=== PATIENT | female | born 1955 | race Caucasian/White ===

== ENCOUNTER 2017-01-24 04:05 | Emergency (ER) | payer MEDICARE, OTHER ==
[2017-01-24] MEDS ORDERED: Lidocaine 2% with EPINEPHrine 1:100,000 20 ML MDV INJECT ONE (04:46)
--- NOTE | 2017-01-24 05:07 | EDM.PDOC ---
ED HPI GENERAL MEDICAL PROBLEM - General Chief Complaint: Head Injury Stated Complaint: Head injury Time Seen by Provider: 01/24/17 04:40 Source of Information: Reports: Patient, Family History Limitations: Reports: No Limitations - History of Present Illness INITIAL COMMENTS - FREE TEXT/NARRATIVE: Patient brought here by her after losing her balance and falling. She hit her head on the corner of a table and does have quite a lot of bleeding. No neurologic symptoms. No complaints of headache, did not lose consciousness. No other symptoms. They did apply pressure and ice before coming in this morning. Onset: Today, Sudden Location: Reports: Head Quality: Reports: Sharp Severity: Mild Treatments STUDENT ADMISSIONS CLERK: Reports: Cold Therapy, Other (see below) (pressure) - Related Data Allergies Allergy/AdvReac Type Severity Reaction Status Date / Time atenolol Allergy Cannot Verified 01/24/17 04:23 Remember celecoxib [From Celebrex] Allergy Cannot Verified 01/24/17 04:23 Remember cephalexin monohydrate Allergy Nausea Verified 01/24/17 04:23 [From Keflex] gentamicin [Gentamicin] Allergy Hives Verified 01/24/17 04:23 naproxen [From Naprosyn] Allergy Cannot Verified 01/24/17 04:23 Remember oxycodone [Oxycodone] Allergy Cannot Verified 01/24/17 04:23 Remember Penicillins Allergy Cannot Verified 01/24/17 04:23 Remember shellfish derived Allergy Edema Verified 01/24/17 04:23 Sulfa (Sulfonamide Allergy Cannot Verified 01/24/17 04:23 Antibiotics) Remember Tetracyclines Allergy Cannot Verified 01/24/17 04:23 Remember ataryl Allergy Cannot Uncoded 01/24/17 04:23 Remember contrast dye Allergy Cannot Uncoded 01/24/17 04:23 Remember Home Meds: Home Meds Allopurinol [Zyloprim] 100 mg PO DAILY 07/28/13 [History] Aspirin [[place] Aspirin] 2 tab PO DAILY 07/28/13 [History] Calcitriol [Rocaltrol] 0.25 mcg PO 07/28/13 [History] Cholecalciferol (Vitamin D3) [Vitamin D] 2,000 unit PO DAILY 07/28/13 [History] Clopidogrel [Plavix] 1.5 tab PO DAILY 07/28/13 [History] Cyanocobalamin (Vitamin B12) [Cyanocobalamin] 1,000 mcg PO DAILY 07/28/13 [ History] Cyclobenzaprine [Flexeril] 10 mg PO BEDTIME 07/28/13 [History] DULoxetine [Cymbalta] 60 mg PO DAILY 07/28/13 [History] Furosemide [Lasix] 10 - 20 mg PO DAILY 07/28/13 [History] Glucagon,Human Recombinant [Glucagon Emergency Kit] 1 mg SUBCUT ASDIRECTED PRN 07/28/13 [History] Hydrocodone/Acetaminophen [Lorcet 10-650 Tablet] 1 each PO DAILY PRN 07/28/13 [ History] Hydrocodone/Acetaminophen [Lorcet 10-650 Tablet] 2 tab PO ACBED PRN 07/28/13 [ History] Insulin Glarg,Human.Rec.Analog [LantUS] 45 unit SUBCUT DAILY 07/28/13 [History] Insulin Lispro [HumaLOG] 20 - 27 units SUBCUT TID 07/28/13 [History] Isosorbide Mononitrate [Isosorbide Mononitrate ER] 0.5 tab PO DAILY 07/28/13 [ History] Levothyroxine Sodium [Synthroid] 300 mcg PO DAILY 07/28/13 [History] Lisinopril [Prinivil] 0.5 tab PO DAILY 07/28/13 [History] Metoclopramide [Reglan] 5 mg PO ACBED 07/28/13 [History] Metoprolol Succinate [Toprol XL 100mg] 100 mg PO DAILY 07/28/13 [History] Nitroglycerin [Nitrostat] 0.4 mg SL PRN 07/28/13 [History] Nortriptyline HCl [Pamelor] 10 mg PO 07/28/13 [History] Ursodiol [Actigal] 300 mg PO 07/28/13 [History] Vitamin E (Dl,Tocopheryl Acet) [Vitamin E] 2 tab PO DAILY 07/28/13 [History] atorvaSTATin [Lipitor] 20 mg PO BEDTIME 07/28/13 [History] Past Medical History HEENT History: Reports: Cataract Cardiovascular History: Reports: Heart Murmur, High Cholesterol, Hypertension Gastrointestinal History: Reports: Cirrhosis, GERD Genitourinary History: Reports: Acute Renal Failure Other Genitourinary History: stage 3 Musculoskeletal History: Reports: Other (See Below) Other Musculoskeletal History: Turners syndrome Neurological History: Reports: Neuropathy, Diabetic Psychiatric History: Reports: Depression Endocrine/Metabolic History: Reports: Diabetes, Type I, Hypothyroidism - Past Surgical History HEENT Surgical History: Reports: Cataract Surgery Cardiovascular Surgical History: Reports: Coronary Artery Stent Social & Family History - Tobacco Use Smoking Status *Q: Never Smoker - Alcohol Use Days Per Week of Alcohol Use: 0 - Recreational Drug Use Recreational Drug Use: No ED ROS GENERAL - Review of Systems Review Of Systems: See Below Constitutional: Reports: No Symptoms HEENT: Reports: No Symptoms Respiratory: Reports: No Symptoms Cardiovascular: Reports: No Symptoms Endocrine: Reports: No Symptoms GI/Abdominal: Reports: No Symptoms : Reports: No Symptoms Musculoskeletal: Reports: No Symptoms Skin: Reports: Wound Neurological: Reports: No Symptoms Psychiatric: Reports: No Symptoms Hematologic/Lymphatic: Reports: No Symptoms Immunologic: Reports: No Symptoms ED EXAM, HEAD INJURY - Physical Exam Exam: See Below Exam Limited By: No Limitations General Appearance: Alert, WD/WN, No Apparent Distress Head: Scalp Lacerations (posterior occiput) Eyes: Bilateral Eye: EOMI, PERRL Ears: Normal TMs Nose: Normal Inspection Throat/Mouth: Normal Inspection, Normal Oropharynx Neck: Non-Tender, Full Range of Motion, Normal Alignment, Normal Inspection Respiratory: No Respiratory Distress, No Accessory Muscle Use Cardiovascular: Normal Peripheral Pulses, Regular Rate, Rhythm, No Edema GI/Abdominal Exam: Normal Bowel Sounds, Soft Back Exam: Normal Inspection Extremities: Normal Inspection, Normal Range of Motion, Normal Capillary Refill Neurologic: security officer II-XII nml As Tested, No Motor/Sensory Deficits, Alert, Normal Mood/Affect, Oriented x 3 - Sarah Ann Coma Score Best Eye Response (Debbi): (4) Open Spontaneously Best Verbal Response (Sarah Ann): (5) Oriented Best Motor Response (Sarah Ann): (6) Obeys Commands ED LACERATION/WOUND & TERESO PROC - Laceration/Wound Repair Middle Occipital Lac/wound length in cm: 3 Appearance: Linear Distal NVT: Neuro & Vascular Intact Anesthetic Type: Local Local Anesthesia - Lidocaine (Xylocaine): 2% with EPI Local Anesthetic Volume: 4cc Skin Prep: Chlorhexidine (Hibiciens), Saline Exploration/Debridement/Repair: Wound Explored, Explored to Base, No Foreign Material Found Closed with: Micaela # of Sutures: 5 Drain Placement: No Sterile Dressing Applied: Nurse Tetanus Status Addressed: No Complications: No Lower Occipital Lac/wound length in cm: 0.5 Appearance: Linear Distal NVT: Neuro & Vascular Intact Anesthetic Type: Local Local Anesthesia - Lidocaine (Xylocaine): 2% with EPI Local Anesthetic Volume: 3cc Skin Prep: Chlorhexidine (Hibiciens), Saline Exploration/Debridement/Repair: Wound Explored, Explored to Base, No Foreign Material Found Closed with: Micaela # of Sutures: 5 Course - Orders/Labs/Meds Meds: Medications Discontinued Medications Generic Name Dose Route Start Last Admin Trade Name Windy PRN Reason Stop Dose Admin Lidocaine/Epinephrine 20 ml 01/24/17 04:46 Xylocaine 2% With Epinephrine 1:100,000 INJECT 01/24/17 04:47 ONETIME ONE - Re-Assessments/Exams Free Text/Narrative Re-Assessment/Exam: 01/24/17 05:43 posterior occiput with 2 large hematomas and lacerations to each. Sites cleaned , inspected with micaela inserted to each. Patient did tolerate well. Pressure dressing applied. Intact neuro status. Departure - Departure Time of Disposition: 06:04 Disposition: Home, Self-Care 01 Condition: Good Clinical Impression: Laceration of head without foreign body - Discharge Information Instructions: Hematoma, [id number], Head Injury, Adult, [id number], Wound Infection, [id number] Additional Instructions: Keep your dressing applied for the next 1-2 days. Do not shower until Thursday. Go to the clinic to have your micaela removed in 7-10 days Watch for signs of infection which include temperature greater than 101.5 F, increased redness, warmth, swelling, oozing from the wound site. You may shower on Thursday. Pat dry the area, do not vigorously scrub your head in the 2 areas with lacerations as this may cause them to start oozing blood. Please call us if you have any questions or concerns. - Problem List & Annotations (1) Laceration of head without foreign body SNOMED Code(s): 910645012 Code(s): S01.91XA - LACERATION W/O FOREIGN BODY OF UNSP PART OF HEAD, INIT Status: Acute Priority: Low Qualifiers: Encounter type: initial encounter Location of open wound of head: unspecified part of head Qualified Code(s): S01.91XA - Laceration without foreign body of unspecified part of head, initial encounter - Problem List Review Problem List Initiated/Reviewed/Updated: Yes - Assessment/Plan Assessment:: posterior head laceration of occiput x 2 Plan: Keep your dressing applied for the next 1-2 days. Do not shower until Thursday. Go to the clinic to have your micaela removed in 7-10 days Watch for signs of infection which include temperature greater than 101.5 F, increased redness, warmth, swelling, oozing from the wound site. You may shower on Thursday. Pat dry the area, do not vigorously scrub your head in the 2 areas with lacerations as this may cause them to start oozing blood. Please call us if you have any questions or concerns.
[2017-01-24 07:56] VITALS: BP 112/75
== END 2017-01-24 06:06 | disposition home or self-care (01) ==
LOC: VM.ED 04:05
DX: S01.01XA Laceration without foreign body of scalp, initial encounter (principal); I10 Essential (primary) hypertension; E78.00 Pure hypercholesterolemia, unspecified; K21.9 Gastro-esophageal reflux disease without esophagitis; F32.9 Major depressive disorder, single episode, unspecified; E10.40 Type 1 diabetes mellitus with diabetic neuropathy, unspecified; E03.9 Hypothyroidism, unspecified; Z88.5 Allergy status to narcotic agent; Z88.1 Allergy status to other antibiotic agents; Z88.8 Allergy status to other drugs, medicaments and biological substances; Z88.0 Allergy status to penicillin; Z88.2 Allergy status to sulfonamides; Z91.013 Allergy to seafood; Z91.041 Radiographic dye allergy status; Z79.82 Long term (current) use of aspirin; Z79.4 Long term (current) use of insulin; Z79.899 Other long term (current) drug therapy; Z95.5 Presence of coronary angioplasty implant and graft; W07.XXXA Fall from chair, initial encounter
CPT/HCPCS: 12002; 99283; 99283-GF-25

== ENCOUNTER 2018-01-12 11:58 | Observation (INO) | payer MEDICARE, OTHER ==
[2018-01-12] MEDS ORDERED: Sodium Chloride 0.9% 1,000 ML IV ONE (12:23)
[2018-01-12] MEDS ORDERED: Sodium Chloride 0.9% 10 ML Syringe FLUSH PRN (12:23)
[2018-01-12] MEDS ORDERED: Insulin Regular, Human 10 UNIT in Dextrose 10% in Water 500 ML IV ONE ×4 (12:27→13:34)
[2018-01-12] MEDS ORDERED: Calcium Gluconate 10% 1 GM/10 ML SDV IVPUSH ONE (13:08)
[2018-01-12] MEDS ORDERED: Insulin Regular, Human 100 Units/ML 3 ML Vial IV ONE (13:39)
--- NOTE | 2018-01-12 13:58 | EDM.PDOC ---
ED HPI GENERAL MEDICAL PROBLEM - General Chief Complaint: General Stated Complaint: GENERAL ILLNESS Time Seen by Provider: 01/12/18 12:23 Source of Information: Reports: Patient, Old Records, Provider (Dr. Mireles contacted) History Limitations: Reports: No Limitations - History of Present Illness INITIAL COMMENTS - FREE TEXT/NARRATIVE: Nae was seen earlier today for some lab draws and incidentally it was found that she had a blood glucose of over 800 and a potassium of 6.6. It was requested that she come into the ER for additional testing. She was found to be completely asymptomatic. She did try to treat her hyperglycemia with 10 units of insulin. Recheck here showed her to be 722. She has no complaints. Onset: Today, Sudden Location: Reports: Generalized Severity: Mild Improves with: Reports: None Worsens with: Reports: None Associated Symptoms: Reports: No Other Symptoms - Related Data Allergies Allergy/AdvReac Type Severity Reaction Status Date / Time atenolol Allergy Cannot Verified 01/24/17 04:23 Remember celecoxib [From Celebrex] Allergy Cannot Verified 01/24/17 04:23 Remember cephalexin monohydrate Allergy Nausea Verified 01/24/17 04:23 [From Keflex] gentamicin [Gentamicin] Allergy Hives Verified 01/24/17 04:23 naproxen [From Naprosyn] Allergy Cannot Verified 01/24/17 04:23 Remember oxycodone [Oxycodone] Allergy Cannot Verified 01/24/17 04:23 Remember Penicillins Allergy Cannot Verified 01/24/17 04:23 Remember shellfish derived Allergy Edema Verified 01/24/17 04:23 Sulfa (Sulfonamide Allergy Cannot Verified 01/24/17 04:23 Antibiotics) Remember Tetracyclines Allergy Cannot Verified 01/24/17 04:23 Remember ataryl Allergy Cannot Uncoded 01/24/17 04:23 Remember contrast dye Allergy Cannot Uncoded 01/24/17 04:23 Remember Home Meds: Home Meds Allopurinol [Zyloprim] 100 mg PO DAILY 07/28/13 [History] Aspirin [[place] Aspirin] 2 tab PO DAILY 07/28/13 [History] Calcitriol [Rocaltrol] 0.25 mcg PO 07/28/13 [History] Cholecalciferol (Vitamin D3) [Vitamin D] 2,000 unit PO DAILY 07/28/13 [History] Clopidogrel [Plavix] 1.5 tab PO DAILY 07/28/13 [History] Cyanocobalamin (Vitamin B12) [Cyanocobalamin] 1,000 mcg PO DAILY 07/28/13 [ History] Cyclobenzaprine [Flexeril] 10 mg PO BEDTIME 07/28/13 [History] DULoxetine [Cymbalta] 60 mg PO DAILY 07/28/13 [History] Furosemide [Lasix] 10 - 20 mg PO DAILY 07/28/13 [History] Glucagon,Human Recombinant [Glucagon Emergency Kit] 1 mg SUBCUT ASDIRECTED PRN 07/28/13 [History] Hydrocodone/Acetaminophen [Lorcet 10-650 Tablet] 1 each PO DAILY PRN 07/28/13 [ History] Hydrocodone/Acetaminophen [Lorcet 10-650 Tablet] 2 tab PO ACBED PRN 07/28/13 [ History] Insulin Glarg,Human.Rec.Analog [LantUS] 45 unit SUBCUT DAILY 07/28/13 [History] Insulin Lispro [HumaLOG] 20 - 27 units SUBCUT TID 07/28/13 [History] Isosorbide Mononitrate [Isosorbide Mononitrate ER] 0.5 tab PO DAILY 07/28/13 [ History] Levothyroxine Sodium [Synthroid] 300 mcg PO DAILY 07/28/13 [History] Lisinopril [Prinivil] 0.5 tab PO DAILY 07/28/13 [History] Metoclopramide [Reglan] 5 mg PO ACBED 07/28/13 [History] Metoprolol Succinate [Toprol XL 100mg] 100 mg PO DAILY 07/28/13 [History] Nitroglycerin [Nitrostat] 0.4 mg SL PRN 07/28/13 [History] Nortriptyline HCl [Pamelor] 10 mg PO 07/28/13 [History] Ursodiol [Actigal] 300 mg PO 07/28/13 [History] Vitamin E (Dl,Tocopheryl Acet) [Vitamin E] 2 tab PO DAILY 07/28/13 [History] atorvaSTATin [Lipitor] 20 mg PO BEDTIME 07/28/13 [History] Past Medical History HEENT History: Reports: Cataract Cardiovascular History: Reports: Heart Murmur, High Cholesterol, Hypertension Gastrointestinal History: Reports: Cirrhosis, GERD Genitourinary History: Reports: Acute Renal Failure Other Genitourinary History: stage 3 Musculoskeletal History: Reports: Other (See Below) Other Musculoskeletal History: Turners syndrome Neurological History: Reports: Neuropathy, Diabetic Psychiatric History: Reports: Depression Endocrine/Metabolic History: Reports: Diabetes, Type I, Hypothyroidism - Past Surgical History HEENT Surgical History: Reports: Cataract Surgery Cardiovascular Surgical History: Reports: Coronary Artery Stent ED ROS GENERAL - Review of Systems Review Of Systems: See Below Constitutional: Reports: No Symptoms HEENT: Reports: No Symptoms Respiratory: Reports: No Symptoms Cardiovascular: Reports: No Symptoms Endocrine: Reports: No Symptoms GI/Abdominal: Reports: No Symptoms : Reports: No Symptoms Musculoskeletal: Reports: No Symptoms Skin: Reports: No Symptoms Neurological: Reports: No Symptoms Psychiatric: Reports: No Symptoms Hematologic/Lymphatic: Reports: No Symptoms Immunologic: Reports: No Symptoms ED EXAM, GENERAL - Physical Exam Exam: See Below Exam Limited By: No Limitations General Appearance: Alert, WD/WN, No Apparent Distress Eye Exam: Bilateral Eye: EOMI, Normal Inspection, PERRL Ears: Normal TMs Ear Exam: Bilateral Ear: Auricle Normal, Canal Normal, TM normal Throat/Mouth: Normal Inspection, Normal Lips, Normal Teeth, Normal Gums, Normal Oropharynx, Normal Voice, No Airway Compromise Head: Atraumatic, Normocephalic Neck: Normal Inspection, Supple, Non-Tender, Full Range of Motion Respiratory/Chest: No Respiratory Distress, Lungs Clear, Normal Breath Sounds, No Accessory Muscle Use, Chest Non-Tender Cardiovascular: Normal Peripheral Pulses, Regular Rate, Rhythm, No Edema, No Gallop, No JVD, No Murmur, No Rub Peripheral Pulses: 2+: Radial (L), Radial (R), Posterior Tibial (L), Posterior Tibial (R), Dorsalis Pedis (L), Dorsalis Pedis (R) GI/Abdominal: Normal Bowel Sounds, Soft, Non-Tender, No Organomegaly, No Distention, No Abnormal Bruit, No Mass Neurological: Alert, Oriented, CN II-XII Intact, Normal Cognition, Normal Gait, Normal Reflexes, No Motor/Sensory Deficits Psychiatric: Normal Affect, Normal Mood Skin Exam: Warm, Dry, Intact, Normal Color, No Rash Lymphatic: No Adenopathy Course - Orders/Labs/Meds Orders: Active Orders 24 hr Category Date Time Status EKG Documentation Completion [RC] STAT Care 01/12/18 12:23 Active URINALYSIS W/MICROSCOPIC [UA W/MICROSCOPIC] [URIN] Stat Lab 01/12/18 12:55 Ordered Sodium Chloride 0.9% [Saline Flush] Med 01/12/18 12:23 Active 10 ml FLUSH ASDIRECTED PRN Saline Lock Insert [OM.PC] Routine Oth 01/12/18 12:23 Ordered Medication Orders Sodium Chloride (Saline Flush) 10 ml FLUSH ASDIRECTED PRN PRN Reason: Keep Vein Open Labs: Laboratory Tests 01/12/18 01/12/18 01/12/18 Range/Units 12:24 12:51 12:51 Glucose 712 H* (74-106) mg/dL POC Glucose > 500 H* (74-106) mg/dL Phosphorus 4.7 (2.6-4.7) mg/dL Magnesium 1.6 L (1.8-2.4) mg/dL Urine Color (YELLOW) Urine Appearance (CLEAR) Urine pH (5.0-8.0) Ur Specific [place] Urine Protein (NEGATIVE) mg/dL Urine Glucose (UA) (NEGATIVE) mg/dL Urine Ketones (NEGATIVE) mg/dL Urine Occult Blood (NEGATIVE) Urine Nitrite (NEGATIVE) Urine Bilirubin (NEGATIVE) Urine Urobilinogen (0.2) EU/dL Ur Leukocyte Esterase (NEGATIVE) Urine RBC (NOT SEEN) /HPF Urine WBC (NOT SEEN) /HPF Ur Squamous Epith Cells (NEGATIVE) /HPF Urine Bacteria (NEGATIVE) /HPF Urine Mucus (NEGATIVE) /LPF 01/12/18 Range/Units 12:55 Glucose (74-106) mg/dL POC Glucose (74-106) mg/dL Phosphorus (2.6-4.7) mg/dL Magnesium (1.8-2.4) mg/dL Urine Color Yellow (YELLOW) Urine Appearance Slightly cloudy H (CLEAR) Urine pH 5.5 (5.0-8.0) Ur Specific [place] 1.010 Urine Protein Negative (NEGATIVE) mg/dL Urine Glucose (UA) 500 H (NEGATIVE) mg/dL Urine Ketones Negative (NEGATIVE) mg/dL Urine Occult Blood Trace-intact H (NEGATIVE) Urine Nitrite Negative (NEGATIVE) Urine Bilirubin Negative (NEGATIVE) Urine Urobilinogen 0.2 (0.2) EU/dL Ur Leukocyte Esterase Negative (NEGATIVE) Urine RBC 0-5 (NOT SEEN) /HPF Urine WBC 0-5 (NOT SEEN) /HPF Ur Squamous Epith Cells Moderate H (NEGATIVE) /HPF Urine Bacteria Moderate H (NEGATIVE) /HPF Urine Mucus Few H (NEGATIVE) /LPF Meds: Medications Generic Name Dose Route Start Last Admin Trade Name Frelevi PRN Reason Stop Dose Admin Sodium Chloride 10 ml 01/12/18 12:23 Saline Flush FLUSH ASDIRECTED PRN Keep Vein Open Discontinued Medications Generic Name Dose Route Start Last Admin Trade Name Freq PRN Reason Stop Dose Admin Calcium Gluconate 1 gm 01/12/18 13:08 01/12/18 13:24 Calcium Gluconate IVPUSH 01/12/18 13:09 1 gm ONETIME ONE Administration Sodium Chloride 1,000 mls @ 999 mls/hr 01/12/18 12:23 01/12/18 13:38 Normal Saline IV 01/12/18 13:23 999 mls/hr ONETIME ONE Administration Insulin Human Regular 10 unit/ 500.1 mls @ 500 mls/hr 01/12/18 12:27 Dextrose/Water IV 01/12/18 13:27 ONETIME ONE Insulin Human Regular 10 unit/ 500.1 mls @ 500 mls/hr 01/12/18 13:34 Dextrose/Water IV 01/12/18 14:34 ONETIME ONE Insulin Human Regular 10 unit 01/12/18 13:39 01/12/18 13:05 Humulin R IV 01/12/18 13:40 10 unit ONETIME ONE Administration - Re-Assessments/Exams Free Text/Narrative Re-Assessment/Exam: 01/12/18 13:58 Urine collected as well as magnesium, phos., EKG Departure - Departure Time of Disposition: 13:45 Disposition: Refer to Observation Clinical Impression: Hyperglycemia, Hyperkalemia - Discharge Information *PRESCRIPTION DRUG MONITORING PROGRAM REVIEWED*: Not Applicable *COPY OF PRESCRIPTION DRUG MONITORING REPORT IN PATIENT ROSS: Not Applicable - Problem List & Annotations (1) Hyperglycemia SNOMED Code(s): 12165817 Code(s): R73.9 - HYPERGLYCEMIA, UNSPECIFIED Status: Acute Current Visit: Yes (2) Hyperkalemia SNOMED Code(s): 13984927 Code(s): E87.5 - HYPERKALEMIA Status: Acute Current Visit: Yes - Problem List Review Problem List Initiated/Reviewed/Updated: Yes - My Orders Last 24 Hours: My Active Orders 01/12/18 12:23 EKG Documentation Completion [RC] STAT Sodium Chloride 0.9% [Saline Flush] 10 ml FLUSH ASDIRECTED PRN Saline Lock Insert [OM.PC] Routine 01/12/18 12:55 URINALYSIS W/MICROSCOPIC [UA W/MICROSCOPIC] [URIN] Stat - Assessment/Plan Last 24 Hours: My Active Orders 01/12/18 12:23 EKG Documentation Completion [RC] STAT Sodium Chloride 0.9% [Saline Flush] 10 ml FLUSH ASDIRECTED PRN Saline Lock Insert [OM.PC] Routine 01/12/18 12:55 URINALYSIS W/MICROSCOPIC [UA W/MICROSCOPIC] [URIN] Stat Assessment:: Hyperkalemia Hyperglycemia Plan: Plan 1. Admit to observation 2. hyperkalemia - treat with insulin and calcium gluconate 3. hyperglycemia - treat with insulin Discharge later this afternoon with potassium under 6, glucose under 500 and referral for recheck with primary provider tomorrow
[2018-01-12 17:19] VITALS: BP 127/72
--- NOTE | 2018-01-12 20:27 | PCM.DCSUM1 ---
Discharge Summary - Hospital Course Brief History: Patient admitted for brief observation for hyperkalemia and hyperglycemia incidentally found at the clinic. Asymptomatic. Diagnosis: Stroke: No - Discharge Data Discharge Date: 01/12/18 Discharge Disposition: Home, Self-Care 01 Condition: Good - Discharge Diagnosis/Problem(s) (1) Hyperglycemia SNOMED Code(s): 20280747 ICD Code: R73.9 - HYPERGLYCEMIA, UNSPECIFIED Status: Acute Priority: Medium Current Visit: Yes Problem Details: resolved (2) Hyperkalemia SNOMED Code(s): 80970595 ICD Code: E87.5 - HYPERKALEMIA Status: Acute Priority: Medium Current Visit: Yes Problem Details: resolved - Patient Instructions Diet: Usual Diet as Tolerated Activity: As Tolerated - Discharge Plan *PRESCRIPTION DRUG MONITORING PROGRAM REVIEWED*: Not Applicable *COPY OF PRESCRIPTION DRUG MONITORING REPORT IN PATIENT ROSS: Not Applicable Home Medications: Home Meds Cyanocobalamin (Vitamin B12) [Cyanocobalamin] 1,000 mcg IM Q30D 07/28/13 [ History] Cyclobenzaprine [Flexeril] 10 mg PO BEDTIME 07/28/13 [History] DULoxetine [Cymbalta] 60 mg PO BEDTIME 07/28/13 [History] Glucagon,Human Recombinant [Glucagon Emergency Kit] 1 mg SUBCUT ASDIRECTED PRN 07/28/13 [History] Insulin Lispro [HumaLOG] 0 units SUBCUT ASDIRECTED 07/28/13 [History] Isosorbide Mononitrate [Isosorbide Mononitrate ER] 30 mg PO Q48H 07/28/13 [ History] Metoclopramide [Reglan] 5 mg PO ACBED 07/28/13 [History] Nitroglycerin [Nitrostat] 0.4 mg SL ASDIRECTED PRN 07/28/13 [History] Nortriptyline HCl [Pamelor] 10 mg PO BID@0800,1300 07/28/13 [History] Ursodiol [Actigal] 600 mg PO BID@0800,1200 07/28/13 [History] Vitamin E (Dl,Tocopheryl Acet) [Vitamin E] 400 unit PO BID 07/28/13 [History] atorvaSTATin [Lipitor] 20 mg PO BEDTIME 07/28/13 [History] Aspirin [Halfprin] 162 mg PO DAILY 01/12/18 [History] Cholecalciferol (Vitamin D3) [Vitamin D3] 1,000 unit PO BID 01/12/18 [History] Cyanocobalamin (Vitamin B-12) [B-12] 1,000 mcg PO DAILY 01/12/18 [History] Ferrous Gluconate 324 mg PO Q48H 01/12/18 [History] Gabapentin [Neurontin] 300 mg PO TID 01/12/18 [History] Hydrocodone/Acetaminophen [Hydrocodon-Acetaminophn 10-325] 1 tab PO Q6H PRN [History] Insulin Degludec [Tresiba Flextouch U-100] 14 unit SQ BEDTIME 01/12/18 [History] Levothyroxine 200 mcg PO ACBREAKFAST 01/12/18 [History] Metoclopramide [Reglan] 5 mg PO TIDAC 01/12/18 [History] Metoprolol Succinate [Toprol XL 50mg] 50 mg PO DAILY 01/12/18 [History] Nortriptyline 20 mg PO BEDTIME 01/12/18 [History] Pramipexole [Mirapex] 0.5 mg PO BEDTIME 01/12/18 [History] Sennosides/Docusate Sodium [Sennosides-Docusate Sodium] 1 tab PO BID 01/12/18 [ History] Ursodiol 300 mg PO BEDTIME 01/12/18 [History] oxyCODONE HCl [Oxycodone HCl ER] 15 mg PO BID 01/12/18 [History] Patient Handouts: Hyperkalemia, Hyperglycemia, [id number] Forms: ED Department Discharge Referrals: Vernell Mireles DO [Primary Care Provider] - - Discharge Summary/Plan Comment DC Time >30 min.: No - General Info Date of Service: 01/12/18 Admission Dx/Problem (Free Text: hyperglycemia hyperkalemia - Review of Systems General: Reports: No Symptoms HEENT: Reports: No Symptoms Pulmonary: Reports: No Symptoms Cardiovascular: Reports: No Symptoms Gastrointestinal: Reports: No Symptoms Genitourinary: Reports: No Symptoms Musculoskeletal: Reports: No Symptoms Skin: Reports: No Symptoms Neurological: Reports: No Symptoms Psychiatric: Reports: No Symptoms - Patient Data Vitals - Most Recent: Last Vital Signs Temp 36.4 C 01/12/18 17:18 Pulse 68 01/12/18 17:18 Resp 16 01/12/18 17:18 BP 127/72 01/12/18 17:18 Pulse Ox 100 01/12/18 17:18 Weight - Most Recent: 68.039 kg I&O - Last 24 hours: Intake & Output 01/12/18 01/12/18 01/12/18 06:59 14:59 22:59 Intake Total 1304 Output Total 950 Balance 354 Lab Results - Last 24 hrs: Laboratory Results - last 24 hr 01/12/18 01/12/18 01/12/18 Range/Units 12:24 12:51 12:51 Potassium (3.5-5.1) mmol/L Glucose 712 H* (74-106) mg/dL POC Glucose > 500 H* (74-106) mg/dL Phosphorus 4.7 (2.6-4.7) mg/dL Magnesium 1.6 L (1.8-2.4) mg/dL Urine Color (YELLOW) Urine Appearance (CLEAR) Urine pH (5.0-8.0) Ur Specific [place] Urine Protein (NEGATIVE) mg/dL Urine Glucose (UA) (NEGATIVE) mg/dL Urine Ketones (NEGATIVE) mg/dL Urine Occult Blood (NEGATIVE) Urine Nitrite (NEGATIVE) Urine Bilirubin (NEGATIVE) Urine Urobilinogen (0.2) EU/dL Ur Leukocyte Esterase (NEGATIVE) Urine RBC (NOT SEEN) /HPF Urine WBC (NOT SEEN) /HPF Ur Squamous Epith Cells (NEGATIVE) /HPF Urine Bacteria (NEGATIVE) /HPF Urine Mucus (NEGATIVE) /LPF 01/12/18 01/12/18 01/12/18 Range/Units 12:55 15:14 16:45 Potassium (3.5-5.1) mmol/L Glucose (74-106) mg/dL POC Glucose > 500 H* > 500 H* (74-106) mg/dL Phosphorus (2.6-4.7) mg/dL Magnesium (1.8-2.4) mg/dL Urine Color Yellow (YELLOW) Urine Appearance Slightly cloudy H (CLEAR) Urine pH 5.5 (5.0-8.0) Ur Specific [place] 1.010 Urine Protein Negative (NEGATIVE) mg/dL Urine Glucose (UA) 500 H (NEGATIVE) mg/dL Urine Ketones Negative (NEGATIVE) mg/dL Urine Occult Blood Trace-intact H (NEGATIVE) Urine Nitrite Negative (NEGATIVE) Urine Bilirubin Negative (NEGATIVE) Urine Urobilinogen 0.2 (0.2) EU/dL Ur Leukocyte Esterase Negative (NEGATIVE) Urine RBC 0-5 (NOT SEEN) /HPF Urine WBC 0-5 (NOT SEEN) /HPF Ur Squamous Epith Cells Moderate H (NEGATIVE) /HPF Urine Bacteria Moderate H (NEGATIVE) /HPF Urine Mucus Few H (NEGATIVE) /[facility] 01/12/18 01/12/18 01/12/18 Range/Units 18:08 19:00 19:28 Potassium 4.8 (3.5-5.1) mmol/L Glucose (74-106) mg/dL POC Glucose 302 H 196 H (74-106) mg/dL Phosphorus (2.6-4.7) mg/dL Magnesium (1.8-2.4) mg/dL Urine Color (YELLOW) Urine Appearance (CLEAR) Urine pH (5.0-8.0) Ur Specific [place] Urine Protein (NEGATIVE) mg/dL Urine Glucose (UA) (NEGATIVE) mg/dL Urine Ketones (NEGATIVE) mg/dL Urine Occult Blood (NEGATIVE) Urine Nitrite (NEGATIVE) Urine Bilirubin (NEGATIVE) Urine Urobilinogen (0.2) EU/dL Ur Leukocyte Esterase (NEGATIVE) Urine RBC (NOT SEEN) /HPF Urine WBC (NOT SEEN) /HPF Ur Squamous Epith Cells (NEGATIVE) /HPF Urine Bacteria (NEGATIVE) /HPF Urine Mucus (NEGATIVE) /[facility] 01/12/18 Range/Units 20:07 Potassium (3.5-5.1) mmol/L Glucose (74-106) mg/dL POC Glucose 137 H (74-106) mg/dL Phosphorus (2.6-4.7) mg/dL Magnesium (1.8-2.4) mg/dL Urine Color (YELLOW) Urine Appearance (CLEAR) Urine pH (5.0-8.0) Ur Specific [place] Urine Protein (NEGATIVE) mg/dL Urine Glucose (UA) (NEGATIVE) mg/dL Urine Ketones (NEGATIVE) mg/dL Urine Occult Blood (NEGATIVE) Urine Nitrite (NEGATIVE) Urine Bilirubin (NEGATIVE) Urine Urobilinogen (0.2) EU/dL Ur Leukocyte Esterase (NEGATIVE) Urine RBC (NOT SEEN) /HPF Urine WBC (NOT SEEN) /HPF Ur Squamous Epith Cells (NEGATIVE) /HPF Urine Bacteria (NEGATIVE) /HPF Urine Mucus (NEGATIVE) /LPF Med Orders - Current: Current Medications Insulin Human Regular 100 unit (/ Sodium Chloride) 100 mls @ 6.8 mls/hr IV TITRATE AMINA; Protocol Last Titration: 01/12/18 18:09 Dose: 0.11 units/kg/hr, 7.6 mls/hr Sodium Chloride (Saline Flush) 10 ml FLUSH ASDIRECTED PRN PRN Reason: Keep Vein Open Last Admin: 01/12/18 15:42 Dose: 10 ml Discontinued Medications Calcium Gluconate (Calcium Gluconate) 1 gm IVPUSH ONETIME ONE Stop: 01/12/18 13:09 Last Admin: 01/12/18 13:24 Dose: 1 gm Sodium Chloride (Normal Saline) 1,000 mls @ 999 mls/hr IV ONETIME ONE Stop: 01/12/18 13:23 Last Admin: 01/12/18 13:38 Dose: 999 mls/hr Insulin Human Regular 10 unit/ (Dextrose/Water) 500.1 mls @ 500 mls/hr IV ONETIME ONE Stop: 01/12/18 13:27 Last Admin: 01/12/18 14:53 Dose: Not Given Insulin Human Regular 10 unit/ (Dextrose/Water) 500.1 mls @ 500 mls/hr IV ONETIME ONE Stop: 01/12/18 14:34 Last Admin: 01/12/18 14:53 Dose: Not Given Insulin Human Regular (Humulin R) 10 unit IV ONETIME ONE Stop: 01/12/18 13:40 Last Admin: 01/12/18 13:05 Dose: 10 unit - Exam General: Reports: Alert, Oriented HEENT: Reports: Pupils Equal, Pupils Reactive, EOMI, Mucous Membr. Moist/[place] Neck: Reports: Supple Lungs: Reports: Clear to Auscultation, Normal Respiratory Effort Cardiovascular: Reports: Regular Rate, Regular Rhythm GI/Abdominal Exam: Normal Bowel Sounds, Soft, Non-Tender, No Organomegaly, No Distention, No Abnormal Bruit, No Mass, Pelvis Stable Back Exam: Reports: Normal Inspection, Full Range of Motion Extremities: Normal Inspection, Normal Range of Motion, Non-Tender, No Pedal Edema, Normal Capillary Refill Skin: Reports: Warm, Dry, Intact Neurological: Reports: No New Focal Deficit Psy/Mental Status: Reports: Alert, Normal Affect, Normal Mood
== END 2018-01-12 21:40 | disposition home or self-care (01) ==
LOC: VM.ED 11:58 → VM.MS 13:45
PROVIDERS: ADMIT Nurse Practitioner Family; ATTEND Nurse Practitioner Family
DX: R73.9 Hyperglycemia, unspecified (principal); E87.5 Hyperkalemia; E78.00 Pure hypercholesterolemia, unspecified; I10 Essential (primary) hypertension; N17.9 Acute kidney failure, unspecified; K74.60 Unspecified cirrhosis of liver; K21.9 Gastro-esophageal reflux disease without esophagitis; E10.40 Type 1 diabetes mellitus with diabetic neuropathy, unspecified; E03.9 Hypothyroidism, unspecified; Q96.9 Turner's syndrome, unspecified; Z79.4 Long term (current) use of insulin; Z79.82 Long term (current) use of aspirin; Z79.899 Other long term (current) drug therapy; Z88.0 Allergy status to penicillin; Z88.1 Allergy status to other antibiotic agents; Z88.6 Allergy status to analgesic agent; Z88.8 Allergy status to other drugs, medicaments and biological substances; Z91.013 Allergy to seafood; Z91.041 Radiographic dye allergy status
CPT/HCPCS: 36415; 81001; 82947; 82962; 83735; 84100; 84132; 93005; 96374; 96375; 99284; J0610; J1815; J7030; J7050; 99236

== ENCOUNTER 2018-10-08 09:54 | Inpatient (IN) | payer MEDICARE, OTHER ==
[2018-10-08] MEDS ORDERED: HYDROmorphone 1 MG/ML Syringe IVPUSH PRN (10:14)
[2018-10-08] MEDS ORDERED: Sodium Chloride 0.9% 10 ML Syringe FLUSH PRN (10:14)
[2018-10-08] MEDS ORDERED: Ondansetron 4 MG/2 ML SDV IV PRN (10:14)
[2018-10-08] MEDS ORDERED: Acetaminophen/HYDROcodone 325-10 MG Tab PO PRN (10:20)
[2018-10-08] MEDS ORDERED: Glucagon,Human Recombinant 1 MG Vial SUBCUT PRN (10:20)
[2018-10-08] MEDS ORDERED: Nitroglycerin 0.4 MG Tab.SL SL PRN (10:20)
[2018-10-08] MEDS ORDERED: cefTRIAXone 2 GM Vial IVPUSH ONE (10:20)
[2018-10-08] MEDS ORDERED: Cyanocobalamin (Vitamin B12) 1,000 MCG/ML SDV IM SCH (10:30)
[2018-10-08] MEDS ORDERED: METOCLOPRAMIDE 5 MG PO SCH (11:00)
[2018-10-08 11:32] LABS: ANION GAP 20.8 mmol/L (10-20)
[2018-10-08] MEDS: Aspirin 81 MG Tab.EC PO SCH (11:47)
[2018-10-08] MEDS: Gabapentin 300 MG Cap PO SCH ×2 (11:47→21:07)
[2018-10-08] MEDS: Metoclopramide 5 MG Tab PO SCH ×3 (11:51→21:06)
[2018-10-08] MEDS: Nortriptyline 10 MG Cap PO SCH ×3 (11:51→21:33)
[2018-10-08] MEDS ORDERED: 50% Dextrose in Water 50 ML Syringe IV PRN (12:13)
[2018-10-08] MEDS: Insulin Lispro 100 Unit/ML 3 ML KwikPen SUBCUT PRN ×3 (12:21→21:14)
[2018-10-08] MEDS: oxyCODONE ER 10 MG TAB.ER PO SCH ×2 (12:22→21:05)
[2018-10-08] MEDS: Insulin Lispro 100 Unit/ML 3 ML KwikPen SUBCUT SCH ×2 (12:23→17:24)
[2018-10-08] MEDS: Lactated Ringers 1,000 ML IV SCH ×2 (12:25→15:35)
[2018-10-08] MEDS: Bumetanide 1 MG Tab PO SCH (12:25)
[2018-10-08] MEDS: Metoprolol Succinate 25 MG Tab.ER PO SCH (12:25)
[2018-10-08] MEDS ORDERED: Lactated Ringers 1,000 ML IV ONE (13:13)
[2018-10-08] MEDS ORDERED: Magnesium Sulfate/Water 2 GM in Premix Bag 1 BAG IV ONE (13:14)
[2018-10-08] MEDS: URSODIOL 300 MG PO SCH ×2 (13:45→21:15)
[2018-10-08 15:20] LABS: ANION GAP 15.5 mmol/L (10-20)
--- NOTE | 2018-10-08 15:29 | PCM.HP ---
H&P History of Present Illness - General Date of Service: 10/08/18 Admit Problem/Dx: Admission Diagnosis/Problem Admission Diagnosis/Problem Erysipelas - History of Present Illness Initial Comments - Free Text/Narative: Assessment / Plan Erysipelas Type 1 diabetes mellitus without complication (HCC) CKD (chronic kidney disease) stage 4, GFR 15-29 ml/min (HCC) Coronary artery disease involving saxman heart without angina pectoris, unspecified vessel or lesion type Biliary cirrhosis (HCC) Streptococcal sepsis (HCC) Plan:Nonpurulent facial cellulitis appears consistent with erysipelas. No sign of deep ororbital infection at this time. Display some sepsis by fever, tachycardia, diffuse systemic symptoms. Given her insulin-dependent diabetes, chronic kidney disease, numerous drug intolerances and above sepsis she does require admission to start with IV antibiotics. Erysipelas is almost always beta-hemolytic strep, start with empiric Rocephin. Obtain labs and blood cultures there. Monitor kidney function and sugars. If temps coming down next 48 hours can probably be switched to oral beta-lactam. Hx of biliary cirrhosis, w/o liver failure by bili, alb, INR in past. Hx of CAD, asymptomatic, monitor. Continue ASA While thromboprophylaxis has been reported to reduce the risk of in surgicalpatients, most studies and a meta-analysis have not been ableto show a consistent beneficial effect of thromboprophylaxis on mortality in hospitalized medical patients. It may reduce DVT/PE in medical patients but can lead to more bleeding and major bleeding events, thus resulting in little or no net benefit. In addition, clinicians should be aware that VTE prophylaxis does not eliminate the risk of VTE or VTE-related in hospitalized patients. Malinda Prediction Score for Risk of VTE from [employer] on 10/08/2018 RESULT SUMMARY: 2 points Pharmacologic prophylaxis is NOT indicated. Consider using mechanical prophylaxis. INPUTS: Active cancer > 0 = No Previous <abbr title='Venous thromboembolism'>VTE</abbr> > 0 = No Reduced mobility > 0 = No Already known thrombophilic condition > 0 = No Recent (?1 month trauma and/or surgery) > 0 = No Elderly age (?70 years) > 0 = No Heart and/or respiratory failure > 0 = No Acute <abbr title='Myocardial infarction'>[place]</abbr> and/or ischemic stroke > 0 = No Acute infection and/or rheumatologic disorder > 1 = Yes Obesity (<calculator id='29'>BMI</calculator> ?30) > 1 = Yes Ongoing hormonal treatment > 0 = No Follow Up: No disposition on file. HPI / History / ROS Facial Swellingredness, stings. Getting worse since yesterday. Started 36hr ago then had colonoscopy yesterday in [place] ~24h ago. Had temp then too. Headache Generalized Body Aches Fever No [place] Nonsmoker IDDM, last A1c <7 Hosp last year for severe hyperglycemia CKD4 Numerous drug allergies and intol Medications w MedicationsPriortoVisit w Outpatient Medications Prior to Visit Medication Sig Dispense Refill BD PEN NEEDLE VINCENT U/F 32G X 4 MM USE 1 PEN NEEDLE EVERY NIGHT AT BEDTIME WITH TRESIBA INSULIN PEN 100 each 0 levothyroxine 200 mcg tablet Take 1 tablet (200 mcg) by mouth 1 time per day along with a 50 mcg tablet on an empty stomach 30 min before taking any other med or food. 90 tablet 0 oxyCODONE (OXYCONTIN) 15 mg ER (12 hr) tablet TAKE 1 TABLET BY MOUTH TWICE A DAY 60 tablet 0 HYDROcodone-acetaminophen (NORCO) 10-325 mg tablet JULY FILL-TAKE 1 TABLET BY MOUTH UP TO 4 TIMES A DAY TO HELP WITH PAIN. 120 tablet 0 gabapentin (NEURONTIN) 300 mg capsule Take 1 capsule (300 mg) by mouth 3 times a day 270 capsule 4 sodium bicarbonate 650 MG tablet Take 1 tablet (650 mg) by mouth 2 times a day 180 tablet 3 DULoxetine (CYMBALTA) 60 mg capsule TAKE 1 CAPSULE DAILY 90 capsule 3 pramipexole (MIRAPEX) 0.5 mg tablet TAKE 1 TABLET 2 TO 3 HOURS BEFORE BED 90 tablet 3 atorvaSTATin (LIPITOR) 20 mg tablet TAKE 1 TABLET EVERY NIGHT AT BEDTIME 90 tablet 3 polyethylene glycol (MIRALAX) powder Take 3 teaspoonsful (17 g) by mouth 1 time per day 540 g 3 bumetanide (BUMEX) 1 mg tablet Take 2 tablets (2 mg) by mouth 1 time per day 180 tablet 4 calcitriol (ROCALTROL) 0.25 mcg capsule Take 1 capsule (0.25 mcg) by mouth 1 time per day 90 capsule 4 Continuous Blood Gluc Sensor (PagaE SENSOR SYSTEM) MISC 1 each 4 times a day 3 box 3 Continuous Blood Gluc Reel Fed Printer (FREESTYLE AIDEE READER) ISABELLE 1 each 4 times a day 1 Device 12 levothyroxine 50 mcg tablet Take 1 tablet (50 mcg) by mouth 1 time a day in the morning Along with a 200 mcg tablet 90 tablet 4 ursodiol (ACTIGALL) 300 mg capsule TAKE 2 CAPSULES IN THE MORNING, 2 CAPSULES AT LUNCH, AND 1 CAPSULE AT BEDTIME 450 capsule 3 Metoprolol Succinate 25 MG CS24 Take 25 mg by mouth 1 time per day 90 tablet 3 nortriptyline (PAMELOR) 10 mg capsule TAKE 1 CAPSULE IN THE MORNING, 1 CAPSULE IN THE AFTERNOON AND 2 CAPSULES AT BEDTIME 360 capsule 3 metoclopramide (REGLAN) 5 mg tablet TAKE 1 TABLET BEFORE EACH MEAL AND TAKE 1 TABLET AT BEDTIME TO DECREASE NAUSEA 360 tablet 3 cyclobenzaprine (FLEXERIL) 10 mg tablet TAKE 1 TABLET EVERY NIGHT AT BEDTIME 90 tablet 3 Cyanocobalamin (B-12) 1000 MCG CAPS Take 1,000 mcg by mouth 1 time per day 0 ferrous gluconate (FERGON) 324 (37.5 Fe) MG tablet Take 1 tablet (324 mg) by mouth Every other day 0 insulin degludec (TRESIBA) 100 unit/mL subcutaneous injection (pen) Inject 14 Units subcutaneously every night at bedtime 5 pen 0 insulin lispro (HUMALOG) subcutaneous injection (vial) Inject 4 units before breakfast and 5 units before lunch/supper, and 1 unit/ every 100 mg/dL above 200 mg/dL before meals. Max 30 units/day 3 vial 3 isosorbide mononitrate (IMDUR) 30 mg SR tablet (24 hr) One 30 mg tablet every other day. 45 tablet 3 aspirin 81 mg enteric coated tablet Take 162 mg by mouth 1 time per day senna-docusate sodium (SENOKOT S) 8.6-50 MG TABS Take 1 tablet by mouth 2 times a day vitamin D3, cholecalciferol, 1000 units tablet Take 1,000 Units by mouth 1 time per day vitamin E (VITAMIN E COMPLEX) 400 UNITS capsule Take 400 Units by mouth 2 times a day blood glucose test strip (FREESTYLE LITE) Use to test blood sugar up to 10 times a day d/t blood sugar fluctuations E11.9 900 each 11 INSULIN SYRINGE .5CC/28G (B-D INS SYR MICROFINE .5CC/28G) 28G X 1/2" 0.5 ML MISC Use up to five times daily as directed E11.9 300 each 11 freestyle lancets MISC Use to test blood sugar up to 10 times a day d/t blood sugars fluctuating Dx : E 10.22 300 each 11 glucagon, rDNA, (GLUCAGON EMERGENCY) 1 mg injection kit INJECT 1 MG SUBCUTANEOUSLY NEEDED FOR HYPOGLYCEMIA 3 Kit 5 NITROSTAT 0.4 MG sublingual tablet DISSOLVE 1 TABLET UNDER THE TONGUE EVERY 5 MINUTES NEEDED FOR CHEST PAIN 75 tablet 11 Facility-Administered Medications Prior to Visit Medication Dose Route Frequency Provider Last Rate Last Dose cyanocobalamin (VITAMIN B-12) injection solution 1,000 mcg 1,000 mcg Intramuscular 1 time a month Vernell Mireles DO 1,000 mcg at 12/24/17 1009 Allergies w w w w w Allergies l Allergen l Reactions w w Penicillin w Other (Specify in Comments) w w w Unsure, was young w w Gentamicin Sulfate w Hives (High) and Rash w w Shellfish Allergy w Anaphylaxis (High) w w w Throat and eyes swelled up w w Antihistamine [Altaryl] w Unknown/Not Verified w w w antihistamines w w Atenolol w Unknown/Not Verified w w Celebrex [Celecoxib] w Unknown/Not Verified w w Contrast Dye [Diagnostic X-Ray Materials] w Unknown/Not Verified w w w Patient states it hurts the kidneys w w Keflex [Cephalexin] w Nausea w w Naprosyn [Naproxen Sodium] w Other (Specify in Comments) w w w unsure w w Other: See Comments w Other (Specify in Comments) w w w Anti-Inflammatories: reaction-kidney problems w w Sulfa Drugs w Other (Specify in Comments) w w w unsure w w Tetracyclines w Other (Specify in Comments) w w w unsure Problem List w w w Patient Active Problem List l Diagnosis w w Recurrent major depressive disorder, in partial remission (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) w w Hypertension w w CAD (coronary artery disease) w w Gout w w Vitamin D deficiency w w Secondary renal hyperparathyroidism w w Biliary cirrhosis (HCC) w w Diabetes mellitus type 1 - Both w w Tear film insufficiency w w Presbyopia - Both w w Myopia - Both w w Corneal scar and opacity - Right w w Astigmatism w w Pseudophakos - Right w w Angina effort w w Pseudophakia w w Colon cancer (HCC) w w Painful diabetic neuropathy (HCC) w w Hypothyroidism w w Gastroparesis w w Back pain w w Pain medication agreement signed w w E. coli UTI w w Chronic, continuous use of opioids w w Both eyes affected by mild nonproliferative diabetic retinopathy with macular edema, associated with type 1 diabetes mellitus (HCC) w w Laceration of right ear lobe w w Obesity with body mass index of 30.0-39.9 w w Fluid overload, unspecified w w Hyperkalemia w w Constipation, unspecified w w Metabolic acidosis w w UTI (urinary tract infection) w w Renal calculi w w Anemia due to chronic kidney disease Medical/Surgical/Family/Social History w PastMedicalHistory w Past Medical History: Diagnosis Date Arthritis Cancer (HCC) colon cancer- removed cancerous polyps along with other polyps. Cataract had right eye surgery, needs left one done. 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 Mireles COLONOSCOPY 04/12/2012 COLONOSCOPY [COLONOS]; Surgeon: Toribio Kat MD COLONOSCOPY N/A 10/07/2018 Procedure: COLONOSCOPY;; Surgeon: Jaci Trujillo MD ORAL SURGERY PROCEDURE PERCUTANEOUS CORONARY INTERVENTION MAINTENANCE MECHANIC October 2008 times 3 - 2 drug eluding & 1 bare metal SIGMOIDOSCOPY FLEXIBLE 04/26/2012 SIGMOIDOSCOPY FLEXIBLE [SIGFLEX]; Surgeon: Toribio Kat MD TONSILLECTOMY UPPER ENDOSCOPY 04/12/2012 UPPER ENDOSCOPY [UPPENDO]; Surgeon: Toribio Kat MD w FamilyHistory w Family History Problem Relation Age of Onset Hypertension Mother Other Mother angioplasty &stents in kidney/kidney stones Macular Degeneration Mother Glaucoma Mother Kidney Disease Mother recently, 2012. Was on hemodialysis. Stopped HD after hip fx. Liver Cancer Father Cataracts Paternal Grandmother w SocialHistory w Social History Socioeconomic History Marital status: Spouse name: Not on file Number of children: 0 Years of education: 12 Highest education level: Not on file Occupational History Occupation: [employer] Comment: retired now Tobacco Use Smoking status: Never Smoker Smokeless tobacco: Never Used Substance and Sexual Activity Alcohol use: No Drug use: No Other Topics Concern ROS Review of Systems Constitutional: Positive forchillsand fever. Eyes: Negative forpainand visual disturbance. Respiratory: Negative forshortness of breath. Cardiovascular: Negative forchest pain. Gastrointestinal: Negative forvomiting. Genitourinary: Negative fordifficulty urinating. Musculoskeletal: Positive formyalgias. Negative forneck painand neck stiffness. Neurological: Positive forheadaches. Physical / Results BP 110/62 Pulse 104 Temp 100.7 F (38.2 C) (Tympanic) Wt 83.9 kg (185 lb) SpO2 97% BMI 41.48 kg/m2|| Physical Exam Constitutional: She appearswell-developedand well-nourished. HENT: Head: Right Ear:External earnormal. Left Ear: External earnormal. Diffuse pink erythema swelling or warmth malar area bilaterally down into chin and top of neck on the right. Extends up around orbits bilaterally. Eyes:EOMare normal. Pupils are equal, round, and reactive to light. Pain free EOM Neck:Normal range of motion. Cardiovascular:Regular rhythm. Tachy Pulmonary/Chest:Effort normaland breath sounds normal. Face/Facial Pain Score (Numeric/FACES): 9 - Related Data Allergies/Adverse Reactions: Allergies Allergy/AdvReac Type Severity Reaction Status Date / Time gentamicin [Gentamicin] Allergy Severe Hives Verified 10/08/18 12:20 shellfish derived Allergy Severe Edema Verified 10/08/18 12:20 atenolol Allergy Cannot Verified 01/12/18 14:12 Remember celecoxib [From Celebrex] Allergy Cannot Verified 01/12/18 14:12 Remember oxycodone [Oxycodone] Allergy Cannot Verified 01/12/18 14:12 Remember Penicillins Allergy Cannot Verified 01/12/18 14:12 Remember Sulfa (Sulfonamide Allergy Cannot Verified 01/12/18 14:12 Antibiotics) Remember Tetracyclines Allergy Cannot Verified 01/12/18 14:12 Remember cephalexin monohydrate AdvReac Nausea Verified 01/12/18 15:04 [From Keflex] naproxen [From Naprosyn] AdvReac Renal Verified 10/08/18 12:42 Insufficiency altaryl Allergy Cannot Uncoded 01/12/18 14:11 Remember contrast dye AdvReac Intermediate Renal Uncoded 10/08/18 12:42 Insufficiency anti-inflammatory AdvReac Renal Uncoded 10/08/18 12:42 Insufficiency Home Medications: Home Meds Cyclobenzaprine [Flexeril] 10 mg PO BEDTIME 07/28/13 [History] DULoxetine [Cymbalta] 60 mg PO BEDTIME 07/28/13 [History] Glucagon,Human Recombinant [Glucagon Emergency Kit] 1 mg SUBCUT ASDIRECTED PRN 07/28/13 [History] Insulin Lispro [HumaLOG] 0 units SUBCUT ASDIRECTED 07/28/13 [History] Isosorbide Mononitrate [Isosorbide Mononitrate ER] 30 mg PO Q2D 07/28/13 [ History] Nitroglycerin [Nitrostat] 0.4 mg SL ASDIRECTED PRN 07/28/13 [History] Nortriptyline HCl [Pamelor] 10 mg PO BID@0800,1300 07/28/13 [History] Ursodiol [Actigal] 600 mg PO BID@0800,1200 07/28/13 [History] Vitamin E (Dl,Tocopheryl Acet) [Vitamin E] 400 unit PO BID 07/28/13 [History] atorvaSTATin [Lipitor] 20 mg PO BEDTIME 07/28/13 [History] Aspirin [Halfprin] 162 mg PO DAILY 01/12/18 [History] Cholecalciferol (Vitamin D3) [Vitamin D3] 1,000 unit PO BID 01/12/18 [History] Cyanocobalamin (Vitamin B-12) [B-12] 1,000 mcg PO DAILY 01/12/18 [History] Ferrous Gluconate 324 mg PO Q2D 01/12/18 [History] Gabapentin [Neurontin] 300 mg PO TID 01/12/18 [History] Hydrocodone/Acetaminophen [Hydrocodon-Acetaminophn 10-325] 1 tab PO QID PRN [History] Insulin Degludec [Tresiba Flextouch U-100] 14 unit SQ BEDTIME 01/12/18 [History] Levothyroxine 200 mcg PO ACBREAKFAST 01/12/18 [History] Metoclopramide [Reglan] 5 mg PO QIDACANDBED 01/12/18 [History] Nortriptyline 20 mg PO BEDTIME 01/12/18 [History] Pramipexole [Mirapex] 0.5 mg PO BEDTIME 01/12/18 [History] Sennosides/Docusate Sodium [Sennosides-Docusate Sodium] 1 tab PO BID 01/12/18 [ History] Ursodiol 300 mg PO BEDTIME 01/12/18 [History] oxyCODONE HCl [Oxycodone HCl ER] 15 mg PO BID 01/12/18 [History] Metoprolol Succinate [Toprol XL] 25 mg PO DAILY 10/08/18 [History] Past Medical History HEENT History: Reports: Cataract, Hard of Hearing, Impaired Vision, Other (See Below) Cardiovascular History: Reports: Heart Murmur, High Cholesterol, Hypertension, Stents Gastrointestinal History: Reports: Cirrhosis, GERD Genitourinary History: Reports: Acute Renal Failure Other Genitourinary History: stage 3 DIE CASTER History: Reports: Musculoskeletal History: Reports: Arthritis, Back Pain, Chronic, Other (See Below) Other Musculoskeletal History: Turners syndrome Neurological History: Reports: Neuropathy, Diabetic Psychiatric History: Reports: Depression Endocrine/Metabolic History: Reports: Diabetes, Type I, Hypothyroidism Hematologic History: Reports: Anemia, B12 Deficiency, Idiopathic Thrombocytopenia Oncologic (Cancer) History: Reports: Colon - Infectious Disease History Infectious Disease History: Reports: Chicken Pox - Past Surgical History HEENT Surgical History: Reports: Cataract Surgery Cardiovascular Surgical History: Reports: Coronary Artery Stent GI Surgical History: Reports: None Musculoskeletal Surgical History: Reports: None Social & Family History - Family History Family Medical History: Noncontributory - Tobacco Use Smoking Status *Q: Never Smoker Second Hand Smoke Exposure: No - Caffeine Use Caffeine Use: Reports: Soda - Recreational Drug Use Recreational Drug Use: No H&P Review of Systems - Review of Systems: Review Of Systems: See Below Exam - Exam Exam: See Below - Vital Signs Vital Signs: Last Vital Signs Temp 38.4 C H 10/08/18 13:43 Pulse 107 H 10/08/18 13:43 Resp 20 10/08/18 13:43 BP 117/67 10/08/18 13:43 Pulse Ox 99 10/08/18 13:43 Weight: 81.42 kg - Patient Data Lab Results Last 24 hrs: Laboratory Results - last 24 hr 10/08/18 10/08/18 10/08/18 Range/Units 10:40 10:40 10:40 WBC 19.2 H (4.0-10.0) x10^3/uL RBC 3.06 L (4.00-5.50) x10^6/uL Hgb 9.5 L (12.0-16.0) g/dL Hct 29.6 L (33.0-47.0) % MCV 96.7 H (78.0-93.0) fL MCH 31.0 (26.0-32.0) pg MCHC 32.1 (32.0-36.0) g/dL RDW Coeff of [place] 13.5 (10.0-15.0) % Plt Count 72 L (130-400) x10^3/uL Add Manual Diff Yes Neutrophils % (Manual) 89 H (50-80) % Band Neutrophils % 1 (0-6) % Lymphocytes % (Manual) 3 L (25-50) % Monocytes % (Manual) 6 (2-11) % Eosinophils % (Manual) 1 (0-4) % Platelet Estimate Decreased L Sodium 135 L (136-145) mmol/L Potassium 3.8 (3.5-5.1) mmol/L Chloride 97 L (98-107) mmol/L Carbon Dioxide 21 (21-32) mmol/L Anion Gap 20.8 H (10-20) mmol/L BUN 39 H (7-18) mg/dL Creatinine 2.2 H (0.55-1.02) mg/dL Est Cr Clr Drug Dosing 19.29 mL/min Estimated GFR (MDRD) 23 Glucose 358 H (74-106) mg/dL POC Glucose (74-106) mg/dL Lactic Acid 2.6 H* (0.4-2.0) mmol/L Calcium 8.5 (8.5-10.1) mg/dL Corrected Calcium 9.70 (8.5-10.1) mg/dL Magnesium 1.3 L (1.8-2.4) mg/dL Total Bilirubin 0.9 (0.2-1.0) mg/dL AST 46 H (15-37) U/L ALT 36 (14-59) U/L Alkaline Phosphatase 418 H (46-116) U/L Creatine Kinase 739 H* (26-192) U/L C-Reactive Protein 29.2 H (<=0.9) mg/dL Total Protein 6.4 (6.4-8.2) g/dL Albumin 2.5 L (3.4-5.0) g/dL Globulin 3.9 Albumin/Globulin Ratio 0.64 10/08/18 10/08/18 10/08/18 Range/Units 11:13 14:53 14:53 WBC (4.0-10.0) x10^3/uL RBC (4.00-5.50) x10^6/uL Hgb (12.0-16.0) g/dL Hct (33.0-47.0) % MCV (78.0-93.0) fL MCH (26.0-32.0) pg MCHC (32.0-36.0) g/dL RDW Coeff of [place] (10.0-15.0) % Plt Count (130-400) x10^3/uL Add Manual Diff Neutrophils % (Manual) (50-80) % Band Neutrophils % (0-6) % Lymphocytes % (Manual) (25-50) % Monocytes % (Manual) (2-11) % Eosinophils % (Manual) (0-4) % Platelet Estimate Sodium 133 L (136-145) mmol/L Potassium 3.5 (3.5-5.1) mmol/L Chloride 98 (98-107) mmol/L Carbon Dioxide 23 (21-32) mmol/L Anion Gap 15.5 (10-20) mmol/L BUN 39 H (7-18) mg/dL Creatinine 2.2 H (0.55-1.02) mg/dL Est Cr Clr Drug Dosing 19.29 mL/min Estimated GFR (MDRD) 23 Glucose 398 H (74-106) mg/dL POC Glucose 336 H (74-106) mg/dL Lactic Acid 1.7 (0.4-2.0) mmol/L Calcium 8.0 L (8.5-10.1) mg/dL Corrected Calcium (8.5-10.1) mg/dL Magnesium (1.8-2.4) mg/dL Total Bilirubin (0.2-1.0) mg/dL AST (15-37) U/L ALT (14-59) U/L Alkaline Phosphatase (46-116) U/L Creatine Kinase 536 H* (26-192) U/L C-Reactive Protein (<=0.9) mg/dL Total Protein (6.4-8.2) g/dL Albumin (3.4-5.0) g/dL Globulin Albumin/Globulin Ratio Result Diagrams: 10/08/18 10:40 10/08/18 14:53 Problem List Initiated/Reviewed/Updated: Yes Orders Last 24hrs: Active Orders 24 hr Category Date Time Status Admission Status [Patient Status] [ADT] Routine ADT 10/08/18 10:16 Active Patient Status [ADT] Routine ADT 10/08/18 10:14 Active Ambulate [RC] .PRN Care 10/08/18 10:16 Active Blood Glucose Check, Bedside [RC] 07,11,,20 Care 10/08/18 10:14 Active Dietary Supplements [RC] 10, Care 10/08/18 10:20 Active Oxygen Therapy [RC] .PRN Care 10/08/18 10:14 Active Up ad Sheba [RC] 08, Care 10/08/18 10:14 Active Vital Signs [RC] 06,10,14,18,22,02 Care 10/08/18 10:14 Active [employer] Diet [DIET] Diet 10/08/18 Lunch Active CULTURE BLOOD [BC] Stat Lab 10/08/18 10:40 Received CULTURE BLOOD [BC] Stat Lab 10/08/18 10:40 Received Acetaminophen/HYDROcodone [Jackson 325-10 MG] Med 10/08/18 10:20 Active 1 tab PO Q6H PRN Aspirin [Halfprin] Med 10/08/18 10:30 Active 162 mg PO DAILY Bumetanide [Bumex] Med 10/08/18 12:15 Active 2 mg PO DAILY Calcitriol [Rocaltrol] Med 10/09/18 08:00 Active 0.25 mcg PO DAILY Cholecalciferol (Vitamin D3) [Vitamin D3] Med 10/08/18 20:00 Active 1,000 units PO BID Cyanocobalamin (Vitamin B12) [Vitamin B12] Med 10/09/18 08:00 Active 1,000 mcg PO DAILY Cyclobenzaprine [Flexeril] Med 10/08/18 20:00 Active 10 mg PO BEDTIME DULoxetine [Cymbalta] Med 10/08/18 20:00 Active 60 mg PO BEDTIME Dextrose 50% in Water Med 10/08/18 12:13 Active 50 ml IV ASDIRECTED PRN Docusate Sodium/Sennosides [Senna Plus] Med 10/08/18 20:00 Active 1 tab PO BID Ferrous Sulfate Med 10/09/18 08:00 Active 325 mg PO Q2D Gabapentin [Neurontin] Med 10/08/18 12:00 Active 300 mg PO TID Glucagon,Human Recombinant [GlucaGen] Med 10/08/18 10:20 Hold 1 mg SUBCUT ASDIRECTED PRN HYDROmorphone [Dilaudid] Med 10/08/18 10:14 Active 0.25 mg IVPUSH Q2H PRN Insulin Glarg,Human.Rec.Analog [LantUS Solostar] Med 10/08/18 20:00 Active 14 units SUBCUT BEDTIME Insulin Lispro [HumaLOG] Med 10/08/18 12:12 Active 0 unit SUBCUT Q2H PRN Insulin Lispro [HumaLOG] Med 10/08/18 12:15 Active 4 unit SUBCUT TIDMEALS Isosorbide Mononitrate [Imdur] Med 10/09/18 07:00 Active 30 mg PO Q2D Lactated Ringers [Ringers, Lactated] 1,000 ml Med 10/08/18 12:15 Active IV ASDIRECTED Levothyroxine [Synthroid] Med 10/09/18 07:00 Active 200 mcg PO ACBREAKFAST Levothyroxine [Synthroid] Med 10/09/18 07:00 Active 50 mcg PO DAILY@0700 Metoclopramide [Reglan] Med 10/08/18 11:00 Active 5 mg PO QIDACANDBED Metoprolol Succinate [Toprol XL] Med 10/08/18 12:15 Active 25 mg PO DAILY Nitroglycerin [Nitrostat] Med 10/08/18 10:20 Active 0.4 mg SL ASDIRECTED PRN Nortriptyline Med 10/08/18 13:00 Active 10 mg PO BID@0800,1300 Nortriptyline Med 10/08/18 20:00 Active 20 mg PO BEDTIME Ondansetron [Zofran] Med 10/08/18 10:14 Active 4 mg IV Q6H PRN Polyethylene Glycol 3350 [MiraLAX] Med 10/09/18 08:00 Active 17 gm PO DAILY Pramipexole [Mirapex] Med 10/08/18 20:00 Active 0.5 mg PO BEDTIME Sodium Bicarbonate Med 10/08/18 20:00 Active 650 mg PO BID Sodium Chloride 0.9% [Saline Flush] Med 10/08/18 10:14 Active 10 ml FLUSH ASDIRECTED PRN Ursodiol Med 10/08/18 20:00 Active 0 mg PO BEDTIME Ursodiol Med 10/08/18 12:00 Active 0 mg PO BID@0800,1200 Vitamin E (dl, acetate) [Vitamin E] Med 10/08/18 20:00 Active 400 units PO BID atorvaSTATin [Lipitor] Med 10/08/18 20:00 Active 20 mg PO BEDTIME cefTRIAXone [Rocephin] Med 10/09/18 08:00 Active 1 gm IVPUSH DAILY oxyCODONE ER [OxyCONTIN] Med 10/08/18 12:15 Active 10 mg PO TID Blood Culture x2 Reflex Set [OM.PC] Stat Oth 10/08/18 10:51 Ordered Peripheral IV Insertion Adult [OM.PC] Routine Oth 10/08/18 10:14 Ordered Resuscitation Status Routine Resus Stat 10/08/18 10:14 Ordered Medication Orders Hydrocodone Bitart/Acetaminophen (Jackson 325-10 Mg) 1 tab PO Q6H PRN PRN Reason: Pain (moderate 4-6) Aspirin (Halfprin) 162 mg PO DAILY [facility] Last Admin: 10/08/18 11:47 Dose: 162 mg Atorvastatin Calcium (Lipitor) 20 mg PO BEDTIME [facility] Bumetanide (Bumex) 2 mg PO DAILY [facility] Last Admin: 10/08/18 12:25 Dose: 2 mg Calcitriol (Rocaltrol) 0.25 mcg PO DAILY [facility] Ceftriaxone Sodium (Rocephin) 1 gm IVPUSH DAILY [facility] Cholecalciferol (Vitamin D3) 1,000 units PO BID [facility] Cyanocobalamin (Vitamin B12) 1,000 mcg PO DAILY [facility] Cyclobenzaprine HCl (Flexeril) 10 mg PO BEDTIME [facility] Dextrose/Water (Dextrose 50% In Water) 50 ml IV ASDIRECTED PRN PRN Reason: HYPOGLYCEMIA Duloxetine HCl (Cymbalta) 60 mg PO BEDTIME [facility] Ferrous Sulfate (Ferrous Sulfate) 325 mg PO Q2D [facility] Gabapentin (Neurontin) 300 mg PO TID [facility] Last Admin: 10/08/18 11:47 Dose: 300 mg Glucagon (Glucagen) 1 mg SUBCUT ASDIRECTED PRN PRN Reason: Hypoglycemia Hydromorphone HCl (Dilaudid) 0.25 mg IVPUSH Q2H PRN PRN Reason: Pain (severe 7-10) Lactated Ringer's (Ringers, Lactated) 1,000 mls @ 125 mls/hr IV ASDIRECTED [facility] Last Admin: 10/08/18 12:25 Dose: 125 mls/hr Insulin Glargine (Lantus Solostar) 14 units SUBCUT BEDTIME [facility] [facility] Insulin Human Lispro (Humalog) 4 unit SUBCUT TIDMEALS [facility] Last Admin: 10/08/18 12:23 Dose: Insulin Human Lispro (Humalog) 0 unit SUBCUT Q2H PRN; Protocol PRN Reason: HYPERGLYCEMIA Last Admin: 10/08/18 12:21 Dose: 10 units Isosorbide Mononitrate (Imdur) 30 mg PO Q2D [facility] Levothyroxine Sodium (Synthroid) 200 mcg PO ACBREAKFAST [facility] Levothyroxine Sodium (Synthroid) 50 mcg PO DAILY@0700 [facility] Metoclopramide HCl (Reglan) 5 mg PO QIDACANDBED [facility] Last Admin: 10/08/18 11:51 Dose: 5 mg Metoprolol Succinate (Toprol Xl) 25 mg PO DAILY [facility] Last Admin: 10/08/18 12:25 Dose: 25 mg Nitroglycerin (Nitrostat) 0.4 mg SL ASDIRECTED PRN PRN Reason: Chest Pain Ursodiol 300mg X 2 = (600mg (Own Supply)) 0 mg PO BID@0800,1200 [facility] Last Admin: 10/08/18 13:45 Dose: 1,200 mg Ursodiol 300mg (Own (Supply)) 0 mg PO BEDTIME [facility] Nortriptyline HCl (Nortriptyline) 20 mg PO BEDTIME [facility] Nortriptyline HCl (Nortriptyline) 10 mg PO BID@0800,1300 [facility] Last Admin: 10/08/18 13:46 Dose: 10 mg Admin: 10/08/18 11:51 Dose: 10 mg Ondansetron HCl (Zofran) 4 mg IV Q6H PRN PRN Reason: Nausea/Vomiting Oxycodone HCl (Oxycontin) 10 mg PO TID [facility] Last Admin: 10/08/18 12:22 Dose: 10 mg Polyethylene Glycol (Miralax) 17 gm PO DAILY [facility] Pramipexole Dihydrochloride (Mirapex) 0.5 mg PO BEDTIME [facility] Senna/Docusate Sodium (Senna Plus) 1 tab PO BID [facility] Sodium Bicarbonate (Sodium Bicarbonate) 650 mg PO BID [facility] Sodium Chloride (Saline Flush) 10 ml FLUSH ASDIRECTED PRN PRN Reason: Keep Vein Open Last Admin: 10/08/18 11:53 Dose: 10 ml Vitamin E (Vitamin E) 400 units PO BID [facility]
[2018-10-08] MEDS: DULoxetine 60 MG Cap PO SCH (21:33)
[2018-10-08] MEDS: Cholecalciferol (Vitamin D3) 1,000 Unit Tab PO SCH (21:33)
[2018-10-08] MEDS: Cyclobenzaprine 10 MG Tab PO SCH (21:33)
[2018-10-08] MEDS: Sodium Bicarbonate 650 MG Tab PO SCH (21:33)
[2018-10-08] MEDS: Vitamin E (dl-alpha-tocopherol acetate) 400 Unit Cap PO SCH (21:33)
[2018-10-08] MEDS: Pramipexole 0.5 MG Tab PO SCH (21:33)
[2018-10-08] MEDS: atorvaSTATin 10 MG Tab PO SCH (21:33)
[2018-10-08] MEDS: Insulin Glargine,Human Rec. Analog 100 Units/ML 3 ML Pen SUBCUT SCH (21:34)
[2018-10-09] MEDS: Lactated Ringers 1,000 ML IV SCH ×3 (00:38→16:21)
[2018-10-09] MEDS: Metoclopramide 5 MG Tab PO SCH ×4 (06:12→19:58)
[2018-10-09] MEDS: Levothyroxine 50 MCG Tab PO SCH (06:12)
[2018-10-09] MEDS: Levothyroxine 100 MCG Tab PO SCH (06:12)
[2018-10-09] MEDS: Isosorbide Mononitrate 30 MG Tab.ER PO SCH (06:25)
[2018-10-09] MEDS: cefTRIAXone 1 GM Vial IVPUSH SCH (07:30)
[2018-10-09] MEDS: Insulin Lispro 100 Unit/ML 3 ML KwikPen SUBCUT PRN ×5 (07:34→21:54)
[2018-10-09] MEDS: URSODIOL 300 MG PO SCH ×3 (07:35→19:47)
[2018-10-09] MEDS: Sodium Bicarbonate 650 MG Tab PO SCH ×2 (07:36→19:58)
[2018-10-09] MEDS: Cholecalciferol (Vitamin D3) 1,000 Unit Tab PO SCH ×2 (07:36→19:57)
[2018-10-09] MEDS: Aspirin 81 MG Tab.EC PO SCH (07:36)
[2018-10-09] MEDS: Gabapentin 300 MG Cap PO SCH ×3 (07:36→19:57)
[2018-10-09] MEDS: Cyanocobalamin (Vitamin B12) 1,000 MCG Tab PO SCH (07:36)
[2018-10-09] MEDS: Vitamin E (dl-alpha-tocopherol acetate) 400 Unit Cap PO SCH ×2 (07:36→19:57)
[2018-10-09] MEDS: oxyCODONE ER 10 MG TAB.ER PO SCH ×3 (07:36→19:58)
[2018-10-09] MEDS: Calcitriol 0.25 MCG Cap PO SCH (07:36)
[2018-10-09] MEDS: Bumetanide 1 MG Tab PO SCH (07:36)
[2018-10-09] MEDS: Nortriptyline 10 MG Cap PO SCH ×3 (07:37→19:56)
[2018-10-09] MEDS: Metoprolol Succinate 25 MG Tab.ER PO SCH (07:37)
[2018-10-09] MEDS: Polyethylene Glycol 3350 Powder 17 GM Packet PO SCH (07:37)
[2018-10-09] MEDS: Insulin Lispro 100 Unit/ML 3 ML KwikPen SUBCUT SCH ×3 (07:39→17:29)
[2018-10-09] MEDS ORDERED: Metoprolol Succinate 50 MG Tab.ER PO SCH (08:00)
[2018-10-09] MEDS: Ferrous Sulfate 325 MG Tab PO SCH (08:04)
[2018-10-09 08:24] LABS: ANION GAP 15.4 mmol/L (10-20)
--- NOTE | 2018-10-09 09:16 | PCM.PN ---
- General Info Date of Service: 10/09/18 Admission Dx/Problem (Free Text): Admission Diagnosis/Problem Admission Diagnosis/Problem Erysipelas Subjective Update: Day 1. Patient was admitted yesterday for facial swelling that started approximately 36 hours before presenting to the clinic. Pt also underwent a colonoscopy the day before presenting to the clinic. In the clinic the patient complained of redness, stinging sensation, swollen right side of face, fever, body aches, and headache. Labs were completed, pt was given Rocephin and was admitted for further monitoring and management. Day 2. Pt had an uneventful night. She has no complaints and feels her face is much better but is still swollen. Her blood sugars were extremely elevated when she was admitted with them spiking into the 400s. Today they are in the 200s and continue to trend back to the patients normal. She is tolerating oral fluids and eating without difficulty. No fevers or VS changes noted over night. Labs completed this am and Rocephin IV will be administrated. Pt does not feel ready to go home and still has facial swelling noted. Functional Status: Reports: Pain Controlled, Tolerating Diet - Review of Systems General: Reports: Fatigue, Malaise HEENT: Reports: No Symptoms Pulmonary: Reports: No Symptoms Cardiovascular: Reports: No Symptoms Gastrointestinal: Reports: No Symptoms Genitourinary: Reports: No Symptoms Musculoskeletal: Reports: No Symptoms Skin: Reports: Other (facial redness and swelling right side ) Neurological: Reports: No Symptoms Psychiatric: Reports: No Symptoms - Patient Data Vitals - Most Recent: Last Vital Signs Temp 37.5 C 10/09/18 06:00 Pulse 98 10/09/18 07:37 Resp 18 10/09/18 06:00 BP 105/58 L 10/09/18 07:37 Pulse Ox 94 L 10/09/18 06:00 Weight - Most Recent: 81.42 kg I&O - Last 24 Hours: Intake & Output 10/08/18 10/09/18 10/09/18 22:59 06:59 14:59 Intake Total 1585 1670 Output Total 400 300 Balance 1185 1370 Lab Results Last 24 Hours: Laboratory Results - last 24 hr 10/08/18 10/08/18 10/08/18 Range/Units 10:40 10:40 10:40 WBC 19.2 H (4.0-10.0) x10^3/uL RBC 3.06 L (4.00-5.50) x10^6/uL Hgb 9.5 L (12.0-16.0) g/dL Hct 29.6 L (33.0-47.0) % MCV 96.7 H (78.0-93.0) fL MCH 31.0 (26.0-32.0) pg MCHC 32.1 (32.0-36.0) g/dL RDW Coeff of [place] 13.5 (10.0-15.0) % Plt Count 72 L (130-400) x10^3/uL Neut % (Auto) (50.0-80.0) % Lymph % (Auto) (25.0-50.0) % [place] % (Auto) (2.0-11.0) % Eos % (Auto) (0.0-4.0) % Baso % (Auto) (0.2-1.2) % Add Manual Diff Yes Neutrophils % (Manual) 89 H (50-80) % Band Neutrophils % 1 (0-6) % Lymphocytes % (Manual) 3 L (25-50) % Monocytes % (Manual) 6 (2-11) % Eosinophils % (Manual) 1 (0-4) % Platelet Estimate Decreased L Sodium 135 L (136-145) mmol/L Potassium 3.8 (3.5-5.1) mmol/L Chloride 97 L (98-107) mmol/L Carbon Dioxide 21 (21-32) mmol/L Anion Gap 20.8 H (10-20) mmol/L BUN 39 H (7-18) mg/dL Creatinine 2.2 H (0.55-1.02) mg/dL Est Cr Clr Drug Dosing 19.29 mL/min Estimated GFR (MDRD) 23 Glucose 358 H (74-106) mg/dL POC Glucose (74-106) mg/dL Lactic Acid 2.6 H* (0.4-2.0) mmol/L Calcium 8.5 (8.5-10.1) mg/dL Corrected Calcium 9.70 (8.5-10.1) mg/dL Magnesium 1.3 L (1.8-2.4) mg/dL Total Bilirubin 0.9 (0.2-1.0) mg/dL AST 46 H (15-37) U/L ALT 36 (14-59) U/L Alkaline Phosphatase 418 H (46-116) U/L Creatine Kinase 739 H* (26-192) U/L C-Reactive Protein 29.2 H (<=0.9) mg/dL Total Protein 6.4 (6.4-8.2) g/dL Albumin 2.5 L (3.4-5.0) g/dL Globulin 3.9 Albumin/Globulin Ratio 0.64 10/08/18 10/08/18 10/08/18 Range/Units 11:13 14:53 14:53 WBC (4.0-10.0) x10^3/uL RBC (4.00-5.50) x10^6/uL Hgb (12.0-16.0) g/dL Hct (33.0-47.0) % MCV (78.0-93.0) fL MCH (26.0-32.0) pg MCHC (32.0-36.0) g/dL RDW Coeff of [place] (10.0-15.0) % Plt Count (130-400) x10^3/uL Neut % (Auto) (50.0-80.0) % Lymph % (Auto) (25.0-50.0) % [place] % (Auto) (2.0-11.0) % Eos % (Auto) (0.0-4.0) % Baso % (Auto) (0.2-1.2) % Add Manual Diff Neutrophils % (Manual) (50-80) % Band Neutrophils % (0-6) % Lymphocytes % (Manual) (25-50) % Monocytes % (Manual) (2-11) % Eosinophils % (Manual) (0-4) % Platelet Estimate Sodium 133 L (136-145) mmol/L Potassium 3.5 (3.5-5.1) mmol/L Chloride 98 (98-107) mmol/L Carbon Dioxide 23 (21-32) mmol/L Anion Gap 15.5 (10-20) mmol/L BUN 39 H (7-18) mg/dL Creatinine 2.2 H (0.55-1.02) mg/dL Est Cr Clr Drug Dosing 19.29 mL/min Estimated GFR (MDRD) 23 Glucose 398 H (74-106) mg/dL POC Glucose 336 H (74-106) mg/dL Lactic Acid 1.7 (0.4-2.0) mmol/L Calcium 8.0 L (8.5-10.1) mg/dL Corrected Calcium (8.5-10.1) mg/dL Magnesium (1.8-2.4) mg/dL Total Bilirubin (0.2-1.0) mg/dL AST (15-37) U/L ALT (14-59) U/L Alkaline Phosphatase (46-116) U/L Creatine Kinase 536 H* (26-192) U/L C-Reactive Protein (<=0.9) mg/dL Total Protein (6.4-8.2) g/dL Albumin (3.4-5.0) g/dL Globulin Albumin/Globulin Ratio 10/08/18 10/09/18 10/09/18 Range/Units 16:43 07:16 07:16 WBC 16.1 H (4.0-10.0) x10^3/uL RBC 2.78 L (4.00-5.50) x10^6/uL Hgb 8.4 L (12.0-16.0) g/dL Hct 26.3 L (33.0-47.0) % MCV 94.6 H (78.0-93.0) fL MCH 30.2 (26.0-32.0) pg MCHC 31.9 L (32.0-36.0) g/dL RDW Coeff of [place] 13.2 (10.0-15.0) % Plt Count 87 L (130-400) x10^3/uL Neut % (Auto) 79.8 (50.0-80.0) % Lymph % (Auto) 10.2 L (25.0-50.0) % [place] % (Auto) 9.3 (2.0-11.0) % Eos % (Auto) 0.6 (0.0-4.0) % Baso % (Auto) 0.1 L (0.2-1.2) % Add Manual Diff Neutrophils % (Manual) (50-80) % Band Neutrophils % (0-6) % Lymphocytes % (Manual) (25-50) % Monocytes % (Manual) (2-11) % Eosinophils % (Manual) (0-4) % Platelet Estimate Sodium 136 (136-145) mmol/L Potassium 3.4 L (3.5-5.1) mmol/L Chloride 101 (98-107) mmol/L Carbon Dioxide 23 (21-32) mmol/L Anion Gap 15.4 (10-20) mmol/L BUN 42 H (7-18) mg/dL Creatinine 2.2 H (0.55-1.02) mg/dL Est Cr Clr Drug Dosing 19.29 mL/min Estimated GFR (MDRD) 23 Glucose 245 H (74-106) mg/dL POC Glucose 408 H* (74-106) mg/dL Lactic Acid (0.4-2.0) mmol/L Calcium 8.0 L (8.5-10.1) mg/dL Corrected Calcium 9.68 (8.5-10.1) mg/dL Magnesium (1.8-2.4) mg/dL Total Bilirubin 0.5 (0.2-1.0) mg/dL AST 31 (15-37) U/L ALT 31 (14-59) U/L Alkaline Phosphatase 334 H (46-116) U/L Creatine Kinase 224 H* (26-192) U/L C-Reactive Protein (<=0.9) mg/dL Total Protein 5.4 L (6.4-8.2) g/dL Albumin 1.9 L (3.4-5.0) g/dL Globulin 3.5 Albumin/Globulin Ratio 0.54 /18/19 Range/Units 07:16 WBC (4.0-10.0) x10^3/uL RBC (4.00-5.50) x10^6/uL Hgb (12.0-16.0) g/dL Hct (33.0-47.0) % MCV (78.0-93.0) fL MCH (26.0-32.0) pg MCHC (32.0-36.0) g/dL RDW Coeff of [place] (10.0-15.0) % Plt Count (130-400) x10^3/uL Neut % (Auto) (50.0-80.0) % Lymph % (Auto) (25.0-50.0) % [place] % (Auto) (2.0-11.0) % Eos % (Auto) (0.0-4.0) % Baso % (Auto) (0.2-1.2) % Add Manual Diff Neutrophils % (Manual) (50-80) % Band Neutrophils % (0-6) % Lymphocytes % (Manual) (25-50) % Monocytes % (Manual) (2-11) % Eosinophils % (Manual) (0-4) % Platelet Estimate Sodium (136-145) mmol/L Potassium (3.5-5.1) mmol/L Chloride (98-107) mmol/L Carbon Dioxide (21-32) mmol/L Anion Gap (10-20) mmol/L BUN (7-18) mg/dL Creatinine (0.55-1.02) mg/dL Est Cr Clr Drug Dosing mL/min Estimated GFR (MDRD) Glucose (74-106) mg/dL POC Glucose (74-106) mg/dL Lactic Acid 1.1 (0.4-2.0) mmol/L Calcium (8.5-10.1) mg/dL Corrected Calcium (8.5-10.1) mg/dL Magnesium (1.8-2.4) mg/dL Total Bilirubin (0.2-1.0) mg/dL AST (15-37) U/L ALT (14-59) U/L Alkaline Phosphatase (46-116) U/L Creatine Kinase (26-192) U/L C-Reactive Protein (<=0.9) mg/dL Total Protein (6.4-8.2) g/dL Albumin (3.4-5.0) g/dL Globulin Albumin/Globulin Ratio Med Orders - Current: Current Medications Hydrocodone Bitart/Acetaminophen ([place] 325-10 Mg) 1 tab PO Q6H PRN PRN Reason: Pain (moderate 4-6) Aspirin (Halfprin) 162 mg PO DAILY [facility] Last Admin: 10/09/18 07:36 Dose: 162 mg Atorvastatin Calcium (Lipitor) 20 mg PO BEDTIME [facility] Last Admin: 10/08/18 21:33 Dose: 20 mg Bumetanide (Bumex) 2 mg PO DAILY [facility] Last Admin: 10/09/18 07:36 Dose: 2 mg Calcitriol (Rocaltrol) 0.25 mcg PO DAILY [facility] Last Admin: 10/09/18 07:36 Dose: 0.25 mcg Ceftriaxone Sodium (Rocephin) 1 gm IVPUSH DAILY [facility] Last Admin: 10/09/18 07:30 Dose: 1 gm Cholecalciferol (Vitamin D3) 1,000 units PO BID [facility] Last Admin: 10/09/18 07:36 Dose: 1,000 units Cyanocobalamin (Vitamin B12) 1,000 mcg PO DAILY [facility] Last Admin: 10/09/18 07:36 Dose: 1,000 mcg Cyclobenzaprine HCl (Flexeril) 10 mg PO BEDTIME [facility] Last Admin: 10/08/18 21:33 Dose: 10 mg Dextrose/Water (Dextrose 50% In Water) 50 ml IV ASDIRECTED PRN PRN Reason: HYPOGLYCEMIA Duloxetine HCl (Cymbalta) 60 mg PO BEDTIME [facility] Last Admin: 10/08/18 21:33 Dose: 60 mg Ferrous Sulfate (Ferrous Sulfate) 325 mg PO Q2D [facility] Last Admin: 10/09/18 08:04 Dose: 325 mg Gabapentin (Neurontin) 300 mg PO TID [facility] Last Admin: 10/09/18 07:36 Dose: 300 mg Glucagon (Glucagen) 1 mg SUBCUT ASDIRECTED PRN PRN Reason: Hypoglycemia Hydromorphone HCl (Dilaudid) 0.25 mg IVPUSH Q2H PRN PRN Reason: Pain (severe 7-10) Lactated Ringer's (Ringers, Lactated) 1,000 mls @ 125 mls/hr IV ASDIRECTED [facility] Last Admin: 10/09/18 08:31 Dose: 125 mls/hr Insulin Glargine (Lantus Solostar) 14 units SUBCUT BEDTIME [facility] Last Admin: 10/08/18 21:34 Dose: 14 units Insulin Human Lispro (Humalog) 4 unit SUBCUT TIDMEALS [facility] Last Admin: 10/09/18 07:39 Dose: Not Given Insulin Human Lispro (Humalog) 0 unit SUBCUT Q2H PRN; Protocol PRN Reason: HYPERGLYCEMIA Last Admin: 10/09/18 07:34 Dose: 6 units Isosorbide Mononitrate (Imdur) 30 mg PO Q2D [facility] Last Admin: 10/09/18 06:25 Dose: 30 mg Levothyroxine Sodium (Synthroid) 200 mcg PO ACBREAKFAST [facility] Last Admin: 10/09/18 06:12 Dose: 200 mcg Levothyroxine Sodium (Synthroid) 50 mcg PO DAILY@0700 [facility] Last Admin: 10/09/18 06:12 Dose: 50 mcg Metoclopramide HCl (Reglan) 5 mg PO QIDACANDBED [facility] Last Admin: 10/09/18 06:12 Dose: 5 mg Metoprolol Succinate (Toprol Xl) 25 mg PO DAILY [facility] Last Admin: 10/09/18 07:37 Dose: 25 mg Nitroglycerin (Nitrostat) 0.4 mg SL ASDIRECTED PRN PRN Reason: Chest Pain Ursodiol 300mg X 2 = (600mg (Own Supply)) 0 mg PO BID@0800,1200 [facility] Last Admin: 10/09/18 07:35 Dose: 600 mg Ursodiol 300mg (Own (Supply)) 0 mg PO BEDTIME [facility] Last Admin: 10/08/18 21:15 Dose: 300 mg Nortriptyline HCl (Nortriptyline) 20 mg PO BEDTIME [facility] Last Admin: 10/08/18 21:33 Dose: 20 mg Nortriptyline HCl (Nortriptyline) 10 mg PO BID@0800,1300 [facility] Last Admin: 10/09/18 07:37 Dose: 10 mg Ondansetron HCl (Zofran) 4 mg IV Q6H PRN PRN Reason: Nausea/Vomiting Oxycodone HCl (Oxycontin) 10 mg PO TID [facility] Last Admin: 10/09/18 07:36 Dose: 10 mg Polyethylene Glycol (Miralax) 17 gm PO DAILY [facility] Last Admin: 10/09/18 07:37 Dose: 17 gm Pramipexole Dihydrochloride (Mirapex) 0.5 mg PO BEDTIME [facility] Last Admin: 10/08/18 21:33 Dose: 0.5 mg Senna/Docusate Sodium (Senna Plus) 1 tab PO BID [facility] Last Admin: 10/09/18 07:36 Dose: 1 tab Sodium Bicarbonate (Sodium Bicarbonate) 650 mg PO BID [facility] Last Admin: 10/09/18 07:36 Dose: 650 mg Sodium Chloride (Saline Flush) 10 ml FLUSH ASDIRECTED PRN PRN Reason: Keep Vein Open Last Admin: 10/08/18 11:53 Dose: 10 ml Vitamin E (Vitamin E) 400 units PO BID [facility] Last Admin: 10/09/18 07:36 Dose: 400 units Discontinued Medications Ceftriaxone Sodium (Rocephin) 2 gm IVPUSH STAT ONE Stop: 10/08/18 10:21 Last Admin: 10/08/18 11:47 Dose: 2 gm Lactated Ringer's (Ringers, Lactated) 1,000 mls @ 999 mls/hr IV ONETIME ONE Stop: 10/08/18 14:13 Last Admin: 10/08/18 13:49 Dose: 999 mls/hr Magnesium Sulfate 2 gm/ Premix 50 mls @ 25 mls/hr IV ONETIME ONE Stop: 10/08/18 15:13 Last Admin: 10/08/18 13:55 Dose: 25 mls/hr - Exam General: Alert, Oriented HEENT: Pupils Equal, Pupils Reactive, EOMI, Mucous Membr. Moist/[place] Neck: Supple Lungs: Clear to Auscultation, Normal Respiratory Effort Cardiovascular: Regular Rate, Regular Rhythm GI/Abdominal Exam: Normal Bowel Sounds, Soft, Non-Tender, No Distention, No Abnormal Bruit Back Exam: Normal Inspection, Full Range of Motion Skin: Warm, Dry, Other (redness, swelling and warmth noted right side of face. No longer noted into the neck region. Pt able to open eye without difficulty ) Psy/Mental Status: Alert, Normal Affect, Normal Mood - Problem List Review Problem List Initiated/Reviewed/Updated: Yes - Assessment Assessment:: 1. Erysipelas - Plan Plan:: # Erysipelas - nursing monitoring progression of redness - labs completed and continue to show improvement. Will order labs for the am. - Continue with Rocephin IV today and again tomorrow # Type 1 diabetes Mellitus without complication - Continue sliding scale insulin - Blood sugars continue to trend back to the patients normal. Will continue to monitor and offer added medication as needed if sugars spike again - IV fluids are being provided - Diabetic diet is ordered Patient will remain in acute care. She is continuing to improve from yesterday but still have some facial swelling, redness, and discomfort. Labs and antibiotics will be ordered. Results reviewed with the patient. DVT prophylaxis measures are taken, Patient remains a code 1, ambulating as much as possible, continue with diabetic diet. All questions and concerns were addressed prior to leaving the room.
[2018-10-09] MEDS: Lactobacillus Rhamnosus GG (Probiotic) Cap PO SCH (19:56)
[2018-10-09] MEDS: Pramipexole 0.5 MG Tab PO SCH (19:57)
[2018-10-09] MEDS: DULoxetine 60 MG Cap PO SCH (19:57)
[2018-10-09] MEDS: atorvaSTATin 10 MG Tab PO SCH (19:57)
[2018-10-09] MEDS: Cyclobenzaprine 10 MG Tab PO SCH (19:57)
[2018-10-09] MEDS: Insulin Glargine,Human Rec. Analog 100 Units/ML 3 ML Pen SUBCUT SCH (19:59)
[2018-10-10] MEDS: Lactated Ringers 1,000 ML IV SCH ×3 (00:22→15:45)
[2018-10-10] MEDS: Insulin Lispro 100 Unit/ML 3 ML KwikPen SUBCUT PRN ×4 (06:42→19:40)
[2018-10-10] MEDS: Levothyroxine 100 MCG Tab PO SCH (06:44)
[2018-10-10] MEDS: Metoclopramide 5 MG Tab PO SCH ×4 (06:44→19:42)
[2018-10-10] MEDS: Levothyroxine 50 MCG Tab PO SCH (06:44)
[2018-10-10] MEDS: oxyCODONE ER 10 MG TAB.ER PO SCH ×3 (07:34→19:46)
[2018-10-10] MEDS: Cyanocobalamin (Vitamin B12) 1,000 MCG Tab PO SCH (07:34)
[2018-10-10] MEDS: Aspirin 81 MG Tab.EC PO SCH (07:34)
[2018-10-10] MEDS: URSODIOL 300 MG PO SCH ×3 (07:34→19:41)
[2018-10-10] MEDS: Bumetanide 1 MG Tab PO SCH (07:34)
[2018-10-10] MEDS: Calcitriol 0.25 MCG Cap PO SCH (07:35)
[2018-10-10] MEDS: cefTRIAXone 1 GM Vial IVPUSH SCH (07:35)
[2018-10-10] MEDS: Nortriptyline 10 MG Cap PO SCH ×3 (07:35→19:45)
[2018-10-10] MEDS: Metoprolol Succinate 25 MG Tab.ER PO SCH (07:35)
[2018-10-10] MEDS: Gabapentin 300 MG Cap PO SCH ×3 (07:35→19:44)
[2018-10-10] MEDS: Polyethylene Glycol 3350 Powder 17 GM Packet PO SCH (07:35)
[2018-10-10] MEDS: Vitamin E (dl-alpha-tocopherol acetate) 400 Unit Cap PO SCH ×2 (07:35→19:43)
[2018-10-10] MEDS: Cholecalciferol (Vitamin D3) 1,000 Unit Tab PO SCH ×2 (07:35→19:43)
[2018-10-10] MEDS: Sodium Bicarbonate 650 MG Tab PO SCH ×2 (07:35→19:45)
[2018-10-10] MEDS: Insulin Lispro 100 Unit/ML 3 ML KwikPen SUBCUT SCH ×3 (07:41→17:18)
--- NOTE | 2018-10-10 10:00 | PCM.PN ---
- General Info Date of Service: 10/10/18 Admission Dx/Problem (Free Text): Admission Diagnosis/Problem Admission Diagnosis/Problem Erysipelas Subjective Update: Day 1. Patient was admitted yesterday for facial swelling that started approximately 36 hours before presenting to the clinic. Pt also underwent a colonoscopy the day before presenting to the clinic. In the clinic the patient complained of redness, stinging sensation, swollen right side of face, fever, body aches, and headache. Labs were completed, pt was given Rocephin and was admitted for further monitoring and management. Day 2. Pt had an uneventful night. She has no complaints and feels her face is much better but is still swollen. Her blood sugars were extremely elevated when she was admitted with them spiking into the 400s. Today they are in the 200s and continue to trend back to the patients normal. She is tolerating oral fluids and eating without difficulty. No fevers or VS changes noted over night. Labs completed this am and Rocephin IV will be administrated. Pt does not feel ready to go home and still has facial swelling noted. Day 3 Pt again had an uneventful night. She has no complaints and feels her face is much better but is still slightly swollen in her "cheek". Her blood sugars were extremely elevated when she was admitted with them spiking into the 400s. Today they are in the 200s and continue to trend back to the patients normal. She is tolerating oral fluids and eating without difficulty. No fevers or VS changes noted over night. Labs completed this am and Rocephin IV will be administrated. Pt does not feel ready to go home and still has facial swelling noted. She also developed dry skin over the face yesterday and was itchying/ scratching causing some acute abrasion areas over the nose. Functional Status: Reports: Pain Controlled, Tolerating Diet, Ambulating, Urinating - Review of Systems General: Reports: No Symptoms HEENT: Reports: No Symptoms Pulmonary: Reports: No Symptoms Cardiovascular: Reports: No Symptoms Gastrointestinal: Reports: No Symptoms Genitourinary: Reports: No Symptoms Musculoskeletal: Reports: No Symptoms Neurological: Reports: No Symptoms Psychiatric: Reports: No Symptoms - Patient Data Vitals - Most Recent: Last Vital Signs Temp 36.7 C 10/10/18 05:49 Pulse 91 10/10/18 07:35 Resp 16 10/09/18 16:21 BP 100/65 10/10/18 07:35 Pulse Ox 93 L 10/10/18 05:49 Weight - Most Recent: 81.42 kg I&O - Last 24 Hours: Intake & Output 10/09/18 10/10/18 10/10/18 22:59 06:59 14:59 Intake Total 1250 1634 360 Output Total 800 600 300 Balance 450 1034 60 Lab Results Last 24 Hours: Laboratory Results - last 24 hr 10/08/18 10/09/18 10/09/18 Range/Units 21:03 00:19 06:11 POC Glucose 355 H 224 H 244 H (74-106) mg/dL 10/09/18 10/09/18 10/09/18 Range/Units 10:37 16:13 19:52 POC Glucose 352 H 353 H 369 H (74-106) mg/dL 10/09/18 10/10/18 10/10/18 Range/Units 21:50 00:27 06:40 POC Glucose 259 H 185 H 265 H (74-106) mg/dL [place] Results Last 24 Hours: Microbiology 10/08/18 10:40 Aerobic Blood Culture - Preliminary Blood - Venous - Lab Draw NO GROWTH AFTER 1 DAY Anaerobic Blood Culture - Preliminary NO GROWTH AFTER 1 DAY 10/08/18 10:40 Aerobic Blood Culture - Preliminary Blood - Venous NO GROWTH AFTER 1 DAY Anaerobic Blood Culture - Preliminary NO GROWTH AFTER 1 DAY Med Orders - Current: Current Medications Hydrocodone Bitart/Acetaminophen ([place] 325-10 Mg) 1 tab PO Q6H PRN PRN Reason: Pain (moderate 4-6) Aspirin (Halfprin) 162 mg PO DAILY [facility] Last Admin: 10/10/18 07:34 Dose: 162 mg Atorvastatin Calcium (Lipitor) 20 mg PO BEDTIME [facility] Last Admin: 10/09/18 19:57 Dose: 20 mg Bumetanide (Bumex) 2 mg PO DAILY [facility] Last Admin: 10/10/18 07:34 Dose: 2 mg Calcitriol (Rocaltrol) 0.25 mcg PO DAILY [facility] Last Admin: 10/10/18 07:35 Dose: 0.25 mcg Ceftriaxone Sodium (Rocephin) 1 gm IVPUSH DAILY [facility] Last Admin: 10/10/18 07:35 Dose: 1 gm Cholecalciferol (Vitamin D3) 1,000 units PO BID [facility] Last Admin: 10/10/18 07:35 Dose: 1,000 units Cyanocobalamin (Vitamin B12) 1,000 mcg PO DAILY [facility] Last Admin: 10/10/18 07:34 Dose: 1,000 mcg Cyclobenzaprine HCl (Flexeril) 10 mg PO BEDTIME [facility] Last Admin: 10/09/18 19:57 Dose: 10 mg Dextrose/Water (Dextrose 50% In Water) 50 ml IV ASDIRECTED PRN PRN Reason: HYPOGLYCEMIA Duloxetine HCl (Cymbalta) 60 mg PO BEDTIME [facility] Last Admin: 10/09/18 19:57 Dose: 60 mg Ferrous Sulfate (Ferrous Sulfate) 325 mg PO Q2D [facility] Last Admin: 10/09/18 08:04 Dose: 325 mg Gabapentin (Neurontin) 300 mg PO TID [facility] Last Admin: 10/10/18 07:35 Dose: 300 mg Glucagon (Glucagen) 1 mg SUBCUT ASDIRECTED PRN PRN Reason: Hypoglycemia Hydromorphone HCl (Dilaudid) 0.25 mg IVPUSH Q2H PRN PRN Reason: Pain (severe 7-10) Lactated Ringer's (Ringers, Lactated) 1,000 mls @ 125 mls/hr IV ASDIRECTED [facility] Last Admin: 10/10/18 08:29 Dose: 125 mls/hr Insulin Glargine (Lantus Solostar) 14 units SUBCUT BEDTIME [facility] Last Admin: 10/09/18 19:59 Dose: 14 units Insulin Human Lispro (Humalog) 4 unit SUBCUT TIDMEALS [facility] Last Admin: 10/10/18 07:41 Dose: 4 units Insulin Human Lispro (Humalog) 0 unit SUBCUT Q2H PRN; Protocol PRN Reason: HYPERGLYCEMIA Last Admin: 10/10/18 06:42 Dose: 6 units Isosorbide Mononitrate (Imdur) 30 mg PO Q2D [facility] Last Admin: 10/09/18 06:25 Dose: 30 mg Lactobacillus Rhamnosus (Culturelle) 1 cap PO BEDTIME [facility] Last Admin: 10/09/18 19:56 Dose: 1 cap Levothyroxine Sodium (Synthroid) 200 mcg PO ACBREAKFAST [facility] Last Admin: 10/10/18 06:44 Dose: 200 mcg Levothyroxine Sodium (Synthroid) 50 mcg PO DAILY@0700 [facility] Last Admin: 10/10/18 06:44 Dose: 50 mcg Metoclopramide HCl (Reglan) 5 mg PO QIDACANDBED [facility] Last Admin: 10/10/18 06:44 Dose: 5 mg Metoprolol Succinate (Toprol Xl) 25 mg PO DAILY [facility] Last Admin: 10/10/18 07:35 Dose: 25 mg Nitroglycerin (Nitrostat) 0.4 mg SL ASDIRECTED PRN PRN Reason: Chest Pain Ursodiol 300mg X 2 = (600mg (Own Supply)) 0 mg PO BID@0800,1200 [facility] Last Admin: 10/10/18 07:34 Dose: 1,200 mg Ursodiol 300mg (Own (Supply)) 0 mg PO BEDTIME [facility] Last Admin: 10/09/18 19:47 Dose: 300 mg Nortriptyline HCl (Nortriptyline) 20 mg PO BEDTIME [facility] Last Admin: 10/09/18 19:56 Dose: 20 mg Nortriptyline HCl (Nortriptyline) 10 mg PO BID@0800,1300 [facility] Last Admin: 10/10/18 07:35 Dose: 10 mg Ondansetron HCl (Zofran) 4 mg IV Q6H PRN PRN Reason: Nausea/Vomiting Oxycodone HCl (Oxycontin) 10 mg PO TID [facility] Last Admin: 10/10/18 07:34 Dose: 10 mg Polyethylene Glycol (Miralax) 17 gm PO DAILY [facility] Last Admin: 10/10/18 07:35 Dose: 17 gm Pramipexole Dihydrochloride (Mirapex) 0.5 mg PO BEDTIME [facility] Last Admin: 10/09/18 19:57 Dose: 0.5 mg Senna/Docusate Sodium (Senna Plus) 1 tab PO BID [facility] Last Admin: 10/10/18 07:35 Dose: 1 tab Sodium Bicarbonate (Sodium Bicarbonate) 650 mg PO BID [facility] Last Admin: 10/10/18 07:35 Dose: 650 mg Sodium Chloride (Saline Flush) 10 ml FLUSH ASDIRECTED PRN PRN Reason: Keep Vein Open Last Admin: 10/08/18 11:53 Dose: 10 ml Vitamin E (Vitamin E) 400 units PO BID [facility] Last Admin: 10/10/18 07:35 Dose: 400 units Discontinued Medications Ceftriaxone Sodium (Rocephin) 2 gm IVPUSH STAT ONE Stop: 10/08/18 10:21 Last Admin: 10/08/18 11:47 Dose: 2 gm Lactated Ringer's (Ringers, Lactated) 1,000 mls @ 999 mls/hr IV ONETIME ONE Stop: 10/08/18 14:13 Last Admin: 10/08/18 13:49 Dose: 999 mls/hr Magnesium Sulfate 2 gm/ Premix 50 mls @ 25 mls/hr IV ONETIME ONE Stop: 10/08/18 15:13 Last Admin: 10/08/18 13:55 Dose: 25 mls/hr - Exam General: Alert, Oriented HEENT: Pupils Equal, Pupils Reactive, EOMI, Mucous Membr. Moist/[place] Neck: Supple Lungs: Clear to Auscultation, Normal Respiratory Effort Cardiovascular: Regular Rate, Regular Rhythm GI/Abdominal Exam: Normal Bowel Sounds, Soft, Non-Tender, No Distention Extremities: Normal Inspection, Normal Range of Motion, Non-Tender, Normal Capillary Refill Skin: Other (mild erythema noted right side face-mandible eye lid only. scabs/ scratches noted to nose caused by patient) Neurological: No New Focal Deficit Psy/Mental Status: Alert, Normal Affect, Normal Mood - Problem List & Annotations (1) Erysipelas SNOMED Code(s): 70649234 Code(s): A46 - ERYSIPELAS Status: Acute Current Visit: Yes (2) Diabetes mellitus SNOMED Code(s): 67535523 Code(s): E11.9 - TYPE 2 DIABETES MELLITUS WITHOUT COMPLICATIONS Status: Chronic Current Visit: Yes - Problem List Review Problem List Initiated/Reviewed/Updated: Yes - My Orders Last 24 Hours: My Active Orders 10/11/18 05:11 CBC WITH AUTO DIFF [HEME] AM COMPREHENSIVE METABOLIC PN,CMP [CHEM] AM - Assessment Assessment:: 1. Erysipelas - Plan Plan:: # Erysipelas - nursing monitoring progression of redness - labs completed and continue to show improvement. Will order labs for the am. - Continue with Rocephin IV today reassess in the am. May be able to switch over to oral medications tomorrow - Lotion and triple antibiotic cream given to the pt for the dry skin and scabs related to itching dry skin # Type 1 diabetes Mellitus without complication - Continue sliding scale insulin - Blood sugars continue to trend back to the patients normal. Will continue to monitor and offer added medication as needed if sugars spike again - IV fluids are being provided - Diabetic diet is ordered Patient will remain in acute care. She is continuing to improve from yesterday but still have some facial swelling, redness, and discomfort. Labs and antibiotics will be ordered. Results reviewed with the patient. DVT prophylaxis measures are taken, Patient remains a code 1, ambulating as much as possible, continue with diabetic diet. All questions and concerns were addressed prior to leaving the room.
[2018-10-10] MEDS: Bacitracin/Polymyxin B Oint 0.9 GM U/D Pkt TOP PRN ×2 (11:12→19:51)
[2018-10-10] MEDS: DULoxetine 60 MG Cap PO SCH (19:42)
[2018-10-10] MEDS: Lactobacillus Rhamnosus GG (Probiotic) Cap PO SCH (19:43)
[2018-10-10] MEDS: atorvaSTATin 10 MG Tab PO SCH (19:44)
[2018-10-10] MEDS: Pramipexole 0.5 MG Tab PO SCH (19:45)
[2018-10-10] MEDS: Cyclobenzaprine 10 MG Tab PO SCH (19:46)
[2018-10-10] MEDS: Insulin Glargine,Human Rec. Analog 100 Units/ML 3 ML Pen SUBCUT SCH (19:47)
[2018-10-11] MEDS: Metoclopramide 5 MG Tab PO SCH ×2 (06:07→11:26)
[2018-10-11] MEDS: Levothyroxine 50 MCG Tab PO SCH (06:07)
[2018-10-11] MEDS: Levothyroxine 100 MCG Tab PO SCH (06:08)
[2018-10-11 07:16] LABS: ANION GAP 12.4 mmol/L (10-20)
[2018-10-11] MEDS: Gabapentin 300 MG Cap PO SCH ×2 (07:37→11:26)
[2018-10-11] MEDS: Cholecalciferol (Vitamin D3) 1,000 Unit Tab PO SCH (07:37)
[2018-10-11] MEDS: oxyCODONE ER 10 MG TAB.ER PO SCH ×2 (07:37→11:27)
[2018-10-11] MEDS: Vitamin E (dl-alpha-tocopherol acetate) 400 Unit Cap PO SCH (07:37)
[2018-10-11] MEDS: Sodium Bicarbonate 650 MG Tab PO SCH (07:37)
[2018-10-11] MEDS: Aspirin 81 MG Tab.EC PO SCH (07:37)
[2018-10-11] MEDS: Cyanocobalamin (Vitamin B12) 1,000 MCG Tab PO SCH (07:38)
[2018-10-11] MEDS: Nortriptyline 10 MG Cap PO SCH ×3 (07:38→12:10)
[2018-10-11] MEDS: Calcitriol 0.25 MCG Cap PO SCH (07:38)
[2018-10-11] MEDS: Bumetanide 1 MG Tab PO SCH (07:38)
[2018-10-11] MEDS: Isosorbide Mononitrate 30 MG Tab.ER PO SCH (07:38)
[2018-10-11] MEDS: Metoprolol Succinate 25 MG Tab.ER PO SCH (07:38)
[2018-10-11] MEDS: Polyethylene Glycol 3350 Powder 17 GM Packet PO SCH (07:39)
[2018-10-11] MEDS: Insulin Lispro 100 Unit/ML 3 ML KwikPen SUBCUT SCH ×2 (07:39→11:25)
[2018-10-11] MEDS: URSODIOL 300 MG PO SCH ×2 (07:40→11:26)
[2018-10-11] MEDS: cefTRIAXone 1 GM Vial IVPUSH SCH (07:40)
[2018-10-11] MEDS: Ferrous Sulfate 325 MG Tab PO SCH (07:42)
[2018-10-11] MEDS ORDERED: Magnesium Oxide 400 MG Tab PO SCH (08:15)
[2018-10-11 10:39] VITALS: BP 108/70
[2018-10-11] MEDS ORDERED: Cephalexin 500 MG Cap PO SCH (18:00)
[2018-10-11] MEDS ORDERED: Amoxicillin 875 MG Tab PO SCH (20:00)
--- NOTE | 2018-10-12 04:05 | DISCH ---
PRIMARY DISCHARGE DIAGNOSES: 1. Sepsis due to facial cellulitis, erysipelas. 2. Type 1 diabetes with hyperglycemia on long-term insulin due to infection. 3. Chronic kidney disease, stage 4. Creatinine actually improved on baseline down to 1.7, which is better than her baseline. 4. Coronary artery disease, chronic, stable without any chest pain or angina. 5. Chronic biliary cirrhosis. 6. Obesity. 7. Chronic edema. 8. Chronic thrombocytopenia. 9. Hypomagnesemia and hyponatremia. 10.Chronic anemia. 11.Moderate malnutrition. Albumin 1.8. REASON FOR ADMISSION: On the date of admission, this 63-year-old female came into the clinic with increased facial pain, redness, and swelling. She was found to have a white count of 19,000, temperature went up to 101, heart rate was 107. She was placed on IV Rocephin and her condition did gradually improve. Initially, she had no sores on her face, but then did get some scabs. Bacitracin cream was applied. She reports significant improving in the swelling. She also had elevated blood sugars in the 400. She had a sliding scale insulin added to her regular regimen, and blood sugars were down into the mid 200s on discharge. She had recently had some improvement in her diabetes with a new Romario monitor back into the controlled range. DISCHARGE PLANS/INSTRUCTIONS: She is going home on Keflex for 5 more days due to her allergy to penicillin as a child. She also has slight increases to her home long-acting insulin Tresiba by 2 units and to her meal insulin with sliding scale addition of 2 units if blood sugar over 200, and 4 units if over 300. She has an echo scheduled for the clinic today. She will get that recheck with me on 10/26 at 9:50 in the morning. She will continue her probiotic and eat yogurt well on the antibiotic. PHYSICAL EXAMINATION: Vital Signs: Discharge vitals include a temperature of 98.4, pulse 78, blood pressure 108/70, respiratory rate 18, and O2 of 96% on room air. General: She is in no acute distress. Heart: Regular rate and rhythm. S1, S2 without murmur. Lungs: Lung sounds are clear to auscultation bilaterally without crackles or wheezes. Abdomen: Has positive bowel sounds. It is soft, nontender. Extremities: Warm and dry. Trace edema. Face did have some slight pink discoloration to the cheeks and nose area with some scabs over the nose, but no drainage, no warmth. Does not appear to be any swelling. Eye movement is normal without pain. Neck: Supple without lymphadenopathy. Mental Status: She is alert and orientated x3. She will follow up in the clinic with a BMP, CBC, and magnesium at her followup visit. She will also be home on magnesium oxide 400 mg daily. MKA: 10/11/2018 22:53:52 MODL: 10/12/2018 03:52:28 /[id number]
== END 2018-10-11 12:15 | disposition home or self-care (01) | DRG 872 ==
LOC: VM.MS 10:07
PROVIDERS: ADMIT Family Medicine; ATTEND Family Medicine
DX: A40.9 Streptococcal sepsis, unspecified (principal); N18.4 Chronic kidney disease, stage 4 (severe); E87.1 Hypo-osmolality and hyponatremia; E44.0 Moderate protein-calorie malnutrition; L03.211 Cellulitis of face; Z68.41 Body mass index [BMI] 40.0-44.9, adult; I12.9 Hypertensive chronic kidney disease with stage 1 through stage 4 chronic kidney disease, or unspecified chronic kidney disease; A46 Erysipelas; E10.65 Type 1 diabetes mellitus with hyperglycemia; I25.10 Atherosclerotic heart disease of native coronary artery without angina pectoris; K74.5 Biliary cirrhosis, unspecified; D64.9 Anemia, unspecified; E66.9 Obesity, unspecified; D69.6 Thrombocytopenia, unspecified; E83.42 Hypomagnesemia; K21.9 Gastro-esophageal reflux disease without esophagitis; F33.41 Major depressive disorder, recurrent, in partial remission; Z96.1 Presence of intraocular lens; E78.5 Hyperlipidemia, unspecified; M19.91 Primary osteoarthritis, unspecified site; E03.9 Hypothyroidism, unspecified; D63.1 Anemia in chronic kidney disease; Z85.038 Personal history of other malignant neoplasm of large intestine; Z86.010 Personal history of colon polyps; Z98.42 Cataract extraction status, left eye; Z79.4 Long term (current) use of insulin; Z88.2 Allergy status to sulfonamides; Z88.1 Allergy status to other antibiotic agents; Z98.41 Cataract extraction status, right eye
CPT/HCPCS: 36415; 80048; 80053; 82550; 82962; 83605; 83735; 85025; 86140; 87040; A4217; A9270-GY; J0696; J1815-GY; J3475; J7120

== ENCOUNTER 2019-07-07 17:29 | Inpatient (IN) | payer MEDICARE, OTHER ==
[2019-07-07] MEDS ORDERED: Sodium Chloride 0.9% 10 ML Syringe FLUSH PRN (17:37)
--- NOTE | 2019-07-07 18:10 | EDM.PDOC ---
ED HPI GENERAL MEDICAL PROBLEM - General Stated Complaint: ER Time Seen by Provider: 07/07/19 17:35 Source of Information: Reports: Patient, Family History Limitations: Reports: No Limitations - History of Present Illness INITIAL COMMENTS - FREE TEXT/NARRATIVE: Pt. presents to ER with complaints of weakness, chills, some confusion, urinary frequency, incontinence, cough and chest congestion. Pt. began getting sick with the cough and chest congestion 4 days ago. She has also had a headache for 2 days, urinary frequency for 3. Pt. has been quite weak and states that she was unable to make it to the bathroom and was subsequently incontinent of urine prior to arrival at ER. Pt. 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 She also has a history of chronic pain and is on oxycontin and norco for this. She also has a history of chronic peripheral edema. Pt. was hospitalized in September of 2018 with sepsis secondary to facial cellulitis. The infection was treated with Rocephin. She states that she has a lot of problems with allergies, but was able to tolerate the rocephin. Pt. has a history of thrombocytopenia, and frequently has platelet counts in the 70s. Onset: Today Onset Date: 07/07/19 Location: Reports: Chest, Generalized Associated Symptoms: Reports: Cough, Fever/Chills, Malaise, Weakness Headache Pain Score (Numeric/FACES): 5 - Related Data Allergies Allergy/AdvReac Type Severity Reaction Status Date / Time gentamicin [Gentamicin] Allergy Severe Hives Verified 07/07/19 17:56 shellfish derived Allergy Severe Edema Verified 07/07/19 17:56 atenolol Allergy Cannot Verified 07/07/19 17:56 Remember celecoxib [From Celebrex] Allergy Cannot Verified 07/07/19 17:56 Remember oxycodone [Oxycodone] Allergy Cannot Verified 07/07/19 17:56 Remember Penicillins Allergy Cannot Verified 07/07/19 17:56 Remember Sulfa (Sulfonamide Allergy Cannot Verified 07/07/19 17:56 Antibiotics) Remember Tetracyclines Allergy Cannot Verified 07/07/19 17:56 Remember cephalexin monohydrate AdvReac Nausea Verified 07/07/19 17:56 [From Keflex] naproxen [From Naprosyn] AdvReac Renal Verified 07/07/19 17:56 Insufficiency altaryl Allergy Cannot Uncoded 01/12/18 14:11 Remember contrast dye AdvReac Intermediate Renal Uncoded 10/08/18 12:42 Insufficiency anti-inflammatory AdvReac Renal Uncoded 10/08/18 12:42 Insufficiency Home Meds: Home Meds Cyclobenzaprine [Flexeril] 10 mg PO BEDTIME 07/28/13 [History] DULoxetine [Cymbalta] 60 mg PO BEDTIME 07/28/13 [History] Glucagon,Human Recombinant [Glucagon Emergency Kit] 1 mg SUBCUT ASDIRECTED PRN 07/28/13 [History] Isosorbide Mononitrate [Isosorbide Mononitrate ER] 30 mg PO Q2D 07/28/13 [ History] Nitroglycerin [Nitrostat] 0.4 mg SL ASDIRECTED PRN 07/28/13 [History] Nortriptyline HCl [Pamelor] 10 mg PO BID@0800,1300 07/28/13 [History] Vitamin E (Dl,Tocopheryl Acet) [Vitamin E] 400 unit PO BID 07/28/13 [History] atorvaSTATin [Lipitor] 20 mg PO BEDTIME 07/28/13 [History] ursodioL [Actigal] 600 mg PO BID@0800,1200 07/28/13 [History] Aspirin [Halfprin] 162 mg PO DAILY 01/12/18 [History] Cholecalciferol (Vitamin D3) [Vitamin D3] 1,000 unit PO DAILY 01/12/18 [History] Cyanocobalamin (Vitamin B-12) [B-12] 1,000 mcg PO DAILY 01/12/18 [History] Ferrous Gluconate 324 mg PO Q2D 01/12/18 [History] Gabapentin [Neurontin] 300 mg PO TID 01/12/18 [History] Hydrocodone/Acetaminophen [Hydrocodon-Acetaminophn 10-325] 1 tab PO QID PRN [History] Levothyroxine 200 mcg PO ACBREAKFAST 01/12/18 [History] Metoclopramide [Reglan] 5 mg PO QIDACANDBED 01/12/18 [History] Nortriptyline 20 mg PO BEDTIME 01/12/18 [History] Pramipexole [Mirapex] 0.5 mg PO BEDTIME 01/12/18 [History] Sennosides/Docusate Sodium [Sennosides-Docusate Sodium] 1 tab PO BID 01/12/18 [ History] oxyCODONE HCl [Oxycodone HCl ER] 15 mg PO BID 01/12/18 [History] ursodioL [Ursodiol] 300 mg PO BEDTIME 01/12/18 [History] Metoprolol Succinate [Toprol XL] 25 mg PO DAILY 10/08/18 [History] Bumetanide [Bumex] 2 mg PO DAILY #30 tablet 10/11/18 [Rx] Insulin Glarg,Human.Rec.Analog [Lantus Solostar] 16 units SUBCUT BEDTIME #1 pen 10/11/18 [Rx] Insulin Lispro [HumaLOG] 5 units SUBCUT TID #0 10/11/18 [Rx] Lactobacillus Rhamnosus GG [Culturelle] 1 cap PO BEDTIME #60 cap 10/11/18 [Rx] Levothyroxine [Synthroid] 50 mcg PO DAILY@0700 #30 tablet 10/11/18 [Rx] Magnesium Oxide 400 mg PO BID #60 tablet 10/11/18 [Rx] Sodium Bicarbonate 650 mg PO BID #120 tablet 10/11/18 [Rx] calcitrioL [Rocaltrol] 0.25 mcg PO DAILY #30 cap 10/11/18 [Rx] Patiromer Calcium Sorbitex [Veltassa] 8.4 gm PO DAILY 07/07/19 [History] Past Medical History HEENT History: Reports: Cataract, Hard of Hearing, Impaired Vision, Other (See Below) Cardiovascular History: Reports: Heart Murmur, High Cholesterol, Hypertension, Stents Gastrointestinal History: Reports: Cirrhosis, GERD Genitourinary History: Reports: Acute Renal Failure Other Genitourinary History: stage 3 [facility] [employer] PRIMARY CARE History: Reports: Musculoskeletal History: Reports: Arthritis, Back Pain, Chronic, Other (See Below) Other Musculoskeletal History: Turners syndrome Neurological History: Reports: Neuropathy, Diabetic Psychiatric History: Reports: Depression Endocrine/Metabolic History: Reports: Diabetes, Type I, Hypothyroidism Hematologic History: Reports: Anemia, B12 Deficiency, Idiopathic Thrombocytopenia Oncologic (Cancer) History: Reports: Colon - Infectious Disease History Infectious Disease History: Reports: Chicken Pox - Past Surgical History HEENT Surgical History: Reports: Cataract Surgery Cardiovascular Surgical History: Reports: Coronary Artery Stent GI Surgical History: Reports: None Musculoskeletal Surgical History: Reports: None Social & Family History - Family History Family Medical History: Noncontributory - Tobacco Use Smoking Status *Q: Never Smoker - Caffeine Use Caffeine Use: Reports: Soda ED ROS GENERAL - Review of Systems Review Of Systems: See Below Constitutional: Reports: No Symptoms HEENT: Reports: No Symptoms Respiratory: Reports: No Symptoms Cardiovascular: Reports: No Symptoms Endocrine: Reports: No Symptoms GI/Abdominal: Reports: No Symptoms. Denies: Black Stool, Bloody Stool, Diarrhea , Hematochezia, Melena, Nausea, Vomiting : Reports: Frequency, Incontinence, Urgency. Denies: Dysuria Musculoskeletal: Reports: No Symptoms Skin: Reports: No Symptoms Neurological: Reports: Confusion Psychiatric: Reports: No Symptoms Hematologic/Lymphatic: Reports: No Symptoms Immunologic: Reports: No Symptoms ED EXAM, GENERAL - Physical Exam Exam: See Below Exam Limited By: No Limitations General Appearance: Alert, WD/WN, No Apparent Distress, Lethargic Eye Exam: Bilateral Eye: EOMI, PERRL Ears: Normal External Exam, Normal Canal, Hearing Grossly Normal, Other (R TM obstructed with cerumen. ) Nose: Normal Inspection, Normal Mucosa, No Blood Throat/Mouth: Normal Inspection, Normal Lips, Normal Teeth, Normal Gums, Normal Oropharynx, Normal Voice, No Airway Compromise Head: Atraumatic, Normocephalic Neck: Normal Inspection, Supple, Non-Tender, Full Range of Motion Respiratory/Chest: No Respiratory Distress, No Accessory Muscle Use, Chest Non- Tender, Rhonchi Cardiovascular: Normal Peripheral Pulses, Regular Rate, Rhythm, No JVD, No Rub Peripheral Pulses: 4+: Radial (L) GI/Abdominal: Normal Bowel Sounds, Soft, Non-Tender, No Organomegaly, No Distention, No Abnormal Bruit, No Mass, Pelvis Stable (Female) Exam: Deferred Rectal (Female) Exam: Deferred Back Exam: Normal Inspection, Full Range of Motion Extremities: Pedal Edema, Other (leg braces in place, there is some increased edema in area of tibia) Neurological: Alert, Oriented, CN II-XII Intact, Normal Cognition, Normal Gait, Normal Reflexes, No Motor/Sensory Deficits Psychiatric: Normal Affect, Normal Mood Skin Exam: Warm, Dry, Intact, No Rash, Pallor Lymphatic: No Adenopathy EKG INTERPRETATION Rhythm: NSR QRS: RBBB Course - Vital Signs Last Recorded V/S: Last Vital Signs Temp 37.8 C 07/07/19 18:49 Pulse 100 07/07/19 18:49 Resp 18 07/07/19 18:49 BP 107/67 07/07/19 18:49 Pulse Ox 95 07/07/19 18:49 - Orders/Labs/Meds Orders: Active Orders 24 hr Category Date Time Status EKG Documentation Completion [RC] STAT Care 07/07/19 17:38 Active CULTURE BLOOD [BC] Stat Lab 07/07/19 18:00 Received CULTURE BLOOD [BC] Stat Lab 07/07/19 18:05 Received Sodium Chloride 0.9% [Normal Saline] 1,000 ml Med 07/07/19 18:11 Active IV .BOLUS Sodium Chloride 0.9% [Saline Flush] Med 07/07/19 17:37 Active 10 ml FLUSH ASDIRECTED PRN Blood Culture x2 Reflex Set [OM.PC] Stat Oth 07/07/19 17:39 Ordered Peripheral IV Insertion Adult [OM.PC] Routine Oth 07/07/19 17:39 Ordered Medication Orders Aspirin (Halfprin) 162 mg PO DAILY [facility] Bumetanide (Bumex) 2 mg PO DAILY [facility] Calcitriol (Rocaltrol) 0.25 mcg PO DAILY [facility] Ceftriaxone Sodium (Rocephin) 1 gm IVPUSH Q24H [facility] Cyanocobalamin (Vitamin B12) 1,000 mcg PO DAILY [facility] Cyclobenzaprine HCl (Flexeril) 5 mg PO BEDTIME [facility] Duloxetine HCl (Cymbalta) 60 mg PO BEDTIME [facility] Gabapentin (Neurontin) 300 mg PO TID [facility] Sodium Chloride (Normal Saline) 1,000 mls @ 250 mls/hr IV .BOLUS ONE Stop: 07/07/19 22:10 Last Admin: 07/07/19 18:16 Dose: 250 mls/hr Isosorbide Mononitrate (Imdur) 30 mg PO Q2D [facility] Lactobacillus Rhamnosus (Culturelle) 1 cap PO BEDTIME [facility] Levothyroxine Sodium (Synthroid) 50 mcg PO DAILY@0700 [facility] Magnesium Oxide (Magnesium Oxide) 400 mg PO BID [facility] Metoprolol Succinate (Toprol Xl) 25 mg PO DAILY [facility] Nitroglycerin (Nitrostat) 0.4 mg SL ASDIRECTED PRN PRN Reason: Chest Pain Non-Formulary Medication (Atorvastatin [Lipitor]) 20 mg PO BEDTIME [facility] Non-Formulary Medication (Ferrous Gluconate [Ferrous Gluconate]) 324 mg PO Q2D [facility] Non-Formulary Medication (Insulin Glarg,Human.Rec.Analog [Lantus Solostar]) 16 units SUBCUT BEDTIME [facility] Non-Formulary Medication (Levothyroxine) 200 mcg PO ACBREAKFAST [facility] Non-Formulary Medication (Metoclopramide) 5 mg PO QIDACANDBED [facility] Non-Formulary Medication (Oxycodone Hcl [Oxycodone Hcl Er]) 15 mg PO BID [facility] Non-Formulary Medication (Patiromer Calcium Sorbitex [Veltassa]) 8.4 gm PO DAILY [facility] Non-Formulary Medication (Ursodiol) 600 mg PO BID@0800,1200 [facility] Non-Formulary Medication (Ursodiol) 300 mg PO BEDTIME [facility] Nortriptyline HCl (Nortriptyline) 10 mg PO BID@0800,1300 [facility] Nortriptyline HCl (Nortriptyline) 20 mg PO BEDTIME [facility] Pramipexole Dihydrochloride (Mirapex) 0.5 mg PO BEDTIME [facility] Senna/Docusate Sodium (Senna Plus) 1 tab PO BID [facility] Sodium Bicarbonate (Sodium Bicarbonate) 650 mg PO BID [facility] Sodium Chloride (Saline Flush) 10 ml FLUSH ASDIRECTED PRN PRN Reason: Keep Vein Open Labs: Laboratory Tests 07/07/19 07/07/19 07/07/19 Range/Units 17:57 18:00 18:00 WBC 8.3 (4.0-10.0) x10^3/uL RBC 3.04 L (4.00-5.50) x10^6/uL Hgb 10.5 L D (12.0-16.0) g/dL Hct 32.5 L (33.0-47.0) % MCV 106.9 H D (78.0-93.0) fL MCH 34.5 H (26.0-32.0) pg MCHC 32.3 (32.0-36.0) g/dL RDW Coeff of [place] 13.8 (10.0-15.0) % Plt Count 46 L* (130-400) x10^3/uL Neut % (Auto) 81.7 H (50.0-80.0) % Lymph % (Auto) 9.2 L (25.0-50.0) % [place] % (Auto) 8.5 (2.0-11.0) % Eos % (Auto) 0.5 (0.0-4.0) % Baso % (Auto) 0.1 L (0.2-1.2) % PT 10.7 (10.0-12.8) SEC INR 0.9 L (2.0-3.5) Sodium (136-145) mmol/L Potassium (3.5-5.1) mmol/L Chloride (98-107) mmol/L Carbon Dioxide (21-32) mmol/L Anion Gap (10-20) mmol/L BUN (7-18) mg/dL Creatinine (0.55-1.02) mg/dL Est Cr Clr Drug Dosing Estimated GFR (MDRD) Glucose (74-106) mg/dL Lactic Acid (0.4-2.0) mmol/L Calcium (8.5-10.1) mg/dL Corrected Calcium (8.5-10.1) mg/dL Phosphorus (2.6-4.7) mg/dL Magnesium (1.8-2.4) mg/dL Total Bilirubin (0.2-1.0) mg/dL AST (15-37) U/L ALT (14-59) U/L Alkaline Phosphatase (46-116) U/L Troponin I (<=0.056) ng/mL C-Reactive Protein (<=0.9) mg/dL Total Protein (6.4-8.2) g/dL Albumin (3.4-5.0) g/dL Globulin Albumin/Globulin Ratio TSH, Ultra Sensitive (0.358-3.74) uIU/mL Urine Color Yellow (YELLOW) Urine Appearance Slightly cloudy H (CLEAR) Urine pH 5.5 (5.0-8.0) Ur Specific [place] 1.020 Urine Protein 30 H (NEGATIVE) mg/dL Urine Glucose (UA) Negative (NEGATIVE) mg/dL Urine Ketones Negative (NEGATIVE) mg/dL Urine Occult Blood Moderate H (NEGATIVE) Urine Nitrite Negative (NEGATIVE) Urine Bilirubin Negative (NEGATIVE) Urine Urobilinogen 0.2 (0.2) EU/dL Ur Leukocyte Esterase Large H (NEGATIVE) U Hyaline Cast (Auto) Rare Urine RBC 5-10 H (NOT SEEN) /HPF Urine WBC 40-50 H (NOT SEEN) /HPF Ur Squamous Epith Cells Few H (NEGATIVE) /HPF Urine Bacteria Few H (NEGATIVE) /HPF Urine Mucus Rare H (NEGATIVE) /LPF 07/07/19 07/07/19 Range/Units 18:00 18:00 WBC (4.0-10.0) x10^3/uL RBC (4.00-5.50) x10^6/uL Hgb (12.0-16.0) g/dL Hct (33.0-47.0) % MCV (78.0-93.0) fL MCH (26.0-32.0) pg MCHC (32.0-36.0) g/dL RDW Coeff of [place] (10.0-15.0) % Plt Count (130-400) x10^3/uL Neut % (Auto) (50.0-80.0) % Lymph % (Auto) (25.0-50.0) % [place] % (Auto) (2.0-11.0) % Eos % (Auto) (0.0-4.0) % Baso % (Auto) (0.2-1.2) % PT (10.0-12.8) SEC INR (2.0-3.5) Sodium 132 L (136-145) mmol/L Potassium 3.8 (3.5-5.1) mmol/L Chloride 100 (98-107) mmol/L Carbon Dioxide 14 L D (21-32) mmol/L Anion Gap 21.8 H (10-20) mmol/L BUN 58 H D (7-18) mg/dL Creatinine 3.0 H D (0.55-1.02) mg/dL Est Cr Clr Drug Dosing TNP Estimated GFR (MDRD) 16 Glucose 390 H (74-106) mg/dL Lactic Acid 1.4 (0.4-2.0) mmol/L Calcium 8.4 L (8.5-10.1) mg/dL Corrected Calcium 9.36 (8.5-10.1) mg/dL Phosphorus 4.9 H (2.6-4.7) mg/dL Magnesium 1.5 L (1.8-2.4) mg/dL Total Bilirubin 0.6 (0.2-1.0) mg/dL AST 39 H (15-37) U/L ALT 71 H (14-59) U/L Alkaline Phosphatase 585 H (46-116) U/L Troponin I < 0.017 (<=0.056) ng/mL C-Reactive Protein 5.5 H (<=0.9) mg/dL Total Protein 6.3 L (6.4-8.2) g/dL Albumin 2.8 L (3.4-5.0) g/dL Globulin 3.5 Albumin/Globulin Ratio 0.80 TSH, Ultra Sensitive 1.291 (0.358-3.74) uIU/mL Urine Color (YELLOW) Urine Appearance (CLEAR) Urine pH (5.0-8.0) Ur Specific [place] Urine Protein (NEGATIVE) mg/dL Urine Glucose (UA) (NEGATIVE) mg/dL Urine Ketones (NEGATIVE) mg/dL Urine Occult Blood (NEGATIVE) Urine Nitrite (NEGATIVE) Urine Bilirubin (NEGATIVE) Urine Urobilinogen (0.2) EU/dL Ur Leukocyte Esterase (NEGATIVE) U Hyaline Cast (Auto) Urine RBC (NOT SEEN) /HPF Urine WBC (NOT SEEN) /HPF Ur Squamous Epith Cells (NEGATIVE) /HPF Urine Bacteria (NEGATIVE) /HPF Urine Mucus (NEGATIVE) /LPF Meds: Medications Generic Name Dose Route Start Last Admin Trade Name Freq PRN Reason Stop Dose Admin Aspirin 162 mg 07/08/19 08:00 Halfprin PO DAILY [facility] Bumetanide 2 mg 07/08/19 08:00 Bumex PO DAILY [facility] Calcitriol 0.25 mcg 07/08/19 08:00 Rocaltrol PO DAILY [facility] Ceftriaxone Sodium 1 gm 07/08/19 19:00 Rocephin IVPUSH Q24H [facility] Cyanocobalamin 1,000 mcg 07/08/19 08:00 Vitamin B12 PO DAILY [facility] Cyclobenzaprine HCl 5 mg 07/07/19 20:00 Flexeril PO BEDTIME [facility] Duloxetine HCl 60 mg 07/07/19 20:00 Cymbalta PO BEDTIME [facility] Gabapentin 300 mg 07/07/19 20:00 Neurontin PO TID [facility] Sodium Chloride 1,000 mls @ 250 mls/hr 07/07/19 18:11 07/07/19 18:16 Normal Saline IV 07/07/19 22:10 250 mls/hr .BOLUS ONE Administration Isosorbide Mononitrate 30 mg 07/08/19 08:00 Imdur PO Q2D [facility] Lactobacillus Rhamnosus 1 cap 07/07/19 20:00 Culturelle PO BEDTIME [facility] Levothyroxine Sodium 50 mcg 07/08/19 07:00 Synthroid PO DAILY@0700 [facility] Magnesium Oxide 400 mg 07/07/19 20:00 Magnesium Oxide PO BID [facility] Metoprolol Succinate 25 mg 07/08/19 08:00 Toprol Xl PO DAILY [facility] Nitroglycerin 0.4 mg 07/07/19 19:24 Nitrostat SL ASDIRECTED PRN Chest Pain Non-Formulary Medication 20 mg 07/07/19 20:00 Atorvastatin [Lipitor] PO BEDTIME [facility] Non-Formulary Medication 324 mg 07/08/19 08:00 Ferrous Gluconate [Ferrous Gluconate] PO Q2D [facility] Non-Formulary Medication 16 units 07/07/19 20:00 Insulin Glarg,Human.Rec.Analog [Lantus Solostar] SUBCUT BEDTIME [facility] Non-Formulary Medication 200 mcg 07/08/19 07:00 Levothyroxine PO ACBREAKFAST [facility] Non-Formulary Medication 5 mg 07/07/19 20:00 Metoclopramide PO QIDACANDBED [facility] Non-Formulary Medication 15 mg 07/07/19 20:00 Oxycodone Hcl [Oxycodone Hcl Er] PO BID [facility] Non-Formulary Medication 8.4 gm 07/08/19 08:00 Patiromer Calcium Sorbitex [Veltassa] PO DAILY [facility] Non-Formulary Medication 600 mg 07/08/19 08:00 Ursodiol PO BID@0800,1200 [facility] Non-Formulary Medication 300 mg 07/07/19 20:00 Ursodiol PO BEDTIME [facility] Nortriptyline HCl 10 mg 07/08/19 08:00 Nortriptyline PO BID@0800,1300 [facility] Nortriptyline HCl 20 mg 07/07/19 20:00 Nortriptyline PO BEDTIME [facility] Pramipexole Dihydrochloride 0.5 mg 07/07/19 20:00 Mirapex PO BEDTIME [facility] Senna/Docusate Sodium 1 tab 07/07/19 20:00 Senna Plus PO BID [facility] Sodium Bicarbonate 650 mg 07/07/19 20:00 Sodium Bicarbonate PO BID [facility] Sodium Chloride 10 ml 07/07/19 17:37 Saline Flush FLUSH ASDIRECTED PRN Keep Vein Open Discontinued Medications Generic Name Dose Route Start Last Admin Trade Name Freq PRN Reason Stop Dose Admin Ceftriaxone Sodium 2 gm 07/07/19 18:26 07/07/19 18:36 Rocephin IVPUSH 07/07/19 18:27 2 gm STAT ONE Administration - Radiology Interpretation Free Text/Narrative:: Chest x-ray negative for acute pathology. Departure - Departure Time of Disposition: 19:35 Disposition: DC/Tfer to Acute Hospital 02 Condition: Good Clinical Impression: UTI (urinary tract infection), DON (acute kidney injury), CKD (chronic kidney disease) stage 4, GFR 15-29 ml/min - Discharge Information Sepsis Event Note - Evaluation Sepsis Screening Result: No Definite Risk - Focused Exam Vital Signs: Vital Signs Temp Pulse Resp BP Pulse Ox 07/07/19 17:29 38.2 C H 119 H 20 119/61 98 Date Exam was Performed: 07/07/19 Time Exam was Performed: 19:38 - Problem List Review Problem List Initiated/Reviewed/Updated: Yes - My Orders Last 24 Hours: My Active Orders 07/07/19 17:37 Sodium Chloride 0.9% [Saline Flush] 10 ml FLUSH ASDIRECTED PRN 07/07/19 17:38 EKG Documentation Completion [RC] STAT 07/07/19 17:39 Blood Culture x2 Reflex Set [OM.PC] Stat Peripheral IV Insertion Adult [OM.PC] Routine 07/07/19 18:00 CULTURE BLOOD [BC] Stat 07/07/19 18:05 CULTURE BLOOD [BC] Stat 07/07/19 18:11 Sodium Chloride 0.9% [Normal Saline] 1,000 ml IV .BOLUS - Assessment/Plan Last 24 Hours: My Active Orders 07/07/19 17:37 Sodium Chloride 0.9% [Saline Flush] 10 ml FLUSH ASDIRECTED PRN 07/07/19 17:38 EKG Documentation Completion [RC] STAT 07/07/19 17:39 Blood Culture x2 Reflex Set [OM.PC] Stat Peripheral IV Insertion Adult [OM.PC] Routine 07/07/19 18:00 CULTURE BLOOD [BC] Stat 07/07/19 18:05 CULTURE BLOOD [BC] Stat 07/07/19 18:11 Sodium Chloride 0.9% [Normal Saline] 1,000 ml IV .BOLUS Plan: Pt. will be admitted acutely. Dr. Evans is admitting for Dr. Mireles. Pt. is a code 1.
--- NOTE | 2019-07-07 18:10 | CR ---
[id number] RAD/RAD Chest PA or AP 1V EXAM: RAD Chest PA or AP 1V INDICATION: COUGH, CONFUSION. COMPARISON: None. DISCUSSION: Cardiomediastinal silhouette is normal in size and contour. No infiltrate, effusion, pneumothorax, or edema. IMPRESSION: Negative examination of the chest. Alexy Medina MD 07/07/19 1783 Thank you for allowing us to participate in the care of your patient.
[2019-07-07] MEDS ORDERED: Sodium Chloride 0.9% 1,000 ML IV ONE (18:11)
[2019-07-07] MEDS ORDERED: cefTRIAXone 2 GM Vial IVPUSH ONE (18:26)
[2019-07-07 18:40] LABS: ANION GAP 21.8 mmol/L (10-20); CHLORIDE,CL 100 mmol/L (98-107); SODIUM,NA 132 mmol/L (136-145)
[2019-07-07] MEDS ORDERED: Nitroglycerin 0.4 MG Tab.SL SL PRN (19:24)
--- NOTE | 2019-07-07 19:44 | PCM.HP.2 ---
H&P History of Present Illness - General Date of Service: 07/07/19 Admit Problem/Dx: Admission Diagnosis/Problem Admission Diagnosis/Problem Sepsis Source of Information: Patient History Limitations: Reports: No Limitations - History of Present Illness Initial Comments - Free Text/Narative: Mrs. Vela is a 63 yo female with PMH of type 1 DM, CKD, hubbard syndrome, HTN, CAD, hyperlipidemia, colon cancer, gout, vitamin D deficiency, secondary renal hyperparathyroidism, painful diabetic neuropathy, hypothyroidism, obesity, depression, GERD, biliary cirrhosis, gastroparesis, constipation, and OA who presented to the ER today for evaluation of urinary frequency x 4 days. She has not had any dysuria, abdominal pain, flank pain, nausea, vomiting, or fever. She has had a cough for 4 days as well as some rhinorrhea. No shortness of breath or chest pain. She has become increasingly weak at home and presented to the ER for evaluation today. She has been eating and drinking ok and has not had any vomiting or diarrhea. No specific home cares done. She has not had a history of frequent UTI's. She states her glucoses have been "high and low" but she cannot recall any specific numbers. Headache Pain Score (Numeric/FACES): 5 - Related Data Allergies/Adverse Reactions: Allergies Allergy/AdvReac Type Severity Reaction Status Date / Time gentamicin [Gentamicin] Allergy Severe Hives Verified 07/07/19 17:56 shellfish derived Allergy Severe Edema Verified 07/07/19 17:56 atenolol Allergy Cannot Verified 07/07/19 17:56 Remember celecoxib [From Celebrex] Allergy Cannot Verified 07/07/19 17:56 Remember oxycodone [Oxycodone] Allergy Cannot Verified 07/07/19 17:56 Remember Penicillins Allergy Cannot Verified 07/07/19 17:56 Remember Sulfa (Sulfonamide Allergy Cannot Verified 07/07/19 17:56 Antibiotics) Remember Tetracyclines Allergy Cannot Verified 07/07/19 17:56 Remember cephalexin monohydrate AdvReac Nausea Verified 07/07/19 17:56 [From Keflex] naproxen [From Naprosyn] AdvReac Renal Verified 07/07/19 17:56 Insufficiency altaryl Allergy Cannot Uncoded 01/12/18 14:11 Remember contrast dye AdvReac Intermediate Renal Uncoded 10/08/18 12:42 Insufficiency anti-inflammatory AdvReac Renal Uncoded 10/08/18 12:42 Insufficiency Home Medications: Home Meds Cyclobenzaprine [Flexeril] 10 mg PO BEDTIME 07/28/13 [History] DULoxetine [Cymbalta] 60 mg PO BEDTIME 07/28/13 [History] Glucagon,Human Recombinant [Glucagon Emergency Kit] 1 mg SUBCUT ASDIRECTED PRN 07/28/13 [History] Isosorbide Mononitrate [Isosorbide Mononitrate ER] 30 mg PO Q2D 07/28/13 [ History] Nitroglycerin [Nitrostat] 0.4 mg SL ASDIRECTED PRN 07/28/13 [History] Nortriptyline HCl [Pamelor] 10 mg PO BID@0800,1300 07/28/13 [History] Vitamin E (Dl,Tocopheryl Acet) [Vitamin E] 400 unit PO BID 07/28/13 [History] atorvaSTATin [Lipitor] 20 mg PO BEDTIME 07/28/13 [History] ursodioL [Actigal] 600 mg PO BID@0800,1200 07/28/13 [History] Aspirin [Halfprin] 162 mg PO DAILY 01/12/18 [History] Cholecalciferol (Vitamin D3) [Vitamin D3] 1,000 unit PO DAILY 01/12/18 [History] Cyanocobalamin (Vitamin B-12) [B-12] 1,000 mcg PO DAILY 01/12/18 [History] Ferrous Gluconate 324 mg PO Q2D 01/12/18 [History] Gabapentin [Neurontin] 300 mg PO TID 01/12/18 [History] Hydrocodone/Acetaminophen [Hydrocodon-Acetaminophn 10-325] 1 tab PO QID PRN [History] Levothyroxine 200 mcg PO ACBREAKFAST 01/12/18 [History] Metoclopramide [Reglan] 5 mg PO QIDACANDBED 01/12/18 [History] Nortriptyline 20 mg PO BEDTIME 01/12/18 [History] Pramipexole [Mirapex] 0.5 mg PO BEDTIME 01/12/18 [History] Sennosides/Docusate Sodium [Sennosides-Docusate Sodium] 1 tab PO BID 01/12/18 [ History] oxyCODONE HCl [Oxycodone HCl ER] 15 mg PO BID 01/12/18 [History] ursodioL [Ursodiol] 300 mg PO BEDTIME 01/12/18 [History] Metoprolol Succinate [Toprol XL] 25 mg PO DAILY 10/08/18 [History] Bumetanide [Bumex] 2 mg PO DAILY #30 tablet 10/11/18 [Rx] Insulin Glarg,Human.Rec.Analog [Lantus Solostar] 16 units SUBCUT BEDTIME #1 pen 10/11/18 [Rx] Insulin Lispro [HumaLOG] 5 units SUBCUT TID #0 10/11/18 [Rx] Lactobacillus Rhamnosus GG [Culturelle] 1 cap PO BEDTIME #60 cap 10/11/18 [Rx] Levothyroxine [Synthroid] 50 mcg PO DAILY@0700 #30 tablet 10/11/18 [Rx] Magnesium Oxide 400 mg PO BID #60 tablet 10/11/18 [Rx] Sodium Bicarbonate 650 mg PO BID #120 tablet 10/11/18 [Rx] calcitrioL [Rocaltrol] 0.25 mcg PO DAILY #30 cap 10/11/18 [Rx] Patiromer Calcium Sorbitex [Veltassa] 8.4 gm PO DAILY 07/07/19 [History] Past Medical History HEENT History: Reports: Cataract, Hard of Hearing, Impaired Vision, Other (See Below) Cardiovascular History: Reports: CAD, Heart Murmur, High Cholesterol, Hypertension, Stents Respiratory History: Reports: None Gastrointestinal History: Reports: Cirrhosis, GERD, Other (See Below) ( gastroparesis) Genitourinary History: Reports: Acute Renal Failure, Chronic Renal Insuffiency Other Genitourinary History: stage 3 ACCESS SERVICES ASSISTANT History: Reports: Musculoskeletal History: Reports: Arthritis, Back Pain, Chronic, Other (See Below) Other Musculoskeletal History: Turners syndrome Neurological History: Reports: Neuropathy, Diabetic Psychiatric History: Reports: Depression Endocrine/Metabolic History: Reports: Diabetes, Type I, Hypothyroidism Hematologic History: Reports: Anemia, B12 Deficiency, Idiopathic Thrombocytopenia Immunologic History: Reports: None Oncologic (Cancer) History: Reports: Colon Dermatologic History: Reports: None - Infectious Disease History Infectious Disease History: Reports: Chicken Pox - Past Surgical History HEENT Surgical History: Reports: Cataract Surgery, Oral Surgery, Tonsillectomy Cardiovascular Surgical History: Reports: Coronary Artery Stent GI Surgical History: Reports: Colonoscopy, EGD Musculoskeletal Surgical History: Reports: None Social & Family History - Family History : Reports: Cystic Kidney Disease Oncologic: Reports: Liver - Tobacco Use Smoking Status *Q: Never Smoker - Caffeine Use Caffeine Use: Reports: Soda - Alcohol Use Alcohol Use History: No Alcohol Use in Last Twelve Months: No - Recreational Drug Use Recreational Drug Use: No - Living Situation & Occupation Living situation: Reports: , with Significant Other Occupation: Retired (worked at [employer]) H&P Review of Systems - Review of Systems: Review Of Systems: See Below General: Reports: Fever, Chills, Malaise, Weakness HEENT: Reports: No Symptoms Pulmonary: Reports: Cough. Denies: Shortness of Breath Cardiovascular: Reports: No Symptoms Gastrointestinal: Reports: No Symptoms Genitourinary: Reports: Frequency Musculoskeletal: Reports: No Symptoms Skin: Reports: No Symptoms Psychiatric: Reports: No Symptoms Neurological: Reports: No Symptoms Exam - Exam Exam: See Below - Vital Signs Vital Signs: Last Vital Signs Temp 37.8 C 07/07/19 18:49 Pulse 100 07/07/19 18:49 Resp 18 07/07/19 18:49 BP 107/67 07/07/19 18:49 Pulse Ox 95 07/07/19 18:49 - Exam General: Alert, Oriented, Cooperative HEENT: Conjunctiva Clear, Mucosa Moist & [place], Pupils Equal, Pupils Reactive Neck: Supple, Trachea Midline. No: Lymphadenopathy, Thyromegaly Lungs: Normal Respiratory Effort, Rhonchi Cardiovascular: Regular Rate, Regular Rhythm, Normal S1, Normal S2 GI/Abdominal Exam: Normal Bowel Sounds, Soft, Non-Tender, No Organomegaly, No Distention, No Mass Extremities: Non-Tender, No Pedal Edema, Normal Capillary Refill Peripheral Pulses: 2+: Radial (L), Radial (R) Skin: Warm, Dry, Intact - Patient Data Lab Results Last 24 hrs: Laboratory Results - last 24 hr 07/07/19 07/07/19 07/07/19 Range/Units 17:57 18:00 18:00 WBC 8.3 (4.0-10.0) x10^3/uL RBC 3.04 L (4.00-5.50) x10^6/uL Hgb 10.5 L D (12.0-16.0) g/dL Hct 32.5 L (33.0-47.0) % MCV 106.9 H D (78.0-93.0) fL MCH 34.5 H (26.0-32.0) pg MCHC 32.3 (32.0-36.0) g/dL RDW Coeff of [place] 13.8 (10.0-15.0) % Plt Count 46 L* (130-400) x10^3/uL Neut % (Auto) 81.7 H (50.0-80.0) % Lymph % (Auto) 9.2 L (25.0-50.0) % [place] % (Auto) 8.5 (2.0-11.0) % Eos % (Auto) 0.5 (0.0-4.0) % Baso % (Auto) 0.1 L (0.2-1.2) % PT 10.7 (10.0-12.8) SEC INR 0.9 L (2.0-3.5) POC VBG pH (7.31-7.41) POC VBG pCO2 (41-51) POC VBG pO2 POC VBG HCO3 (23-28) POC VBG Total CO2 (24-29) POC VBG Base Excess ((-2) - 3) POC FiO2 Sodium (136-145) mmol/L Potassium (3.5-5.1) mmol/L Chloride (98-107) mmol/L Carbon Dioxide (21-32) mmol/L Anion Gap (10-20) mmol/L BUN (7-18) mg/dL Creatinine (0.55-1.02) mg/dL Est Cr Clr Drug Dosing Estimated GFR (MDRD) Glucose (74-106) mg/dL Lactic Acid (0.4-2.0) mmol/L Calcium (8.5-10.1) mg/dL Corrected Calcium (8.5-10.1) mg/dL Phosphorus (2.6-4.7) mg/dL Magnesium (1.8-2.4) mg/dL Total Bilirubin (0.2-1.0) mg/dL AST (15-37) U/L ALT (14-59) U/L Alkaline Phosphatase (46-116) U/L Troponin I (<=0.056) ng/mL C-Reactive Protein (<=0.9) mg/dL Total Protein (6.4-8.2) g/dL Albumin (3.4-5.0) g/dL Globulin Albumin/Globulin Ratio TSH, Ultra Sensitive (0.358-3.74) uIU/mL Urine Color Yellow (YELLOW) Urine Appearance Slightly cloudy H (CLEAR) Urine pH 5.5 (5.0-8.0) Ur Specific [place] 1.020 Urine Protein 30 H (NEGATIVE) mg/dL Urine Glucose (UA) Negative (NEGATIVE) mg/dL Urine Ketones Negative (NEGATIVE) mg/dL Urine Occult Blood Moderate H (NEGATIVE) Urine Nitrite Negative (NEGATIVE) Urine Bilirubin Negative (NEGATIVE) Urine Urobilinogen 0.2 (0.2) EU/dL Ur Leukocyte Esterase Large H (NEGATIVE) U Hyaline Cast (Auto) Rare Urine RBC 5-10 H (NOT SEEN) /HPF Urine WBC 40-50 H (NOT SEEN) /HPF Ur Squamous Epith Cells Few H (NEGATIVE) /HPF Urine Bacteria Few H (NEGATIVE) /HPF Urine Mucus Rare H (NEGATIVE) /LPF 07/07/19 07/07/19 07/07/19 Range/Units 18:00 18:00 19:09 WBC (4.0-10.0) x10^3/uL RBC (4.00-5.50) x10^6/uL Hgb (12.0-16.0) g/dL Hct (33.0-47.0) % MCV (78.0-93.0) fL MCH (26.0-32.0) pg MCHC (32.0-36.0) g/dL RDW Coeff of [place] (10.0-15.0) % Plt Count (130-400) x10^3/uL Neut % (Auto) (50.0-80.0) % Lymph % (Auto) (25.0-50.0) % [place] % (Auto) (2.0-11.0) % Eos % (Auto) (0.0-4.0) % Baso % (Auto) (0.2-1.2) % PT (10.0-12.8) SEC INR (2.0-3.5) POC VBG pH 7.29 L (7.31-7.41) POC VBG pCO2 25 L (41-51) POC VBG pO2 90 POC VBG HCO3 12 L (23-28) POC VBG Total CO2 13 L (24-29) POC VBG Base Excess -15 L ((-2) - 3) POC FiO2 0.21 Sodium 132 L (136-145) mmol/L Potassium 3.8 (3.5-5.1) mmol/L Chloride 100 (98-107) mmol/L Carbon Dioxide 14 L D (21-32) mmol/L Anion Gap 21.8 H (10-20) mmol/L BUN 58 H D (7-18) mg/dL Creatinine 3.0 H D (0.55-1.02) mg/dL Est Cr Clr Drug Dosing TNP Estimated GFR (MDRD) 16 Glucose 390 H (74-106) mg/dL Lactic Acid 1.4 (0.4-2.0) mmol/L Calcium 8.4 L (8.5-10.1) mg/dL Corrected Calcium 9.36 (8.5-10.1) mg/dL Phosphorus 4.9 H (2.6-4.7) mg/dL Magnesium 1.5 L (1.8-2.4) mg/dL Total Bilirubin 0.6 (0.2-1.0) mg/dL AST 39 H (15-37) U/L ALT 71 H (14-59) U/L Alkaline Phosphatase 585 H (46-116) U/L Troponin I < 0.017 (<=0.056) ng/mL C-Reactive Protein 5.5 H (<=0.9) mg/dL Total Protein 6.3 L (6.4-8.2) g/dL Albumin 2.8 L (3.4-5.0) g/dL Globulin 3.5 Albumin/Globulin Ratio 0.80 TSH, Ultra Sensitive 1.291 (0.358-3.74) uIU/mL Urine Color (YELLOW) Urine Appearance (CLEAR) Urine pH (5.0-8.0) Ur Specific [place] Urine Protein (NEGATIVE) mg/dL Urine Glucose (UA) (NEGATIVE) mg/dL Urine Ketones (NEGATIVE) mg/dL Urine Occult Blood (NEGATIVE) Urine Nitrite (NEGATIVE) Urine Bilirubin (NEGATIVE) Urine Urobilinogen (0.2) EU/dL Ur Leukocyte Esterase (NEGATIVE) U Hyaline Cast (Auto) Urine RBC (NOT SEEN) /HPF Urine WBC (NOT SEEN) /HPF Ur Squamous Epith Cells (NEGATIVE) /HPF Urine Bacteria (NEGATIVE) /HPF Urine Mucus (NEGATIVE) /LPF Result Diagrams: 07/07/19 18:00 07/07/19 18:00 Sepsis Event Note - Evaluation Sepsis Screening Result: No Definite Risk - Focused Exam Vital Signs: Vital Signs Temp Pulse Resp BP Pulse Ox 07/07/19 18:49 37.8 C 100 18 107/67 95 07/07/19 17:29 38.2 C H 119 H 20 119/61 98 Date Exam was Performed: 07/07/19 Time Exam was Performed: 21:16 *Q Meaningful Use (ADM) - VTE *Q VTE Anticoagulation Contraindications: Medical/Procedure Contrai - Problem List (1) Sepsis SNOMED Code(s): 05737861 ICD Code: A41.9 - SEPSIS, UNSPECIFIED ORGANISM Status: Acute Current Visit: Yes Qualifiers: Sepsis type: sepsis due to unspecified organism Sepsis acute organ dysfunction status: without acute organ dysfunction Qualified Code(s): A41.9 - Sepsis, unspecified organism (2) Complicated UTI (urinary tract infection) SNOMED Code(s): 94076171 ICD Code: N39.0 - URINARY TRACT INFECTION, SITE NOT SPECIFIED Status: Acute Current Visit: Yes (3) Acute on chronic renal failure SNOMED Code(s): 913395677 ICD Code: N17.9 - ACUTE KIDNEY FAILURE, UNSPECIFIED; N18.9 - CHRONIC KIDNEY DISEASE, UNSPECIFIED Status: Acute Current Visit: Yes Qualifiers: Acute renal failure type: unspecified Chronic kidney disease stage: stage 3 (moderate) Qualified Code(s): N17.9 - Acute kidney failure, unspecified; N18.3 - Chronic kidney disease, stage 3 (moderate) (4) Bronchitis SNOMED Code(s): 66506442 ICD Code: J40 - BRONCHITIS, NOT SPECIFIED ACUTE OR CHRONIC Status: Acute Current Visit: Yes (5) Thrombocytopenia SNOMED Code(s): 978034611 ICD Code: D69.6 - THROMBOCYTOPENIA, UNSPECIFIED Status: Chronic Current Visit: Yes (6) Diabetes mellitus SNOMED Code(s): 97307514 ICD Code: E11.9 - TYPE 2 DIABETES MELLITUS WITHOUT COMPLICATIONS Status: Chronic Current Visit: No Qualifiers: Diabetes mellitus type: type 1 Diabetes mellitus complication status: with other specified complication Qualified Code(s): E10.69 - Type 1 diabetes mellitus with other specified complication (7) Hyperlipidemia SNOMED Code(s): 28407777 ICD Code: E78.5 - HYPERLIPIDEMIA, UNSPECIFIED Status: Chronic Current Visit: Yes Qualifiers: Hyperlipidemia type: unspecified Qualified Code(s): E78.5 - Hyperlipidemia , unspecified (8) Hypothyroid SNOMED Code(s): 68177737 ICD Code: E03.9 - HYPOTHYROIDISM, UNSPECIFIED Status: Chronic Current Visit: Yes Qualifiers: Hypothyroidism type: acquired Qualified Code(s): E03.9 - Hypothyroidism, unspecified (9) Obesity SNOMED Code(s): 867630257, 552289051 ICD Code: E66.9 - OBESITY, UNSPECIFIED Status: Chronic Current Visit: Yes Qualifiers: Obesity type: due to excess calories Obesity classification: unspecified obesity classification Serious obesity comorbidity presence: with serious comorbidity Qualified Code(s): E66.09 - Other obesity due to excess calories (10) Gastroparesis SNOMED Code(s): 145493972 ICD Code: K31.84 - GASTROPARESIS Status: Chronic Current Visit: Yes (11) Constipation SNOMED Code(s): 32434336 ICD Code: K59.00 - CONSTIPATION, UNSPECIFIED Status: Chronic Current Visit: Yes Qualifiers: Constipation type: unspecified constipation type Qualified Code(s): K59.00 - Constipation, unspecified (12) Biliary cirrhosis SNOMED Code(s): 6161586 ICD Code: K74.5 - BILIARY CIRRHOSIS, UNSPECIFIED Status: Chronic Current Visit: No (13) CAD (coronary artery disease) SNOMED Code(s): 57631382 ICD Code: I25.10 - ATHSCL HEART DISEASE OF [place] CORONARY ARTERY W/O ANG PCTRS Status: Chronic Current Visit: No Qualifiers: Coronary Disease-Associated Artery/Lesion type: [place] artery [place] vs. transplanted heart: [place] heart Associated angina: without angina Qualified Code(s): I25.10 - Atherosclerotic heart disease of [place] coronary artery without angina pectoris (14) Diabetic neuropathy SNOMED Code(s): 205063596, 434876961 ICD Code: E11.40 - TYPE 2 DIABETES MELLITUS WITH DIABETIC NEUROPATHY, UNSP Status: Chronic Current Visit: No (15) GERD (gastroesophageal reflux disease) SNOMED Code(s): 895498076 ICD Code: K21.9 - GASTRO-ESOPHAGEAL REFLUX DISEASE WITHOUT ESOPHAGITIS Status: Chronic Current Visit: No (16) Gout SNOMED Code(s): 98016689 ICD Code: M10.9 - GOUT, UNSPECIFIED Status: Chronic Current Visit: No (17) Hypertension SNOMED Code(s): 98140417 ICD Code: I10 - ESSENTIAL (PRIMARY) HYPERTENSION Status: Chronic Current Visit: No (18) MDD (major depressive disorder), recurrent, in partial remission SNOMED Code(s): 07753775 ICD Code: F33.41 - MAJOR DEPRESSIVE DISORDER, RECURRENT, IN PARTIAL REMISSION Status: Chronic Current Visit: No (19) Osteoarthritis SNOMED Code(s): 790783966 ICD Code: M19.90 - UNSPECIFIED OSTEOARTHRITIS, UNSPECIFIED SITE Status: Chronic Current Visit: No (20) Hubbard syndrome Status: Chronic Current Visit: No Problem List Initiated/Reviewed/Updated: Yes Orders Last 24hrs: Active Orders 24 hr Category Date Time Status Patient Status [ADT] Routine ADT 07/07/19 18:49 Active Blood Glucose Check, Bedside [RC] QIDACANDBED Care 07/07/19 19:24 Ordered Dietary Supplements [RC] BIDMEALS Care 07/07/19 19:23 Ordered EKG Documentation Completion [RC] STAT Care 07/07/19 17:38 Active Notify Provider Vital Signs [RC] ASDIRECTED Care 07/07/19 19:21 Ordered Oxygen Therapy [RC] PRN Care 07/07/19 19:21 Ordered Up With Assistance [RC] ASDIRECTED Care 07/07/19 19:21 Ordered VTE/DVT Education [RC] PER UNIT ROUTINE Care 07/07/19 19:21 Ordered Vital Signs [RC] Q4H Care 07/07/19 19:21 Ordered Regular Diet [DIET] Diet 07/07/19 Breakfast Ordered BASIC METABOLIC PANEL,BMP [CHEM] Routine Lab 07/08/19 05:11 Ordered CBC WITH AUTO DIFF [HEME] Routine Lab 07/08/19 05:11 Ordered CULTURE BLOOD [BC] Stat Lab 07/07/19 18:00 Received CULTURE BLOOD [BC] Stat Lab 07/07/19 18:05 Received CULTURE URINE [RM] Routine Lab 07/07/19 19:24 Ordered Aspirin [Halfprin] Med 07/08/19 08:00 Ordered 162 mg PO DAILY Bumetanide [Bumex] Med 07/08/19 08:00 Ordered 2 mg PO DAILY Cyanocobalamin (Vitamin B12) [Vitamin B12] Med 07/08/19 08:00 Ordered 1,000 mcg PO DAILY Cyclobenzaprine [Flexeril] Med 07/07/19 20:00 Ordered 5 mg PO BEDTIME DULoxetine [Cymbalta] Med 07/07/19 20:00 Ordered 60 mg PO BEDTIME Docusate Sodium/Sennosides [Senna Plus] Med 07/07/19 20:00 Ordered 1 tab PO BID Ferrous Gluconate [Ferrous Gluconate] Med 07/08/19 08:00 Ordered 324 mg PO Q2D Gabapentin [Neurontin] Med 07/07/19 20:00 Ordered 300 mg PO TID Insulin Glarg,Human.Rec.Analog [Lantus Solostar] Med 07/07/19 20:00 Ordered 16 units SUBCUT BEDTIME Isosorbide Mononitrate [Imdur] Med 07/08/19 08:00 Ordered 30 mg PO Q2D Lactobacillus Rhamnosus GG [Culturelle] Med 07/07/19 20:00 Ordered 1 cap PO BEDTIME Levothyroxine Med 07/08/19 07:00 Ordered 200 mcg PO ACBREAKFAST Levothyroxine [Synthroid] Med 07/08/19 07:00 Ordered 50 mcg PO DAILY@0700 Magnesium Oxide Med 07/07/19 20:00 Ordered 400 mg PO BID Metoclopramide Med 07/07/19 20:00 Ordered 5 mg PO QIDACANDBED Metoprolol Succinate [Toprol XL] Med 07/08/19 08:00 Ordered 25 mg PO DAILY Nitroglycerin [Nitrostat] Med 07/07/19 19:24 Ordered 0.4 mg SL ASDIRECTED PRN Nortriptyline Med 07/08/19 08:00 Ordered 10 mg PO BID@0800,1300 Nortriptyline Med 07/07/19 20:00 Ordered 20 mg PO BEDTIME Patiromer Calcium Sorbitex [Veltassa] Med 07/08/19 08:00 Ordered 8.4 gm PO DAILY Pramipexole [Mirapex] Med 07/07/19 20:00 Ordered 0.5 mg PO BEDTIME Sodium Bicarbonate Med 07/07/19 20:00 Ordered 650 mg PO BID Sodium Chloride 0.9% [Normal Saline] 1,000 ml Med 07/07/19 18:11 Active IV .BOLUS Sodium Chloride 0.9% [Saline Flush] Med 07/07/19 17:37 Active 10 ml FLUSH ASDIRECTED PRN Ursodiol Med 07/07/19 20:00 Ordered 300 mg PO BEDTIME atorvaSTATin [Lipitor] Med 07/07/19 20:00 Ordered 20 mg PO BEDTIME calcitrioL [Rocaltrol] Med 07/08/19 08:00 Ordered 0.25 mcg PO DAILY cefTRIAXone [Rocephin] Med 07/08/19 19:00 Ordered 1 gm IVPUSH Q24H oxyCODONE HCl [Oxycodone HCl ER] Med 07/07/19 20:00 Ordered 15 mg PO BID ursodioL Med 07/08/19 08:00 Ordered 600 mg PO BID@0800,1200 Anticoagulation Contraindications VTE [AST] Per Unit Ot 07/07/19 19:21 Ordered Routine Blood Culture x2 Reflex Set [OM.PC] Stat Ot 07/07/19 17:39 Ordered Peripheral IV Insertion Adult [OM.PC] Routine Oth 07/07/19 17:39 Ordered Resuscitation Status Routine Resus Stat 07/07/19 19:21 Ordered Medication Orders Ceftriaxone Sodium (Rocephin) 1 gm IVPUSH Q24H AMINA Sodium Chloride (Normal Saline) 1,000 mls @ 250 mls/hr IV .BOLUS ONE Stop: 07/07/19 22:10 Last Admin: 07/07/19 18:16 Dose: 250 mls/hr Sodium Chloride (Saline Flush) 10 ml FLUSH ASDIRECTED PRN PRN Reason: Keep Vein Open Assessment/Plan Comment:: 63 yo female admitted with sepsis secondary to UTI after presenting to the ER for evaluation of urinary frequency and generalized weakness. #1 Sepsis - Meets criteria with fever and tachycardia on presentation. WBC and RR normal. - Lactic acid normal. - Blood cultures pending. - Likely secondary to UTI given absence of other s/s of infection besides her cough and there is no evidence of pneumonia by lung exam or CXR. See specific treatment as below. - Vital signs improved significantly with initial IV fluid bolus. Will infuse slow IV fluids overnight given h/o fluid overload and severity of DON. #2 Complicated UTI - U/A is positive, which is consistent with UTI in the setting of her symptoms. - Will continue treatment with ceftriaxone. - Urine cultures pending. - Will plan transition to oral antibiotics once urine culture and susceptibilities are available. #3 Acute on chronic renal failure - Chief Development Officer up to 3.0 from her baseline of ~2.0. - Likely prerenal from dehydration more than any end organ dysfunction from sepsis. - Patient got an IV bolus in the ER. Given her history of fluid overload, will continue fluids at a slow rate of 75 cc/hr. - Hold bumex. - Continue other home medications. - Recheck labs in the am. #4 Bronchitis - Respiratory symptoms are likely viral bronchitis based on exam and CXR. - Pneumonia unlikely in the absence of focal lung findings but is possible this is obscured in the setting of dehydration. Therefore, will consider CXR if she is not improving. #5 Thrombocytopenia - Platelets lower than prior but she does have a history of thrombocytopenia. - Recheck in am. #6 Type 1 DM - Glucose elevated on presentation but patient does not have DKA according to other labs. - Therefore, will continue home dose of long acting (therapeutic sub of lantus for tresiba). - She did not get her usual suppertime insulin so will give her 5 units of humalog now. - Will recheck glucose again at midnight. Nursing to call if still >300. #7 Hyperlipidemia #8 Hypothyroidism #9 Obesity #10 Gastroparesis #11 Constipation #12 Biliary Cirrhosis #13 CAD #14 Diabetic peripheral neuropathy #15 GERD #16 Gout #17 Hypertension #18 Depression #19 OA #20 Hubbard Syndrome - Hold vitamins (except B12), hydrocodone, and bumex (as above). - Continue all other home medications. Some doses will be held tonight as they are not on formulary and patient's is not able to bring them in. The patient's does her med set up and is not sure if she took her imdur today or not; will give a dose every other day starting tomorrow given risk of exacerbating chest pain if a dose is missed and the fact that this is not renally excreted. [facility] - expect she will be admitted for >2 midnights as she will need IV antibiotics until culture and susceptibility results are available. IV fluids overnight as well. Repeat labs in the morning. Patient is full code - discussed on admission. Holding off on pharmacologic VTE prophylaxis until follow-up platelets available and/or renal function improves.
[2019-07-07] MEDS ORDERED: Insulin Glarg,Human.Rec.Analog 100 Unit/ML SUBCUT SCH (20:00)
[2019-07-07] MEDS: Lactobacillus Rhamnosus GG (Probiotic) Cap PO SCH (20:43)
[2019-07-07] MEDS: Pramipexole 0.5 MG Tab PO SCH (20:44)
[2019-07-07] MEDS: Sodium Bicarbonate 650 MG Tab PO SCH (20:44)
[2019-07-07] MEDS: atorvaSTATin 10 MG Tab PO SCH (20:44)
[2019-07-07] MEDS: Magnesium Oxide 400 MG Tab PO SCH (20:44)
[2019-07-07] MEDS: Cyclobenzaprine 10 MG Tab PO SCH (20:44)
[2019-07-07] MEDS: Metoclopramide 5 MG Tab PO SCH (20:45)
[2019-07-07] MEDS: DULoxetine 60 MG Cap PO SCH (20:45)
[2019-07-07] MEDS: Gabapentin 300 MG Cap PO SCH (20:45)
[2019-07-07] MEDS: Nortriptyline 10 MG Cap PO SCH (20:46)
[2019-07-07] MEDS ORDERED: Insulin Lispro 100 Unit/ML 3 ML KwikPen SUBCUT ONE ×2 (21:14→23:30)
[2019-07-07] MEDS: Sodium Chloride 0.9% 1,000 ML IV SCH (22:36)
[2019-07-08 07:06] LABS: ANION GAP 17.6 mmol/L (10-20)
[2019-07-08] MEDS: Metoclopramide 5 MG Tab PO SCH ×4 (07:08→19:25)
[2019-07-08] MEDS: Levothyroxine 100 MCG Tab PO SCH (07:08)
[2019-07-08] MEDS: Levothyroxine 50 MCG Tab PO SCH (07:08)
[2019-07-08] MEDS: Magnesium Oxide 400 MG Tab PO SCH ×2 (07:10→19:24)
[2019-07-08] MEDS: Sodium Bicarbonate 650 MG Tab PO SCH ×2 (07:10→19:25)
[2019-07-08] MEDS: Aspirin 81 MG Tab.EC PO SCH (07:10)
[2019-07-08] MEDS: Metoprolol Succinate 25 MG Tab.ER PO SCH (07:10)
[2019-07-08] MEDS: Cyanocobalamin (Vitamin B12) 1,000 MCG Tab PO SCH (07:10)
[2019-07-08] MEDS: Nortriptyline 10 MG Cap PO SCH ×3 (07:11→19:25)
[2019-07-08] MEDS: Gabapentin 300 MG Cap PO SCH ×3 (07:11→19:25)
[2019-07-08] MEDS: Insulin Lispro 100 Unit/ML 3 ML KwikPen SUBCUT SCH ×3 (07:12→19:27)
[2019-07-08] MEDS: Calcitriol 0.25 MCG Cap PO SCH (07:15)
[2019-07-08] MEDS: Isosorbide Mononitrate 30 MG Tab.ER PO SCH (07:19)
[2019-07-08] MEDS: Ferrous Sulfate 325 MG Tab PO SCH (07:19)
[2019-07-08] MEDS ORDERED: Bumetanide 1 MG Tab PO SCH (08:00)
[2019-07-08] MEDS: Sodium Chloride 0.9% 1,000 ML IV SCH (10:01)
[2019-07-08] MEDS: URSODIOL 300 MG PO SCH ×3 (11:15→19:28)
[2019-07-08] MEDS: OXYCODONE 15 MG PO SCH ×2 (11:17→19:29)
[2019-07-08] MEDS: PATIROMER CALCIUM SORBITEX 8.4 GM PO SCH (11:19)
--- NOTE | 2019-07-08 11:56 | PN ---
Progress Note for RASHMI ZULETA Date: 07/08/2019 Room #: VM.204 SUBJECTIVE: This is hospital day #2 on a 63-year-old admitted with several days of urinary frequency and incontinence last night. She was getting weaker. Her had been at the dentist. When he got home, she needed to come into the emergency room. She was diagnosed with UTI and started on IV Rocephin. She states that she has no burning now, but she has frequency just to go every few minutes. She feels like she is emptying okay, but she does have a known history of diabetes. She is not currently in any pain. She has not had any trouble with fever now since admission, but had 100.8 temperature at around 5:30 when she arrived. She is coughing. She has been coughing for several days. She is feeling short of breath due to the cough. Her also has a cold. She was started on IV Rocephin. She was given IV fluids. She does have a known history of chronic kidney disease with her baseline creatinine at 2.0 recently, it was 3.0 when she was admitted. She has not felt like eating or drinking much. OBJECTIVE: Vital Signs: Her temperature 98.8, pulse 89, blood pressure 143/86, respiratory rate 20 and O2 of 98% on 2 L. General: She is in no acute distress. Heart: Regular rate and rhythm. Respiratory: Her lung sounds are clear to auscultation bilaterally without crackles or wheezes. Abdomen: Nondistended and nontender. Extremities: Warm and dry, just trace edema. Mental Status: Alert and orientated x3. LABORATORY DATA: Her lab work today is showing her to have a white count normal at 7.1, hemoglobin 10.7, platelets 46. This is stable from yesterday. Sodium 136, potassium 3.6, chloride 105, bicarb 17, BUN 53, creatinine 2.6, glucose 347. Lactic was normal on admission. ALT and AST were mildly elevated, but have now normalized. Alkaline phosphatase 508, but that is chronically elevated. Albumin 2.5. Urine culture is pending now, but does show preliminary of gram-negative rods. ASSESSMENT: 1. Sepsis with tachycardia and fever secondary to a urinary tract infection. She is improving on IV Rocephin. 2. Gram-negative urinary tract infection. She is on IV Rocephin day #2. 3. Type 1 diabetes. She now has her Romario device here. We will do more frequent monitoring, but will at least do q.i.d. Accu-Cheks through nursing. We will adjust insulin as needed. She is currently on her home dosing 5 units t.i.d., but she does adjust based on blood sugar. She is at 16 units at bedtime. 4. Painful diabetic neuropathy. She is on her home medications. 5. Chronic kidney disease 3 with chronic hyperkalemia on Valtessa now with acute renal failure due to sepsis and her infection. She has gotten IV fluids now. She is almost ready to switch the bag. We will go ahead and stop that and see how she does off fluids. Repeat renal function tomorrow. 6. Restless legs syndrome, on home medications. 7. History of coronary artery disease, stable without chest pain. 8. Hypothyroidism treated. 9. Obesity. 10.Biliary cirrhosis, on home medications. 11.Mild malnutrition. 12.Depression and painful osteoarthritis. 13.Essential hypertension. Her blood pressures are slightly above goal. We will hold further fluids. She is on her home medications with the Imdur. We will restart her diuretic if needed. 14. Thrombocytopenia chronic without bleeding PLAN: At this point, the patient will continue on acute cares for IV antibiotics. We will do a bladder scan today and straight cath if over 400 mL. We will keep her on the Rocephin and await the urine culture, anticipate that she may be stable for discharge in the next 1 to 2 days. She will also restart Bumex 2 mg daily, possibly tomorrow if needed for blood pressure. Otherwise, she is being seen by Physical Therapy, and we will have her assessed if she is safe for discharge home with her in the next few days. For DVT prophylaxis she will be on SCDs. MKA: 07/08/2019 10:52:45 MODL: 07/08/2019 11:49:01 /[id number] KARTIK
[2019-07-08] MEDS ORDERED: Insulin Lispro 100 Unit/ML 3 ML KwikPen SUBCUT ONE (14:22)
[2019-07-08] MEDS: cefTRIAXone 1 GM Vial IVPUSH SCH (18:54)
[2019-07-08] MEDS: DULoxetine 60 MG Cap PO SCH (19:24)
[2019-07-08] MEDS: Lactobacillus Rhamnosus GG (Probiotic) Cap PO SCH (19:24)
[2019-07-08] MEDS: Cyclobenzaprine 10 MG Tab PO SCH (19:25)
[2019-07-08] MEDS: Insulin Glarg,Human.Rec.Analog 100 Unit/ML SUBCUT SCH (19:25)
[2019-07-08] MEDS: Pramipexole 0.5 MG Tab PO SCH (19:25)
[2019-07-08] MEDS: atorvaSTATin 10 MG Tab PO SCH (19:25)
[2019-07-09] MEDS: Levothyroxine 50 MCG Tab PO SCH (06:36)
[2019-07-09] MEDS: Levothyroxine 100 MCG Tab PO SCH (06:36)
[2019-07-09] MEDS: Metoclopramide 5 MG Tab PO SCH ×4 (06:37→19:57)
[2019-07-09] MEDS: Magnesium Oxide 400 MG Tab PO SCH ×2 (07:45→19:57)
[2019-07-09] MEDS: Cyanocobalamin (Vitamin B12) 1,000 MCG Tab PO SCH (07:45)
[2019-07-09] MEDS: Aspirin 81 MG Tab.EC PO SCH (07:45)
[2019-07-09] MEDS: Gabapentin 300 MG Cap PO SCH ×3 (07:45→19:58)
[2019-07-09] MEDS: Calcitriol 0.25 MCG Cap PO SCH (07:46)
[2019-07-09] MEDS: Metoprolol Succinate 25 MG Tab.ER PO SCH (07:46)
[2019-07-09] MEDS: Sodium Bicarbonate 650 MG Tab PO SCH ×2 (07:46→19:58)
[2019-07-09] MEDS: Nortriptyline 10 MG Cap PO SCH ×4 (07:46→19:57)
[2019-07-09] MEDS: OXYCODONE 15 MG PO SCH ×2 (07:47→19:59)
[2019-07-09] MEDS: Insulin Lispro 100 Unit/ML 3 ML KwikPen SUBCUT SCH ×3 (07:47→20:02)
[2019-07-09] MEDS: URSODIOL 300 MG PO SCH ×3 (07:48→20:01)
[2019-07-09] MEDS: PATIROMER CALCIUM SORBITEX 8.4 GM PO SCH ×2 (07:49→10:16)
[2019-07-09 08:13] LABS: ANION GAP 15.4 mmol/L (10-20)
[2019-07-09] MEDS: cefTRIAXone 1 GM Vial IVPUSH SCH (18:15)
[2019-07-09] MEDS: DULoxetine 60 MG Cap PO SCH (19:57)
[2019-07-09] MEDS: Pramipexole 0.5 MG Tab PO SCH (19:57)
[2019-07-09] MEDS: Lactobacillus Rhamnosus GG (Probiotic) Cap PO SCH (19:57)
[2019-07-09] MEDS: atorvaSTATin 10 MG Tab PO SCH (19:57)
[2019-07-09] MEDS: Cyclobenzaprine 10 MG Tab PO SCH (19:58)
[2019-07-09] MEDS: Insulin Glarg,Human.Rec.Analog 100 Unit/ML SUBCUT SCH (20:01)
[2019-07-10] MEDS: Levothyroxine 100 MCG Tab PO SCH (06:09)
[2019-07-10] MEDS: Metoclopramide 5 MG Tab PO SCH ×2 (06:09→12:15)
[2019-07-10] MEDS: Levothyroxine 50 MCG Tab PO SCH (06:10)
[2019-07-10] MEDS: Aspirin 81 MG Tab.EC PO SCH (07:58)
[2019-07-10] MEDS: Nortriptyline 10 MG Cap PO SCH ×2 (07:59→12:15)
[2019-07-10] MEDS: Metoprolol Succinate 25 MG Tab.ER PO SCH (07:59)
[2019-07-10] MEDS: Magnesium Oxide 400 MG Tab PO SCH (07:59)
[2019-07-10] MEDS: Gabapentin 300 MG Cap PO SCH ×2 (08:00→12:15)
[2019-07-10] MEDS: Cyanocobalamin (Vitamin B12) 1,000 MCG Tab PO SCH (08:00)
[2019-07-10] MEDS: Sodium Bicarbonate 650 MG Tab PO SCH (08:00)
[2019-07-10] MEDS: URSODIOL 300 MG PO SCH ×2 (08:01→14:15)
[2019-07-10] MEDS: Calcitriol 0.25 MCG Cap PO SCH (08:02)
[2019-07-10] MEDS: Insulin Lispro 100 Unit/ML 3 ML KwikPen SUBCUT SCH ×2 (08:03→12:14)
[2019-07-10] MEDS: OXYCODONE 15 MG PO SCH (08:04)
[2019-07-10] MEDS: PATIROMER CALCIUM SORBITEX 8.4 GM PO SCH (08:06)
[2019-07-10 08:19] LABS: ANION GAP 15.5 mmol/L (10-20)
[2019-07-10] MEDS: Isosorbide Mononitrate 30 MG Tab.ER PO SCH (08:20)
[2019-07-10] MEDS: Ferrous Sulfate 325 MG Tab PO SCH (08:20)
[2019-07-10] MEDS ORDERED: Take Home: Nitrofurantoin Monohydrate/Macrocrystalline 100 MG, 2 Cap Pack PO ONE (10:52)
--- NOTE | 2019-07-10 12:04 | DISCH ---
PRIMARY CARE PHYSICIAN: Vernell Mireles DO. CONSULTS: Physical Therapy. ADMITTING DIAGNOSES: 1. Sepsis. 2. Complicated urinary tract infection. 3. Acute on chronic renal failure. 4. Bronchitis. 5. Thrombocytopenia. 6. Diabetes mellitus. 7. Hyperlipidemia. 8. Hypothyroid. 9. Obesity. 10.Gastroparesis. 11.Constipation. 12.Biliary cirrhosis. 13.Coronary artery disease. 14.Diabetic neuropathy. 15.Gastroesophageal reflux disease. 16.Gout. 17.Hypertension. 18.Major depressive disorder. 19.Osteoarthritis. 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 DISCHARGE DIAGNOSES: 1. Sepsis secondary to urinary tract infection. 2. Gram-negative urinary tract infection. 3. Type 1 diabetes. 4. Painful diabetic neuropathy. 5. Acute on chronic kidney disease. 6. Restless legs syndrome. 7. History of coronary artery disease. 8. Hypothyroidism. 9. Essential hypertension. 10.Thrombocytopenia. BRIEF HISTORY: Hospital day #4 for a 63-year-old female patient who had a history of several days with urinary frequency and incontinence. The patient was also getting weaker. She was brought to the emergency room at [facility] for further evaluation. The patient was found to be septic secondary from the UTI and also weak. The patient was admitted for IV antibiotics, physical therapy, and hydration. The patient was also found to have acute on chronic renal failure with a baseline creatinine of 2. Her admitting creatinine was 3.0. Today her creatinine is back to baseline at 1.9. HISTORY OF PRESENT ILLNESS: See admission H and P. HOSPITAL COURSE: The patient remained hemodynamically stable and afebrile. The patient tolerated antibiotics without any problems. The patient states that she no longer has any dysuria or frequency. The patient did have one fall last evening when she was attempting to go to the bathroom and she could not see the door handle and fell. The patient did not have any residual problems. The patient tolerated her diet okay. The patient has been remaining well hydrated. The patient states that her weakness has essentially resolved. DISCHARGE LABORATORY WORK: CBC, white blood cell count 5.3, hemoglobin 8.9, hematocrit 27.7, platelets are 59,000. CMP, sodium is 136, potassium 3.5, chloride is 105, CO2 is 19, anion gap is 15.5, BUN 30, creatinine 1.9, GFR is 27, glucose 249, calcium 8.0, alkaline phosphatase 42, protein 5.2. IMAGING STUDIES: Chest x-ray on admission on 07/07/2019 revealed negative examination of the chest. DISCHARGE PHYSICAL EXAMINATION: Vital Signs: Blood pressure 152/81, pulse is 90, respiratory rate 17, oxygen 98% on room air. Discharge weight 185 pounds. Temperature is 97.8. General: The patient is alert. The patient does not appear to be in any acute distress. The patient is cooperative. Respiratory: Lungs are clear to auscultation. Cardiovascular: Regular rate and rhythm. No murmur. Abdomen: Soft. Bowel sounds are hypoactive x4. Nontender. Skin: Warm, dry, and intact. Neurological: The patient is alert. No focal neurological deficit. Sensation is intact. DISCHARGE MEDICATIONS: 1. Aspirin 162 mg 1 tablet p.o. daily. 2. Atorvastatin 20 mg 1 tablet p.o. daily at bedtime. 3. Calcitriol 0.25 mcg 1 tablet p.o. daily. 4. Cyanocobalamin 1000 mcg p.o. daily. 5. Cyclobenzaprine 5 mg 1 tablet p.o. daily at bedtime. 6. Docusate sodium 1 tablet p.o. twice daily. 7. Cymbalta 60 mg 1 tablet p.o. daily at bedtime. 8. Ferrous sulfate 325 mg 1 tablet p.o. every other day. 9. Gabapentin 300 mg 1 tablet p.o. 3 times daily. 10.Insulin glargine 20 units subcu at bedtime daily. 11.Insulin lispro 5 units subcu t.i.d. 12.Imdur 30 mg 1 tablet p.o. every 2 days. 13.Lactobacillus 1 capsule p.o. at bedtime. 14.Levothyroxine 200 mcg 1 tablet p.o. daily. 15.Levothyroxine 50 mcg 1 tablet p.o. daily. 16.Magnesium oxide 400 mg 1 tablet p.o. twice daily. 17.Reglan 5 mg 1 tablet p.o. 4 times daily. 18.Metoprolol succinate 25 mg 1 tablet p.o. daily. 19.Nitroglycerin 0.4 mg sublingual as directed. 20.Nortriptyline 10 mg 1 tablet p.o. twice daily. 21.Nortriptyline 20 mg 1 tablet p.o. at bedtime. 22.Mirapex 0.5 mg 1 tablet p.o. at bedtime. PLAN: The patient will be discharged home today. The patient will be started on Macrobid 100 mg twice daily for the next 7 days for her UTI. We will continue all other home medications the same. I discussed the patient today that she needs to schedule a followup appointment in the next couple of days with her PCP. We discussed staying well hydrated. I would like the patient to rest and relax today, but she does need to get some form of exercise daily. The patient was discharged in stable condition. The patient states that she has good support at home with her who is able to help her. Total discharge time greater than 30 minutes. TB: 07/10/2019 10:31:46 MODL: 07/10/2019 11:58:31 /[id number]
[2019-07-10] MEDS ORDERED: Take Home: Nitrofurantoin Monohydrate/Macrocrystalline 100 MG, 2 Cap Pack ONE (13:16)
[2019-07-10 14:39] VITALS: BP 136/82; PULSE 96
--- NOTE | 2019-07-11 10:38 | PN ---
Progress Note for RASHMI ZULETA Date: 07/09/2019 Room #: VM.204 CHIEF COMPLAINT: 1. Urinary incontinence. 2. Weakness. SUBJECTIVE: Hospital day #3 for a 63-year-old female patient who was admitted for a several-day history of urinary frequency and incontinence. The patient was also having weakness. The patient was seen in the emergency room at [facility] and diagnosed with UTI and started on IV Rocephin. The patient currently denies any dysuria, frequency, or urgency. The patient has not had any vaginal discharge or odor. The patient states that she is able to empty her bladder. She does have known diabetes. The patient had a low-grade fever upon admission to the emergency room, however, she has been afebrile since. She does have a dry, nonproductive cough. She has been exposed to others with similar symptoms. The patient has been continuing on IV fluids. The patient's initial creatinine was 3.0 with a baseline of 2.0. The patient has known chronic kidney disease. The patient states that she has been eating and drinking normally. The patient has not had any nausea, vomiting, or diarrhea. Patient has not had any headaches, dizziness, or lightheadedness. OBJECTIVE: Vital Signs: Temperature is 97.4, pulse is 74, blood pressure is 105/66, respirations are 14, and oxygen saturation 99% on room air. General: Patient is in no acute distress. Patient is cooperative. The patient is alert. Respiratory: Lungs are clear throughout. Cardiac: Regular rate and rhythm, no murmurs. Abdomen: Nondistended. Bowel sounds are hypoactive x4. Neurological: Patient is alert and oriented x3. LABORATORY WORK: 1. CBC, white blood cell count 5.6, hemoglobin 8.7, hematocrit is 27.1, platelets are 53,000. 2. CMP: Sodium is 139, potassium is 3.4, chloride is 109, CO2 is 18, anion gap is 15.4, BUN is 39, creatinine is 2.2, GFR is 23, glucose is 244, calcium 7.9, AST is 33, ALT 41, alkaline phosphatase 477, protein 5.3. ASSESSMENT: 1. Sepsis with tachycardia and fever secondary to urinary tract infection. The patient appears to be improving on Rocephin. 2. Gram-negative urinary tract infection. The patient is on Rocephin. 3. Diabetes type 1. This has been stable on her current regimen. 4. Painful diabetic neuropathy. She is on home medications. 5. Chronic kidney disease, stage 3, with chronic hyperkalemia - stable. 6. Restless legs syndrome, on home medications. 7. History of coronary artery disease, stable without chest pain. 8. Hypothyroidism, stable and treated. 9. Obesity. 10.Biliary cirrhosis, on home medications. 11.Mild malnutrition. 12.Depression and painful osteoarthritis. 13.Essential hypertension, stable. 14.Thrombocytopenia, no bleeding. 15.Platelets have increased to 53,000. PLAN: At this point, the patient will continue on acute cares for IV antibiotics for at least another 24 hours. The patient overall has been improving. The patient will continue with DVT prophylaxis on SCDs. The patient's blood pressure has improved since restarting the Bumex yesterday. Anticipate discharge home tomorrow as long as the patient remain stable. TB: 07/09/2019 14:33:46 MODL: 07/09/2019 16:55:29 /[id number]
== END 2019-07-10 13:30 | disposition home or self-care (01) | DRG 872 ==
LOC: VM.ED 17:29 → VM.MS 18:49
PROVIDERS: ADMIT Family Medicine; ATTEND Internal Medicine
DX: A41.50 Gram-negative sepsis, unspecified (principal); N39.0 Urinary tract infection, site not specified; N17.9 Acute kidney failure, unspecified; E44.1 Mild protein-calorie malnutrition; E78.00 Pure hypercholesterolemia, unspecified; Z68.41 Body mass index [BMI] 40.0-44.9, adult; I12.9 Hypertensive chronic kidney disease with stage 1 through stage 4 chronic kidney disease, or unspecified chronic kidney disease; N18.4 Chronic kidney disease, stage 4 (severe); Z95.5 Presence of coronary angioplasty implant and graft; E10.22 Type 1 diabetes mellitus with diabetic chronic kidney disease; I25.10 Atherosclerotic heart disease of native coronary artery without angina pectoris; E78.5 Hyperlipidemia, unspecified; M10.9 Gout, unspecified; E55.9 Vitamin D deficiency, unspecified; E10.40 Type 1 diabetes mellitus with diabetic neuropathy, unspecified; F32.9 Major depressive disorder, single episode, unspecified; E11.40 Type 2 diabetes mellitus with diabetic neuropathy, unspecified; E53.8 Deficiency of other specified B group vitamins; D69.3 Immune thrombocytopenic purpura; E03.9 Hypothyroidism, unspecified; K21.9 Gastro-esophageal reflux disease without esophagitis; M19.90 Unspecified osteoarthritis, unspecified site; H91.90 Unspecified hearing loss, unspecified ear; H54.7 Unspecified visual loss; N18.3 Chronic kidney disease, stage 3 (moderate); M54.9 Dorsalgia, unspecified; G89.29 Other chronic pain; Z79.890 Hormone replacement therapy; J40 Bronchitis, not specified as acute or chronic; Q96.9 Turner's syndrome, unspecified; D69.6 Thrombocytopenia, unspecified; E66.09 Other obesity due to excess calories; F33.41 Major depressive disorder, recurrent, in partial remission; Z85.038 Personal history of other malignant neoplasm of large intestine; Z88.1 Allergy status to other antibiotic agents; Z91.013 Allergy to seafood; Z88.2 Allergy status to sulfonamides; Z88.8 Allergy status to other drugs, medicaments and biological substances; Z91.041 Radiographic dye allergy status; Z79.82 Long term (current) use of aspirin; Z98.49 Cataract extraction status, unspecified eye; Z90.89 Acquired absence of other organs; Z95.818 Presence of other cardiac implants and grafts; Z79.899 Other long term (current) drug therapy; Z79.4 Long term (current) use of insulin; G25.81 Restless legs syndrome
CPT/HCPCS: 36415; 51798; 71045; 80053; 81001; 82803; 82962; 83605; 83735; 84100; 84443; 84484; 85025; 85610; 86140; 87040; 87086; 87088; 87186; 93005; 93010; 96361; 96374; 97161-GP; 99284-GF; 99285-25; A9270-GY; J0696; J1815-GY; J7030

== ENCOUNTER 2019-08-04 11:38 | Observation (INO) | payer MEDICARE, OTHER ==
[2019-08-04] MEDS ORDERED: Sodium Chloride 0.9% 10 ML Syringe FLUSH PRN (11:50)
--- NOTE | 2019-08-04 12:14 | CR ---
[id number] RAD/RAD Chest PA or AP 1V EXAM: SINGLE VIEW CHEST. INDICATION: CHEST PAIN COMPARISON: CORRELATION IS MADE WITH THE EXAM OF JULY 07, 2019 FINDINGS: There is an incomplete inspiratory effort The lungs are clear The cardiomediastinal contour is stable IMPRESSION: NO PNEUMONIA OR EDEMA Rene Oliveros MD 08/04/19 1214 Thank you for allowing us to participate in the care of your patient.
--- NOTE | 2019-08-04 12:16 | EDM.PDOC ---
ED HPI GENERAL MEDICAL PROBLEM - General Chief Complaint: Chest Pain Stated Complaint: TIGHTNESS IN CHEST Time Seen by Provider: 08/04/19 11:38 Source of Information: Reports: Patient History Limitations: Reports: No Limitations - History of Present Illness INITIAL COMMENTS - FREE TEXT/NARRATIVE: Pt. presents to ER with complaints of chest tightness/pressure that started yesterday. 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 Pt. states that she is still experiencing the pressure but it is better that it was yesterday. Denies any diaphoresis. She states that she is chronically short of breath. Denies any nausea or vomiting. She states that the heaviness is worse with activity. She denies any jaw, arm, neck or back pain. Pt. has a history of CAD. Pt. had a normal nuclear stress test with no evidence of ischemia on 08/09. She did have mildly diminished coronary flow reserve. She does have a history of general debility and exercise intolerance, and her imdur was recently decreased to 30mg every other day. Onset: Today Onset Date: 08/04/19 Location: Reports: Chest Quality: Reports: Pressure Severity: Moderate Context: Reports: Exercise Middle Chest Pain Score (Numeric/FACES): 5 - Related Data Allergies Allergy/AdvReac Type Severity Reaction Status Date / Time gentamicin [Gentamicin] Allergy Severe Hives Verified 08/04/19 12:04 shellfish derived Allergy Severe Edema Verified 08/04/19 12:04 atenolol Allergy Cannot Verified 08/04/19 12:04 Remember celecoxib [From Celebrex] Allergy Cannot Verified 08/04/19 12:04 Remember oxycodone [Oxycodone] Allergy Cannot Verified 08/04/19 12:04 Remember Penicillins Allergy Cannot Verified 08/04/19 12:04 Remember Sulfa (Sulfonamide Allergy Cannot Verified 08/04/19 12:04 Antibiotics) Remember Tetracyclines Allergy Cannot Verified 08/04/19 12:04 Remember cephalexin monohydrate AdvReac Nausea Verified 08/04/19 12:04 [From Keflex] naproxen [From Naprosyn] AdvReac Renal Verified 08/04/19 12:04 Insufficiency altaryl Allergy Cannot Uncoded 08/04/19 12:04 Remember contrast dye AdvReac Intermediate Renal Uncoded 08/04/19 12:04 Insufficiency anti-inflammatory AdvReac Renal Uncoded 08/04/19 12:04 Insufficiency Home Meds: Home Meds Cyclobenzaprine [Flexeril] 10 mg PO BEDTIME 07/28/13 [History] DULoxetine [Cymbalta] 60 mg PO BEDTIME 07/28/13 [History] Glucagon,Human Recombinant [Glucagon Emergency Kit] 1 mg SUBCUT ASDIRECTED PRN 07/28/13 [History] Isosorbide Mononitrate [Isosorbide Mononitrate ER] 30 mg PO Q2D 07/28/13 [ History] Nitroglycerin [Nitrostat] 0.4 mg SL ASDIRECTED PRN 07/28/13 [History] Nortriptyline HCl [Pamelor] 10 mg PO BID@0800,1300 07/28/13 [History] Vitamin E (Dl,Tocopheryl Acet) [Vitamin E] 400 unit PO BID 07/28/13 [History] atorvaSTATin [Lipitor] 20 mg PO BEDTIME 07/28/13 [History] ursodioL [Actigal] 600 mg PO BID@0800,1200 07/28/13 [History] Aspirin [Halfprin] 162 mg PO DAILY 01/12/18 [History] Cholecalciferol (Vitamin D3) [Vitamin D3] 1,000 unit PO DAILY 01/12/18 [History] Cyanocobalamin (Vitamin B-12) [B-12] 1,000 mcg PO DAILY 01/12/18 [History] Ferrous Gluconate 324 mg PO Q48H 01/12/18 [History] Gabapentin [Neurontin] 300 mg PO TID 01/12/18 [History] Levothyroxine 200 mcg PO ACBREAKFAST 01/12/18 [History] Metoclopramide [Reglan] 5 mg PO QIDACANDBED 01/12/18 [History] Nortriptyline 20 mg PO BEDTIME 01/12/18 [History] Pramipexole [Mirapex] 0.5 mg PO BEDTIME 01/12/18 [History] Sennosides/Docusate Sodium [Sennosides-Docusate Sodium] 1 tab PO BID 01/12/18 [ History] oxyCODONE HCl [Oxycodone HCl ER] 15 mg PO BID 01/12/18 [History] ursodioL [Ursodiol] 300 mg PO BEDTIME 01/12/18 [History] Metoprolol Succinate [Toprol XL] 25 mg PO DAILY 10/08/18 [History] Bumetanide [Bumex] 2 mg PO DAILY #30 tablet 10/11/18 [Rx] Insulin Lispro [HumaLOG] 5 units SUBCUT TID #0 10/11/18 [Rx] Lactobacillus Rhamnosus GG [Culturelle] 1 cap PO BEDTIME #60 cap 10/11/18 [Rx] Levothyroxine [Synthroid] 50 mcg PO DAILY@0700 #30 tablet 10/11/18 [Rx] Magnesium Oxide 400 mg PO BID #60 tablet 10/11/18 [Rx] Sodium Bicarbonate 650 mg PO BID #120 tablet 10/11/18 [Rx] calcitrioL [Rocaltrol] 0.25 mcg PO DAILY #30 cap 10/11/18 [Rx] Patiromer Calcium Sorbitex [Veltassa] 8.4 gm PO DAILY 07/07/19 [History] Insulin Degludec [Tresiba] 16 unit SQ BEDTIME 07/08/19 [History] Past Medical History HEENT History: Reports: Cataract, Hard of Hearing, Impaired Vision, Other (See Below) Cardiovascular History: Reports: CAD, Heart Murmur, High Cholesterol, Hypertension, Stents Respiratory History: Reports: None Gastrointestinal History: Reports: Cirrhosis, GERD, Other (See Below) ( gastroparesis) Genitourinary History: Reports: Acute Renal Failure, Chronic Renal Insuffiency Other Genitourinary History: stage 3 DESK MANAGER History: Reports: Musculoskeletal History: Reports: Arthritis, Back Pain, Chronic, Other (See Below) Other Musculoskeletal History: Turners syndrome Neurological History: Reports: Neuropathy, Diabetic Psychiatric History: Reports: Depression Endocrine/Metabolic History: Reports: Diabetes, Type I, Hypothyroidism Hematologic History: Reports: Anemia, B12 Deficiency, Idiopathic Thrombocytopenia Immunologic History: Reports: None Oncologic (Cancer) History: Reports: Colon Dermatologic History: Reports: None - Infectious Disease History Infectious Disease History: Reports: Chicken Pox - Past Surgical History HEENT Surgical History: Reports: Cataract Surgery, Oral Surgery, Tonsillectomy Cardiovascular Surgical History: Reports: Coronary Artery Stent GI Surgical History: Reports: Colonoscopy, EGD Musculoskeletal Surgical History: Reports: None Social & Family History - Family History Family Medical History: Noncontributory Cardiac: Reports: CAD : Reports: Cystic Kidney Disease Oncologic: Reports: Liver - Caffeine Use Caffeine Use: Reports: Soda Other Caffeine Use: Drinks diet coke daily - Living Situation & Occupation Living situation: Reports: , with Significant Other Occupation: Retired (worked at [employer]) ED ROS GENERAL - Review of Systems Review Of Systems: See Below Constitutional: Reports: No Symptoms HEENT: Reports: No Symptoms Respiratory: Reports: No Symptoms Cardiovascular: Reports: Other (chest pressure) Endocrine: Reports: No Symptoms GI/Abdominal: Reports: No Symptoms : Reports: No Symptoms Musculoskeletal: Reports: No Symptoms Skin: Reports: No Symptoms Neurological: Reports: No Symptoms Psychiatric: Reports: No Symptoms Hematologic/Lymphatic: Reports: No Symptoms Immunologic: Reports: No Symptoms ED EXAM, GENERAL - Physical Exam Exam: See Below Exam Limited By: No Limitations General Appearance: Alert, WD/WN, No Apparent Distress Eye Exam: Bilateral Eye: EOMI, PERRL EKG INTERPRETATION Rhythm: NSR [place]: Normal P-Wave: Present QRS: Normal ST-T: Normal QT: Normal Course - Vital Signs Last Recorded V/S: Last Vital Signs Temp 37.2 C 08/04/19 13:35 Pulse 92 08/04/19 13:35 Resp 14 08/04/19 13:35 BP 116/68 08/04/19 13:35 Pulse Ox 99 08/04/19 13:35 - Orders/Labs/Meds Orders: Active Orders 24 hr Category Date Time Status EKG Documentation Completion [RC] STAT Care 08/04/19 11:51 Active COMPREHENSIVE METABOLIC PN,CMP [CHEM] Stat Lab 08/04/19 12:02 Received CRP [C-REACTIVE PROTEIN] [CHEM] Stat Lab 08/04/19 12:02 Received MAGNESIUM [CHEM] Stat Lab 08/04/19 12:02 Received PHOSPHORUS [CHEM] Stat Lab 08/04/19 12:02 Received PRO B-TYPE NATRIUR PEPT,BNPPRO [CHEM] Stat Lab 08/04/19 12:02 Received TROPONIN I [CHEM] Routine Lab 08/04/19 15:30 Ordered Sodium Chloride 0.9% [Saline Flush] Med 08/04/19 11:50 Active 10 ml FLUSH ASDIRECTED PRN Peripheral IV Insertion Adult [OM.PC] Routine Oth 08/04/19 11:51 Ordered Medication Orders Sodium Chloride (Saline Flush) 10 ml FLUSH ASDIRECTED PRN PRN Reason: Keep Vein Open Labs: Laboratory Tests 08/04/19 08/04/19 08/04/19 Range/Units 12:02 12:02 12:28 WBC 3.9 L (4.0-10.0) x10^3/uL RBC 2.93 L (4.00-5.50) x10^6/uL Hgb 10.4 L D (12.0-16.0) g/dL Hct 32.1 L (33.0-47.0) % MCV 109.6 H D (78.0-93.0) fL MCH 35.5 H (26.0-32.0) pg MCHC 32.4 (32.0-36.0) g/dL RDW Coeff of [place] 13.7 (10.0-15.0) % Plt Count 56 L (130-400) x10^3/uL Neut % (Auto) 63.7 (50.0-80.0) % Lymph % (Auto) 22.1 L (25.0-50.0) % [place] % (Auto) 8.0 (2.0-11.0) % Eos % (Auto) 5.7 H (0.0-4.0) % Baso % (Auto) 0.5 (0.2-1.2) % PT 9.9 L (10.0-12.8) SEC INR 0.9 L (2.0-3.5) POC Troponin I 0.00 (0.00-0.08) ng/mL Meds: Medications Generic Name Dose Route Start Last Admin Trade Name Freq PRN Reason Stop Dose Admin Sodium Chloride 10 ml 08/04/19 11:50 Saline Flush FLUSH ASDIRECTED PRN Keep Vein Open Discontinued Medications Generic Name Dose Route Start Last Admin Trade Name Freq PRN Reason Stop Dose Admin Isosorbide Mononitrate 30 mg 08/04/19 13:24 08/04/19 13:34 Imdur PO 08/04/19 13:25 30 mg ONETIME ONE Administration Departure - Departure Time of Disposition: 13:41 Disposition: DC/Tfer to Acute Hospital 02 Clinical Impression: Chest pressure - Discharge Information Sepsis Event Note - Evaluation Sepsis Screening Result: No Definite Risk - Focused Exam Vital Signs: Vital Signs Temp Pulse Resp BP Pulse Ox 08/04/19 12:45 96 17 119/70 100 08/04/19 11:38 36.9 C 96 16 121/65 97 Date Exam was Performed: 08/04/19 Time Exam was Performed: 13:40 - Problem List Review Problem List Initiated/Reviewed/Updated: Yes - My Orders Last 24 Hours: My Active Orders 08/04/19 11:50 Sodium Chloride 0.9% [Saline Flush] 10 ml FLUSH ASDIRECTED PRN 08/04/19 11:51 EKG Documentation Completion [RC] STAT Peripheral IV Insertion Adult [OM.PC] Routine 08/04/19 12:02 COMPREHENSIVE METABOLIC PN,CMP [CHEM] Stat CRP [C-REACTIVE PROTEIN] [CHEM] Stat MAGNESIUM [CHEM] Stat PHOSPHORUS [CHEM] Stat PRO B-TYPE NATRIUR PEPT,BNPPRO [CHEM] Stat 08/04/19 15:30 TROPONIN I [CHEM] Routine - Assessment/Plan Last 24 Hours: My Active Orders 08/04/19 11:50 Sodium Chloride 0.9% [Saline Flush] 10 ml FLUSH ASDIRECTED PRN 08/04/19 11:51 EKG Documentation Completion [RC] STAT Peripheral IV Insertion Adult [OM.PC] Routine 08/04/19 12:02 COMPREHENSIVE METABOLIC PN,CMP [CHEM] Stat CRP [C-REACTIVE PROTEIN] [CHEM] Stat MAGNESIUM [CHEM] Stat PHOSPHORUS [CHEM] Stat PRO B-TYPE NATRIUR PEPT,BNPPRO [CHEM] Stat 08/04/19 15:30 TROPONIN I [CHEM] Routine Plan: Pt. will be admitted observation with serial troponin. Initial troponin is negative. Restart imdur daily. Was given a dose in ER. Discussed findings with Dr. Mireles. She will need a cardiolyte, lexiscan or stress echo sometime in the near future. All questions were answered.
[2019-08-04] MEDS ORDERED: Isosorbide Mononitrate 30 MG Tab.ER PO ONE (13:24)
[2019-08-04 13:39] LABS: CHLORIDE,CL 106 mmol/L (98-107); SODIUM,NA 140 mmol/L (136-145)
[2019-08-04 13:42] LABS: ANION GAP 17.9 mmol/L (10-20)
[2019-08-04] MEDS ORDERED: HYDROCODONE PO PRN (14:23)
[2019-08-04] MEDS ORDERED: Glucagon,Human Recombinant 1 MG Vial SUBCUT PRN (14:23)
[2019-08-04] MEDS ORDERED: ACETAMINOPHEN PO PRN (14:23)
[2019-08-04] MEDS: METOCLOPRAMIDE 5 MG PO SCH ×2 (18:30→19:58)
[2019-08-04] MEDS ORDERED: DULoxetine 60 MG Cap (OWN SUPPLY) PO SCH (20:00)
[2019-08-04] MEDS ORDERED: INSULIN DEGLUDEC SQ SCH (20:00)
[2019-08-04] MEDS ORDERED: NORTRIPTYLINE 10 MG PO SCH (20:00)
[2019-08-04] MEDS ORDERED: CYCLOBENZAPRINE 5 MG PO SCH (20:00)
[2019-08-04] MEDS ORDERED: Cyclobenzaprine 10 MG Tab PO SCH (20:00)
[2019-08-04] MEDS ORDERED: URSODIOL 300 MG PO SCH (20:00)
[2019-08-04] MEDS ORDERED: ATORVASTATIN 20 MG PO SCH (20:00)
[2019-08-04] MEDS ORDERED: PRAMIPEXOLE 0.5 MG PO SCH (20:00)
[2019-08-04] MEDS: Gabapentin 300 MG Cap (OWN SUPPLY) PO SCH (20:05)
[2019-08-04] MEDS: Sodium Bicarbonate 650 MG Tab PO SCH (20:05)
[2019-08-04] MEDS: Magnesium Oxide 400 MG Tab PO SCH (20:05)
[2019-08-04] MEDS: OXYCODONE 15 MG PO SCH (20:06)
[2019-08-04] MEDS: INSULIN LISPRO 100 UNIT/ML SUBCUT SCH (21:09)
[2019-08-05] MEDS: METOCLOPRAMIDE 5 MG PO SCH (06:16)
[2019-08-05] MEDS ORDERED: LEVOTHYROXINE 200 MCG PO SCH (07:00)
[2019-08-05] MEDS ORDERED: Levothyroxine 50 MCG Tab (OWN SUPPLY) PO SCH (07:00)
[2019-08-05] MEDS: OXYCODONE 15 MG PO SCH (07:53)
[2019-08-05] MEDS: Gabapentin 300 MG Cap (OWN SUPPLY) PO SCH (07:54)
[2019-08-05] MEDS ORDERED: Aspirin 81 MG Tab.EC PO SCH (08:00)
[2019-08-05] MEDS ORDERED: Ferrous Sulfate 325 MG Tab PO SCH (08:00)
[2019-08-05] MEDS ORDERED: PATIROMER CALCIUM SORBITEX 8.4 GM PO SCH (08:00)
[2019-08-05] MEDS ORDERED: BUMETANIDE 1 MG PO SCH (08:00)
[2019-08-05] MEDS ORDERED: URSODIOL 600 MG PO SCH (08:00)
[2019-08-05] MEDS ORDERED: Metoprolol Succinate 25 MG Tab.ER (OWN SUPPLY) PO SCH (08:00)
[2019-08-05] MEDS ORDERED: ISOSORBIDE MONONITRATE 30 MG PO SCH (08:00)
[2019-08-05] MEDS ORDERED: NORTRIPTYLINE 10 MG PO SCH (08:00)
[2019-08-05] MEDS: INSULIN LISPRO 100 UNIT/ML SUBCUT SCH (08:00)
[2019-08-05] MEDS: Sodium Bicarbonate 650 MG Tab PO SCH (08:08)
[2019-08-05] MEDS: Magnesium Oxide 400 MG Tab PO SCH (08:08)
[2019-08-05 10:56] VITALS: BP 106/59; PULSE 76
--- NOTE | 2019-08-05 14:36 | PCM.DCSUM1 ---
Discharge Summary - Hospital Course Free Text/Narrative:: Pt. states that she is feeling much better today. She states that she is not experiencing any chest discomfort or pressure. No shortness of breath or lightheadedness. Pt. was started on Imdur 30mg once daily (previously had been on 30mg every other day). Serial troponins have been negative. Telemetry has not revealed any ST or T changes. Pt. is requesting discharge. She has follow-up scheduled for next Thursday. She states that she will return to ER if she has worsening discomfort, lightheadedness, weakness, chest pain or pressure. Nursing has noted several times that the patient may have some cellulitis to her L lower extremity. Patient and family seem to think that this is no worse than normal and state that the patient has chronic edema to her legs. Diagnosis: Stroke: No Modified Mario Scale: No Symptoms at All Modified Haines Scale Score: 0 - Discharge Data Discharge Date: 08/05/19 Discharge Disposition: Home, Self-Care 01 Condition: Good - Referral to Home Health Primary Care Physician: Vernell Mireles, DO - Discharge Diagnosis/Problem(s) (1) Chest pressure SNOMED Code(s): 750044185 ICD Code: R07.89 - OTHER CHEST PAIN Status: Acute (2) Cellulitis SNOMED Code(s): 523686817 ICD Code: L03.90 - CELLULITIS, UNSPECIFIED Status: Acute Qualifiers: Laterality: left - Patient Instructions Diet: Heart Healthy Diet - Discharge Plan Home Medications: Home Meds Cyclobenzaprine [Flexeril] 5 mg PO BEDTIME 07/28/13 [History] DULoxetine [Cymbalta] 60 mg PO BEDTIME 07/28/13 [History] Glucagon,Human Recombinant [Glucagon Emergency Kit] 1 mg SUBCUT ASDIRECTED PRN 07/28/13 [History] Isosorbide Mononitrate [Isosorbide Mononitrate ER] 30 mg PO Q2D 07/28/13 [ History] Nitroglycerin [Nitrostat] 0.4 mg SL ASDIRECTED PRN 07/28/13 [History] Nortriptyline HCl [Pamelor] 10 mg PO BID@0800,1300 07/28/13 [History] Vitamin E (Dl,Tocopheryl Acet) [Vitamin E] 400 unit PO BID 07/28/13 [History] atorvaSTATin [Lipitor] 20 mg PO BEDTIME 07/28/13 [History] ursodioL [Actigal] 600 mg PO BID@0800,1200 07/28/13 [History] Aspirin [Halfprin] 162 mg PO DAILY 01/12/18 [History] Cholecalciferol (Vitamin D3) [Vitamin D3] 1,000 unit PO DAILY 01/12/18 [History] Cyanocobalamin (Vitamin B-12) [B-12] 1,000 mcg PO DAILY 01/12/18 [History] Ferrous Gluconate 324 mg PO Q48H 01/12/18 [History] Gabapentin [Neurontin] 300 mg PO TID 01/12/18 [History] Levothyroxine 200 mcg PO ACBREAKFAST 01/12/18 [History] Metoclopramide [Reglan] 5 mg PO QIDACANDBED 01/12/18 [History] Nortriptyline 20 mg PO BEDTIME 01/12/18 [History] Pramipexole [Mirapex] 0.5 mg PO BEDTIME 01/12/18 [History] Sennosides/Docusate Sodium [Sennosides-Docusate Sodium] 1 tab PO BID 01/12/18 [ History] oxyCODONE HCl [Oxycodone HCl ER] 15 mg PO BID 01/12/18 [History] ursodioL [Ursodiol] 300 mg PO BEDTIME 01/12/18 [History] Metoprolol Succinate [Toprol XL] 25 mg PO DAILY 10/08/18 [History] Bumetanide [Bumex] 2 mg PO DAILY #30 tablet 10/11/18 [Rx] Insulin Lispro [HumaLOG] 5 units SUBCUT TID #0 10/11/18 [Rx] Levothyroxine [Synthroid] 50 mcg PO DAILY@0700 #30 tablet 10/11/18 [Rx] Magnesium Oxide 400 mg PO BID #60 tablet 10/11/18 [Rx] Sodium Bicarbonate 650 mg PO BID #120 tablet 10/11/18 [Rx] calcitrioL [Rocaltrol] 0.25 mcg PO DAILY #30 cap 10/11/18 [Rx] Patiromer Calcium Sorbitex [Veltassa] 8.4 gm PO DAILY 07/07/19 [History] Insulin Degludec [Tresiba] 20 unit SQ BEDTIME 07/08/19 [History] Hydrocodone/Acetaminophen [Hydrocodon-Acetaminophn 10-325] 1 tab PO Q6H PRN 05/13 [History] Forms: ED Department Discharge Referrals: Vernell Mireles DO [Primary Care Provider] - 08/26/19 11:00 am (You have a follow up appt. with Dr. Jory Mireles on August 26, 2019 at 11AM--[facility]) - Discharge Summary/Plan Comment DC Time >30 min.: Yes Discharge Summary/Plan Comment: Pt. has follow-up scheduled with Dr. Mireles. Continue taking the imdur 30mg once daily Keflex 500mg QID for cellulitis. It appears to be early in the course of the illness, but given the patient's past medical history, we will treat the infection. Return to ER if chest pain, pressure, shortness of breath, lightheadedness, weakness or other worrisome signs or symptoms. Advised to keep appointment with cardiology next week. All questions were answered. Call or return to ER as needed. - General Info Date of Service: 08/05/19 Functional Status: Reports: Pain Controlled - Review of Systems General: Reports: No Symptoms HEENT: Reports: No Symptoms Pulmonary: Reports: No Symptoms Cardiovascular: Reports: No Symptoms Gastrointestinal: Reports: No Symptoms Genitourinary: Reports: No Symptoms Musculoskeletal: Reports: No Symptoms Skin: Reports: No Symptoms Neurological: Reports: No Symptoms Psychiatric: Reports: No Symptoms - Patient Data Vitals - Most Recent: Last Vital Signs Temp 37.1 C 08/05/19 10:00 Pulse 76 08/05/19 10:00 Resp 18 08/05/19 10:00 BP 106/59 L 08/05/19 10:00 Pulse Ox 97 08/05/19 10:00 Weight - Most Recent: 86.863 kg I&O - Last 24 hours: Intake & Output 08/04/19 08/05/19 08/05/19 22:59 06:59 14:59 Intake Total 200 120 Output Total 400 Balance -200 120 Lab Results - Last 24 hrs: Laboratory Results - last 24 hr 08/04/19 Range/Units 16:11 POC Troponin I 0.00 (0.00-0.08) ng/mL Med Orders - Current: Current Medications Discontinued Medications Hydrocodone Bitart/Acetaminophen ([place] 325-10 Mg) 1 tab PO Q6H PRN PRN Reason: Pain Last Admin: 08/05/19 07:52 Dose: 1 tab Aspirin (Halfprin) 162 mg PO DAILY [facility] Last Admin: 08/05/19 08:08 Dose: 162 mg Bumetanide (Bumex) 2 mg PO DAILY [facility] Last Admin: 08/05/19 08:02 Dose: 2 mg Duloxetine HCl (Cymbalta) 60 mg PO BEDTIME [facility] Last Admin: 08/04/19 19:55 Dose: 60 mg Ferrous Sulfate (Ferrous Sulfate) 325 mg PO Q48H [facility] Last Admin: 08/05/19 10:15 Dose: Not Given Gabapentin (Neurontin) 300 mg PO TID [facility] Last Admin: 08/05/19 07:54 Dose: 300 mg Glucagon (Glucagen) 1 mg SUBCUT ASDIRECTED PRN PRN Reason: Hypoglycemia Insulin Human Lispro (Humalog) 5 unit SUBCUT TID [facility] Last Admin: 08/05/19 08:00 Dose: 5 units Isosorbide Mononitrate (Imdur) 30 mg PO ONETIME ONE Stop: 08/04/19 13:25 Last Admin: 08/04/19 13:34 Dose: 30 mg Isosorbide Mononitrate (Imdur) 30 mg PO DAILY [facility] Last Admin: 08/05/19 08:00 Dose: 30 mg Levothyroxine Sodium (Synthroid) 50 mcg PO DAILY@0700 [facility] Last Admin: 08/05/19 06:16 Dose: 50 mcg Magnesium Oxide (Magnesium Oxide) 400 mg PO BID [facility] Last Admin: 08/05/19 08:08 Dose: 400 mg Metoclopramide HCl (Reglan) 5 mg PO QIDACANDBED [facility] Last Admin: 08/05/19 06:16 Dose: 5 mg Metoprolol Succinate (Toprol Xl) 25 mg PO DAILY [facility] Last Admin: 08/05/19 07:56 Dose: 25 mg Atorvastatin [ Lipitor] 20 Mg (Own Supply) 20 mg PO BEDTIME [facility] Last Admin: 08/04/19 19:57 Dose: 20 mg Insulin Degludec [ Tresiba] (Own Supply ) 0 unit SQ BEDTIME [facility] Last Admin: 08/04/19 21:08 Dose: 20 unit Levothyroxine 200 (Mcg (Own Supply)) 0 mcg PO ACBREAKFAST [facility] Last Admin: 08/05/19 06:16 Dose: 200 mcg Oxycodone Er 15 Mg ( (Own Supply)) 0 mg PO BID [facility] Last Admin: 08/05/19 07:53 Dose: 15 mg Patiromer Calcium Sorbitex [Veltassa] 8.4 Gm (Own Supply) 0 gm PO DAILY [facility] Last Admin: 08/05/19 08:13 Dose: Not Given Ursodiol 600 Mg (Own (Supply)) 0 mg PO BID@0800,1200 [facility] Last Admin: 08/05/19 08:13 Dose: 600 mg Ursodiol 300 Mg (Own (Supply)) 0 mg PO BEDTIME [facility] Last Admin: 08/04/19 19:56 Dose: 300 mg Cyclobenzaprine 5mg ((Own Supply)) 1 each PO BEDTIME [facility] Last Admin: 08/04/19 19:56 Dose: 1 each Nortriptyline HCl (Nortriptyline) 20 mg PO BEDTIME [facility] Last Admin: 08/04/19 19:55 Dose: 20 mg Nortriptyline HCl (Nortriptyline) 10 mg PO BID@0800,1300 [facility] Last Admin: 08/05/19 08:02 Dose: 10 mg Pramipexole Dihydrochloride (Mirapex) 0.5 mg PO BEDTIME [facility] Last Admin: 08/04/19 19:57 Dose: 0.5 mg Senna/Docusate Sodium (Senna Plus) 1 tab PO BID [facility] Last Admin: 08/05/19 08:08 Dose: 1 tab Sodium Bicarbonate (Sodium Bicarbonate) 650 mg PO BID [facility] Last Admin: 08/05/19 08:08 Dose: 650 mg Sodium Chloride (Saline Flush) 10 ml FLUSH ASDIRECTED PRN PRN Reason: Keep Vein Open Last Admin: 08/04/19 19:54 Dose: 10 ml - Exam General: Reports: Alert, Oriented HEENT: Reports: Pupils Equal, Pupils Reactive, EOMI, Mucous Membr. Moist/[place] Neck: Reports: Supple Lungs: Reports: Clear to Auscultation, Normal Respiratory Effort Cardiovascular: Reports: Regular Rate, Regular Rhythm GI/Abdominal Exam: Normal Bowel Sounds, Soft, Non-Tender, No Organomegaly, No Distention, No Abnormal Bruit, No Mass, Pelvis Stable (Female) Exam: Deferred Rectal (Female) Exam: Deferred Back Exam: Reports: Normal Inspection, Full Range of Motion Extremities: Normal Inspection, Normal Range of Motion, Non-Tender, No Pedal Edema, Normal Capillary Refill Skin: Reports: Warm, Dry, Intact, Other (Small abrasion/superficial laceration to L lower leg with surrounding erythema, consistent with mild cellulitis.) Wound/Incisions: Reports: Other (see above) Neurological: Reports: No New Focal Deficit Psy/Mental Status: Reports: Alert, Normal Affect, Normal Mood EKG INTERPRETATION Rhythm: NSR [place]: Normal P-Wave: Present QRS: Normal ST-T: Normal QT: Normal
== END 2019-08-05 10:35 | disposition home or self-care (01) ==
LOC: VM.ED 11:38 → VM.MS 13:28
PROVIDERS: ADMIT Physician Assistant; ATTEND Physician Assistant
DX: R07.89 Other chest pain (principal); L03.116 Cellulitis of left lower limb; E78.00 Pure hypercholesterolemia, unspecified; I25.10 Atherosclerotic heart disease of native coronary artery without angina pectoris; E10.40 Type 1 diabetes mellitus with diabetic neuropathy, unspecified; I12.9 Hypertensive chronic kidney disease with stage 1 through stage 4 chronic kidney disease, or unspecified chronic kidney disease; N18.9 Chronic kidney disease, unspecified; E10.22 Type 1 diabetes mellitus with diabetic chronic kidney disease; Z79.899 Other long term (current) drug therapy; Z79.4 Long term (current) use of insulin; Z79.890 Hormone replacement therapy; R06.02 Shortness of breath
CPT/HCPCS: 36415; 71045; 80053; 83735; 83880; 84100; 84484; 85025; 85610; 86140; 93005; 99285; A9270; G0378; J1815

== ENCOUNTER 2019-11-24 03:20 | Emergency (ER) | payer MEDICARE, OTHER ==
[2019-11-24] MEDS ORDERED: Lactated Ringers 1,000 ML IV ONE ×3 (04:19→08:58)
[2019-11-24] MEDS ORDERED: Acetaminophen 500 MG Tab PO ONE (04:19)
[2019-11-24] MEDS ORDERED: cefTRIAXone 2 GM Vial IVPUSH ONE (04:32)
[2019-11-24 04:53] LABS: ANION GAP 16.8 mmol/L (10-20)
--- NOTE | 2019-11-24 05:09 | EDM.PDOC ---
ED HPI GENERAL MEDICAL PROBLEM - General Chief Complaint: Fever Stated Complaint: Weakness, fever Time Seen by Provider: 11/24/19 04:15 Source of Information: Reports: Patient, Family History Limitations: Reports: No Limitations (Patient is somewhat slow to answer questions but she answers appropriately. This is new according to her .) - History of Present Illness INITIAL COMMENTS - FREE TEXT/NARRATIVE: Patient comes emergency department today from home with complaints of fever and generalized weakness. This patient last evening suddenly developed a fever at home and she was so weak she was unable to get up out of the chair. She had a similar episode of this about a week or so ago when she was in [place] and they had concerns for a stroke. She was hospitalized at that time and they did not find any evidence of a stroke and her weakness resolved after some IV fluid hydration and they blamed it on her chronic renal failure. Last evening she suddenly developed a fever at home and she was so weak that she was unable to get up out of the chair. She does complain of increased urinary frequency and dysuria. No headache no visual disturbances. No chest pain no shortness of breath or difficulty breathing. No cough or congestion. No nausea no vomiting. No abdominal pain. No black or tarry stools. She has not take anything for fever prior to arrival. She has not been exposed to anyone with COVID. She has not traveled out of the area. She has no loss of taste or smell. Spinal pain, Pain Score (Numeric/FACES): 5 - Related Data Allergies Allergy/AdvReac Type Severity Reaction Status Date / Time gentamicin [Gentamicin] Allergy Severe Hives Verified 11/24/19 03:51 shellfish derived Allergy Severe Edema Verified 11/24/19 03:51 atenolol Allergy Cannot Verified 11/24/19 03:51 Remember celecoxib [From Celebrex] Allergy Cannot Verified 11/24/19 03:51 Remember oxycodone [Oxycodone] Allergy Cannot Verified 11/24/19 03:51 Remember Penicillins Allergy Cannot Verified 11/24/19 03:51 Remember Sulfa (Sulfonamide Allergy Cannot Verified 11/24/19 03:51 Antibiotics) Remember Tetracyclines Allergy Cannot Verified 11/24/19 03:51 Remember cephalexin monohydrate AdvReac Nausea Verified 11/24/19 03:51 [From Keflex] naproxen [From Naprosyn] AdvReac Renal Verified 11/24/19 03:51 Insufficiency altaryl Allergy Cannot Uncoded 11/24/19 03:51 Remember contrast dye AdvReac Intermediate Renal Uncoded 11/24/19 03:51 Insufficiency anti-inflammatory AdvReac Renal Uncoded 11/24/19 03:51 Insufficiency Home Meds: Home Meds Cyclobenzaprine [Flexeril] 5 mg PO BEDTIME 07/28/13 [History] DULoxetine [Cymbalta] 60 mg PO BEDTIME 07/28/13 [History] Glucagon,Human Recombinant [Glucagon Emergency Kit] 1 mg SUBCUT ASDIRECTED PRN 07/28/13 [History] Isosorbide Mononitrate [Isosorbide Mononitrate ER] 30 mg PO Q2D 07/28/13 [History] Nitroglycerin [Nitrostat] 0.4 mg SL ASDIRECTED PRN 07/28/13 [History] Nortriptyline HCl [Pamelor] 10 mg PO BID@0800,1300 07/28/13 [History] Vitamin E (Dl,Tocopheryl Acet) [Vitamin E] 400 unit PO BID 07/28/13 [History] atorvaSTATin [Lipitor] 20 mg PO BEDTIME 07/28/13 [History] ursodioL [Actigal] 600 mg PO BID@0800,1200 07/28/13 [History] Aspirin [Halfprin] 162 mg PO DAILY 01/12/18 [History] Cholecalciferol (Vitamin D3) [Vitamin D3] 1,000 unit PO DAILY 01/12/18 [History] Cyanocobalamin (Vitamin B-12) [B-12] 1,000 mcg PO DAILY 01/12/18 [History] Ferrous Gluconate 324 mg PO Q48H 01/12/18 [History] Gabapentin [Neurontin] 300 mg PO TID 01/12/18 [History] Levothyroxine 200 mcg PO ACBREAKFAST 01/12/18 [History] Metoclopramide [Reglan] 5 mg PO QIDACANDBED 01/12/18 [History] Nortriptyline 20 mg PO BEDTIME 01/12/18 [History] Pramipexole [Mirapex] 0.5 mg PO BEDTIME 01/12/18 [History] Sennosides/Docusate Sodium [Sennosides-Docusate Sodium] 1 tab PO BID 01/12/18 [History] oxyCODONE HCl [Oxycodone HCl ER] 15 mg PO BID 01/12/18 [History] ursodioL [Ursodiol] 300 mg PO BEDTIME 01/12/18 [History] Metoprolol Succinate [Toprol XL] 25 mg PO DAILY 10/08/18 [History] Bumetanide [Bumex] 2 mg PO DAILY #30 tablet 10/11/18 [Rx] Insulin Lispro [HumaLOG] 5 units SUBCUT TID #0 10/11/18 [Rx] Levothyroxine [Synthroid] 50 mcg PO DAILY@0700 #30 tablet 10/11/18 [Rx] Magnesium Oxide 400 mg PO BID #60 tablet 10/11/18 [Rx] Sodium Bicarbonate 650 mg PO BID #120 tablet 10/11/18 [Rx] calcitrioL [Rocaltrol] 0.25 mcg PO DAILY #30 cap 10/11/18 [Rx] Patiromer Calcium Sorbitex [Veltassa] 8.4 gm PO DAILY 07/07/19 [History] Insulin Degludec [Tresiba] 20 unit SQ BEDTIME 07/08/19 [History] Hydrocodone/Acetaminophen [Hydrocodone-Acetamin 10-325 mg] 1 tab PO Q6H PRN 08/04/19 [History] Past Medical History HEENT History: Reports: Cataract, Hard of Hearing, Impaired Vision, Other (See Below) Cardiovascular History: Reports: CAD, Heart Murmur, High Cholesterol, Hypertension, Stents Respiratory History: Reports: None Gastrointestinal History: Reports: Cirrhosis, GERD, Other (See Below) Genitourinary History: Reports: Acute Renal Failure, Chronic Renal Insuffiency Other Genitourinary History: stage 3 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: Musculoskeletal History: Reports: Arthritis, Back Pain, Chronic, Other (See Below) Other Musculoskeletal History: Turners syndrome Neurological History: Reports: Neuropathy, Diabetic Psychiatric History: Reports: Depression Endocrine/Metabolic History: Reports: Diabetes, Type I, Hypothyroidism Hematologic History: Reports: Anemia, B12 Deficiency, Idiopathic Thrombocyt openia Immunologic History: Reports: None Oncologic (Cancer) History: Reports: Colon Dermatologic History: Reports: None - Infectious Disease History Infectious Disease History: Reports: Chicken Pox - Past Surgical History HEENT Surgical History: Reports: Cataract Surgery, Oral Surgery, Tonsillectomy Cardiovascular Surgical History: Reports: Coronary Artery Stent GI Surgical History: Reports: Colonoscopy, EGD Musculoskeletal Surgical History: Reports: None Social & Family History - Family History Family Medical History: Noncontributory Cardiac: Reports: CAD : Reports: Cystic Kidney Disease Oncologic: Reports: Liver - Tobacco Use Smoking Status *Q: Unknown Ever Smoked - Caffeine Use Caffeine Use: Reports: Coffee, Soda Other Caffeine Use: Drinks diet coke daily - Living Situation & Occupation Living situation: Reports: , with Significant Other Occupation: Retired (worked at [employer]) ED ROS GENERAL - Review of Systems Review Of Systems: Comprehensive ROS is negative, except as noted in HPI. ED EXAM, SEPSIS - Physical Exam Exam: See Below Exam Limited By: No Limitations General Appearance: Alert, WD/WN, Anxious, Moderate Distress Eye Exam: Bilateral Eye: EOMI, PERRL Ears: Normal External Exam Nose: Normal Inspection Throat/Mouth: No: Normal Inspection (very dry oral mucosa otherwise normal ) Head: Atraumatic Neck: Normal Inspection, Supple Respiratory/Chest: No Respiratory Distress, Lungs Clear, Normal Breath Sounds, No Accessory Muscle Use Cardiovascular: Normal Peripheral Pulses, Regular Rate, Rhythm Peripheral Pulses: 2+: Radial (L), Radial (R), Posterior Tibial (L), Posterior Tibial (R), Dorsalis Pedis (L), Dorsalis Pedis (R) GI/Abdominal Exam: Normal Bowel Sounds, Soft, Non-Tender (Female) Exam: Deferred Rectal (Female) Exam: Deferred Back: Normal Inspection Extremities: Normal Inspection, Normal Range of Motion, No Pedal Edema Neurological: Alert, Oriented, Normal Cognition, No Motor/Sensory Deficits, Slow to Respond (Per her she is a little slower to answer questions than normal. ) Psychiatric: Normal Affect Skin: Dry, Intact, Increased Warmth, Pallor Course - Vital Signs Last Recorded V/S: Last Vital Signs Temp 102.5 F H 11/24/19 07:53 Pulse 97 11/24/19 08:05 Resp 18 11/24/19 08:05 BP 93/40 L 11/24/19 08:05 Pulse Ox 93 L 11/24/19 08:05 - Orders/Labs/Meds Orders: Active Orders 24 hr Category Date Time Status AMMONIA [REF] Stat Lab 11/24/19 04:15 Received CULTURE BLOOD [BC] Stat Lab 11/24/19 04:15 Results CULTURE BLOOD [BC] Stat Lab 11/24/19 04:23 Results CULTURE URINE [RM] Stat Lab 11/24/19 04:15 Received Lactated Ringers [Ringers, Lactated] 1,000 ml Med 11/24/19 08:03 Ordered IV ONETIME Blood Culture x2 Reflex Set [OM.PC] Stat Oth 11/24/19 04:08 Ordered Medication Orders Lactated Ringer's (Ringers, Lactated) 1,000 mls @ 999 mls/hr IV ONETIME ONE Stop: 11/24/19 09:03 Labs: Laboratory Tests 11/24/19 11/24/19 11/24/19 Range/Units 04:15 04:15 04:15 WBC 9.4 (4.0-10.0) x10^3/uL RBC 3.09 L (4.00-5.50) x10^6/uL Hgb 10.6 L (12.0-16.0) g/dL Hct 32.3 L (33.0-47.0) % MCV 104.5 H D (78.0-93.0) fL MCH 34.3 H (26.0-32.0) pg MCHC 32.8 (32.0-36.0) g/dL RDW Coeff of [place] 13.2 (10.0-15.0) % Plt Count 41 L* (130-400) x10^3/uL Neut % (Auto) 95.0 H (50.0-80.0) % Lymph % (Auto) 3.8 L (25.0-50.0) % [place] % (Auto) 0.4 L (2.0-11.0) % Eos % (Auto) 0.6 (0.0-4.0) % Baso % (Auto) 0.2 (0.2-1.2) % Sodium 138 (136-145) mmol/L Potassium 3.8 (3.5-5.1) mmol/L Chloride 101 (98-107) mmol/L Carbon Dioxide 24 (21-32) mmol/L Anion Gap 16.8 (10-20) mmol/L BUN 61 H (7-18) mg/dL Creatinine 3.0 H (0.55-1.02) mg/dL Est Cr Clr Drug Dosing 0.63 mL/min Estimated GFR (MDRD) 16 Glucose 94 (74-106) mg/dL Lactic Acid (0.4-2.0) mmol/L Calcium 8.9 (8.5-10.1) mg/dL Corrected Calcium 9.62 (8.5-10.1) mg/dL Magnesium (1.8-2.4) mg/dL Total Bilirubin 1.8 H (0.2-1.0) mg/dL AST 45 H (15-37) U/L ALT 46 (14-59) U/L Alkaline Phosphatase 810 H (46-116) U/L C-Reactive Protein 3.6 H (<=0.9) mg/dL Total Protein 6.5 (6.4-8.2) g/dL Albumin 3.1 L (3.4-5.0) g/dL Globulin 3.4 Albumin/Globulin Ratio 0.91 Lipase (73-393) U/L Urine Color Yellow (YELLOW) Urine Appearance Turbid H (CLEAR) Urine pH 5.5 (5.0-8.0) Ur Specific Premium 1.015 Urine Protein Negative (NEGATIVE) mg/dL Urine Glucose (UA) Negative (NEGATIVE) mg/dL Urine Ketones Negative (NEGATIVE) mg/dL Urine Occult Blood Moderate H (NEGATIVE) Urine Nitrite Positive H (NEGATIVE) Urine Bilirubin Negative (NEGATIVE) Urine Urobilinogen 0.2 (0.2) EU/dL Ur Leukocyte Esterase Moderate H (NEGATIVE) Urine RBC 0-5 (NOT SEEN) /HPF Urine WBC 50-75 H (NOT SEEN) /HPF Ur Squamous Epith Cells Many H (NEGATIVE) /HPF Amorphous Sediment Few Urine Bacteria Many H (NEGATIVE) /HPF Urine Mucus Moderate H (NEGATIVE) /LPF SARS-CoV-2 RNA (RT-PCR) (NEGATIVE) 11/24/19 11/24/19 11/24/19 Range/Units 04:15 04:15 04:15 WBC (4.0-10.0) x10^3/uL RBC (4.00-5.50) x10^6/uL Hgb (12.0-16.0) g/dL Hct (33.0-47.0) % MCV (78.0-93.0) fL MCH (26.0-32.0) pg MCHC (32.0-36.0) g/dL RDW Coeff of [place] (10.0-15.0) % Plt Count (130-400) x10^3/uL Neut % (Auto) (50.0-80.0) % Lymph % (Auto) (25.0-50.0) % [place] % (Auto) (2.0-11.0) % Eos % (Auto) (0.0-4.0) % Baso % (Auto) (0.2-1.2) % Sodium (136-145) mmol/L Potassium (3.5-5.1) mmol/L Chloride (98-107) mmol/L Carbon Dioxide (21-32) mmol/L Anion Gap (10-20) mmol/L BUN (7-18) mg/dL Creatinine (0.55-1.02) mg/dL Est Cr Clr Drug Dosing mL/min Estimated GFR (MDRD) Glucose (74-106) mg/dL Lactic Acid 2.6 H* (0.4-2.0) mmol/L Calcium (8.5-10.1) mg/dL Corrected Calcium (8.5-10.1) mg/dL Magnesium 1.6 L (1.8-2.4) mg/dL Total Bilirubin (0.2-1.0) mg/dL AST (15-37) U/L ALT (14-59) U/L Alkaline Phosphatase (46-116) U/L C-Reactive Protein (<=0.9) mg/dL Total Protein (6.4-8.2) g/dL Albumin (3.4-5.0) g/dL Globulin Albumin/Globulin Ratio Lipase 44 L (73-393) U/L Urine Color (YELLOW) Urine Appearance (CLEAR) Urine pH (5.0-8.0) Ur Specific Premium Urine Protein (NEGATIVE) mg/dL Urine Glucose (UA) (NEGATIVE) mg/dL Urine Ketones (NEGATIVE) mg/dL Urine Occult Blood (NEGATIVE) Urine Nitrite (NEGATIVE) Urine Bilirubin (NEGATIVE) Urine Urobilinogen (0.2) EU/dL Ur Leukocyte Esterase (NEGATIVE) Urine RBC (NOT SEEN) /HPF Urine WBC (NOT SEEN) /HPF Ur Squamous Epith Cells (NEGATIVE) /HPF Amorphous Sediment Urine Bacteria (NEGATIVE) /HPF Urine Mucus (NEGATIVE) /LPF SARS-CoV-2 RNA (RT-PCR) (NEGATIVE) 11/24/19 Range/Units 05:10 WBC (4.0-10.0) x10^3/uL RBC (4.00-5.50) x10^6/uL Hgb (12.0-16.0) g/dL Hct (33.0-47.0) % MCV (78.0-93.0) fL MCH (26.0-32.0) pg MCHC (32.0-36.0) g/dL RDW Coeff of [place] (10.0-15.0) % Plt Count (130-400) x10^3/uL Neut % (Auto) (50.0-80.0) % Lymph % (Auto) (25.0-50.0) % [place] % (Auto) (2.0-11.0) % Eos % (Auto) (0.0-4.0) % Baso % (Auto) (0.2-1.2) % Sodium (136-145) mmol/L Potassium (3.5-5.1) mmol/L Chloride (98-107) mmol/L Carbon Dioxide (21-32) mmol/L Anion Gap (10-20) mmol/L BUN (7-18) mg/dL Creatinine (0.55-1.02) mg/dL Est Cr Clr Drug Dosing mL/min Estimated GFR (MDRD) Glucose (74-106) mg/dL Lactic Acid (0.4-2.0) mmol/L Calcium (8.5-10.1) mg/dL Corrected Calcium (8.5-10.1) mg/dL Magnesium (1.8-2.4) mg/dL Total Bilirubin (0.2-1.0) mg/dL AST (15-37) U/L ALT (14-59) U/L Alkaline Phosphatase (46-116) U/L C-Reactive Protein (<=0.9) mg/dL Total Protein (6.4-8.2) g/dL Albumin (3.4-5.0) g/dL Globulin Albumin/Globulin Ratio Lipase (73-393) U/L Urine Color (YELLOW) Urine Appearance (CLEAR) Urine pH (5.0-8.0) Ur Specific Premium Urine Protein (NEGATIVE) mg/dL Urine Glucose (UA) (NEGATIVE) mg/dL Urine Ketones (NEGATIVE) mg/dL Urine Occult Blood (NEGATIVE) Urine Nitrite (NEGATIVE) Urine Bilirubin (NEGATIVE) Urine Urobilinogen (0.2) EU/dL Ur Leukocyte Esterase (NEGATIVE) Urine RBC (NOT SEEN) /HPF Urine WBC (NOT SEEN) /HPF Ur Squamous Epith Cells (NEGATIVE) /HPF Amorphous Sediment Urine Bacteria (NEGATIVE) /HPF Urine Mucus (NEGATIVE) /LPF SARS-CoV-2 RNA (RT-PCR) Negative (NEGATIVE) Meds: Medications Generic Name Dose Route Start Last Admin Trade Name Freq PRN Reason Stop Dose Admin Lactated Ringer's 1,000 mls @ 999 mls/hr 11/24/19 08:03 Ringers, Lactated IV 11/24/19 09:03 ONETIME ONE Discontinued Medications Generic Name Dose Route Start Last Admin Trade Name Freq PRN Reason Stop Dose Admin Acetaminophen 1,000 mg 11/24/19 04:19 11/24/19 04:41 Tylenol Extra Strength PO 11/24/19 04:20 1,000 mg ONETIME ONE Administration Ceftriaxone Sodium 2 gm 11/24/19 04:32 11/24/19 04:48 Rocephin IVPUSH 11/24/19 04:33 2 gm STAT ONE Administration Lactated Ringer's 1,000 mls @ 999 mls/hr 11/24/19 04:19 11/24/19 04:40 Ringers, Lactated IV 11/24/19 05:19 999 mls/hr ONETIME ONE Administration - Radiology Interpretation Free Text/Narrative:: CXR per radiology no active cardiopulmonary disease demonstrated. - Re-Assessments/Exams Free Text/Narrative Re-Assessment/Exam: 11/24/19 Tylenol 1000 gram PO Blood cultures x 2 LR 500ml bolus. Ceftriaxone 2 grams IVP CXR negative. Covid Negative. Lactic 2.6. Plt 41 has a history of thrombocytopenia although this is the lowest recorded on her record. Creat 3.0 BUN 60 which is quite elevated from baseline. 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 The patient clearly has sepsis from a UTI at this time. ALthough she has multiple other co-morbid factors that show worsening as well. She did start to drop her BP while in the ED to 87/50 systolically and started a 1.5 liter bolus for which she responded to nicely. I called and spoke with Dr. Mccauley the hospitalist hospital admissions officer at [facility] ER COURSE findings and concerns were relayed to him verbally over the phone. His questions were answered and he accepted the patient in transfer at this time with no new orders. I discussed the plan of care and concerns of the UTI with septic shock responsive to IV fluids. They are understanding of this and their questions answered. Departure - Departure Time of Disposition: 08:15 Disposition: DC/Tfer to [facility] 02 Clinical Impression: Complicated UTI (urinary tract infection), Thrombocytopenia, CKD (chronic kidney disease) stage 4, GFR 15-29 ml/min, Serum total bilirubin elevated, Hy pomagnesemia Anemia Qualifiers: Anemia type: unspecified type Qualified Code(s): D64.9 - Anemia, unspecified Sepsis Qualifiers: Sepsis type: sepsis due to unspecified organism Sepsis acute organ dysfunction status: with acute organ dysfunction Severe sepsis acute organ dysfunction type: unspecified Severe sepsis shock status: with septic shock Qualified Code(s): A41.9 - Sepsis, unspecified organism; R65.21 - Severe sepsis with septic shock - Discharge Information Referrals: PCP,Unobtain [Primary Care Provider] - Forms: ED Department Discharge, Interfacility Transfer [facility] Sepsis Event Note (ED) - Evaluation Sepsis Screening Result: No Definite Risk - Focused Exam Vital Signs: Vital Signs Temp Temp Temp Pulse Resp BP Pulse Ox 11/24/19 08:05 97 18 93/40 L 93 L 11/24/19 07:53 102.5 F H 93 12 87/41 L 93 L 11/24/19 07:25 101.7 F H 96 12 89/43 L 93 L 11/24/19 06:30 102.6 F H 99 18 101/53 L 94 L 11/24/19 05:24 103.7 F H 103.7 F H 103 H 20 115/56 L 94 L 11/24/19 04:41 102.6 F H 11/24/19 03:20 102.6 F H 98 20 112/56 L 95 - My Orders Last 24 Hours: My Active Orders 11/24/19 04:08 Blood Culture x2 Reflex Set [OM.PC] Stat 11/24/19 04:15 AMMONIA [REF] Stat CULTURE BLOOD [BC] Stat CULTURE URINE [RM] Stat 11/24/19 04:23 CULTURE BLOOD [BC] Stat 11/24/19 08:03 Lactated Ringers [Ringers, Lactated] 1,000 ml IV ONETIME - Assessment/Plan Last 24 Hours: My Active Orders 11/24/19 04:08 Blood Culture x2 Reflex Set [OM.PC] Stat 11/24/19 04:15 AMMONIA [REF] Stat CULTURE BLOOD [BC] Stat CULTURE URINE [RM] Stat 11/24/19 04:23 CULTURE BLOOD [BC] Stat 11/24/19 08:03 Lactated Ringers [Ringers, Lactated] 1,000 ml IV ONETIME Assessment:: Complicated UTI Sepsis with septic shock responsive to fluids Anemia ? if from CKD CKD 4 Thrombocytopenia Hypomagnesemia Elevated T Preston with history of Biliary Cirrhosis. Plan: Transfer by ambulance to [facility].
--- NOTE | 2019-11-24 08:03 | CR ---
[id number] RAD/RAD Chest PA or AP 1V EXAM: SINGLE VIEW CHEST. INDICATION: FEVER COUGH COMPARISON: CORRELATION IS MADE WITH AUGUST 04, 2019 FINDINGS: The lungs are clear The cardiomediastinal contour is stable IMPRESSION: NO PNEUMONIA Rene Oliveros MD 11/24/19 0801 Thank you for allowing us to participate in the care of your patient.
[2019-11-24 08:49] VITALS: BP 89/45; PULSE 99
== END 2019-11-24 09:04 | disposition short-term general hospital (02) ==
LOC: VM.ED 03:20
DX: A41.9 Sepsis, unspecified organism (principal); R65.20 Severe sepsis without septic shock; I12.9 Hypertensive chronic kidney disease with stage 1 through stage 4 chronic kidney disease, or unspecified chronic kidney disease; E10.22 Type 1 diabetes mellitus with diabetic chronic kidney disease; N18.4 Chronic kidney disease, stage 4 (severe); D63.1 Anemia in chronic kidney disease; N39.0 Urinary tract infection, site not specified; M19.90 Unspecified osteoarthritis, unspecified site; E83.42 Hypomagnesemia; E10.40 Type 1 diabetes mellitus with diabetic neuropathy, unspecified; F32.9 Major depressive disorder, single episode, unspecified; D69.6 Thrombocytopenia, unspecified; E80.6 Other disorders of bilirubin metabolism; I25.10 Atherosclerotic heart disease of native coronary artery without angina pectoris; E78.00 Pure hypercholesterolemia, unspecified; Z95.5 Presence of coronary angioplasty implant and graft; Z79.82 Long term (current) use of aspirin; K21.9 Gastro-esophageal reflux disease without esophagitis; Z88.8 Allergy status to other drugs, medicaments and biological substances; Z88.5 Allergy status to narcotic agent; Z88.0 Allergy status to penicillin; Z88.2 Allergy status to sulfonamides; Z91.041 Radiographic dye allergy status; Z88.1 Allergy status to other antibiotic agents; Z91.013 Allergy to seafood; Z79.899 Other long term (current) drug therapy; Z20.828 Contact with and (suspected) exposure to other viral communicable diseases
CPT/HCPCS: 36415; 71045; 80053; 81001; 82140; 83605; 83690; 83735; 85025; 86140; 87040; 87077; 87086; 87088; 87186; 96374; 99285-25; A9270-GY; J0696; J7120; U0002

== ENCOUNTER 2020-01-08 17:42 | Emergency (ER) | payer MEDICARE, OTHER ==
[2020-01-08] MEDS ORDERED: Sodium Chloride 0.9% 10 ML Syringe FLUSH PRN (18:03)
[2020-01-08] MEDS ORDERED: Naloxone 0.4 MG/ML SDV IVPUSH ONE ×2 (18:04)
--- NOTE | 2020-01-08 18:29 | CT ---
[id number] CT/CT Head WO IV Exam: CT Head WO IV Indication:ALTERED LOC STROKE CODE Comparison: 2008. Discussion: Findings are within limitation of image degradation secondary to patient motion artifact. Within this limitation, there is no evidence of acute intracranial hemorrhage or extra-axial fluid collection. No hydrocephalus. No CT evidence of acute ischemia. Impression: No acute findings, described above. Alexy Medina MD 01/08/20 [id number] Thank you for allowing us to participate in the care of your patient.
[2020-01-08] MEDS ORDERED: 50% Dextrose in Water 50 ML Syringe IV STA (18:33)
[2020-01-08] MEDS ORDERED: cefTRIAXone 2 GM Vial IVPUSH ONE (18:40)
[2020-01-08 18:44] LABS: CHLORIDE,CL 101 mmol/L (98-107); SODIUM,NA 134 mmol/L (136-145)
[2020-01-08] MEDS: 50% Dextrose in Water 50 ML Syringe IV PRN ×3 (18:45→18:52)
[2020-01-08 18:46] LABS: ANION GAP 16.8 mmol/L (10-20)
[2020-01-08] MEDS ORDERED: Lactated Ringers 1,000 ML IV ONE (18:47)
[2020-01-08] MEDS ORDERED: 50% Dextrose in Water 50 ML Syringe IV PRN ×2 (19:18→20:10)
--- NOTE | 2020-01-08 19:24 | CR ---
[id number] RAD/RAD Chest PA or AP 1V EXAM: RAD Chest PA or AP 1V INDICATION: ASPIRATION COMPARISON: None. DISCUSSION: Cardiomediastinal silhouette is normal in size and contour. No infiltrate, effusion, pneumothorax, or edema. IMPRESSION: Negative examination of the chest. Alexy Medina MD 01/08/20 1923 Thank you for allowing us to participate in the care of your patient.
--- NOTE | 2020-01-08 19:25 | EDM.PDOC ---
ED HPI GENERAL MEDICAL PROBLEM - General Chief Complaint: Neuro Symptoms/Deficits Stated Complaint: STROKE CODE Time Seen by Provider: 01/08/20 17:42 Source of Information: Reports: EMS, Family History Limitations: Reports: No Limitations, Altered Mental Status - History of Present Illness INITIAL COMMENTS - FREE TEXT/NARRATIVE: Patient is coming to the emergency department today by ambulance from home with concerns of altered mental status. The stroke code due to the unresponsiveness of the patient at home. According to the this patient was without any complaints yesterday or the day before. Today she has been struggling with quite high blood sugars. At 1330 hrs. she went to take a nap which she could typically does at that time. Usually takes a nap for about 3 hours. During her nap her continuous glucose monitor identified her blood sugar being as "low". This is below 40. She was given 2 doses of glucagon and her continuous blood glucose monitor continued to read low. At that time he had some in the ambulance due to the low blood sugar and the continued unresponsiveness. Upon EMS arrival the patient was unresponsive and had little to no spontaneous movement. They question some eye deviation to one side so they activated a stroke code. Her blood sugar was in the 90s by EMS upon their arrival. I have given them instruction to given half an amp of D50 in route to the hospital. She started to move and be somewhat more spontaneous. Upon arrival the patient minimally responsive to painful stimulation. She is quite pale. The rest of t he HPI is unobtainable as the patient is unresponsive and most of the information is obtained from the as well as the ambulance. - Related Data Allergies Allergy/AdvReac Type Severity Reaction Status Date / Time gentamicin [Gentamicin] Allergy Severe Hives Verified 12/13/19 14:13 shellfish derived Allergy Severe Edema Verified 12/13/19 14:13 atenolol Allergy Cannot Verified 12/13/19 14:13 Remember celecoxib [From Celebrex] Allergy Cannot Verified 12/13/19 14:13 Remember oxycodone [Oxycodone] Allergy Cannot Verified 12/13/19 14:13 Remember Penicillins Allergy Cannot Verified 12/13/19 14:13 Remember Sulfa (Sulfonamide Allergy Cannot Verified 12/13/19 14:13 Antibiotics) Remember Tetracyclines Allergy Cannot Verified 12/13/19 14:13 Remember cephalexin monohydrate AdvReac Nausea Verified 12/13/19 14:13 [From Keflex] naproxen [From Naprosyn] AdvReac Renal Verified 12/13/19 14:13 Insufficiency altaryl Allergy Cannot Uncoded 12/13/19 14:13 Remember contrast dye AdvReac Intermediate Renal Uncoded 12/13/19 14:13 Insufficiency anti-inflammatory AdvReac Renal Uncoded 12/13/19 14:13 Insufficiency Home Meds: Home Meds Cyclobenzaprine [Flexeril] 5 mg PO BEDTIME 07/28/13 [History] DULoxetine [Cymbalta] 60 mg PO BEDTIME 07/28/13 [History] Glucagon,Human Recombinant [Glucagon Emergency Kit] 1 mg SUBCUT ASDIRECTED PRN 07/28/13 [History] Isosorbide Mononitrate [Isosorbide Mononitrate ER] 30 mg PO Q2D 07/28/13 [His tory] Nitroglycerin [Nitrostat] 0.4 mg SL ASDIRECTED PRN 07/28/13 [History] Nortriptyline HCl [Pamelor] 10 mg PO BID@0800,1300 07/28/13 [History] Vitamin E (Dl,Tocopheryl Acet) [Vitamin E] 400 unit PO BID 07/28/13 [History] ursodioL [Actigal] 600 mg PO BID@0800,1200 07/28/13 [History] Aspirin [Halfprin] 162 mg PO DAILY 01/12/18 [History] Cholecalciferol (Vitamin D3) [Vitamin D3] 1,000 unit PO DAILY 01/12/18 [History] Cyanocobalamin (Vitamin B-12) [B-12] 1,000 mcg PO DAILY 01/12/18 [History] Ferrous Gluconate 324 mg PO DAILY 01/12/18 [History] Gabapentin [Neurontin] 300 mg PO TID 01/12/18 [History] Levothyroxine 200 mcg PO ACBREAKFAST 01/12/18 [History] Metoclopramide [Reglan] 5 mg PO QIDACANDBED 01/12/18 [History] Nortriptyline 20 mg PO BEDTIME 01/12/18 [History] Pramipexole [Mirapex] 0.5 mg PO BEDTIME 01/12/18 [History] Sennosides/Docusate Sodium [Sennosides-Docusate Sodium] 1 tab PO BID 01/12/18 [History] oxyCODONE HCl [Oxycodone HCl ER] 15 mg PO BID 01/12/18 [History] ursodioL [Ursodiol] 300 mg PO BEDTIME 01/12/18 [History] Metoprolol Succinate [Toprol XL] 25 mg PO DAILY 10/08/18 [History] Bumetanide [Bumex] 2 mg PO DAILY #30 tablet 10/11/18 [Rx] Insulin Lispro [HumaLOG] 5 units SUBCUT TID #0 10/11/18 [Rx] Levothyroxine [Synthroid] 50 mcg PO DAILY@0700 #30 tablet 10/11/18 [Rx] Magnesium Oxide 400 mg PO BID #60 tablet 10/11/18 [Rx] Sodium Bicarbonate 650 mg PO BID #120 tablet 10/11/18 [Rx] calcitrioL [Rocaltrol] 0.25 mcg PO DAILY #30 cap 10/11/18 [Rx] Insulin Degludec [Tresiba] 20 unit SQ BEDTIME 07/08/19 [History] Hydrocodone/Acetaminophen [Hydrocodone-Acetamin 10-325 mg] 1 tab PO Q6H PRN 08/04/19 [History] Levothyroxine [Synthroid] 50 mcg PO WEEKLY 12/13/19 [History] Past Medical History HEENT History: Reports: Cataract, Hard of Hearing, Impaired Vision, Other (See Below) Cardiovascular History: Reports: CAD, Heart Murmur, High Cholesterol, Hypertension, Stents Respiratory History: Reports: None Gastrointestinal History: Reports: Cirrhosis, GERD, Other (See Below) Genitourinary History: Reports: Acute Renal Failure, Chronic Renal Insuffiency Other Genitourinary History: stage IV [employer] History: Reports: Musculoskeletal History: Reports: Arthritis, Back Pain, Chronic, Other (See Below) Other Musculoskeletal History: Turners syndrome Neurological History: Reports: Neuropathy, Diabetic Psychiatric History: Reports: Depression Endocrine/Metabolic History: Reports: Diabetes, Type I, Hypothyroidism Hematologic History: Reports: Anemia, B12 Deficiency, Idiopathic Thrombocytopenia, Iron Deficiency Immunologic History: Reports: None Oncologic (Cancer) History: Reports: Colon Dermatologic History: Reports: None - Infectious Disease History Infectious Disease History: Reports: Chicken Pox - Past Surgical History HEENT Surgical History: Reports: Cataract Surgery, Oral Surgery, Tonsillectomy Cardiovascular Surgical History: Reports: Coronary Artery Stent Respiratory Surgical History: Reports: None GI Surgical History: Reports: Colonoscopy, EGD Musculoskeletal Surgical History: Reports: None Social & Family History - Family History Family Medical History: Noncontributory Cardiac: Reports: CAD : Reports: Cystic Kidney Disease Oncologic: Reports: Liver - Caffeine Use Caffeine Use: Reports: Coffee, Soda Other Caffeine Use: Drinks diet coke daily - Living Situation & Occupation Living situation: Reports: , with Significant Other Occupation: Retired (worked at [employer]) ED ROS GENERAL - Review of Systems Review Of Systems: Comprehensive ROS is negative, except as noted in HPI. ED EXAM, NEURO - Physical Exam Exam: See Below Text/Narrative:: Patient is quite pale and unresponsive on arrival. No respiratory distress. She is controlling her airway and oral secretions at this time. She does have some minimal spontaneous movement of bilateral extremities and lower extremities. Exam Limited By: Altered Mental Status General Appearance: Obtunded Eye Exam: Bilateral Eye: PERRL (2mm sluggish) Ears: Normal External Exam Nose: Normal Inspection Throat/Mouth: Normal Inspection Head Exam: Atraumatic, Normocephalic Neck: Normal Inspection Respiratory/Chest: No Respiratory Distress, Lungs Clear, Decreased Breath Sounds (minnimal respiratory effort. ) Cardiovascular: Normal Peripheral Pulses, Regular Rate, Rhythm GI/Abdominal: Normal Bowel Sounds, Soft, Other (Quite a few areas of bruising over the abd most likely from insulin injections. ) (Female) Exam: Deferred Rectal (Female) Exam: Deferred Neurological: Other (Unresponsive. ) Back Exam: Normal Inspection (After the patient did start waking up when she was here she did move all of her extremities strong equal spontaneously nothing to command.) Extremities: Normal Inspection (no spontaneous movement. ) Skin Exam: Cool, Diaphoretic, Pallor EKG INTERPRETATION EKG Date: 01/08/20 Time: 18:00 Rhythm: NSR [place]: Normal (95) P-Wave: Present QRS: Wide (chronic) ST-T: Normal QT: Normal Course - Orders/Labs/Meds Orders: Active Orders 24 hr Category Date Time Status Accu Check [Blood Glucose Check, Bedside] [RC] Q1HR Care 01/08/20 18:05 Active EKG Documentation Completion [RC] STAT Care 01/08/20 18:02 Active CULTURE BLOOD [BC] Stat Lab 01/08/20 18:08 Received CULTURE BLOOD [BC] Stat Lab 01/08/20 18:16 Received CULTURE URINE [RM] Stat Lab 01/08/20 18:24 Received Dextrose 10% in Water 1,000 ml Med 01/08/20 20:30 Active IV ASDIRECTED Dextrose 5%-0.9% NaCl [Dextrose 5%-Normal Saline] 1,000 Med 01/08/20 19:30 Active ml IV ASDIRECTED Dextrose 50% in Water Med 01/08/20 18:46 Active 25 ml IV ASDIRECTED PRN Dextrose 50% in Water Med 01/08/20 19:18 Active 25 ml IV ASDIRECTED PRN Dextrose 50% in Water Med 01/08/20 20:10 Active 50 ml IV ASDIRECTED PRN Sodium Chloride 0.9% [Saline Flush] Med 01/08/20 18:03 Active 10 ml FLUSH ASDIRECTED PRN Blood Culture x2 Reflex Set [OM.PC] Stat Oth 01/08/20 18:03 Ordered Peripheral IV Insertion Adult [OM.PC] Stat Oth 01/08/20 18:02 Ordered Medication Orders Dextrose/Water (Dextrose 50% In Water) 25 ml IV ASDIRECTED PRN PRN Reason: Hypoglycemia Last Admin: 01/08/20 18:52 Dose: 25 ml Documented by: Admin: 01/08/20 18:47 Dose: 25 ml Documented by: Admin: 01/08/20 18:45 Dose: 25 ml Documented by: STORMY Dextrose/Water (Dextrose 50% In Water) 25 ml IV ASDIRECTED PRN PRN Reason: Hypoglycemia Dextrose/Water (Dextrose 50% In Water) 50 ml IV ASDIRECTED PRN PRN Reason: Hypoglycemia Last Admin: 01/08/20 20:14 Dose: 50 ml Documented by: VELASQUEZ Dextrose/Sodium Chloride (Dextrose 5%-Normal Saline) 1,000 mls @ 200 mls/hr IV ASDIRECTED AMINA Last Admin: 01/08/20 18:36 Dose: 200 mls/hr Documented by: STORMY Dextrose/Water (Dextrose 10% In Water) 1,000 mls @ 150 mls/hr IV ASDIRECTED AMINA Sodium Chloride (Saline Flush) 10 ml FLUSH ASDIRECTED PRN PRN Reason: Keep Vein Open Labs: Laboratory Tests 01/08/20 01/08/20 01/08/20 Range/Units 17:58 18:08 18:08 WBC 14.2 H (4.0-10.0) x10^3/uL RBC 3.62 L (4.00-5.50) x10^6/uL Hgb 13.0 D (12.0-16.0) g/dL Hct 39.5 (33.0-47.0) % MCV 109.1 H D (78.0-93.0) fL MCH 35.9 H (26.0-32.0) pg MCHC 32.9 (32.0-36.0) g/dL RDW Coeff of [place] 11.7 (10.0-15.0) % Plt Count 48 L* (130-400) x10^3/uL Neut % (Auto) 83.6 H (50.0-80.0) % Lymph % (Auto) 9.3 L (25.0-50.0) % [place] % (Auto) 6.1 (2.0-11.0) % Eos % (Auto) 0.6 (0.0-4.0) % Baso % (Auto) 0.4 (0.2-1.2) % POC VBG pH (7.31-7.41) POC VBG pCO2 (41-51) POC VBG pO2 POC VBG HCO3 (23-28) POC VBG Total CO2 (24-29) POC VBG Base Excess ((-2) - 3) POC FiO2 Sodium 134 L (136-145) mmol/L Potassium 4.8 (3.5-5.1) mmol/L Chloride 101 (98-107) mmol/L Carbon Dioxide 21 (21-32) mmol/L Anion Gap 16.8 (10-20) mmol/L BUN 48 H (7-18) mg/dL Creatinine 2.2 H (0.55-1.02) mg/dL Est Cr Clr Drug Dosing TNP Estimated GFR (MDRD) 23 Glucose 131 H (74-106) mg/dL POC Glucose 117 H (74-106) mg/dL Lactic Acid (0.4-2.0) mmol/L Calcium 8.7 (8.5-10.1) mg/dL Corrected Calcium 9.26 (8.5-10.1) mg/dL Magnesium 1.9 (1.8-2.4) mg/dL Total Bilirubin 0.8 (0.2-1.0) mg/dL AST 62 H (15-37) U/L ALT 61 H (14-59) U/L Alkaline Phosphatase 810 H (46-116) U/L C-Reactive Protein 0.5 (<=0.9) mg/dL Total Protein 7.2 (6.4-8.2) g/dL Albumin 3.3 L (3.4-5.0) g/dL Globulin 3.9 Albumin/Globulin Ratio 0.85 Urine Color (YELLOW) Urine Appearance (CLEAR) Urine pH (5.0-8.0) Ur Specific [place] Urine Protein (NEGATIVE) mg/dL Urine Glucose (UA) (NEGATIVE) mg/dL Urine Ketones (NEGATIVE) mg/dL Urine Occult Blood (NEGATIVE) Urine Nitrite (NEGATIVE) Urine Bilirubin (NEGATIVE) Urine Urobilinogen (0.2) EU/dL Ur Leukocyte Esterase (NEGATIVE) Urine RBC (NOT SEEN) /HPF Urine WBC (NOT SEEN) /HPF Ur Squamous Epith Cells (NEGATIVE) /HPF Urine Bacteria (NEGATIVE) /HPF Urine Mucus (NEGATIVE) /LPF 01/08/20 01/08/20 01/08/20 Range/Units 18:08 18:21 18:24 WBC (4.0-10.0) x10^3/uL RBC (4.00-5.50) x10^6/uL Hgb (12.0-16.0) g/dL Hct (33.0-47.0) % MCV (78.0-93.0) fL MCH (26.0-32.0) pg MCHC (32.0-36.0) g/dL RDW Coeff of [place] (10.0-15.0) % Plt Count (130-400) x10^3/uL Neut % (Auto) (50.0-80.0) % Lymph % (Auto) (25.0-50.0) % [place] % (Auto) (2.0-11.0) % Eos % (Auto) (0.0-4.0) % Baso % (Auto) (0.2-1.2) % POC VBG pH 7.28 L (7.31-7.41) POC VBG pCO2 34 L (41-51) POC VBG pO2 40 POC VBG HCO3 16 L (23-28) POC VBG Total CO2 17 L (24-29) POC VBG Base Excess -11 L ((-2) - 3) POC FiO2 0.21 Sodium (136-145) mmol/L Potassium (3.5-5.1) mmol/L Chloride (98-107) mmol/L Carbon Dioxide (21-32) mmol/L Anion Gap (10-20) mmol/L BUN (7-18) mg/dL Creatinine (0.55-1.02) mg/dL Est Cr Clr Drug Dosing Estimated GFR (MDRD) Glucose (74-106) mg/dL POC Glucose (74-106) mg/dL Lactic Acid 2.8 H* (0.4-2.0) mmol/L Calcium (8.5-10.1) mg/dL Corrected Calcium (8.5-10.1) mg/dL Magnesium (1.8-2.4) mg/dL Total Bilirubin (0.2-1.0) mg/dL AST (15-37) U/L ALT (14-59) U/L Alkaline Phosphatase (46-116) U/L C-Reactive Protein (<=0.9) mg/dL Total Protein (6.4-8.2) g/dL Albumin (3.4-5.0) g/dL Globulin Albumin/Globulin Ratio Urine Color Yellow (YELLOW) Urine Appearance Slightly cloudy H (CLEAR) Urine pH 5.0 (5.0-8.0) Ur Specific [place] 1.015 Urine Protein Negative (NEGATIVE) mg/dL Urine Glucose (UA) 100 H (NEGATIVE) mg/dL Urine Ketones Negative (NEGATIVE) mg/dL Urine Occult Blood Small H (NEGATIVE) Urine Nitrite Positive H (NEGATIVE) Urine Bilirubin Negative (NEGATIVE) Urine Urobilinogen 0.2 (0.2) EU/dL Ur Leukocyte Esterase Negative (NEGATIVE) Urine RBC 5-10 H (NOT SEEN) /HPF Urine WBC 0-5 (NOT SEEN) /HPF Ur Squamous Epith Cells Rare (NEGATIVE) /HPF Urine Bacteria Moderate H (NEGATIVE) /HPF Urine Mucus Rare H (NEGATIVE) /LPF 01/08/20 01/08/20 01/08/20 Range/Units 18:29 18:58 19:15 WBC (4.0-10.0) x10^3/uL RBC (4.00-5.50) x10^6/uL Hgb (12.0-16.0) g/dL Hct (33.0-47.0) % MCV (78.0-93.0) fL MCH (26.0-32.0) pg MCHC (32.0-36.0) g/dL RDW Coeff of [place] (10.0-15.0) % Plt Count (130-400) x10^3/uL Neut % (Auto) (50.0-80.0) % Lymph % (Auto) (25.0-50.0) % [place] % (Auto) (2.0-11.0) % Eos % (Auto) (0.0-4.0) % Baso % (Auto) (0.2-1.2) % POC VBG pH (7.31-7.41) POC VBG pCO2 (41-51) POC VBG pO2 POC VBG HCO3 (23-28) POC VBG Total CO2 (24-29) POC VBG Base Excess ((-2) - 3) POC FiO2 Sodium (136-145) mmol/L Potassium (3.5-5.1) mmol/L Chloride (98-107) mmol/L Carbon Dioxide (21-32) mmol/L Anion Gap (10-20) mmol/L BUN (7-18) mg/dL Creatinine (0.55-1.02) mg/dL Est Cr Clr Drug Dosing Estimated GFR (MDRD) Glucose (74-106) mg/dL POC Glucose 126 H 187 H 190 H (74-106) mg/dL Lactic Acid (0.4-2.0) mmol/L Calcium (8.5-10.1) mg/dL Corrected Calcium (8.5-10.1) mg/dL Magnesium (1.8-2.4) mg/dL Total Bilirubin (0.2-1.0) mg/dL AST (15-37) U/L ALT (14-59) U/L Alkaline Phosphatase (46-116) U/L C-Reactive Protein (<=0.9) mg/dL Total Protein (6.4-8.2) g/dL Albumin (3.4-5.0) g/dL Globulin Albumin/Globulin Ratio Urine Color (YELLOW) Urine Appearance (CLEAR) Urine pH (5.0-8.0) Ur Specific [place] Urine Protein (NEGATIVE) mg/dL Urine Glucose (UA) (NEGATIVE) mg/dL Urine Ketones (NEGATIVE) mg/dL Urine Occult Blood (NEGATIVE) Urine Nitrite (NEGATIVE) Urine Bilirubin (NEGATIVE) Urine Urobilinogen (0.2) EU/dL Ur Leukocyte Esterase (NEGATIVE) Urine RBC (NOT SEEN) /HPF Urine WBC (NOT SEEN) /HPF Ur Squamous Epith Cells (NEGATIVE) /HPF Urine Bacteria (NEGATIVE) /HPF Urine Mucus (NEGATIVE) /LPF 01/08/20 01/08/20 01/08/20 Range/Units 19:35 20:09 20:51 WBC (4.0-10.0) x10^3/uL RBC (4.00-5.50) x10^6/uL Hgb (12.0-16.0) g/dL Hct (33.0-47.0) % MCV (78.0-93.0) fL MCH (26.0-32.0) pg MCHC (32.0-36.0) g/dL RDW Coeff of [place] (10.0-15.0) % Plt Count (130-400) x10^3/uL Neut % (Auto) (50.0-80.0) % Lymph % (Auto) (25.0-50.0) % [place] % (Auto) (2.0-11.0) % Eos % (Auto) (0.0-4.0) % Baso % (Auto) (0.2-1.2) % POC VBG pH (7.31-7.41) POC VBG pCO2 (41-51) POC VBG pO2 POC VBG HCO3 (23-28) POC VBG Total CO2 (24-29) POC VBG Base Excess ((-2) - 3) POC FiO2 Sodium (136-145) mmol/L Potassium (3.5-5.1) mmol/L Chloride (98-107) mmol/L Carbon Dioxide (21-32) mmol/L Anion Gap (10-20) mmol/L BUN (7-18) mg/dL Creatinine (0.55-1.02) mg/dL Est Cr Clr Drug Dosing Estimated GFR (MDRD) Glucose (74-106) mg/dL POC Glucose 235 H 153 H 251 H (74-106) mg/dL Lactic Acid (0.4-2.0) mmol/L Calcium (8.5-10.1) mg/dL Corrected Calcium (8.5-10.1) mg/dL Magnesium (1.8-2.4) mg/dL Total Bilirubin (0.2-1.0) mg/dL AST (15-37) U/L ALT (14-59) U/L Alkaline Phosphatase (46-116) U/L C-Reactive Protein (<=0.9) mg/dL Total Protein (6.4-8.2) g/dL Albumin (3.4-5.0) g/dL Globulin Albumin/Globulin Ratio Urine Color (YELLOW) Urine Appearance (CLEAR) Urine pH (5.0-8.0) Ur Specific [place] Urine Protein (NEGATIVE) mg/dL Urine Glucose (UA) (NEGATIVE) mg/dL Urine Ketones (NEGATIVE) mg/dL Urine Occult Blood (NEGATIVE) Urine Nitrite (NEGATIVE) Urine Bilirubin (NEGATIVE) Urine Urobilinogen (0.2) EU/dL Ur Leukocyte Esterase (NEGATIVE) Urine RBC (NOT SEEN) /HPF Urine WBC (NOT SEEN) /HPF Ur Squamous Epith Cells (NEGATIVE) /HPF Urine Bacteria (NEGATIVE) /HPF Urine Mucus (NEGATIVE) /LPF 01/08/20 Range/Units 21:53 WBC (4.0-10.0) x10^3/uL RBC (4.00-5.50) x10^6/uL Hgb (12.0-16.0) g/dL Hct (33.0-47.0) % MCV (78.0-93.0) fL MCH (26.0-32.0) pg MCHC (32.0-36.0) g/dL RDW Coeff of [place] (10.0-15.0) % Plt Count (130-400) x10^3/uL Neut % (Auto) (50.0-80.0) % Lymph % (Auto) (25.0-50.0) % [place] % (Auto) (2.0-11.0) % Eos % (Auto) (0.0-4.0) % Baso % (Auto) (0.2-1.2) % POC VBG pH (7.31-7.41) POC VBG pCO2 (41-51) POC VBG pO2 POC VBG HCO3 (23-28) POC VBG Total CO2 (24-29) POC VBG Base Excess ((-2) - 3) POC FiO2 Sodium (136-145) mmol/L Potassium (3.5-5.1) mmol/L Chloride (98-107) mmol/L Carbon Dioxide (21-32) mmol/L Anion Gap (10-20) mmol/L BUN (7-18) mg/dL Creatinine (0.55-1.02) mg/dL Est Cr Clr Drug Dosing Estimated GFR (MDRD) Glucose (74-106) mg/dL POC Glucose 192 H (74-106) mg/dL Lactic Acid (0.4-2.0) mmol/L Calcium (8.5-10.1) mg/dL Corrected Calcium (8.5-10.1) mg/dL Magnesium (1.8-2.4) mg/dL Total Bilirubin (0.2-1.0) mg/dL AST (15-37) U/L ALT (14-59) U/L Alkaline Phosphatase (46-116) U/L C-Reactive Protein (<=0.9) mg/dL Total Protein (6.4-8.2) g/dL Albumin (3.4-5.0) g/dL Globulin Albumin/Globulin Ratio Urine Color (YELLOW) Urine Appearance (CLEAR) Urine pH (5.0-8.0) Ur Specific [place] Urine Protein (NEGATIVE) mg/dL Urine Glucose (UA) (NEGATIVE) mg/dL Urine Ketones (NEGATIVE) mg/dL Urine Occult Blood (NEGATIVE) Urine Nitrite (NEGATIVE) Urine Bilirubin (NEGATIVE) Urine Urobilinogen (0.2) EU/dL Ur Leukocyte Esterase (NEGATIVE) Urine RBC (NOT SEEN) /HPF Urine WBC (NOT SEEN) /HPF Ur Squamous Epith Cells (NEGATIVE) /HPF Urine Bacteria (NEGATIVE) /HPF Urine Mucus (NEGATIVE) /LPF Meds: Medications Generic Name Dose Route Start Last Admin Trade Name Freq PRN Reason Stop Dose Admin Dextrose/Water 25 ml 01/08/20 18:46 01/08/20 18:52 Dextrose 50% In Water IV 25 ml ASDIRECTED PRN Administration Hypoglycemia Dextrose/Water 25 ml 01/08/20 19:18 Dextrose 50% In Water IV ASDIRECTED PRN Hypoglycemia Dextrose/Water 50 ml 01/08/20 20:10 01/08/20 20:14 Dextrose 50% In Water IV 50 ml ASDIRECTED PRN Administration Hypoglycemia Dextrose/Sodium Chloride 1,000 mls @ 200 mls/hr 01/08/20 19:30 01/08/20 18:36 Dextrose 5%-Normal Saline IV 200 mls/hr ASDIRECTED AMINA Administration Dextrose/Water 1,000 mls @ 150 mls/hr 01/08/20 20:30 Dextrose 10% In Water IV ASDIRECTED AMINA Sodium Chloride 10 ml 01/08/20 18:03 Saline Flush FLUSH ASDIRECTED PRN Keep Vein Open Discontinued Medications Generic Name Dose Route Start Last Admin Trade Name Freq PRN Reason Stop Dose Admin Ceftriaxone Sodium 2 gm 01/08/20 18:40 01/08/20 18:49 Rocephin IVPUSH 01/08/20 18:41 2 gm STAT ONE Administration Dextrose/Water 25 ml 01/08/20 18:33 01/08/20 18:41 Dextrose 50% In Water IV 01/08/20 18:34 25 ml NOW STA Administration Lactated Ringer's 1,000 mls @ 999 mls/hr 01/08/20 18:47 01/08/20 18:51 Ringers, Lactated IV 01/08/20 19:47 999 mls/hr ONETIME ONE Administration Naloxone HCl 0.4 mg 01/08/20 18:04 01/08/20 17:44 Narcan IVPUSH 01/08/20 18:05 0.4 mg ONETIME ONE Administration Naloxone HCl 0.4 mg 01/08/20 18:04 01/08/20 17:46 Narcan IVPUSH 01/08/20 18:05 0.4 mg ONETIME ONE Administration - Re-Assessments/Exams Free Text/Narrative Re-Assessment/Exam: 01/08/20 19:25 Stroke Code was activated prior to the patient's arrival and the stroke team was present upon the patient's arrival. Patient was given 2 doses of Narcan 0.4 mg and she did start to move all of her remedies spontaneously and strong. She is still confused and no verbal communication. But she is much more active at this time and I see no focal neurological deficits. Half an amp of D50 and started on D5 normal saline at 200 mils an hour. T scan of the head was difficult to obtain because she was more agitated once we got to the CT scanner and was not able to hold still. Report per radiology is no hemorrhage or large vessel occlusion concerns. Blood cultures x2 were drawn. She continued to have minimal response with her blood sugar even after multiple amps of D50. She was still confused pale cool diaphoretic. And she is quite cold. I wonder how long her blood sugar was severely low and it might take some time for this to equilibrate within the body. I had seen her about 1 month ago and transferred her due to sepsis due to UTI. Her urine does have positive nitrates but she is negative for WBCs. Blood cultures are pending. I did give her 2 g of Rocephin. Urine Culture pending. Lactic acid is minimally elevated this could be due to just the poor perfusion of the hypoglycemic severe state for an extended period of time. She continued to have vacillating blood sugars while she was here requiring multiple boluses of dextrose as well as the infusion. She did start moving all of her extremities shortly after arrival strong equal spontaneously but nothing to command. She continues to be obtunded but controlling her airway and her oral secretions. She does respond to loud verbal upon discharge she opens her eyes looks about but does not attempt to speak. I called and spoke with Dr. Blackwood at [facility] in [place]. HPI ER Course findings and concerns were relayed to him as well as my concerns of her lack of responsiveness although controlling her airway appropriately. No new orders at this time and he accepted the patient in transfer at this time. Departure - Departure Time of Disposition: 20:21 Disposition: DC/Tfer to [facility] 02 Clinical Impression: Unresponsive, Hypoglycemic coma - Discharge Information Referrals: Vernell Mireles DO [Primary Care Provider] - Forms: ED Department Discharge, Interfacility Transfer [facility] - My Orders Last 24 Hours: My Active Orders 01/08/20 18:02 EKG Documentation Completion [RC] STAT Peripheral IV Insertion Adult [OM.PC] Stat 01/08/20 18:03 Sodium Chloride 0.9% [Saline Flush] 10 ml FLUSH ASDIRECTED PRN Blood Culture x2 Reflex Set [OM.PC] Stat 01/08/20 18:05 Accu Check [Blood Glucose Check, Bedside] [RC] Q1HR 01/08/20 18:08 CULTURE BLOOD [BC] Stat 01/08/20 18:16 CULTURE BLOOD [BC] Stat 01/08/20 18:24 CULTURE URINE [RM] Stat 01/08/20 18:46 Dextrose 50% in Water 25 ml IV ASDIRECTED PRN 01/08/20 19:18 Dextrose 50% in Water 25 ml IV ASDIRECTED PRN 01/08/20 19:30 Dextrose 5%-0.9% NaCl [Dextrose 5%-Normal Saline] 1,000 ml IV ASDIRECTED 01/08/20 20:10 Dextrose 50% in Water 50 ml IV ASDIRECTED PRN 01/08/20 20:30 Dextrose 10% in Water 1,000 ml IV ASDIRECTED - Assessment/Plan Last 24 Hours: My Active Orders 01/08/20 18:02 EKG Documentation Completion [RC] STAT Peripheral IV Insertion Adult [OM.PC] Stat 01/08/20 18:03 Sodium Chloride 0.9% [Saline Flush] 10 ml FLUSH ASDIRECTED PRN Blood Culture x2 Reflex Set [OM.PC] Stat 01/08/20 18:05 Accu Check [Blood Glucose Check, Bedside] [RC] Q1HR 01/08/20 18:08 CULTURE BLOOD [BC] Stat 01/08/20 18:16 CULTURE BLOOD [BC] Stat 01/08/20 18:24 CULTURE URINE [RM] Stat 01/08/20 18:46 Dextrose 50% in Water 25 ml IV ASDIRECTED PRN 01/08/20 19:18 Dextrose 50% in Water 25 ml IV ASDIRECTED PRN 01/08/20 19:30 Dextrose 5%-0.9% NaCl [Dextrose 5%-Normal Saline] 1,000 ml IV ASDIRECTED 01/08/20 20:10 Dextrose 50% in Water 50 ml IV ASDIRECTED PRN 01/08/20 20:30 Dextrose 10% in Water 1,000 ml IV ASDIRECTED
[2020-01-08] MEDS ORDERED: Dextrose 5%-0.9% NaCl 1,000 ML IV SCH (19:30)
[2020-01-08] MEDS ORDERED: Dextrose 10% in Water 1,000 ML IV SCH (20:30)
== END 2020-01-08 22:25 | disposition short-term general hospital (02) ==
LOC: VM.ED 17:42
DX: E10.641 Type 1 diabetes mellitus with hypoglycemia with coma (principal); E10.22 Type 1 diabetes mellitus with diabetic chronic kidney disease; N18.9 Chronic kidney disease, unspecified; E10.40 Type 1 diabetes mellitus with diabetic neuropathy, unspecified; E03.9 Hypothyroidism, unspecified; F32.9 Major depressive disorder, single episode, unspecified; I25.10 Atherosclerotic heart disease of native coronary artery without angina pectoris; Z91.013 Allergy to seafood; Z88.1 Allergy status to other antibiotic agents; Z88.0 Allergy status to penicillin; Z91.041 Radiographic dye allergy status; Z88.8 Allergy status to other drugs, medicaments and biological substances; Z88.5 Allergy status to narcotic agent; Z79.82 Long term (current) use of aspirin; Z79.899 Other long term (current) drug therapy
CPT/HCPCS: 36415; 70450; 71045; 80053; 81001; 82803; 82962; 83605; 83735; 85025; 86140; 87040; 87086; 87088; 87186; 93005; 93010; 96361; 96374; 96375; 96376; 99285; 99285-25; J0696; J2310; J7042; J7120

== ENCOUNTER 2020-01-26 06:13 | Day surgery (SDC) | payer MEDICARE, OTHER ==
[~2020-01-26 06:13] MED LIST: Lactated Ringers 1,000 ML IV SCH; Sodium Chloride 0.9% 10 ML Syringe FLUSH PRN
[2020-01-26] MEDS ORDERED: Citric Acid/Sodium Citrate Solution 30 ML Cup PO ONE (07:48)
[2020-01-26] MEDS ORDERED: Citric Acid/Sodium Citrate Solution 30 ML Cup ONE (07:53)
[2020-01-26] MEDS ORDERED: fentaNYL 100 MCG/2 ML SDV ONE (08:03)
[2020-01-26] MEDS ORDERED: Propofol 200 MG/20 ML SDV ONE (08:03)
[2020-01-26 09:00] VITALS: PULSE 75
[2020-01-26 09:24] VITALS: BP 134/76
--- NOTE | 2020-01-26 12:20 | OR ---
PRE-OPERATIVE DIAGNOSES: 1. History of colon cancer with previously tattooed areas. The patient did not require any resection and cancerous areas were able to be removed through the scope. The patient thinks that this was about 10 years ago. 2. The patient states she had some inflammation noted on recent abdominal imaging, which I suspect was CT scan. The patient did throw up some of the colon prep and was unsure about quality of the prep. POST-OPERATIVE DIAGNOSES: 1. Incomplete colonoscopy secondary to tortuous colon and poor prep. I was able to advance to the transverse colon, but not any further. 2. Mild colitis to the transverse colon. Cold biopsies taken. 3. Moderate proctitis. Cold biopsies taken. 4. 2 mm polyp at 45 cm removed with cold forceps. 5. Previously tattooed areas in the left colon are normal in appearance. PROCEDURE: Colonoscopy with polypectomy x1 and cold biopsy x3 sites. SURGEON: Raymond Emmanuel M.D. ANESTHESIA: Monitored anesthesia care. BOWEL PREP: Poor. DESCRIPTION OF PROCEDURE: Nae is a 64-year-old female who was brought to the endoscopy suite after discussing risks and benefits of the procedure. Informed consent was obtained for conscious sedation and colonoscopy with or without biopsy and/or polypectomy. We also discussed possibility of missed lesions. Pre-procedure exam was unremarkable. IV, oxygen, and monitors were placed. The patient was placed in the left lateral decubitus position. Sedation was administered and a digital rectal exam performed and unremarkable. Colonoscope was passed into the rectum and slowly advanced to the transverse colon. The colonoscope was slowly withdrawn and the mucosa was closed observed in a direct circumferential manner. Note, I was unable to advance the colon any further due to some redundant tortuous colon despite using some scope stiffening and abdominal pressure. The patient's comorbidities precluded moving her onto her stomach and/or right side. The transverse colon did appear to have some mild inflammation with slightly friable mucosa. Cold biopsy x2 bites taken. The descending colon was remarkable for 2 mm polyp at 45 cm removed with cold forceps. Random biopsies of the left colon were also taken. This did not appear to be overly inflamed. The left colon also revealed a couple tattooed areas that were normal in appearance. Rectal mucosa did reveal moderate proctitis. Cold biopsy x2 bites taken. Retroflexion was performed. Rectal mucosa was otherwise unremarkable. Scope was removed. The patient tolerated the procedure well. The patient was monitored until that baseline status. Discharge instructions were reviewed and the patient was discharged in good condition. COMPLICATIONS: None. TOTAL TIME: 30 minutes. ESTIMATED BLOOD LOSS: 1 to 2 mL. RECOMMENDATIONS/FOLLOW-UP: We will await results of path report and send letter with results. The patient can consider possible repeat scope in the near future, but would need a better prep and would probably have Gastroenterology do it in [place]. I would like to kindly thank Dr. Vernell Mireles for this referral. DMB: 01/26/2020 09:13:15 MODL: 01/26/2020 12:01:12 /[id number]
== END 2020-01-26 10:25 | disposition home or self-care (01) ==
LOC: VM.SDS 06:13
PROVIDERS: ATTEND Family Medicine
DX: K52.9 Noninfective gastroenteritis and colitis, unspecified (principal); K63.89 Other specified diseases of intestine; Q43.8 Other specified congenital malformations of intestine; K62.89 Other specified diseases of anus and rectum; E66.9 Obesity, unspecified; N18.4 Chronic kidney disease, stage 4 (severe); K21.9 Gastro-esophageal reflux disease without esophagitis; I25.10 Atherosclerotic heart disease of native coronary artery without angina pectoris; M10.9 Gout, unspecified; E03.9 Hypothyroidism, unspecified; D63.1 Anemia in chronic kidney disease; E10.22 Type 1 diabetes mellitus with diabetic chronic kidney disease; I50.30 Unspecified diastolic (congestive) heart failure; I13.0 Hypertensive heart and chronic kidney disease with heart failure and stage 1 through stage 4 chronic kidney disease, or unspecified chronic kidney disease; E78.5 Hyperlipidemia, unspecified; E78.00 Pure hypercholesterolemia, unspecified; E87.5 Hyperkalemia; D69.6 Thrombocytopenia, unspecified; E03.4 Atrophy of thyroid (acquired); R94.31 Abnormal electrocardiogram [ECG] [EKG]; M62.82 Rhabdomyolysis; K31.84 Gastroparesis; E10.43 Type 1 diabetes mellitus with diabetic autonomic (poly)neuropathy; Z20.828 Contact with and (suspected) exposure to other viral communicable diseases; Z88.0 Allergy status to penicillin; Z88.1 Allergy status to other antibiotic agents; Z88.2 Allergy status to sulfonamides; Z91.041 Radiographic dye allergy status; Z88.8 Allergy status to other drugs, medicaments and biological substances; Z01.812 Encounter for preprocedural laboratory examination; Z79.899 Other long term (current) drug therapy
CPT/HCPCS: 00811; 45380; 45381; 82962; 88305; A9270; J2704; J3010; J7120; U0002

== ENCOUNTER 2020-12-19 03:19 | Inpatient (IN) | payer MEDICARE, OTHER ==
--- NOTE | 2020-12-19 05:31 | EDM.PDOC ---
ED HPI GENERAL MEDICAL PROBLEM - General Chief Complaint: General Time Seen by Provider: 12/19/20 03:30 Source of Information: Reports: Patient History Limitations: Reports: No Limitations - History of Present Illness INITIAL COMMENTS - FREE TEXT/NARRATIVE: Pt. presents to ER via EMS. states that the patient has been experiencing increasing weakness and more frequent falls. He states that he is having to help the patient with all of her ADLs and states that he is having trouble caring for her at home. He states that she falls almost every day. He is having to call 911 for lift assists. Pt. fell tonight and EMS was summoned due to frequency of falls. Pt. states that she did not strike her head and denies any neck pain. She denies any injury post fall. Pt. has been experiencing vaginal bleeding for the past 2 days. She was seen in the clinic yesterday for this and vaginal bleeding was noted during speculum examination. There was no clots. She was set up for a pelvic US as well as a OB /VIRTUAL ASSISTANT appointment. Pt. indicates that the bleeding has stopped. Nursing reports only a scant amount of blood on a pad on exam. Hemoglobin yesterday was 8.1, down from 8.4 a week ago. Pt. has been chronically anemic for some time, and has been in the 8-9 range for months. She has been getting Aranasp recently. She also has a dip UA yesterday which revealed small amount of leukocyte esterase. Pt. denies any chest pain, shortness of breath, rhinorrhea, fever, chills, or cough. She states that she does feel somewhat lightheaded when she stands. states that he is attempting to get the patient placed in assisted living locally, as he is having troubles caring for her at home. He states that he is attempting to get her into [facility], but they are unable to evaluate and potentially place her until next week. Onset Date: 12/19/20 Location: Reports: Generalized Associated Symptoms: Denies: Confusion, Chest Pain, Cough, Diaphoresis, Fever/Chills, Nausea/Vomiting, Shortness of Breath - Related Data Allergies Allergy/AdvReac Type Severity Reaction Status Date / Time gentamicin [Gentamicin] Allergy Severe Hives Verified 12/19/20 04:56 shellfish derived Allergy Severe Anaphylactic Verified 12/19/20 04:56 Shock atenolol Allergy Cannot Verified 12/19/20 04:56 Remember celecoxib [From Celebrex] Allergy Cannot Verified 12/19/20 04:56 Remember Penicillins Allergy Cannot Verified 12/19/20 04:56 Remember [id number]-[id number] Reductase Allergy Other Verified 12/19/20 04:56 Inhibitor Sulfa (Sulfonamide Allergy Cannot Verified 12/19/20 04:56 Antibiotics) Remember Tetracyclines Allergy Cannot Verified 12/19/20 04:56 Remember cephalexin monohydrate AdvReac Nausea Verified 12/19/20 04:56 [From Keflex] naproxen [From Naprosyn] AdvReac Renal Verified 12/19/20 04:56 Insufficiency altaryl Allergy Cannot Uncoded 06/05/20 09:04 Remember contrast dye AdvReac Intermediate Renal Uncoded 06/05/20 09:04 Insufficiency anti-inflammatory AdvReac Renal Uncoded 06/05/20 09:04 Insufficiency Home Meds: Home Meds Cyclobenzaprine [Flexeril] 5 mg PO BEDTIME 07/28/13 [History] DULoxetine [Cymbalta] 60 mg PO DAILY 07/28/13 [History] Glucagon,Human Recombinant [Glucagon Emergency Kit] 1 mg SUBCUT ASDIRECTED PRN 07/28/13 [History] Isosorbide Mononitrate [Isosorbide Mononitrate ER] 30 mg PO DAILY 07/28/13 [History] Nitroglycerin [Nitrostat] 0.4 mg SL ASDIRECTED PRN 07/28/13 [History] Nortriptyline HCl [Pamelor] 10 mg PO TID 07/28/13 [History] Vitamin E (Dl,Tocopheryl Acet) [Vitamin E] 400 unit PO BID 07/28/13 [History] ursodioL [Actigal] 300 mg PO ASDIRECTED 07/28/13 [History] Aspirin [Halfprin] 81 mg PO DAILY 01/12/18 [History] Cholecalciferol (Vitamin D3) [Vitamin D3] 1,000 unit PO DAILY 01/12/18 [History] Cyanocobalamin (Vitamin B-12) [B-12] 1,000 mcg PO DAILY 01/12/18 [History] Ferrous Gluconate 324 mg PO DAILY 01/12/18 [History] Gabapentin [Neurontin] 300 mg PO TID 08/21/18 [History] Metoclopramide [Reglan] 5 mg PO QIDACANDBED 01/12/18 [History] Pramipexole [Mirapex] 0.5 mg PO BEDTIME 01/12/18 [History] Metoprolol Succinate [Toprol XL] 25 mg PO DAILY 10/08/18 [History] Levothyroxine [Synthroid] 50 mcg PO DAILY@0700 #30 tablet 10/11/18 [Rx] Insulin Degludec [Tresiba] 18 unit SQ BEDTIME 07/08/19 [History] Bumetanide [Bumex] 2 mg PO DAILY 01/09/20 [History] Levothyroxine [Synthroid] 50 mcg PO ASDIRECTED 01/09/20 [History] Magnesium Oxide 400 mg PO BID 01/09/20 [History] polyethylene glycoL 3350 [MiraLAX] 17 gm PO DAILY PRN 01/09/20 [History] Docusate Sodium/Sennosides [Senokot-S] 1 each PO BID PRN 01/18/20 [History] calcitrioL [Rocaltrol] 0.25 mcg PO DAILY 01/18/20 [History] Acetaminophen [Tylenol Extra Strength] 500 mg PO Q6H PRN 12/19/20 [History] Bumetanide [Bumex] 1 mg PO BEDTIME 12/19/20 [History] Darbepoetin Robert [Aranesp] 25 mcg IJ ASDIRECTED 12/19/20 [History] Ergocalciferol (Vitamin D2) [Vitamin D2] 50,000 unit PO Q7D 12/19/20 [History] Insulin Lispro [HumaLOG] 4 units SUBCUT TID 12/19/20 [History] Lactulose 10 gm PO DAILY 12/19/20 [History] Levothyroxine 200 mcg PO ACBREAKFAST 12/19/20 [History] Obeticholic Acid [Ocaliva] 5 mg PO DAILY 12/19/20 [History] Patiromer Calcium Sorbitex [Veltassa] 8.4 gm PO DAILY 12/19/20 [History] Sodium Bicarbonate 650 mg PO TID 12/19/20 [History] Past Medical History HEENT History: Other HEENT History: mild nonproliferative diabetic retinopathy with macular edema. tear film insufficiency. corneal scar and opacity. pseudophakos. pseudophakia Cardiovascular History: Reports: CAD, Heart Failure, High Cholesterol, Hypertension Other Cardiovascular History: angina. bicuspid aortic valve. fluid overload Respiratory History: Reports: None Gastrointestinal History: Reports: Chronic Constipation, GERD Other Gastrointestinal History: biliary cirrhosis. gastroparesis. abdominal pain. chronic nausea. liver failure. gastroparesis Genitourinary History: Reports: Renal Calculus, Renal Disease Other Genitourinary History: e coli UTI CANCELLATION CLERK History: Reports: Other CANCELLATION CLERK History: hubbard syndrome Musculoskeletal History: Reports: Arthritis, Back Pain, Chronic, Gout, Osteoarthritis Other Musculoskeletal History: Turners syndrome Neurological History: Reports: Neuropathy, Diabetic Other Neuro History: acute encephalopathy Psychiatric History: Reports: Depression Other Psychiatric History: chronic use of opioids Endocrine/Metabolic History: Reports: Diabetes, Type I, Hyperparathyroidism, Hyperthyroidism, Obesity/BMI 30+, Vitamin D Deficiency Other Endocrine/Metabolic History: metabolic acidosis Hematologic History: Reports: Anemia, Autoimmune Thrombocytopenic Purpura Immunologic History: Reports: None Oncologic (Cancer) History: Reports: Colon Dermatologic History: Reports: None - Infectious Disease History Infectious Disease History: Reports: Chicken Pox - Past Surgical History HEENT Surgical History: Reports: Cataract Surgery, Eye Surgery, Oral Surgery, Tonsillectomy Cardiovascular Surgical History: Reports: Carotid Stents Other Cardiovascular Surgeries/Procedures: percutaneous coronary intervention Respiratory Surgical History: Reports: None GI Surgical History: Reports: Colonoscopy, EGD Other GI Surgeries/Procedures: sigmoidoscopy Musculoskeletal Surgical History: Reports: None Social & Family History - Family History Family Medical History: No Pertinent Family History Cardiac: Reports: CAD : Reports: Cystic Kidney Disease Oncologic: Reports: Liver - Caffeine Use Caffeine Use: Reports: Coffee, Soda Other Caffeine Use: Drinks diet coke daily - Living Situation & Occupation Living situation: Reports: , with Significant Other Occupation: Retired (worked at [employer]) ED [facility] - Review of Systems Review Of Systems: See Below Constitutional: Reports: Weakness, Fatigue HEENT: Reports: No Symptoms Respiratory: Reports: No Symptoms Cardiovascular: Reports: No Symptoms Endocrine: Reports: No Symptoms GI/Abdominal: Reports: No Symptoms : Reports: Other (vaginal bleeding) Musculoskeletal: Reports: Other (chronic extremity discomfort due to neuropathy) Skin: Reports: No Symptoms Neurological: Reports: Difficulty Walking, Weakness, Other (slow to respond, appears to be at about baseline.) Psychiatric: Reports: No Symptoms Hematologic/Lymphatic: Reports: Anemia Immunologic: Reports: No Symptoms ED EXAM, GENERAL - Physical Exam Exam: See Below Exam Limited By: No Limitations General Appearance: Alert, No Apparent Distress Eye Exam: Bilateral Eye: EOMI, PERRL Throat/Mouth: Normal Lips, Normal Teeth, Normal Oropharynx, Normal Voice, No Airway Compromise Head: Atraumatic, Normocephalic Neck: Normal Inspection, Non-Tender Respiratory/Chest: Decreased Breath Sounds, Crackles Cardiovascular: Normal Peripheral Pulses, Regular Rate, Rhythm, No JVD, No Murmur, Other (1+ edema) Peripheral Pulses: 3+: Radial (L) GI/Abdominal: Soft, Non-Tender, No Distention, No Mass (Female) Exam: Deferred Rectal (Female) Exam: Deferred Back Exam: Normal Inspection. No: CVA Tenderness (L), CVA Tenderness (R) Extremities: Other (Stasis pigmentation, trace peripheral edema) Neurological: Alert, Oriented, CN II-XII Intact, Inattentive, Slow to Respond, Other (Mental status appears to be at about baseline) Psychiatric: Normal Mood, Flat Affect Skin Exam: Warm, Dry #1 Interpretation Rhythm: NSR QRS: RBBB Course - Vital Signs Last Recorded V/S: Last Vital Signs Temp 36.6 C 12/19/20 03:20 Pulse 75 12/19/20 06:20 Resp 18 12/19/20 05:30 BP 110/52 L 12/19/20 06:20 Pulse Ox 99 12/19/20 05:30 - Orders/Labs/Meds Orders: Active Orders 24 hr Category Date Time Status Patient Status [ADT] Routine ADT 12/19/20 06:36 Ordered EKG Documentation Completion [RC] STAT Care 12/19/20 04:25 Active Verify Patient Consent Obtain [RC] ASDIRECTED Care 12/19/20 06:39 Ordered Chest 1V Frontal [CR] Stat Exams 12/19/20 04:26 Ordered CULTURE BLOOD [BC] Stat Lab 12/19/20 05:13 Received CULTURE BLOOD [BC] Stat Lab 12/19/20 05:26 Received CULTURE URINE [RM] Stat Lab 12/19/20 04:25 Received RED BLOOD CELLS LP [BBK] Stat Lab 12/19/20 06:38 Ordered REFLEX LACTIC ACID YES OR NO [CHEM] Routine Lab 12/19/20 05:56 Received TYPE AND SCREEN [BBK] Stat Lab 12/19/20 06:38 Ordered Blood Culture x2 Reflex Set [OM.PC] Stat Oth 12/19/20 05:06 Ordered Blood Transfusion Reflex Orders [OM.PC] Routine Oth 12/19/20 06:38 Ordered Transfuse Red Blood Cells [COMM] Stat Oth 12/19/20 06:38 Ordered Labs: Laboratory Tests 12/19/20 12/19/20 12/19/20 Range/Units 04:25 04:40 05:13 WBC 10.9 H (4.0-10.0) x10^3/uL RBC 2.26 L (4.00-5.50) x10^6/uL Hgb 7.4 L D (12.0-16.0) g/dL Hct 23.8 L (33.0-47.0) % MCV 105.3 H D (78.0-93.0) fL MCH 32.7 H (26.0-32.0) pg MCHC 31.1 L (32.0-36.0) g/dL RDW Coeff of [place] 16.4 H (10.0-15.0) % Plt Count 50 L (130-400) x10^3/uL Neut % (Auto) 88.6 H (50.0-80.0) % Lymph % (Auto) 5.7 L (25.0-50.0) % [place] % (Auto) 4.7 (2.0-11.0) % Eos % (Auto) 0.9 (0.0-4.0) % Baso % (Auto) 0.1 L (0.2-1.2) % PT (9.9-12.5) SEC INR (2.0-3.5) APTT (25.6-32.8) SEC Sodium (136-145) mmol/L Potassium (3.5-5.1) mmol/L Chloride (98-107) mmol/L Carbon Dioxide (21-32) mmol/L Anion Gap (5-15) mmol/L BUN (7-18) mg/dL Creatinine (0.55-1.02) mg/dL Est Cr Clr Drug Dosing mL/min Estimated GFR (MDRD) Glucose (70-99) mg/dL Lactic Acid (0.4-2.0) mmol/L Calcium (8.5-10.1) mg/dL Corrected Calcium (8.5-10.1) mg/dL Phosphorus (2.6-4.7) mg/dL Magnesium (1.8-2.4) mg/dL Total Bilirubin (0.2-1.0) mg/dL AST (15-37) U/L ALT (14-59) U/L Alkaline Phosphatase (46-116) U/L Troponin I High Sens (<=51) ng/L C-Reactive Protein (<=0.9) mg/dL Total Protein (6.4-8.2) g/dL Albumin (3.4-5.0) g/dL Globulin Albumin/Globulin Ratio TSH, Ultra Sensitive (0.358-3.74) uIU/mL Urine Color Dark yellow H (YELLOW) Urine Appearance Cloudy H (CLEAR) Urine pH 6.5 (5.0-8.0) Ur Specific [place] 1.020 Urine Protein 30 H (NEGATIVE) mg/dL Urine Glucose (UA) Negative (NEGATIVE) mg/dL Urine Ketones Negative (NEGATIVE) mg/dL Urine Occult Blood Large H (NEGATIVE) Urine Nitrite Negative (NEGATIVE) Urine Bilirubin Negative (NEGATIVE) Urine Urobilinogen 0.2 (0.2) EU/dL Ur Leukocyte Esterase Small H (NEGATIVE) Urine RBC 50-75 H (NOT SEEN) /HPF Urine WBC 10-20 H (NOT SEEN) /HPF Ur Squamous Epith Cells Moderate H (NOT SEEN) /HPF Urine Bacteria Many H (NOT SEEN) /HPF Urine Mucus Not seen (NOT SEEN) /LPF SARS CoV-2 RNA Rapid TIM Negative (NEGATIVE) 12/19/20 12/19/20 12/19/20 Range/Units 05:13 05:13 05:13 WBC (4.0-10.0) x10^3/uL RBC (4.00-5.50) x10^6/uL Hgb (12.0-16.0) g/dL Hct (33.0-47.0) % MCV (78.0-93.0) fL MCH (26.0-32.0) pg MCHC (32.0-36.0) g/dL RDW Coeff of [place] (10.0-15.0) % Plt Count (130-400) x10^3/uL Neut % (Auto) (50.0-80.0) % Lymph % (Auto) (25.0-50.0) % [place] % (Auto) (2.0-11.0) % Eos % (Auto) (0.0-4.0) % Baso % (Auto) (0.2-1.2) % PT 10.4 (9.9-12.5) SEC INR 0.9 L (2.0-3.5) APTT 26.5 (25.6-32.8) SEC Sodium 135 L (136-145) mmol/L Potassium 5.0 (3.5-5.1) mmol/L Chloride 102 (98-107) mmol/L Carbon Dioxide 25 (21-32) mmol/L Anion Gap 13.0 (5-15) mmol/L BUN 74 H* D (7-18) mg/dL Creatinine 5.1 H* D (0.55-1.02) mg/dL Est Cr Clr Drug Dosing 8.11 mL/min Estimated GFR (MDRD) 9 Glucose 137 H (70-99) mg/dL Lactic Acid (0.4-2.0) mmol/L Calcium 7.9 L (8.5-10.1) mg/dL Corrected Calcium 9.0 (8.5-10.1) mg/dL Phosphorus 6.1 H (2.6-4.7) mg/dL Magnesium 2.1 (1.8-2.4) mg/dL Total Bilirubin 1.4 H (0.2-1.0) mg/dL AST 45 H (15-37) U/L ALT 49 (14-59) U/L Alkaline Phosphatase 521 H (46-116) U/L Troponin I High Sens 8 (<=51) ng/L C-Reactive Protein 1.1 H (<=0.9) mg/dL Total Protein 6.0 L (6.4-8.2) g/dL Albumin 2.6 L (3.4-5.0) g/dL Globulin 3.4 Albumin/Globulin Ratio 0.76 TSH, Ultra Sensitive 24.647 H (0.358-3.74) uIU/mL Urine Color (YELLOW) Urine Appearance (CLEAR) Urine pH (5.0-8.0) Ur Specific [place] Urine Protein (NEGATIVE) mg/dL Urine Glucose (UA) (NEGATIVE) mg/dL Urine Ketones (NEGATIVE) mg/dL Urine Occult Blood (NEGATIVE) Urine Nitrite (NEGATIVE) Urine Bilirubin (NEGATIVE) Urine Urobilinogen (0.2) EU/dL Ur Leukocyte Esterase (NEGATIVE) Urine RBC (NOT SEEN) /HPF Urine WBC (NOT SEEN) /HPF Ur Squamous Epith Cells (NOT SEEN) /HPF Urine Bacteria (NOT SEEN) /HPF Urine Mucus (NOT SEEN) /LPF SARS CoV-2 RNA Rapid TIM (NEGATIVE) 12/19/20 Range/Units 05:13 WBC (4.0-10.0) x10^3/uL RBC (4.00-5.50) x10^6/uL Hgb (12.0-16.0) g/dL Hct (33.0-47.0) % MCV (78.0-93.0) fL MCH (26.0-32.0) pg MCHC (32.0-36.0) g/dL RDW Coeff of [place] (10.0-15.0) % Plt Count (130-400) x10^3/uL Neut % (Auto) (50.0-80.0) % Lymph % (Auto) (25.0-50.0) % [place] % (Auto) (2.0-11.0) % Eos % (Auto) (0.0-4.0) % Baso % (Auto) (0.2-1.2) % PT (9.9-12.5) SEC INR (2.0-3.5) APTT (25.6-32.8) SEC Sodium (136-145) mmol/L Potassium (3.5-5.1) mmol/L Chloride (98-107) mmol/L Carbon Dioxide (21-32) mmol/L Anion Gap (5-15) mmol/L BUN (7-18) mg/dL Creatinine (0.55-1.02) mg/dL Est Cr Clr Drug Dosing mL/min Estimated GFR (MDRD) Glucose (70-99) mg/dL Lactic Acid 2.1 H* (0.4-2.0) mmol/L Calcium (8.5-10.1) mg/dL Corrected Calcium (8.5-10.1) mg/dL Phosphorus (2.6-4.7) mg/dL Magnesium (1.8-2.4) mg/dL Total Bilirubin (0.2-1.0) mg/dL AST (15-37) U/L ALT (14-59) U/L Alkaline Phosphatase (46-116) U/L Troponin I High Sens (<=51) ng/L C-Reactive Protein (<=0.9) mg/dL Total Protein (6.4-8.2) g/dL Albumin (3.4-5.0) g/dL Globulin Albumin/Globulin Ratio TSH, Ultra Sensitive (0.358-3.74) uIU/mL Urine Color (YELLOW) Urine Appearance (CLEAR) Urine pH (5.0-8.0) Ur Specific [place] Urine Protein (NEGATIVE) mg/dL Urine Glucose (UA) (NEGATIVE) mg/dL Urine Ketones (NEGATIVE) mg/dL Urine Occult Blood (NEGATIVE) Urine Nitrite (NEGATIVE) Urine Bilirubin (NEGATIVE) Urine Urobilinogen (0.2) EU/dL Ur Leukocyte Esterase (NEGATIVE) Urine RBC (NOT SEEN) /HPF Urine WBC (NOT SEEN) /HPF Ur Squamous Epith Cells (NOT SEEN) /HPF Urine Bacteria (NOT SEEN) /HPF Urine Mucus (NOT SEEN) /LPF SARS CoV-2 RNA Rapid TIM (NEGATIVE) Meds: Medications Discontinued Medications Generic Name Dose Route Start Last Admin Trade Name Freq PRN Reason Stop Dose Admin Ceftriaxone Sodium 1 gm 12/19/20 05:37 12/19/20 05:47 Ceftriaxone 1 Gm Vial IVPUSH 12/19/20 05:38 1 gm STAT ONE Administration Doxycycline Hyclate 100 mg 12/19/20 06:42 Doxycycline 100 Mg Cap PO 12/19/20 06:43 ONETIME ONE - Radiology Interpretation Free Text/Narrative:: Chest x-ray obtained. Low grade interstitial edema vs. atypical pneumonia Departure - Departure Time of Disposition: 06:49 Disposition: Admitted As Inpatient 68 Clinical Impression: Vaginal bleeding, Atypical pneumonia, Lactic acidosis, Stage 5 chronic kidney disease Anemia Qualifiers: Anemia type: unspecified type Qualified Code(s): D64.9 - Anemia, unspecified - Discharge Information Referrals: PCP,None [Ordering Only Provider] - Forms: ED Department Discharge Sepsis Event Note (ED) - Focused Exam Vital Signs: Vital Signs Temp Pulse Resp BP Pulse Ox 12/19/20 06:20 75 110/52 L 12/19/20 05:30 80 18 113/55 L 99 12/19/20 04:34 90 16 103/49 L 98 12/19/20 03:20 36.6 C 105 H 16 136/63 98 - Problem List Review Problem List Initiated/Reviewed/Updated: Yes - My Orders Last 24 Hours: My Active Orders 12/19/20 04:25 EKG Documentation Completion [RC] STAT CULTURE URINE [RM] Stat 12/19/20 04:26 Chest 1V Frontal [CR] Stat 12/19/20 05:06 Blood Culture x2 Reflex Set [OM.PC] Stat 12/19/20 05:13 CULTURE BLOOD [BC] Stat 12/19/20 05:26 CULTURE BLOOD [BC] Stat 12/19/20 05:56 REFLEX LACTIC ACID YES OR NO [CHEM] Routine 12/19/20 06:36 Patient Status [ADT] Routine 12/19/20 06:38 RED BLOOD CELLS LP [BBK] Stat TYPE AND SCREEN [BBK] Stat Blood Transfusion Reflex Orders [OM.PC] Routine Transfuse Red Blood Cells [COMM] Stat 12/19/20 06:39 Verify Patient Consent Obtain [RC] ASDIRECTED - Assessment/Plan Last 24 Hours: My Active Orders 12/19/20 04:25 EKG Documentation Completion [RC] STAT CULTURE URINE [RM] Stat 12/19/20 04:26 Chest 1V Frontal [CR] Stat 12/19/20 05:06 Blood Culture x2 Reflex Set [OM.PC] Stat 12/19/20 05:13 CULTURE BLOOD [BC] Stat 12/19/20 05:26 CULTURE BLOOD [BC] Stat 12/19/20 05:56 REFLEX LACTIC ACID YES OR NO [CHEM] Routine 12/19/20 06:36 Patient Status [ADT] Routine 12/19/20 06:38 RED BLOOD CELLS LP [BBK] Stat TYPE AND SCREEN [BBK] Stat Blood Transfusion Reflex Orders [OM.PC] Routine Transfuse Red Blood Cells [COMM] Stat 12/19/20 06:39 Verify Patient Consent Obtain [RC] ASDIRECTED Plan: Discussed case with Dr. Dai as well as Dr. Koenig at [facility]. Currently, [facility] is full with no beds available. Pt. will be admitted here and transfused since her vaginal bleeding has stopped, or at least slowed significantly. The bleeding may be related to her increased uremia. Pt. will be transfused 1 unit packed RBCs today. Pt. was started on IV rocephin and oral azithromycin for possible CAP. Pt. lactic acid is elevated. This could be caused by infectious process or her decreased renal function. Renal function is not far off from baseline (creat 5.1 and BUN 74; was 4.2 and 67 of 11/30/2020). She has seen nephrology and is under the impression that she will need to start dialysis soon. Will recheck renal function post transfusion. Pt. will be admitted by Dr. Dai. Dr. Mireles is the patient's PCP.
[2020-12-19] MEDS ORDERED: cefTRIAXone 1 GM Vial IVPUSH ONE (05:37)
[2020-12-19] MEDS ORDERED: Doxycycline 100 MG Cap PO ONE (06:42)
[2020-12-19] MEDS ORDERED: Azithromycin 250 MG Tab PO ONE (06:48)
--- NOTE | 2020-12-19 08:10 | CR ---
[id number] RAD/RAD Chest Portable EXAM: RAD Chest Portable INDICATION: WEAKNESS, FATIGUE COMPARISON: None. DISCUSSION/IMPRESSION: Cardiomediastinal silhouette is normal in size and contour. Bilateral and fairly symmetric interstitial thickening. Findings are nonspecific and possibly early changes of fluid retention in the chest versus interstitial pneumonitis. No effusion. No pneumothorax or dense parenchymal consolidation. Alexy Medina MD 12/19/20 0808 Thank you for allowing us to participate in the care of your patient.
[2020-12-19] MEDS ORDERED: Acetaminophen 500 MG Tab PO PRN (13:28)
[2020-12-19] MEDS ORDERED: Polyethylene Glycol 3350 Powder 17 GM Packet PO PRN (13:28)
[2020-12-19] MEDS ORDERED: 50% Dextrose in Water 50 ML Syringe IVPUSH PRN (13:28)
[2020-12-19] MEDS ORDERED: Cyclobenzaprine 10 MG Tab PO PRN (13:28)
[2020-12-19] MEDS ORDERED: Glucagon,Human Recombinant 1 MG Vial IM PRN (13:28)
[2020-12-19] MEDS ORDERED: Nitroglycerin 0.4 MG Tab.SL SL PRN (13:28)
[2020-12-19] MEDS ORDERED: Glucagon,Human Recombinant 1 MG Vial SUBCUT PRN (13:28)
[2020-12-19] MEDS ORDERED: URSODIOL 300 MG PO SCH (13:30)
[2020-12-19] MEDS ORDERED: Levothyroxine 50 MCG Tab PO SCH (13:30)
[2020-12-19] MEDS: Nortriptyline 10 MG Cap PO SCH ×2 (14:48→19:42)
[2020-12-19] MEDS: Metoclopramide 5 MG Tab PO SCH ×2 (17:16→19:43)
[2020-12-19] MEDS: cefTRIAXone 1 GM Vial IVPUSH SCH (17:22)
[2020-12-19] MEDS: Insulin Lispro 100 Units/ML 3 ML Vial SUBCUT SCH (17:27)
[2020-12-19] MEDS: Pramipexole 0.5 MG Tab PO SCH (19:39)
[2020-12-19] MEDS: Sodium Bicarbonate 650 MG Tab PO SCH (19:42)
[2020-12-19] MEDS: Vitamin E (dl-alpha-tocopherol acetate) 400 Unit Cap PO SCH (19:43)
[2020-12-19] MEDS: Gabapentin 300 MG Cap PO SCH (19:43)
[2020-12-19] MEDS: Magnesium Oxide 400 MG Tab PO SCH (19:43)
[2020-12-19] MEDS: Insulin Glarg,Human.Rec.Analog 100 Unit/ML SUBCUT SCH (19:43)
[2020-12-19] MEDS ORDERED: Gabapentin 300 MG Cap PO SCH (20:00)
--- NOTE | 2020-12-19 20:32 | HP ---
CHIEF COMPLAINT: Weakness and falls at home. HISTORY OF PRESENT ILLNESS: This is a 65-year-old female with many complex medical problems including end-stage renal disease, nearing the need for dialysis, who had been in the clinic yesterday with vaginal bleeding. She had an exam. It was not significant amounts of bleeding, more like a spotting, and the patient herself had actually thought it improved. Her hemoglobin yesterday was 8, but when checked today, it was down to 7.4. She is having a lot of pain in her legs and she does have diabetic neuropathy and is on narcotics. She also had lab work a couple weeks ago showing her creatinine to be at 4.2, but now it is 5.1. She has not had any other bleeding issues, but she is very pale. She was very slow to respond and confused this morning, but I had him repeat her blood sugar and it was only 60, but her and her report that she has not been having more low blood sugars at home that were causing her falls. She has also severe spinal stenosis, but is not a candidate for surgery given her chronic medical conditions. She did have a small amount of leukocyte esterase on her UA yesterday. She has had trouble with recurrent UTIs. She has not noted a fever, but she had recently had some coughing. ALLERGIES: The patient's allergies include penicillin when she was younger; gentamicin rash; shellfish allergy; antihistamines; atenolol; Celebrex; contrast dye hurts her kidneys; Keflex, nausea, she tolerated Rocephin from the ER; naproxen, unsure; anti-inflammatories cause kidney problems; statins; sulfa, unsure; tetracyclines, unsure, but tolerated doxycycline in the ER. MEDICATIONS: Her medication list is quite extensive and reviewed. She is on hydrocodone 10 mg 4 times a day as needed for severe pain and OxyContin 15 mg twice daily, but for some reason it had fallen off her [place] list, so has not been ordered yet here. She is on Pamelor 10 in the morning, 10 in the afternoon, and 20 at bedtime. She is on Veltassa due to high potassium. She is on Toprol 12.5 mg daily. She is on Bumex 2 mg in the morning and 1 mg in the afternoon. She is on vitamin D once weekly. She is on bicarb, sodium bicarb 650 t.i.d. She is on Flexeril every night at bedtime, Neurontin 300 3 times a day. She is on Aranesp protocols for anemia. She is on Ursodil 300 2 capsules in the morning, 2 at lunch, and 1 at bedtime. She is on aspirin 81 mg daily. She is on Ocaliva 5 mg daily. She is on Humalog 4 units 3 times a day, Tarceva 18 units daily, Imdur 30 mg daily, lactulose daily. She is on vitamin B, I believe it is methylcobalamin chews. She is on MiraLAX as needed. Tylenol 1000 mg every 6 hours as needed for pain. Mirapex 0.5 2-3 at bedtime, Cymbalta 60 mg daily, calcitriol 0.25 daily, nitroglycerin as needed for chest pain, glucagon as needed for low blood sugars, levothyroxine 250 mcg 6 days a week and 300 mcg 1 day a week, Reglan 5 mg q.i.d., magnesium 400 2 times a day, B12 1000 mcg daily, iron 324 every other day, Senokot 1 tablet twice daily as needed for constipation, also listed vitamin D once daily but with the 50,000 units that is likely unnecessary, and then her vitamin E is 400 units twice daily. PAST MEDICAL HISTORY: Includes chronic back pain with severe spinal stenosis, but not a candidate for surgery. This is affecting her gait and mobility. Biliary cirrhosis, followed by GI. Bicuspid aortic valve but EF 70% and no aortic stenosis 1 year ago. Chronic kidney disease, presumably due to diabetes with worsening over the last several years, now GFR under 10, recommending dialysis. The patient was not sure she wanted to do that. It was down to 1.6 back in 2018. Coronary artery disease with previous stenting to the LAD back in 2008. 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 PAST SURGICAL HISTORY: She has had eye surgery, oral surgery, tonsillectomy, endoscopies, cataracts. FAMILY HISTORY: Both parents are . Her mom had hypertension and kidney problems. Dad had liver cancer. REVIEW OF SYSTEMS: General: The patient has just generally felt weak. She is really not aware of weight changes, but per the clinic chart, she lost about 13 pounds in just 2 weeks, but had gained significant amounts of weight from August to September. She has not had any fever or chills. HEENT: No sore throat. No trouble swallowing. Cardiac: No chest pain. No palpitations. Respiratory: She has had some cough. She has not noticed any increase in shortness of breath. Abdomen: She has not had any nausea, vomiting, or diarrhea. Musculoskeletal: She has had chronic back pain. Her legs hurt. Skin: She does have a little bit of redness to both shins, but more of a venous stasis. Mental Status: She admits she has been more tired but not overly confused but requiring more assistance from her . PHYSICAL EXAMINATION: General: This morning when I had seen her on hospital admission, she had 99 temp. Weight 90.7 kg, she is up 14 pounds since yesterday, but it is very similar to her 12/07/2020 weight, so we will definitely watch that. Pulse 99, blood pressure 108/50, respiratory rate 16, O2 of 99% on 2 L. General: She is in no acute distress. Heart: Regular rate and rhythm without murmur. Lungs: Her lung sounds are decreased bilaterally but without any obvious crackles or wheezes. She had poor respiratory effort. She was quite tired and sleeping. She had been up most of the night. Abdomen: Positive bowel sounds. Soft, nondistended, nontender. Extremities: Warm and dry. She had 1+ edema at the ankles. She had some redness to both shins that was tender. Her feet were examined. There are no open sores or ulcers. Mental Status: She is alert. She is orientated x3. She thanked me, Vernell, for coming to see her. She was just a little bit slow to respond and then her blood sugar was checked and was 60. LABORATORY DATA: Her lab work today shows her to have a white count on admission 10.9, hemoglobin 7.4, platelets 50. Her last clinic platelets were yesterday in fact, and it was down to 53. Otherwise, she has been getting a lot hemoglobins, but not CBCs done. I got to go back to June and then it was 49, so really not a change. Her INR is 0.9. She is not on anticoagulation other than a baby aspirin. PTT 26.5. Sodium 135, potassium 5, chloride 102, bicarb 25, BUN 74, creatinine 5.1, glucose 60 at the time I saw her. Lactic acid was 2.1 and it came up to 2.4 in the morning, but she had not yet received her blood. Calcium 7.9, phosphorus 6.1, magnesium 2.1, bilirubin 1.4, AST 45, ALT 49, alkaline phosphatase 521. Troponin 8. CRP 1.1, albumin 2.6. TSH 24.6, procalcitonin 0.65 elevated. UA; large blood, 10-20 wbc's, small leukocyte esterase. COVID negative. Chest x-ray was showing the patient to have no effusion or pneumothorax or pulmonary consolidation, but some bilateral symmetrical interstitial thickening, possibly fluid retention or interstitial pneumonitis. ASSESSMENT AND PLAN: 1. Acute on chronic anemia, probably due to worsening renal failure, also with some postmenopausal vaginal bleeding. 2. Postmenopausal vaginal bleeding, mild, but consider DDAVP if bleeding gets worse or hormone therapy, but at this point, plan is to get a pelvic ultrasound. 3. Thrombocytopenia. This is a chronic problem. 4. Infection, probably the pneumonia. We will repeat lactic acid this afternoon after she has had some blood. We will continue with IV Rocephin and Zithromax. 5. Type 1 diabetes. We gave her something to eat. I cut back on her long- acting insulin to 10 units, but we will continue to 4 units t.i.d. with meals unless her blood sugar is low. 6. End-stage renal disease. She does not have any urgent indications for dialysis. We will repeat her lab work tomorrow. Perhaps a blood transfusion will improve this. We will hold off on her Bumex and any fluids. We will use Bumex if needed for edema. 7. Biliary cirrhosis. We will continue her home medications. This might be contributing somewhat to her platelet problems. Her bilirubin is not significantly elevated. 8. Obesity. 9. Chronic pain due to diabetic neuropathy. For some reason, pain pills were left off her list. I did hold off on the OxyContin and just ordered p.r.n. hydrocodone. When I came back to check on her, she was not even complaining of pain but did complain of leg pain this morning. I also decreased the Neurontin to just bedtime due to the recent worsening of her kidney function. We will continue Cymbalta and nortriptyline. 10.Coronary artery disease. The patient is not having any chest pain. She does not even have a history of heart failure. Bumex is probably more for blood pressure and edema. We will continue to monitor closely. 11.Essential hypertension. Blood pressures are actually lower. We will monitor this closely with holding parameters for any blood pressure pills. 12.Hypothyroidism. I will increase the dose to 275 mcg daily. 13.Depression. Continue her Cymbalta. 14.Vitamin D deficiency and secondary hyperparathyroidism. We will continue her medications for that from Nephrology. 15. Spinal stenosis PLAN: The patient will continue on acute cares. We will give her blood. We will give her antibiotics. We will monitor her lab work. Discussed in depth with her and her code status and decision was made that she would be a code level 2. She was not even sure she would want dialysis, but we will continue to monitor the need for that on a daily basis. However, [facility] had no openings. I will send off an ammonia level. We will get her up and working with therapy when she has more medically stabilized. We will check her blood sugar 4 times a day and use her Romairo. It is very likely she is going to need at least a skilled stay due to the fact that she was falling and doing poorly at home and falling. She will have some medications for pain ordered but again all p.r.n., not scheduled for the Flexeril and hydrocodone. For DVT prophylaxis, it is contraindicated due to her low platelets. In fact, I am also even holding her aspirin. We will see how her legs are doing and looking tomorrow and consider SCDs at that time. We will try to get her vaginal ultrasound also in the hospital. TAMARAA: 12/19/2020 17:41:12 MODL: 12/19/2020 20:22:53 /[id number] KARTIK
[2020-12-20] MEDS: Levothyroxine 75 MCG Tab PO SCH (06:19)
[2020-12-20] MEDS: Levothyroxine 100 MCG Tab PO SCH (06:19)
[2020-12-20] MEDS: Metoclopramide 5 MG Tab PO SCH ×4 (06:19→20:20)
[2020-12-20] MEDS ORDERED: Levothyroxine 50 MCG Tab PO SCH (07:00)
[2020-12-20 07:22] LABS: ANION GAP 11.3 mmol/L (5-15)
[2020-12-20] MEDS ORDERED: Aspirin 81 MG Tab.EC PO SCH (08:00)
[2020-12-20] MEDS ORDERED: OBETICHOLIC ACID 5 MG PO SCH (08:00)
[2020-12-20] MEDS ORDERED: PATIROMER CALCIUM SORBITEX PO SCH (08:00)
[2020-12-20] MEDS ORDERED: Metoprolol Succinate 25 MG Tab.ER PO SCH (08:00)
[2020-12-20] MEDS: cefTRIAXone 1 GM Vial IVPUSH SCH (09:14)
[2020-12-20] MEDS: Azithromycin 250 MG Tab PO SCH (09:27)
[2020-12-20] MEDS: Calcitriol 0.25 MCG Cap PO SCH (09:27)
[2020-12-20] MEDS: Vitamin E (dl-alpha-tocopherol acetate) 400 Unit Cap PO SCH ×2 (09:27→20:21)
[2020-12-20] MEDS: Magnesium Oxide 400 MG Tab PO SCH ×2 (09:27→20:21)
[2020-12-20] MEDS: Cyanocobalamin (Vitamin B12) 1,000 MCG Tab PO SCH (09:28)
[2020-12-20] MEDS: DULoxetine 60 MG Cap PO SCH (09:28)
[2020-12-20] MEDS: Cholecalciferol (Vitamin D3) 25 MCG Tab PO SCH (09:28)
[2020-12-20] MEDS: Sodium Bicarbonate 650 MG Tab PO SCH ×3 (09:28→20:20)
[2020-12-20] MEDS: Isosorbide Mononitrate 30 MG Tab.ER PO SCH (09:28)
[2020-12-20] MEDS: Nortriptyline 10 MG Cap PO SCH ×3 (09:28→20:19)
[2020-12-20] MEDS: Insulin Lispro 100 Units/ML 3 ML Vial SUBCUT SCH ×3 (09:30→18:46)
[2020-12-20] MEDS: Lactulose Soln 10 GM/15 ML 15 ML UD Cup PO SCH (09:33)
[2020-12-20] MEDS: Acetaminophen/HYDROcodone 325-10 MG Tab PO PRN ×2 (09:39→12:07)
[2020-12-20] MEDS ORDERED: Desmopressin 4 MCG/1 ML Amp SUBCUT ONE (12:00)
[2020-12-20] MEDS: URSODIOL 300 MG PO SCH ×2 (16:16→20:23)
[2020-12-20] MEDS: OCALIVA PO SCH (16:16)
[2020-12-20] MEDS: Acetaminophen/HYDROcodone 325-10 MG Tab PO SCH ×2 (16:31→20:20)
--- NOTE | 2020-12-20 17:53 | PN ---
Progress Note for RASHMI ZULETA Date: 12/20/2020 Room #: VM.217 SUBJECTIVE: Hospital day #2 on a 65-year-old admitted with recurrent falls at home, acute on chronic anemia, end-stage renal disease with worsening creatinine, and vaginal bleeding. Yesterday, she was just having spotting, so we did not give her any DDAVP, but today she passed some clots overnight. She did receive 1 unit of packed red blood cells and her hemoglobin has actually went up. She says she is feeling a little better today. She is not having any shortness of breath. She has not been getting her regular scheduled narcotics, and she is not complaining of any pain other than in the right hip. She is not sure if she hurt it when she fell, but she says she is walking on it to the bathroom. She has assist of 1. She is only consuming about 50% to 75% of her meals. She has not had any low blood sugars since yesterday morning, it was 60. She does have a history of low platelets, even back in June it was under 50. OBJECTIVE: Vital Signs: Her weight was charted at 90 kg, but yesterday only 81, and then it was back to 81 kg today, so I suspect 81 is the accurate. Temp 96.7, pulse 75, blood pressure 121/63, respiratory rate 16, and O2 of 99% on 2 L. General: She is in no acute distress. Heart: Regular rate and rhythm. S1, S2 without murmur. Lungs: Sounds are clear to auscultation bilaterally without crackles or wheezes in the upper lungs, lower lung arias decreased, but no crackles appreciated. Abdomen: Nondistended, nontender. Positive bowel sounds. Extremities: Warm and dry. She has some redness to the anterior shins, venous stasis changes, but no edema. No wounds. No drainage. Mental Status: She is alert. She is orientated x3. Right hip is examined. She states the pain is deeper like in the groin. There is no trochanteric tenderness. LABORATORY DATA: Today does show her to have a white count normal 5.3, hemoglobin up to 9, platelets 42. Sodium 138, potassium 4.3, chloride 105, bicarb 26, BUN 72, creatinine 5, GFR 8, glucose 89, calcium 8.3, bilirubin down to 0.7. AST 48, about the same as yesterday; ALT 46; alkaline phosphatase down to 479; albumin 2.4. Procalcitonin up to 1.14. ASSESSMENT AND PLAN: 1. Community-acquired pneumonia day #2. IV Rocephin and oral Zithromax. We will continue with the same. We will be getting a CT of the abdomen. We will see if we can see any changes on the lung bases. 2. Vaginal bleeding. 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 She has only had periods brief time in her life. We cannot get a vaginal ultrasound today; therefore, her gynecology appointment will be postponed, but we will get the CT abdomen just to ensure there are no other abnormalities. Did discuss with the patient doing a catheter if there was any bladder distention or hydronephrosis. She would rather avoid that. She has had urology workup in the past for hematuria. Did have some blood in her UA. 3. Acute on chronic renal failure. We are holding her diuretic. We will repeat lab work tomorrow. Would restart only if needed for blood pressure. She does not have a congestive heart failure history. 4. Coronary artery disease, stable without chest pain. 5. Acute on chronic anemia. We will repeat a hemoglobin tomorrow. 6. Thrombocytopenia, chronic, possibly due to some liver disease. Due to her renal failure, I am going to give her some DDAVP today. 7. Biliary cirrhosis. We will continue her home medications. 8. Restless legs syndrome. We will continue home medications. 9. Diabetic neuropathy. She is on reduced doses of gabapentin. The nurse explained this to her that is due to her renal function. We will schedule her hydrocodone, but she has not received her OxyContin here. Her pain seems to be under better control, but she is mostly in bed. She is also on Cymbalta. 10.Type 1 diabetes. She is on her insulin. Blood sugars have been acceptable. 11.Hypothyroidism, under treated. I have increased the dose. PLAN: The patient will continue acute cares and I will continue IV Rocephin. We will give her DDAVP today. We will get that CT scan to see if we get any further information about her uterus and abdomen. We will monitor blood work again tomorrow. We will get her up and working with therapies. We will get a right hip x-ray. For DVT prophylaxis, pharmacologic is contraindicated due to her bleeding. She also has spinal stenosis, depression, and vitamin D deficiency, and she will continue her home medications for that. MKA: 12/20/2020 17:04:14 MODL: 12/20/2020 17:45:33 /[id number]
[2020-12-20] MEDS: Pramipexole 0.5 MG Tab PO SCH (20:21)
[2020-12-20] MEDS: Gabapentin 300 MG Cap PO SCH (20:21)
[2020-12-20] MEDS: Insulin Glarg,Human.Rec.Analog 100 Unit/ML SUBCUT SCH (20:22)
[2020-12-20] MEDS: VELTASSA 8.4 GM PO SCH (20:24)
[2020-12-21] MEDS: Metoclopramide 5 MG Tab PO SCH ×4 (06:30→20:02)
[2020-12-21] MEDS: Levothyroxine 75 MCG Tab PO SCH (06:30)
[2020-12-21] MEDS: Levothyroxine 100 MCG Tab PO SCH (06:30)
[2020-12-21 07:14] LABS: ANION GAP 8.7 mmol/L (5-15)
[2020-12-21] MEDS: Lactulose Soln 10 GM/15 ML 15 ML UD Cup PO SCH (08:15)
[2020-12-21] MEDS: cefTRIAXone 1 GM Vial IVPUSH SCH (08:15)
[2020-12-21] MEDS: Vitamin E (dl-alpha-tocopherol acetate) 400 Unit Cap PO SCH ×2 (08:15→20:00)
[2020-12-21] MEDS: Acetaminophen/HYDROcodone 325-10 MG Tab PO SCH ×4 (08:16→20:00)
[2020-12-21] MEDS: Sodium Bicarbonate 650 MG Tab PO SCH ×3 (08:16→20:00)
[2020-12-21] MEDS: DULoxetine 60 MG Cap PO SCH (08:16)
[2020-12-21] MEDS: Cyanocobalamin (Vitamin B12) 1,000 MCG Tab PO SCH (08:17)
[2020-12-21] MEDS: Metoprolol Succinate 25 MG Tab.ER PO SCH (08:17)
[2020-12-21] MEDS: Azithromycin 250 MG Tab PO SCH (08:17)
[2020-12-21] MEDS: Calcitriol 0.25 MCG Cap PO SCH (08:17)
[2020-12-21] MEDS: Nortriptyline 10 MG Cap PO SCH ×3 (08:17→20:02)
[2020-12-21] MEDS: Magnesium Oxide 400 MG Tab PO SCH ×2 (08:17→20:00)
[2020-12-21] MEDS: Cholecalciferol (Vitamin D3) 25 MCG Tab PO SCH (08:17)
[2020-12-21] MEDS: Isosorbide Mononitrate 30 MG Tab.ER PO SCH (08:22)
[2020-12-21] MEDS: URSODIOL 300 MG PO SCH ×3 (08:24→20:03)
[2020-12-21] MEDS: OCALIVA PO SCH (08:24)
[2020-12-21] MEDS: Insulin Lispro 100 Units/ML 3 ML Vial SUBCUT SCH ×3 (08:33→17:47)
[2020-12-21] MEDS ORDERED: 50% Dextrose in Water 50 ML Syringe IVPUSH PRN (09:00)
[2020-12-21] MEDS ORDERED: Glucagon,Human Recombinant 1 MG Vial IM PRN (09:00)
[2020-12-21] MEDS: Insulin Glarg,Human.Rec.Analog 100 Unit/ML SUBCUT SCH ×2 (10:58→19:59)
--- NOTE | 2020-12-21 14:01 | CR ---
[id number] RAD/RAD Hips Bilateral 1-2V EXAM: 4 VIEWS BILATERAL HIPS. INDICATION: HIP PAIN COMPARISON: None. DISCUSSION: No fracture, dislocation or other acute osseous abnormality. Moderate degenerative changes of the femoral acetabular joints bilaterally. IMPRESSION: 1. Moderate degenerative changes of the femoral acetabular joints bilaterally. Fermin Hewitt DO 12/21/20 1331 Thank you for allowing us to participate in the care of your patient.
--- NOTE | 2020-12-21 14:02 | CT ---
[id number] CT/CT Abdomen Pelvis WO IV EXAM: CT Abdomen Pelvis WO IV CLINICAL DATA: VAGINAL BLEEDING COMPARISON STUDY: None. FINDINGS: Limited evaluation of the solid organs without the use of IV or oral contrast Airspace consolidation dependent portion of the lungs bilaterally. Trace bilateral pleural effusions. Coronary artery disease. The spleen is borderline enlarged. The gallbladder is mildly distended with a few layering stones. No bowel obstruction or inflammation. The appendix is visualized and appears normal. Colonic diverticulosis without evidence of acute diverticulitis. No lymphadenopathy, free fluid, or pneumoperitoneum. Mild mesenteric edema. Small fat-containing ventral hernia. When allowing for limitations of noncontrast exam, the uterus is unremarkable. Scattered changes of spondylosis the spine. No fracture or osseous lesion. IMPRESSION: 1. Airspace consolidation dependent portion lungs bilaterally. Findings are likely infectious/inflammatory in nature. This could be seen with aspiration. 2. Small fat-containing ventral hernia. 3. The gallbladder is mildly distended and contains a a few small layering stones. No CT evidence of acute cholecystitis. Fermin Hewitt DO 12/21/20 [id number] Thank you for allowing us to participate in the care of your patient.
[2020-12-21] MEDS: Desmopressin 4 MCG/1 ML Amp SUBCUT SCH ×2 (14:15→20:03)
--- NOTE | 2020-12-21 17:05 | PN ---
Progress Note for RASHMI ZULETA Date: 12/21/2020 Room #: VM.217 SUBJECTIVE: This is hospital day #3 on a 65-year-old admitted with recurrent falls at home and acute on chronic anemia with vaginal bleeding. The patient had more bleeding and clots overnight. She had just changed her pad this morning. There was still some fresh red spotting in there. She states it was not overly painful, but she still is having pain in her right hip. Her x-rays did show moderate hip arthritis. She is getting her hydrocodone now scheduled 4 times a day, but actually not her OxyContin, which she is already on 15 mg twice daily for painful diabetic neuropathy. She also had some blood in her urine and in fact has seen Urology for that in the past, but has not had a PIPE COVERER workup and has been unable to get the ultrasound, but her CT did not show any uterine concerns, however, did confirm some pneumonia in the bases. The patient says her breathing and cough are better. She has been afebrile. The patient also has the chronic back arthritis, so is not having any new pains there. She had no free fluid in the pelvis. No lymphadenopathy. Small fat-containing ventral hernia. The gallbladder was distended with few stones, but no evidence of cholecystitis. She is not having right upper quadrant pain. She is having elevated alkaline phosphatase, but that is a chronic problem for her with her biliary cirrhosis. She did have a normal cystoscopy done by Urology in July after she was having some uterine bleeding. She did have worsening kidney function, but that has improved slightly with her GFR now at 9, creatinine down to 4.8. Platelets have continued to be low at 44, but they were also in the 40s back in June and her hemoglobin dropped to 8.4. White count still normal. OBJECTIVE: Vital Signs: Her temperature is 96.9, weight 81.7 kg, pulse 68, blood pressure 111/58, respiratory rate 18, O2 of 99% on room air. General: She is in no acute distress. Heart: Regular rate and rhythm. S1, S2 without murmur. Lungs: Sounds are clear to auscultation bilaterally without crackles or wheezes. Abdomen: Has positive bowel sounds, soft, nondistended, nontender. Extremities: Warm and dry. She still has 1+ edema at her ankles. She has some redness to the anterior shins, more like venous stasis changes, but no open sores. Mental Status: She is alert and orientated x3. Skin: Her skin is a little bit pale, but she is polite. Psychologic: She is cooperative and appreciative. LABORATORY DATA: Lab work again mentioned up in HPI for blood counts. Hemoglobin 8.4. Sodium is 136, potassium 4.7, chloride 104, bicarb 28, BUN 73, creatinine 4.8, glucose 208, alkaline phosphatase 452, albumin 2.5. Procalcitonin down to 0.57. ASSESSMENT AND PLAN: 1. Acute on chronic anemia due to vaginal bleeding. We will work on getting her pelvic ultrasound and outpatient PIPE COVERER followup. She got DDAVP 1 dose yesterday. We will schedule subcu twice today. Repeat lab work tomorrow. 2. Community-acquired pneumonia. Day #3 IV Rocephin and oral Zithromax. We will switch her over to the oral Ceftin today and complete a 5-day course of antibiotics. We will repeat lab work tomorrow. 3. Acute on chronic renal failure. The patient is at end-stage renal disease, but there are no indications for dialysis. Therefore, we will continue to monitor. She is already having some outpatient followup for dialysis access. 4. Coronary artery disease, stable without chest pain. 5. Thrombocytopenia, chronic. 6. Biliary cirrhosis, on her home medications. 7. Restless legs syndrome, painful diabetic neuropathy. Continue her home medications, but reduce doses to just once daily of gabapentin. She is also on Pamelor and Cymbalta. We will hold the OxyContin, but continue 10 mg 4 times a day of hydrocodone for now. 8. Type 1 diabetes, on insulin. I will increase her back up to 18 total units of long-acting insulin a day. We will keep her meal insulin the same. She does have her Romario. We can make dose adjustments as needed. 9. Hypothyroidism, under treated. I have already increased the dose. PLAN: The patient will continue acute cares. We will switch her IV antibiotics to oral. We will continue DDAVP, but schedule it twice daily. We will continue her up and working with therapies. We will have outpatient followup for the devops developer bleeding. For DVT prophylaxis, it is pharmacologically contraindicated due to her bleeding and thrombocytopenia. MKA: 12/21/2020 16:22:15 MODL: 12/21/2020 17:00:27 /[id number]
[2020-12-21] MEDS: Gabapentin 300 MG Cap PO SCH (20:00)
[2020-12-21] MEDS: Pramipexole 0.5 MG Tab PO SCH (20:00)
[2020-12-21] MEDS: VELTASSA 8.4 GM PO SCH (20:04)
[2020-12-21] MEDS: Cefuroxime 250 MG Tab PO SCH (22:55)
[2020-12-22] MEDS: Levothyroxine 100 MCG Tab PO SCH (06:28)
[2020-12-22] MEDS: Levothyroxine 75 MCG Tab PO SCH (06:28)
[2020-12-22] MEDS: Metoclopramide 5 MG Tab PO SCH ×4 (06:29→20:16)
[2020-12-22] MEDS: Lactulose Soln 10 GM/15 ML 15 ML UD Cup PO SCH (07:41)
[2020-12-22] MEDS: Sodium Bicarbonate 650 MG Tab PO SCH ×3 (07:42→20:16)
[2020-12-22] MEDS: Azithromycin 250 MG Tab PO SCH (07:42)
[2020-12-22] MEDS: Vitamin E (dl-alpha-tocopherol acetate) 400 Unit Cap PO SCH ×2 (07:42→20:15)
[2020-12-22] MEDS: Nortriptyline 10 MG Cap PO SCH ×3 (07:42→20:16)
[2020-12-22] MEDS: DULoxetine 60 MG Cap PO SCH (07:43)
[2020-12-22] MEDS: Magnesium Oxide 400 MG Tab PO SCH ×2 (07:43→20:16)
[2020-12-22] MEDS: Metoprolol Succinate 25 MG Tab.ER PO SCH (07:44)
[2020-12-22] MEDS: Isosorbide Mononitrate 30 MG Tab.ER PO SCH (07:44)
[2020-12-22] MEDS: Cyanocobalamin (Vitamin B12) 1,000 MCG Tab PO SCH (07:44)
[2020-12-22] MEDS: Calcitriol 0.25 MCG Cap PO SCH (07:44)
[2020-12-22] MEDS: Acetaminophen/HYDROcodone 325-10 MG Tab PO SCH ×4 (07:44→20:15)
[2020-12-22] MEDS: Cholecalciferol (Vitamin D3) 25 MCG Tab PO SCH (07:44)
[2020-12-22] MEDS: Desmopressin 4 MCG/1 ML Amp SUBCUT SCH ×2 (07:46→20:14)
[2020-12-22] MEDS: Insulin Glarg,Human.Rec.Analog 100 Unit/ML SUBCUT SCH ×2 (07:49→20:20)
[2020-12-22] MEDS: Insulin Lispro 100 Units/ML 3 ML Vial SUBCUT SCH ×3 (07:50→17:38)
[2020-12-22] MEDS: OCALIVA PO SCH (07:52)
[2020-12-22] MEDS: URSODIOL 300 MG PO SCH ×3 (07:53→20:17)
[2020-12-22 08:22] LABS: ANION GAP 12.9 mmol/L (5-15)
[2020-12-22] MEDS ORDERED: Fluconazole 100 MG Tab PO ONE (09:51)
--- NOTE | 2020-12-22 10:17 | PN ---
Progress Note for RASHMI ZULETA Date: 12/22/2020 Room #: VM.217 SUBJECTIVE: This is hospital day #4 on a 65-year-old, admitted with falls at home with acute on chronic anemia due to vaginal bleeding. The patient has been on DDAVP increased to twice daily yesterday and she does feel like the bleeding has slowed down some. She actually thinks it is from the bladder and she has not been passing as much urine. She has noted some clots. Did discuss with her placing a Hewitt catheter or a straight cath today and she is agreeable to that just to ensure she is not retaining. Her renal function has improved. She states she has not been eating as much. Her appetite has not been as good, but she did take in 100% of her meals yesterday, but she has been extremely hesitant to take insulin when her blood sugar has been like below 150s, so she has refused some doses and then she has high blood sugars. The patient's cough and breathing are better. Her only pain that bothers her continues to be in that right hip, not when she is lying there still, not when she is up and walking, it is just with the other moving around. X-rays did confirm some arthritis. She is on the hydrocodone 10/325 4 times a day, but p.r.n. Tylenol dose is limited due to her biliary cirrhosis and liver function and due to her kidneys, she cannot take nonsteroidal anti-inflammatory drugs. She also has medications for painful diabetic neuropathy. She has not even used her p.r.n. Flexeril though at bedtime. She is having bowel movements. She denies any diarrhea. OBJECTIVE: Vital Signs: Today, her weight is 81.7 kg, temperature 97.4, pulse 76, blood pressure 112/49, respiratory rate 16, and O2 of 96% on room air. General: She is in no acute distress. Heart: Regular rate and rhythm. S1, S2 without murmur. Lungs: Sounds are clear to auscultation bilaterally without crackles or wheezes. Abdomen: Has positive bowel sounds. Soft, nondistended, nontender. Extremities: Warm and dry. No edema. Just some redness in the anterior shins. Mental Status: She is alert. She is orientated x3. She is answering questions appropriately. Her is at the bedside. LABORATORY DATA: Her lab work today did show her white count 5.2, hemoglobin 8.5, platelets 40, which is in her range. Her retic count was normal, but immature fraction was up to 27.4. She did receive 1 unit of packed red blood cells on admission. Sodium 134; potassium 4.9; chloride 101; bicarb 25; BUN 65; creatinine 4.3, improved; glucose 179; calcium 8.6. ASSESSMENT: 1. Acute on chronic anemia due to vaginal bleeding. 2. Frequent falls due to anemia and probably spinal stenosis. She is working with therapies. 3. Acute on chronic renal failure. Her creatinine is back down into her baseline. 4. Community-acquired pneumonia. She is on oral Ceftin and Zithromax. She will complete antibiotics tomorrow. 5. Coronary artery disease, stable without chest pain. 6. Thrombocytopenia, chronic. Peripheral smear pending. 7. Biliary cirrhosis, on home medications. Liver function has been good based on lab work. She will get a renal panel tomorrow. She had an INR on admit that was 0.9. 8. Right hip pain, probably due to some osteoarthritis. We will continue pain medications the same. The patient was instructed by PT that after hopefully a week with up and moving more, it should get better. 9. Restless legs syndrome and painful diabetic neuropathy. She will continue her home medications. 10.Type 1 diabetes, on insulin. We will continue with the Lantus total 18 units daily, 3 units t.i.d. with meals, but change it to 4 blood sugars over 150. 11.Hypothyroidism. She is on increased doses. PLAN: The patient will continue acute cares. She will finish out oral antibiotics tomorrow due to uremic bleeding. She is getting subcu DDAVP. She will get a catheter placed to check for urinary output. If it is over 400 residual, we will keep the catheter in place. For deep vein thrombosis prophylaxis, she will start on sequential compression devices. Should get lab work repeated tomorrow. We will discontinue daily weights. Her oxygen status is excellent and she is currently not receiving her Bumex. We will restart it if she has more issues with swelling or perhaps she needs it to increase her urine output as well. In fact, if we straight cath and she has almost no urine with improving renal function, I would highly suspect that she is in need of her Bumex again. Addendum: Hewitt placed for 425 of residual we will watch the strict I and O for 24 hours. MKA: 12/22/2020 09:51:14 MODL: 12/22/2020 10:09:27 /[id number]
[2020-12-22] MEDS: Nystatin Crm 30 GM Tube TOP SCH ×2 (11:34→20:17)
[2020-12-22] MEDS: Pramipexole 0.5 MG Tab PO SCH (20:15)
[2020-12-22] MEDS: Gabapentin 300 MG Cap PO SCH (20:16)
[2020-12-22] MEDS: VELTASSA 8.4 GM PO SCH (20:17)
[2020-12-23] MEDS: Levothyroxine 100 MCG Tab PO SCH (06:19)
[2020-12-23] MEDS: Metoclopramide 5 MG Tab PO SCH ×4 (06:20→20:00)
[2020-12-23] MEDS: Levothyroxine 75 MCG Tab PO SCH (06:20)
[2020-12-23] MEDS: Desmopressin 4 MCG/1 ML Amp SUBCUT SCH ×2 (09:06→20:08)
[2020-12-23] MEDS: Lactulose Soln 10 GM/15 ML 15 ML UD Cup PO SCH (09:07)
[2020-12-23] MEDS: Acetaminophen/HYDROcodone 325-10 MG Tab PO SCH ×4 (09:08→19:59)
[2020-12-23] MEDS: Cyanocobalamin (Vitamin B12) 1,000 MCG Tab PO SCH (09:08)
[2020-12-23] MEDS: Isosorbide Mononitrate 30 MG Tab.ER PO SCH (09:08)
[2020-12-23] MEDS: Calcitriol 0.25 MCG Cap PO SCH (09:08)
[2020-12-23] MEDS: Vitamin E (dl-alpha-tocopherol acetate) 400 Unit Cap PO SCH ×2 (09:08→20:00)
[2020-12-23] MEDS: Azithromycin 250 MG Tab PO SCH (09:09)
[2020-12-23] MEDS: Sodium Bicarbonate 650 MG Tab PO SCH ×3 (09:09→19:59)
[2020-12-23] MEDS: Nortriptyline 10 MG Cap PO SCH ×3 (09:09→19:58)
[2020-12-23] MEDS: Metoprolol Succinate 25 MG Tab.ER PO SCH (09:09)
[2020-12-23] MEDS: DULoxetine 60 MG Cap PO SCH (09:09)
[2020-12-23] MEDS: Magnesium Oxide 400 MG Tab PO SCH ×2 (09:10→20:00)
[2020-12-23] MEDS: Insulin Lispro 100 Units/ML 3 ML Vial SUBCUT SCH ×3 (09:11→17:45)
[2020-12-23] MEDS: Cholecalciferol (Vitamin D3) 25 MCG Tab PO SCH (09:11)
[2020-12-23] MEDS: Insulin Glarg,Human.Rec.Analog 100 Unit/ML SUBCUT SCH (09:16)
[2020-12-23] MEDS: Nystatin Crm 30 GM Tube TOP SCH ×2 (09:18→20:08)
[2020-12-23] MEDS: OCALIVA PO SCH (09:19)
[2020-12-23] MEDS: URSODIOL 300 MG PO SCH ×3 (09:20→19:58)
--- NOTE | 2020-12-23 11:08 | PN ---
Progress Note for RASHMI ZULETA Date: 12/23/2020 Room #: VM.217 SUBJECTIVE: This is hospital day #5 on a 65-year-old admitted with a fall at home with acute on chronic anemia due to vaginal bleeding. Overnight, she had soaked the bed sheets with blood, not bright red blood with clots but light red blood. Fortunately though, her hemoglobin stayed stable above 8 at 8.2. She has only required 1 unit of transfusion. She did have a catheter placed yesterday for low output and a residual over 400, and she had excellent output, just 950 overnight where she had had none charted her whole stay overnight and 350 all day after placing it yesterday only. She is eating well, 100% of her meals. Blood sugars are better but still some highs into the 200s. She is not having any constipation, had a normal bowel movement this morning. Her pain in her hip is better, down to a 6 to 7. She is on her scheduled 4 times a day hydrocodone. She is on a decreased dose of Neurontin at bedtime for diabetic neuropathy, and it does not seem to have been causing her any increased pain. This was decreased due to her renal function. She is not short of breath at all. She has not required any of her Bumex, and she has finished her antibiotics now for pneumonia and has not had any coughing. OBJECTIVE: Vital Signs: Her temperature 97.2, pulse 71, blood pressure 112/70, respiratory rate 18, and O2 of 95% on room air. General: She is in no acute distress. Heart: Regular rate and rhythm. Lungs: Lung sounds are clear to auscultation bilaterally without crackles or wheezes. Abdomen: Has positive bowel sounds. Soft, nontender. Extremities: Warm and dry. No edema today. It is significantly improved. You can see the ha from the SCDs on her legs. They probably potentially help some with mobilizing that fluid. Mental Status: She is alert and orientated x3. LABORATORY DATA: Her lab work does show her to have a white count of 3.8, hemoglobin 8.2, and platelets 37, down from 40. She has no other bleeding other than vaginal. Sodium 135, potassium 4.9, chloride 101, bicarbonate 28, BUN 60, creatinine 4.3, glucose 179, phosphorus 5, and albumin 2.4 and urine culture did return E. coli. ASSESSMENT: 1. Acute on chronic anemia due to vaginal bleeding, status post 1 unit of packed red blood cells. Hemoglobin is stable. 2. Postmenopausal vaginal bleeding. She is due for a pelvic ultrasound tomorrow. 3. Urinary retention. Hewitt is in place. We are going to continue overnight for strict in's and out's and also helping to get mobilize some fluid but likely will need to be removed before her ultrasound tomorrow. 4. Frequent falls at home. She is working with therapy. She has underlying spinal stenosis and diabetic neuropathy. 5. Acute on chronic renal failure. Her creatinine has come back down to baseline. Blood pressures are controlled. We will restart her diuretics when needed for blood pressure or edema. 6. Community-acquired pneumonia. She completed Ceftin and Zithromax. 7. Escherichia coli urinary tract infection. She has been treated with antibiotics covered by the pneumonia once. 8. Coronary artery disease, stable without chest pain. 9. Thrombocytopenia, chronic. Peripheral smear pending. The patient was in the past going to see Hematology, but the platelets had not worsened enough, but over the last 6 months, they are now down under 50 routinely. 10.Biliary cirrhosis, on home medications. 11.Right hip pain due to osteoarthritis. 12.Restless legs syndrome and painful diabetic neuropathy. She is on her home medications except the OxyContin has been on hold and patient really has not realized that she was taking a large amount of narcotics and a lower amount would definitely be much safer with her falls at home. 13.Type 1 diabetes, on insulin. We will transition her to Lantus 18 units at bedtime. She did get an extra 8 units this morning, which should help bring her blood sugars down hopefully out of the 200s. She is on the Romario for frequent monitoring, which should prevent lows. 14.Hypothyroidism, on increased doses. PLAN: The patient will continue on acute cares. She will have the catheter overnight to have more accurate in's and out's. She is also getting DDAVP due to likely uremic bleeding, but certainly, her platelets are also contributing. She is now on SCDs for DVT prophylaxis. We will repeat her lab work and get that pelvic ultrasound tomorrow, and likely, she will be transitioning over to swing bed for further therapies with the intention of going to transitional [facility] at the [facility]. Outpatient [facility] referral and followup are already arranged. MKA: 12/23/2020 10:02:12 MODL: 12/23/2020 11:03:22 /[id number]
[2020-12-23] MEDS: Gabapentin 300 MG Cap PO SCH (19:59)
[2020-12-23] MEDS ORDERED: Insulin Glarg,Human.Rec.Analog 100 Unit/ML SUBCUT SCH (20:00)
[2020-12-23] MEDS: Pramipexole 0.5 MG Tab PO SCH (20:00)
[2020-12-23] MEDS: VELTASSA 8.4 GM PO SCH (20:08)
[2020-12-23] MEDS: Cefuroxime 250 MG Tab PO SCH (22:06)
[2020-12-24] MEDS: Metoclopramide 5 MG Tab PO SCH ×3 (06:10→17:08)
[2020-12-24] MEDS: Levothyroxine 100 MCG Tab PO SCH (06:10)
[2020-12-24] MEDS: Levothyroxine 75 MCG Tab PO SCH (06:10)
[2020-12-24 07:29] LABS: ANION GAP 10.8 mmol/L (5-15)
[2020-12-24] MEDS: OCALIVA PO SCH (07:58)
[2020-12-24] MEDS: Calcitriol 0.25 MCG Cap PO SCH (07:59)
[2020-12-24] MEDS: Metoprolol Succinate 25 MG Tab.ER PO SCH (07:59)
[2020-12-24] MEDS: Azithromycin 250 MG Tab PO SCH (07:59)
[2020-12-24] MEDS: Lactulose Soln 10 GM/15 ML 15 ML UD Cup PO SCH (07:59)
[2020-12-24] MEDS: Magnesium Oxide 400 MG Tab PO SCH (07:59)
[2020-12-24] MEDS: Cholecalciferol (Vitamin D3) 25 MCG Tab PO SCH (07:59)
[2020-12-24] MEDS: Sodium Bicarbonate 650 MG Tab PO SCH ×2 (08:00→11:46)
[2020-12-24] MEDS: DULoxetine 60 MG Cap PO SCH (08:00)
[2020-12-24] MEDS: Nortriptyline 10 MG Cap PO SCH ×2 (08:00→17:08)
[2020-12-24] MEDS: Vitamin E (dl-alpha-tocopherol acetate) 400 Unit Cap PO SCH (08:00)
[2020-12-24] MEDS: Cyanocobalamin (Vitamin B12) 1,000 MCG Tab PO SCH (08:00)
[2020-12-24] MEDS: Desmopressin 4 MCG/1 ML Amp SUBCUT SCH (08:01)
[2020-12-24] MEDS: Acetaminophen/HYDROcodone 325-10 MG Tab PO SCH ×3 (08:01→17:07)
[2020-12-24] MEDS: Isosorbide Mononitrate 30 MG Tab.ER PO SCH (08:01)
[2020-12-24] MEDS: Insulin Lispro 100 Units/ML 3 ML Vial SUBCUT SCH ×2 (08:01→11:44)
[2020-12-24] MEDS: Nystatin Crm 30 GM Tube TOP SCH (08:05)
[2020-12-24] MEDS: URSODIOL 300 MG PO SCH ×2 (08:06→11:47)
--- NOTE | 2020-12-24 14:56 | US ---
[id number] US/US Pelvic Transvag Transabd EXAM: TRANSABDOMINAL AND TRANSVAGINAL PELVIC ULTRASOUND INDICATION: VAGINAL BLEEDING. COMPARISON: None. DISCUSSION: Transabdominal and transvaginal images were performed to further evaluate the patient's anatomy and help determine a cause for the reported symptoms. The uterus is about 64 x 35 x 31 mm. The endometrial stripe is heterogeneous and poorly defined and fluid is suggested within the endometrial canal. Within the canal there is a 14 x 9 mm echogenic structure that could represent a polyp, blood products, or other endometrial neoplasm/malignancy. In the context of bleeding an endometrial biopsy and/or hysteroscopy is suggested. The ovaries were not identified. No free fluid or adnexal mass. IMPRESSION: 1. 14 x 9 mm echogenic endometrial canal polyp, malignancy, or blood products surrounded by fluid within the endometrial canal. In the context of postmenopausal bleeding, an endometrial biopsy and/or hysteroscopy is suggested. Lizandro Lancaster MD 12/24/20 9347 Thank you for allowing us to participate in the care of your patient.
[2020-12-24] MEDS ORDERED: Insulin Lispro 100 Units/ML 3 ML Vial SUBCUT SCH (18:00)
[2020-12-24 18:03] VITALS: BP 108/53; PULSE 74
--- NOTE | 2020-12-24 20:46 | DISCH ---
PRIMARY DISCHARGE DIAGNOSES: 1. Acute on chronic anemia due to postmenopausal vaginal bleeding, status post 1 unit of packed red blood cells. 2. Fall at home due to anemia. 3. Postmenopausal vaginal bleeding with ultrasound showing 1.4 x 0.9 cm endometrial polyp versus malignancy versus blood products, need for followup. 4. Urinary retention. Hewitt used. She had good urine output. It was removed today for her ultrasound. We will monitor her bladder scans. 5. Frequent falls at home. She is working with therapy. She has underlying diabetic neuropathy and spinal stenosis. 6. Acute on chronic renal failure. Her creatinine was up over 5. It is down to 4.1. She was treated with DDAVP to help in case there was some uremic component to the bleeding. It did not seem to make a difference. 7. Community-acquired pneumonia. Completed Ceftin and Zithromax. 8. Escherichia coli urinary tract infection, treated with antibiotics. 9. Thrombocytopenia, chronic. Peripheral smear did return showing the patient to have macrocytic anemia, with slight reticulocytosis, moderate thrombocytopenia. She had possible etiologies include anemia of chronic disease, hepatobiliary disorders, hypothyroidism, and in fact, her TSH was quite elevated, so her thyroid dose was increased. She did have a CT which showed her to have mild splenic enlargement. 10.Hypothyroidism, under treated. The patient had increased dose of levothyroxine. 11.Type 1 diabetes on insulin with improved blood sugars with dose adjustments. 12.Restless legs syndrome. 13.Chronic pain. She is doing well on decreased opioid doses. 14.Biliary cirrhosis, on home medications. 15.Coronary artery disease, stable without chest pain. 16.Moderate malnutrition. REASON FOR ADMISSION: On the date of admission, this 65-year-old female had a fall at home. She had previously been in the clinic for postmenopausal vaginal bleeding. Her hemoglobin was found to be down to 7.4. She received 1 unit of packed red blood cells. It went up to a peak of 9. It was 8.2 on discharge. Her creatinine which baseline is now around 4 was up to 5.1 and BUN 74. There were no urgent indications for transfer for dialysis and no beds were available. Therefore, she was managed. She was given the blood, no IV fluids. Her Bumex was held and in fact, her leg swelling improved, which is having the legs up in bed, and then using the SCDs. Her weight remained stable and she was never short of breath. She was having some cough and was on Rocephin and Zithromax. Urine was positive for infection. CT was done when an ultrasound was not available for the vaginal bleeding and did not show any uterine concerns, however, did confirm the infiltrates in the lungs. Ultrasound was able to be completed today with the results listed above. I reached out to [facility] and Hematology to arrange further followup. The patient will need 1 unit of platelets a day or 2 before her biopsy and also DDAVP to help prevent post biopsy bleeding. She did receive some DDAVP during her stay, but it did not seem to help her bleeding. The patient's platelets were between 35-50, they were 39 on discharge. This has been going on since June. So, outpatient followup with Hematology was also arranged. We monitored her lab work daily. On discharge, her BUN was down to 62. Her sodium had also slightly decreased to 133. Albumin was 2.3. Bumex was never restarted as her blood pressures were never elevated. PHYSICAL EXAMINATION: Vital Signs: On discharge, her vitals included temperature 98.3, pulse 69, blood pressure 103/58, respiratory rate 17, and O2 of 98% on room air. Weight 81.7 kg. General: She is in no acute distress. Heart: Regular rate and rhythm. S1, S2 without murmur. Lungs: Sounds are clear to auscultation bilaterally without crackles or wheezes. Abdomen: Positive bowel sounds. Soft, nondistended, nontender. Extremities: Warm and dry. No edema. Mental Status: She is alert and orientated x3. DISCHARGE PLANS AND INSTRUCTION: The patient is going over to swing bed to work with therapies with the anticipation of going to assisted living to transitional care and having outpatient followup for her postmenopausal vaginal bleeding. We will continue the same pain control. We will continue her SCDs. The Hewitt catheter has already been removed. The patient is a code level 3. Greater than 30 minutes spent on this discharge process. MKA: 12/24/2020 18:08:14 MODL: 12/24/2020 20:38:15 /[id number]
== END 2020-12-24 16:52 | disposition swing bed (61) | DRG 760 ==
LOC: VM.ED 03:19 → VM.MS 06:36
PROVIDERS: ADMIT Family Medicine; ATTEND Internal Medicine
PROC: 30233N1 Transfusion of Nonautologous Red Blood Cells into Peripheral Vein, Percutaneous Approach (ICD-10-PCS; principal; 2020-12-23)
DX: J18.8 Other pneumonia, unspecified organism (principal); N93.9 Abnormal uterine and vaginal bleeding, unspecified; N95.0 Postmenopausal bleeding; E87.2 Acidosis; N18.6 End stage renal disease; I13.2 Hypertensive heart and chronic kidney disease with heart failure and with stage 5 chronic kidney disease, or end stage renal disease; N18.5 Chronic kidney disease, stage 5; I50.9 Heart failure, unspecified; E78.00 Pure hypercholesterolemia, unspecified; Q23.1 Congenital insufficiency of aortic valve; K31.84 Gastroparesis; Q96.9 Turner's syndrome, unspecified; J18.9 Pneumonia, unspecified organism; N17.9 Acute kidney failure, unspecified; N39.0 Urinary tract infection, site not specified; M10.9 Gout, unspecified; I12.0 Hypertensive chronic kidney disease with stage 5 chronic kidney disease or end stage renal disease; E10.40 Type 1 diabetes mellitus with diabetic neuropathy, unspecified; E10.3219 Type 1 diabetes mellitus with mild nonproliferative diabetic retinopathy with macular edema, unspecified eye; D64.9 Anemia, unspecified; E10.22 Type 1 diabetes mellitus with diabetic chronic kidney disease; E05.90 Thyrotoxicosis, unspecified without thyrotoxic crisis or storm; D63.1 Anemia in chronic kidney disease; M35.9 Systemic involvement of connective tissue, unspecified; D69.6 Thrombocytopenia, unspecified; K74.5 Biliary cirrhosis, unspecified; E66.9 Obesity, unspecified; Z90.89 Acquired absence of other organs; Z98.890 Other specified postprocedural states; Z98.49 Cataract extraction status, unspecified eye; G89.29 Other chronic pain; Z79.82 Long term (current) use of aspirin; M54.9 Dorsalgia, unspecified; Z79.4 Long term (current) use of insulin; M48.061 Spinal stenosis, lumbar region without neurogenic claudication; I35.0 Nonrheumatic aortic (valve) stenosis; I25.10 Atherosclerotic heart disease of native coronary artery without angina pectoris; Z79.891 Long term (current) use of opiate analgesic; E10.42 Type 1 diabetes mellitus with diabetic polyneuropathy; E10.21 Type 1 diabetes mellitus with diabetic nephropathy; Z87.440 Personal history of urinary (tract) infections; K21.9 Gastro-esophageal reflux disease without esophagitis; E78.5 Hyperlipidemia, unspecified; E03.9 Hypothyroidism, unspecified; Z79.890 Hormone replacement therapy; M19.90 Unspecified osteoarthritis, unspecified site; F32.9 Major depressive disorder, single episode, unspecified; E21.3 Hyperparathyroidism, unspecified; E55.9 Vitamin D deficiency, unspecified; Z95.5 Presence of coronary angioplasty implant and graft; Z79.899 Other long term (current) drug therapy; Z88.0 Allergy status to penicillin; Z91.013 Allergy to seafood; Z88.8 Allergy status to other drugs, medicaments and biological substances; Z88.1 Allergy status to other antibiotic agents; Z88.2 Allergy status to sulfonamides; Z91.041 Radiographic dye allergy status; W19.XXXA Unspecified fall, initial encounter; R33.9 Retention of urine, unspecified; B96.20 Unspecified Escherichia coli [E. coli] as the cause of diseases classified elsewhere; G25.81 Restless legs syndrome; Z20.822 Contact with and (suspected) exposure to COVID-19
CPT/HCPCS: 36415; 36430; 51702; 71045; 74176; 76830; 76856; 80048; 80053; 80069; 81001; 82140; 82947; 83605; 83735; 84100; 84145; 84443; 84484; 85007; 85008; 85025; 85027; 85046; 85610; 85730; 86140; 86850; 86900; 86901; 86920; 86922; 87040; 87086; 87088; 87186; 93005; 93010; 96374; 97110-GP; 97116-GP; 97161-GP; 99284; 99285-25; A9270-GY; J0696; J1815-GY; J2597; P9016; U0002

== ENCOUNTER 2020-12-24 16:52 | Inpatient (IN) | payer MEDICARE, OTHER ==
[2020-12-24] MEDS ORDERED: Glucagon,Human Recombinant 1 MG Vial SUBCUT PRN (17:27)
[2020-12-24] MEDS ORDERED: Polyethylene Glycol 3350 Powder 17 GM Packet PO PRN (17:27)
[2020-12-24] MEDS ORDERED: Cyclobenzaprine 10 MG Tab PO PRN (17:27)
[2020-12-24] MEDS ORDERED: 50% Dextrose in Water 50 ML Syringe IVPUSH PRN (17:27)
[2020-12-24] MEDS ORDERED: Nitroglycerin 0.4 MG Tab.SL SL PRN (17:27)
[2020-12-24] MEDS ORDERED: Glucagon,Human Recombinant 1 MG Vial IM PRN ×2 (17:27)
[2020-12-24] MEDS: Insulin Lispro 100 Units/ML 3 ML Vial SUBCUT SCH (19:33)
[2020-12-24] MEDS: Vitamin E (dl-alpha-tocopherol acetate) 400 Unit Cap PO SCH (20:04)
[2020-12-24] MEDS: Gabapentin 300 MG Cap PO SCH (20:04)
[2020-12-24] MEDS: Metoclopramide 5 MG Tab PO SCH (20:04)
[2020-12-24] MEDS: Acetaminophen/HYDROcodone 325-10 MG Tab PO SCH (20:05)
[2020-12-24] MEDS: Magnesium Oxide 400 MG Tab PO SCH (20:05)
[2020-12-24] MEDS: Nystatin Crm 30 GM Tube TOP SCH (20:09)
[2020-12-24] MEDS: Insulin Glarg,Human.Rec.Analog 100 Unit/ML SUBCUT SCH (20:12)
[2020-12-24] MEDS: Nortriptyline 10 MG Cap PO SCH (20:26)
[2020-12-24] MEDS: Sodium Bicarbonate 650 MG Tab PO SCH (20:26)
[2020-12-24] MEDS: Pramipexole 0.5 MG Tab PO SCH (20:26)
[2020-12-24] MEDS: URSODIOL 300 MG PO SCH (20:27)
[2020-12-24] MEDS: VELTASSA 8.4 GM PO SCH (20:31)
[2020-12-25] MEDS: Levothyroxine 75 MCG Tab PO SCH (06:34)
[2020-12-25] MEDS: Metoclopramide 5 MG Tab PO SCH ×4 (06:34→19:37)
[2020-12-25] MEDS: Levothyroxine 100 MCG Tab PO SCH (06:34)
[2020-12-25] MEDS: Acetaminophen/HYDROcodone 325-10 MG Tab PO SCH ×4 (08:36→19:47)
[2020-12-25] MEDS: Lactulose Soln 10 GM/15 ML 15 ML UD Cup PO SCH (08:36)
[2020-12-25] MEDS: DULoxetine 60 MG Cap PO SCH (08:38)
[2020-12-25] MEDS: Cyanocobalamin (Vitamin B12) 1,000 MCG Tab PO SCH (08:38)
[2020-12-25] MEDS: Isosorbide Mononitrate 30 MG Tab.ER PO SCH (08:38)
[2020-12-25] MEDS: Magnesium Oxide 400 MG Tab PO SCH ×2 (08:38→19:37)
[2020-12-25] MEDS: Cholecalciferol (Vitamin D3) 25 MCG Tab PO SCH (08:38)
[2020-12-25] MEDS: Calcitriol 0.25 MCG Cap PO SCH (08:38)
[2020-12-25] MEDS: Vitamin E (dl-alpha-tocopherol acetate) 400 Unit Cap PO SCH ×2 (08:38→19:36)
[2020-12-25] MEDS: Metoprolol Succinate 25 MG Tab.ER PO SCH (08:39)
[2020-12-25] MEDS: Sodium Bicarbonate 650 MG Tab PO SCH ×3 (08:40→19:36)
[2020-12-25] MEDS: Insulin Lispro 100 Units/ML 3 ML Vial SUBCUT SCH ×3 (08:42→18:17)
[2020-12-25] MEDS: Nystatin Crm 30 GM Tube TOP SCH ×2 (08:43→19:50)
[2020-12-25] MEDS: URSODIOL 300 MG PO SCH ×3 (08:44→19:37)
[2020-12-25] MEDS: OCALIVA PO SCH (08:44)
[2020-12-25] MEDS: Nortriptyline 10 MG Cap PO SCH ×3 (08:45→19:36)
--- NOTE | 2020-12-25 17:46 | PN ---
Progress Note for RASHMI ZULETA Date: 12/25/2020 Room #: VM.217 SUBJECTIVE: This is a 65-year-old, placed on swing bed yesterday after an acute stay for acute on chronic anemia due to postmenopausal vaginal bleeding. I have met with the patient and her today to discuss the ultrasound results, which showed a polyp or blood or even a tumor and the next step would be endometrial biopsy. I informed her that I am awaiting recommendations for [place] to see when and where this could be scheduled. She already has tentatively an appointment on the in [place], but will definitely need 1 unit of platelets and some DDAVP prior to the biopsy. The patient has had ongoing bleeding but is not interested in trying a tampon. She has not required a further blood transfusion other than the one on admission. She had a catheter in, which did help with some good urine output for about 48 hours, but it was removed. She has not required of Bumex. Her blood pressure has been under good control. She had some right hip pain on acute care, but it does not seem to be as bothered by pain now. She is actually on decreased dosages of opioids. She is working with therapies and tells me they might be able to discharge her by the end of the week. OBJECTIVE: Vital Signs: Her temperature 98.6, pulse 75, blood pressure 92/65, respiratory rate 18, and O2 of 96% on room air. General: She is in no acute distress. Heart: Regular rate and rhythm. S1, S2 without murmur. Lungs: Lung sounds are clear to auscultation bilaterally without crackles or wheezes. Abdomen: Positive bowel sounds. Soft, nondistended, nontender. Extremities: Warm, dry. No edema. SCDs in place. Mental Status: She is alert, she is orientated x3. ASSESSMENT: 1. Acute on chronic anemia due to postmenopausal vaginal bleeding. We will repeat a hemoglobin tomorrow. 2. Fall at home due to the anemia and medication. She is working with therapies. 3. Postmenopausal vaginal bleeding. Outpatient [facility] followup is being arranged. 4. Mild urinary retention. Hewitt has been removed. She is doing well with her voiding. We will bladder scan if needed. 5. Acute on chronic renal failure. We will recheck lab work. She is back to her baseline. 6. Type 1 diabetes with hyperglycemia. For instance yesterday, the patient did not use her breakfast insulin and then it went up higher throughout the day. We have adjusted now, to hold only if blood sugar under 100 at meals. If she is eating a little better and had increased her meal, units up to 4. We held off on increasing the overnight insulin as she has had some readings in the low range in the morning, but no hypoglycemia since admission. 7. Escherichia coli urinary tract infection and community-acquired pneumonia. She completed antibiotics. 8. Chronic thrombocytopenia. Outpatient Hematology referral placed. 9. Hyperthyroidism. She is on increased doses. 10.Restless legs syndrome and chronic pain. She is on home medications. 11.Biliary cirrhosis, on home medications. 12.Coronary artery disease, stable without chest pain. 13.Moderate malnutrition, but obesity. PLAN: The patient is to continue swing bed cares. We will repeat lab work tomorrow. Continue to work with therapies. Likely the [facility] will come and assess her here later in the week. Social Service is aware. MKA: 12/25/2020 17:19:28 MODL: 12/25/2020 17:38:15 /[id number]
[2020-12-25] MEDS: Gabapentin 300 MG Cap PO SCH (19:36)
[2020-12-25] MEDS: Pramipexole 0.5 MG Tab PO SCH (19:37)
[2020-12-25] MEDS: Insulin Glarg,Human.Rec.Analog 100 Unit/ML SUBCUT SCH (19:39)
[2020-12-25] MEDS: VELTASSA 8.4 GM PO SCH (19:51)
[2020-12-26] MEDS: Levothyroxine 100 MCG Tab PO SCH (06:31)
[2020-12-26] MEDS: Metoclopramide 5 MG Tab PO SCH ×4 (06:32→19:41)
[2020-12-26] MEDS: Levothyroxine 75 MCG Tab PO SCH (06:32)
[2020-12-26 07:07] LABS: ANION GAP 11.4 mmol/L (5-15)
[2020-12-26] MEDS: Metoprolol Succinate 25 MG Tab.ER PO SCH (08:22)
[2020-12-26] MEDS: DULoxetine 60 MG Cap PO SCH (08:22)
[2020-12-26] MEDS: Lactulose Soln 10 GM/15 ML 15 ML UD Cup PO SCH (08:22)
[2020-12-26] MEDS: Isosorbide Mononitrate 30 MG Tab.ER PO SCH (08:23)
[2020-12-26] MEDS: Vitamin E (dl-alpha-tocopherol acetate) 400 Unit Cap PO SCH ×2 (08:23→19:41)
[2020-12-26] MEDS: Cyanocobalamin (Vitamin B12) 1,000 MCG Tab PO SCH (08:23)
[2020-12-26] MEDS: Magnesium Oxide 400 MG Tab PO SCH ×2 (08:23→19:41)
[2020-12-26] MEDS: OCALIVA PO SCH (08:24)
[2020-12-26] MEDS: URSODIOL 300 MG PO SCH ×3 (08:24→19:40)
[2020-12-26] MEDS: Calcitriol 0.25 MCG Cap PO SCH (08:24)
[2020-12-26] MEDS: Nortriptyline 10 MG Cap PO SCH ×3 (08:24→19:40)
[2020-12-26] MEDS: Cholecalciferol (Vitamin D3) 25 MCG Tab PO SCH (08:24)
[2020-12-26] MEDS: Sodium Bicarbonate 650 MG Tab PO SCH ×3 (08:24→19:41)
[2020-12-26] MEDS: Acetaminophen/HYDROcodone 325-10 MG Tab PO SCH ×4 (08:25→19:42)
[2020-12-26] MEDS: Nystatin Crm 30 GM Tube TOP SCH ×2 (08:26→19:43)
[2020-12-26] MEDS: Insulin Lispro 100 Units/ML 3 ML Vial SUBCUT SCH ×3 (08:27→17:15)
[2020-12-26] MEDS: VELTASSA 8.4 GM PO SCH (19:39)
[2020-12-26] MEDS: Gabapentin 300 MG Cap PO SCH (19:41)
[2020-12-26] MEDS: Pramipexole 0.5 MG Tab PO SCH (19:41)
[2020-12-26] MEDS: Insulin Glarg,Human.Rec.Analog 100 Unit/ML SUBCUT SCH (19:44)
[2020-12-26] MEDS ORDERED: Glucagon,Human Recombinant 1 MG Vial IM PRN (21:02)
[2020-12-26] MEDS ORDERED: Insulin Lispro 100 Units/ML 3 ML Vial SUBCUT ONE (21:02)
[2020-12-26] MEDS ORDERED: 50% Dextrose in Water 50 ML Syringe IVPUSH PRN (21:02)
[2020-12-27] MEDS: Levothyroxine 75 MCG Tab PO SCH (06:44)
[2020-12-27] MEDS: Levothyroxine 100 MCG Tab PO SCH (06:44)
[2020-12-27] MEDS: Metoclopramide 5 MG Tab PO SCH ×4 (06:44→20:07)
[2020-12-27] MEDS: Insulin Lispro 100 Units/ML 3 ML Vial SUBCUT SCH ×3 (08:13→17:16)
[2020-12-27] MEDS: OCALIVA PO SCH (08:16)
[2020-12-27] MEDS: Lactulose Soln 10 GM/15 ML 15 ML UD Cup PO SCH (08:16)
[2020-12-27] MEDS: URSODIOL 300 MG PO SCH ×3 (08:17→20:07)
[2020-12-27] MEDS: Metoprolol Succinate 25 MG Tab.ER PO SCH (08:18)
[2020-12-27] MEDS: Acetaminophen/HYDROcodone 325-10 MG Tab PO SCH ×4 (08:20→20:04)
[2020-12-27] MEDS: Cyanocobalamin (Vitamin B12) 1,000 MCG Tab PO SCH (08:21)
[2020-12-27] MEDS: Isosorbide Mononitrate 30 MG Tab.ER PO SCH (08:22)
[2020-12-27] MEDS: Calcitriol 0.25 MCG Cap PO SCH (08:22)
[2020-12-27] MEDS: Sodium Bicarbonate 650 MG Tab PO SCH ×3 (08:22→20:06)
[2020-12-27] MEDS: Nortriptyline 10 MG Cap PO SCH ×3 (08:22→20:06)
[2020-12-27] MEDS: DULoxetine 60 MG Cap PO SCH (08:22)
[2020-12-27] MEDS: Vitamin E (dl-alpha-tocopherol acetate) 400 Unit Cap PO SCH ×2 (08:22→20:06)
[2020-12-27] MEDS: Cholecalciferol (Vitamin D3) 25 MCG Tab PO SCH (08:23)
[2020-12-27] MEDS: Magnesium Oxide 400 MG Tab PO SCH ×2 (08:23→20:06)
[2020-12-27] MEDS: Nystatin Crm 30 GM Tube TOP SCH ×2 (08:26→20:07)
[2020-12-27] MEDS: Insulin Glarg,Human.Rec.Analog 100 Unit/ML SUBCUT SCH (20:03)
[2020-12-27] MEDS: Pramipexole 0.5 MG Tab PO SCH (20:04)
[2020-12-27] MEDS: Gabapentin 300 MG Cap PO SCH (20:05)
[2020-12-27] MEDS: VELTASSA 8.4 GM PO SCH (20:08)
--- NOTE | 2020-12-27 21:48 | PCM.PN ---
- General Info Date of Service: 12/27/20 Subjective Update: Blood sugars are running higher, she took all doses of insulin yesterday. Still wondering when her endometrial biopsy will be. PT put in their notice for y. Patient has not been confused only incident was with the low blood sugar on admit. NO lows since. Still having vaginal bleeding and some lower stomach and back bruising. Functional Status: Reports: Pain Controlled, Tolerating Diet, Ambulating (t), Urinating - Review of Systems General: Reports: No Symptoms Pulmonary: Reports: No Symptoms Cardiovascular: Reports: No Symptoms Gastrointestinal: Reports: No Symptoms Psychiatric: Reports: No Symptoms - Patient Data Vitals - Most Recent: Last Vital Signs Temp 97.5 F 12/27/20 05:35 Pulse 72 12/27/20 08:18 Resp 16 12/27/20 05:35 BP 110/59 L 12/27/20 08:22 Pulse Ox 98 12/27/20 05:35 Weight - Most Recent: 81.783 kg I&O - Last 24 Hours: Intake & Output 12/27/20 12/27/20 12/27/20 06:59 14:59 22:59 Intake Total 420 360 Balance 420 360 Med Orders - Current: Current Medications Hydrocodone Bitart/Acetaminophen (Acetaminophen/Hydrocodone 325-10 Mg Tab) 1 tab PO QID [facility] Last Admin: 12/27/20 20:04 Dose: 1 tab Documented by: Calcitriol (Calcitriol 0.25 Mcg Cap) 0.25 mcg PO DAILY [facility] Last Admin: 12/27/20 08:22 Dose: 0.25 mcg Documented by: Cholecalciferol (Cholecalciferol (Vitamin D3) 25 Mcg Tab) 25 mcg PO DAILY [facility] Last Admin: 12/27/20 08:23 Dose: 25 mcg Documented by: Cyanocobalamin (Cyanocobalamin (Vitamin B12) 1,000 Mcg Tab) 1,000 mcg PO DAILY [facility] Last Admin: 12/27/20 08:21 Dose: 1,000 mcg Documented by: Cyclobenzaprine HCl (Cyclobenzaprine 10 Mg Tab) 5 mg PO BEDTIME PRN PRN Reason: Pain Dextrose/Water (50% Dextrose In Water 50 Ml Syringe) 50 ml IVPUSH ASDIRECTED PRN PRN Reason: Hypoglycemia Dextrose/Water (50% Dextrose In Water 50 Ml Syringe) 50 ml IVPUSH ASDIRECTED PRN PRN Reason: Hypoglycemia Duloxetine HCl (Duloxetine 60 Mg Cap) 60 mg PO DAILY [facility] Last Admin: 12/27/20 08:22 Dose: 60 mg Documented by: Gabapentin (Gabapentin 300 Mg Cap) 300 mg PO BEDTIME [facility] Last Admin: 12/27/20 20:05 Dose: 300 mg Documented by: Glucagon (Glucagon,Human Recombinant 1 Mg Vial) 1 mg IM ASDIRECTED PRN PRN Reason: Hypoglycemia Glucagon (Glucagon,Human Recombinant 1 Mg Vial) 1 mg IM ASDIRECTED PRN PRN Reason: Hypoglycemia Insulin Glargine (Insulin Glarg,Human.Rec.Analog 100 Unit/Ml) 20 unit SUBCUT BEDTIME [facility] Last Admin: 12/27/20 20:03 Dose: 20 units Documented by: Insulin Human Lispro (Insulin Lispro 100 Units/Ml 3 Ml Vial) 5 unit SUBCUT TIDMEALS [facility] Last Admin: 12/27/20 17:16 Dose: 5 units Documented by: Isosorbide Mononitrate (Isosorbide Mononitrate 30 Mg Tab.Er) 30 mg PO DAILY [facility] Last Admin: 12/27/20 08:22 Dose: 30 mg Documented by: Lactulose (Lactulose Soln 10 Gm/15 Ml 15 Ml Ud Cup) 10 gm PO DAILY [facility] Last Admin: 12/27/20 08:16 Dose: 10 gm Documented by: Levothyroxine Sodium (Levothyroxine 100 Mcg Tab) 200 mcg PO ACBREAKFAST [facility] Last Admin: 12/27/20 06:44 Dose: 200 mcg Documented by: Levothyroxine Sodium (Levothyroxine 75 Mcg Tab) 75 mcg PO ACBREAKFAST [facility] Last Admin: 12/27/20 06:44 Dose: 75 mcg Documented by: Magnesium Oxide (Magnesium Oxide 400 Mg Tab) 400 mg PO BID [facility] Last Admin: 12/27/20 20:06 Dose: 400 mg Documented by: Metoclopramide HCl (Metoclopramide 5 Mg Tab) 5 mg PO QIDACANDBED [facility] Last Admin: 12/27/20 20:07 Dose: 5 mg Documented by: Metoprolol Succinate (Metoprolol Succinate 25 Mg Tab.Er) 12.5 mg PO DAILY [facility] Last Admin: 12/27/20 08:18 Dose: 12.5 mg Documented by: Nitroglycerin (Nitroglycerin 0.4 Mg Tab.Sl) 0.4 mg SL ASDIRECTED PRN PRN Reason: Chest Pain Ursodiol (Actigall) (300mg Own Med ) 1 each PO BEDTIME [facility] Last Admin: 12/27/20 20:07 Dose: 1 each Documented by: Ursodiol (Actigall) (300mg Own Med ) 2 each PO BID@08,12 [facility] Last Admin: 12/27/20 12:24 Dose: 2 each Documented by: Ocaliva (Obeticholic Acid) 5mg Own Med 1 each PO DAILY [facility] Last Admin: 12/27/20 08:16 Dose: 1 each Documented by: Alek (Patiromer) 8.4gm Packet Own Med 1 each PO BEDTIME [facility] Last Admin: 12/27/20 20:08 Dose: 1 each Documented by: Nortriptyline HCl (Nortriptyline 10 Mg Cap) 20 mg PO BEDTIME [facility] Last Admin: 12/27/20 20:06 Dose: 20 mg Documented by: Nortriptyline HCl (Nortriptyline 10 Mg Cap) 10 mg PO BID@0800,1400 [facility] Last Admin: 12/27/20 13:43 Dose: 10 mg Documented by: Nystatin (Nystatin Crm 30 Gm Tube) 0 gm TOP BID [facility] Last Admin: 12/27/20 20:07 Dose: 1 applic Documented by: Polyethylene Glycol (Polyethylene Glycol 3350 Powder 17 Gm Packet) 17 gm PO DAILY PRN PRN Reason: Constipation Pramipexole Dihydrochloride (Pramipexole 0.5 Mg Tab) 0.5 mg PO BEDTIME [facility] Last Admin: 12/27/20 20:04 Dose: 0.5 mg Documented by: Senna/Docusate Sodium (Docusate Sodium/Sennosides 50-8.6 Mg Tab) 1 tab PO BID PRN PRN Reason: Constipation Sodium Bicarbonate (Sodium Bicarbonate 650 Mg Tab) 650 mg PO TID [facility] Last Admin: 12/27/20 20:06 Dose: 650 mg Documented by: Vitamin E (Vitamin E (Uz-Ryytk-Imgfurkniv Acetate) 400 Unit Cap) 400 units PO BID [facility] Last Admin: 12/27/20 20:06 Dose: 400 units Documented by: Discontinued Medications Dextrose/Water (50% Dextrose In Water 50 Ml Syringe) 50 ml IVPUSH ASDIRECTED PRN PRN Reason: Hypoglycemia Glucagon (Glucagon,Human Recombinant 1 Mg Vial) 1 mg SUBCUT ASDIRECTED PRN PRN Reason: Hypoglycemia Glucagon (Glucagon,Human Recombinant 1 Mg Vial) 1 mg IM ASDIRECTED PRN PRN Reason: Hypoglycemia Insulin Glargine (Insulin Glarg,Human.Rec.Analog 100 Unit/Ml) 18 unit SUBCUT BEDTIME [facility] Last Admin: 12/26/20 19:44 Dose: 18 units Documented by: Insulin Human Lispro (Insulin Lispro 100 Units/Ml 3 Ml Vial) 4 unit SUBCUT TIDMEALS [facility] Last Admin: 12/27/20 08:13 Dose: 4 unit Documented by: Insulin Human Lispro (Insulin Lispro 100 Units/Ml 3 Ml Vial) 4 unit SUBCUT ONETIME ONE Stop: 12/26/20 21:03 Last Admin: 12/26/20 21:09 Dose: 4 units Documented by: - Exam General: Alert, Oriented, Cooperative Lungs: Clear to Auscultation, Normal Respiratory Effort Cardiovascular: Regular Rate, Regular Rhythm Extremities: Normal Inspection, No Pedal Edema Skin: Warm, Dry Psy/Mental Status: Alert, Normal Affect, Normal Mood - Patient Data Result Diagrams: 12/26/20 06:20 12/26/20 06:20 Sepsis Event Note - Evaluation Sepsis Screening Result: No Definite Risk - Problem List & Annotations (1) Anemia SNOMED Code(s): 560332760 Code(s): D64.9 - ANEMIA, UNSPECIFIED Status: Acute Current Visit: No Qualifiers: Anemia type: iron deficiency Qualified Code(s): D64.9 - Anemia, unspecified (2) Vaginal bleeding SNOMED Code(s): 466908701 Code(s): N93.9 - ABNORMAL UTERINE AND VAGINAL BLEEDING, UNSPECIFIED Status: Acute Current Visit: No (3) Biliary cirrhosis SNOMED Code(s): 3378010 Code(s): K74.5 - BILIARY CIRRHOSIS, UNSPECIFIED Status: Chronic Current Visit: No (4) CAD (coronary artery disease) SNOMED Code(s): 75898616 Code(s): I25.10 - ATHSCL HEART DISEASE OF [place] CORONARY ARTERY W/O ANG PC TRS Status: Chronic Current Visit: No Qualifiers: Coronary Disease-Associated Artery/Lesion type: [place] artery [place] vs. transplanted heart: [place] heart Associated angina: without angina Qualified Code(s): I25.10 - Atherosclerotic heart disease of [place] coronary artery without angina pectoris (5) CKD (chronic kidney disease) stage 4, GFR 15-29 ml/min SNOMED Code(s): 108165623 Code(s): N18.4 - CHRONIC KIDNEY DISEASE, STAGE 4 (SEVERE) Status: Chronic Current Visit: No (6) Diabetes mellitus SNOMED Code(s): 45529495 Code(s): E11.9 - TYPE 2 DIABETES MELLITUS WITHOUT COMPLICATIONS Status: Chronic Current Visit: No Qualifiers: Diabetes mellitus type: type 1 Diabetes mellitus complication status: with other specified complication Qualified Code(s): E10.69 - Type 1 diabetes mellitus with other specified complication (7) Thrombocytopenia SNOMED Code(s): 257920697 Code(s): D69.6 - THROMBOCYTOPENIA, UNSPECIFIED Status: Chronic Current Visit: No (8) [place] syndrome Status: Chronic Current Visit: No - Problem List Review Problem List Initiated/Reviewed/Updated: Yes - My Orders Last 24 Hours: My Active Orders 12/27/20 12:00 Insulin Lispro [HumaLOG] 5 unit SUBCUT TIDMEALS 12/27/20 20:00 Insulin Glarg,Human.Rec.Analog [LantUS] 20 unit SUBCUT BEDTIME 12/28/20 05:15 BASIC METABOLIC PANEL,BMP [CHEM] AM CBC WITH AUTO DIFF [HEME] AM - Plan Plan:: Continue current therapies sounds like the plan for d/c is Thursday Lab in the AM Adjust Lantus to 20 daily Increase meal insulin to 5 TID PERSONAL ASSISTANT contacted again and they are working on an endometrial biopsy in [place] She has completed ABX She feels pain is controlled on her current regimen Hydrocodone 10 mg QID, Oxyco ntin was stopped she was on 30 mg of that daily
[2020-12-28] MEDS: Metoclopramide 5 MG Tab PO SCH ×4 (06:06→19:56)
[2020-12-28] MEDS: Levothyroxine 100 MCG Tab PO SCH (06:06)
[2020-12-28] MEDS: Levothyroxine 75 MCG Tab PO SCH (06:06)
[2020-12-28] MEDS: Insulin Lispro 100 Units/ML 3 ML Vial SUBCUT SCH ×3 (08:16→18:20)
[2020-12-28] MEDS: Calcitriol 0.25 MCG Cap PO SCH (08:18)
[2020-12-28] MEDS: Cholecalciferol (Vitamin D3) 25 MCG Tab PO SCH (08:18)
[2020-12-28] MEDS: Vitamin E (dl-alpha-tocopherol acetate) 400 Unit Cap PO SCH ×2 (08:18→19:51)
[2020-12-28] MEDS: Metoprolol Succinate 25 MG Tab.ER PO SCH (08:18)
[2020-12-28] MEDS: Lactulose Soln 10 GM/15 ML 15 ML UD Cup PO SCH (08:18)
[2020-12-28] MEDS: Nortriptyline 10 MG Cap PO SCH ×3 (08:19→19:51)
[2020-12-28] MEDS: Sodium Bicarbonate 650 MG Tab PO SCH ×3 (08:19→19:51)
[2020-12-28] MEDS: Acetaminophen/HYDROcodone 325-10 MG Tab PO SCH ×4 (08:19→19:52)
[2020-12-28] MEDS: Isosorbide Mononitrate 30 MG Tab.ER PO SCH (08:19)
[2020-12-28] MEDS: Magnesium Oxide 400 MG Tab PO SCH ×2 (08:19→19:51)
[2020-12-28] MEDS: Cyanocobalamin (Vitamin B12) 1,000 MCG Tab PO SCH (08:19)
[2020-12-28] MEDS: URSODIOL 300 MG PO SCH ×3 (08:20→19:49)
[2020-12-28] MEDS: DULoxetine 60 MG Cap PO SCH (08:20)
[2020-12-28] MEDS: Nystatin Crm 30 GM Tube TOP SCH ×2 (08:21→19:56)
[2020-12-28] MEDS: OCALIVA PO SCH (08:21)
[2020-12-28] MEDS ORDERED: Glucagon,Human Recombinant 1 MG Vial IM PRN (17:16)
[2020-12-28] MEDS ORDERED: Insulin Lispro 100 Units/ML 3 ML Vial SUBCUT ONE (17:16)
[2020-12-28] MEDS ORDERED: 50% Dextrose in Water 50 ML Syringe IVPUSH PRN (17:16)
[2020-12-28] MEDS: Insulin Glarg,Human.Rec.Analog 100 Unit/ML SUBCUT SCH (19:49)
[2020-12-28] MEDS: Gabapentin 300 MG Cap PO SCH (19:51)
[2020-12-28] MEDS: Pramipexole 0.5 MG Tab PO SCH (19:51)
[2020-12-28] MEDS: VELTASSA 8.4 GM PO SCH (19:52)
--- NOTE | 2020-12-28 21:31 | DISCH ---
Date of swing bed admission is 12/24/2020. PRIMARY DISCHARGE DIAGNOSES: 1. An acute on chronic anemia related to postmenopausal vaginal bleeding. 2. Fall at home related to anemia and medications, improving with therapies. 3. Right hip pain with some osteoarthritis on x-rays. 4. Chronic back pain and painful diabetic neuropathy on hydrocodone. OxyContin 30 mg total stop during this stay and the patient did well on pain control without it. 5. Acute on chronic anemia with chronic kidney disease stage 4. Her creatinine was up over 5. It actually improved to 3.4 on discharge with a GFR up to 14. Worsening renal function was probably related to her anemia. 6. Mild urinary retention. She had a [place] for about 48 hours and had good urine output. She was voiding okay after the catheter was removed. 7. Postmenopausal vaginal bleeding with ultrasound showing tumor mass or blood. Need for an endometrial biopsy. 8. Severe thrombocytopenia. Platelets in the 35-50 range during her stay. They have been this way for 6 months. They were 44 on discharge and her bleeding had improved. 9. Type 1 diabetes with hyperglycemia, likely related to having some regular foods with sugar inadvertently at times for snack and sometimes missing insulin doses. She has had improved blood sugars when her doses have been adjusted. 10.Urinary tract infection due to E coli and community-acquired pneumonia. She completed her antibiotics. 11.Hypothyroidism. She required increased doses of levothyroxine. 12.Restless legs syndrome. 13.Biliary cirrhosis. 14.Coronary artery disease, stable without chest pain. 15.Remote history of colon cancer. 16.Moderate malnutrition. 17.Obesity. REASON FOR ADMISSION: On the date of admission, this 65-year-old female was admitted to acute care after a fall at home after she had vaginal bleeding for several days. The catheter was placed and confirmed that the bleeding in fact was vaginal. She had spec exam in the clinic and also by initial physician which confirmed vaginal bleeding. The patient did receive DDAVP due to the thought that it was her worsening renal function that was causing her to bleed. However, it was suspected to be the low platelets. She was not transfused platelets during her stay, but did get 1 unit of blood on acute care. She is going home with a hemoglobin up to 8.8 on discharge. The patient's blood sugars were otherwise monitored with her Romario. She was low, 60 on admission. They were running lower during the night on some nights previous, but in the last few days, she is eating 100% of her meals and many of her readings were over 200 and even 300. The patient is having bowel movements. She is no longer coughing. She is not short of breath. She is having no fevers. She completed antibiotic. She is up. She is working with therapy. She is polite. She is cooperative. She has not been confused. OBJECTIVE: Vital Signs: On date of discharge, her temperature 97.9, pulse 69, blood pressure 123/56, respiratory rate is 16, O2 of 99% on room air. General: She is in no acute distress. Heart: Regular rate and rhythm with systolic murmur. Lungs: Lung sounds are clear to auscultation bilaterally without crackles or wheezes. Abdomen: Nondistended, nontender. Extremities: Warm and dry. The patient does have trace edema to her ankles. Mental Status: She is alert. She is orientated x3. DISCHARGE PLANS AND INSTRUCTIONS: The patient will follow up with [facility]. We have been working on trying to get her biopsy in [place]. She is already scheduled in the clinic for a consult on 01/07. She will need 1 unit of platelets prior to the endometrial biopsy. She will see me in the clinic, likely on 01/06 after I complete retirement rounds for followup and she will have a CMP and CBC due at that time. Discussion with the patient that she will be off OxyContin. She may use 1-2 Tylenol per day in addition to the hydrocodone for pain. She will take Neurontin at bedtime only. She will use Bumex only if needed for swelling. She will take 2 extra units at each meal. Her base will be 5 units t.i.d., but 2 units extra if blood sugar over 200, 3 if over 250, and 4 if over 300, and her Lantus will be 20 units daily. Her levothyroxine was increased to 275, because her TSH was 24. The patient will need that repeat TSH in about 1 month. The patient has a 9 a.m. appointment with [facility] to possibly move into the Transitional Care Unit. Therefore, we did not order home health for her on discharge. If she is unable to go to [facility], we could consider it. They would like [facility]. However, physical therapy is not currently available through them. The patient also was referred to Hematology for thrombocytopenia. She also had a peripheral smear that came back during her stay which showed her to have macrocytic anemia with slight reticulocytosis and moderate thrombocytopenia. Etiologies include anemia of chronic disease which we know she has kidney disease, hepatobiliary disorders which we know she has, hypothyroidism which we know she has, medication affects, myelodysplastic syndrome. The patient's liver tests during her stay were showing her to have albumin of 2.3 and bilirubin normal at 0.7, alkaline phosphatase 475, ALT and AST normal. Greater than 30 minutes spent on this discharge process. MKA: 12/28/2020 20:57:05 MODL: 12/28/2020 21:24:14 /[id number]
[2020-12-29 05:26] VITALS: BP 114/76; PULSE 70
[2020-12-29] MEDS: Levothyroxine 75 MCG Tab PO SCH (06:07)
[2020-12-29] MEDS: Metoclopramide 5 MG Tab PO SCH ×2 (06:07→11:33)
[2020-12-29] MEDS: Levothyroxine 100 MCG Tab PO SCH (06:07)
[2020-12-29] MEDS: OCALIVA PO SCH (07:52)
[2020-12-29] MEDS: URSODIOL 300 MG PO SCH (07:52)
[2020-12-29] MEDS: Lactulose Soln 10 GM/15 ML 15 ML UD Cup PO SCH (07:53)
[2020-12-29] MEDS: Insulin Lispro 100 Units/ML 3 ML Vial SUBCUT SCH ×2 (07:53→11:35)
[2020-12-29] MEDS: DULoxetine 60 MG Cap PO SCH (07:54)
[2020-12-29] MEDS: Cholecalciferol (Vitamin D3) 25 MCG Tab PO SCH (07:54)
[2020-12-29] MEDS: Vitamin E (dl-alpha-tocopherol acetate) 400 Unit Cap PO SCH (07:54)
[2020-12-29] MEDS: Magnesium Oxide 400 MG Tab PO SCH (07:54)
[2020-12-29] MEDS: Nortriptyline 10 MG Cap PO SCH (07:54)
[2020-12-29] MEDS: Acetaminophen/HYDROcodone 325-10 MG Tab PO SCH ×2 (07:54→11:33)
[2020-12-29] MEDS: Sodium Bicarbonate 650 MG Tab PO SCH ×2 (07:54→11:34)
[2020-12-29] MEDS: Isosorbide Mononitrate 30 MG Tab.ER PO SCH (07:55)
[2020-12-29] MEDS: Cyanocobalamin (Vitamin B12) 1,000 MCG Tab PO SCH (07:55)
[2020-12-29] MEDS: Calcitriol 0.25 MCG Cap PO SCH (07:55)
[2020-12-29] MEDS: Metoprolol Succinate 25 MG Tab.ER PO SCH (07:55)
[2020-12-29] MEDS: Nystatin Crm 30 GM Tube TOP SCH (07:56)
== END 2020-12-29 12:05 | disposition home or self-care (01) | DRG 812 ==
LOC: VM.MS 18:16
PROVIDERS: ADMIT Internal Medicine; ATTEND Internal Medicine
DX: D50.9 Iron deficiency anemia, unspecified (principal); N18.4 Chronic kidney disease, stage 4 (severe); E44.0 Moderate protein-calorie malnutrition; N17.9 Acute kidney failure, unspecified; N95.0 Postmenopausal bleeding; G89.29 Other chronic pain; M54.9 Dorsalgia, unspecified; R33.9 Retention of urine, unspecified; D69.6 Thrombocytopenia, unspecified; E10.65 Type 1 diabetes mellitus with hyperglycemia; E10.42 Type 1 diabetes mellitus with diabetic polyneuropathy; B96.20 Unspecified Escherichia coli [E. coli] as the cause of diseases classified elsewhere; E03.9 Hypothyroidism, unspecified; G25.81 Restless legs syndrome; K74.5 Biliary cirrhosis, unspecified; I25.10 Atherosclerotic heart disease of native coronary artery without angina pectoris; E66.9 Obesity, unspecified; D63.1 Anemia in chronic kidney disease; D64.9 Anemia, unspecified; D63.8 Anemia in other chronic diseases classified elsewhere; E10.22 Type 1 diabetes mellitus with diabetic chronic kidney disease; Z68.36 Body mass index [BMI] 36.0-36.9, adult
CPT/HCPCS: 36415; 80048; 82947; 85025; 97110-GP; 97116-GP; 97530-GP; A9270-GY

== ENCOUNTER 2021-11-29 17:43 | Emergency (ER) | payer MEDICARE, OTHER ==
[2021-11-29 18:21] LABS: PCO2 ARTERIAL,POC 37 mmHg (35-48)
[2021-11-29 19:36] VITALS: BP 128/74; PULSE 80
== END 2021-11-29 19:32 | disposition home or self-care (01) ==
LOC: VM.ED 17:43
DX: T17.900A Unspecified foreign body in respiratory tract, part unspecified causing asphyxiation, initial encounter (principal); I11.0 Hypertensive heart disease with heart failure; I50.9 Heart failure, unspecified; I25.10 Atherosclerotic heart disease of native coronary artery without angina pectoris; E11.21 Type 2 diabetes mellitus with diabetic nephropathy; Z88.1 Allergy status to other antibiotic agents; Z88.8 Allergy status to other drugs, medicaments and biological substances; Z88.0 Allergy status to penicillin; Z88.6 Allergy status to analgesic agent; Z88.2 Allergy status to sulfonamides; Z91.041 Radiographic dye allergy status; Z79.899 Other long term (current) drug therapy; Z79.4 Long term (current) use of insulin
CPT/HCPCS: 36415; 36600; 71045; 82803; 84484; 93005; 99284

== ENCOUNTER 2022-09-10 06:52 | Emergency (ER) | payer MEDICARE, OTHER ==
[2022-09-10 08:02] LABS: CHLORIDE,CL 102 mmol/L (98-107); SODIUM,NA 137 mmol/L (136-145)
[2022-09-10 08:03] LABS: ANION GAP 12.9 mmol/L (5-15); ESTIMATED GFR 20 mL/min (>=60)
[2022-09-10] MEDS ORDERED: Tranexamic Acid 1,000 MG/10 ML Vial IV ONE (08:57)
[2022-09-10] MEDS: levETIRAcetam in NaCl (iso-os) 500 MG in Premix Bag 1 BAG IV ONE ×2 (09:15)
[2022-09-10] MEDS: Desmopressin 20 MCG in Sodium Chloride 0.9% 100 ML IV ONE (09:20)
[2022-09-10] MEDS: Tranexamic Acid 2,000 MG in Sodium Chloride 0.9% 100 ML IV ONE (09:31)
[2022-09-10] MEDS: Lactated Ringers 1,000 ML IV SCH (10:00)
[2022-09-10 11:06] VITALS: BP 147/66; PULSE 84
== END 2022-09-10 11:20 | disposition short-term general hospital (02) ==
LOC: VM.ED 06:52
DX: I62.00 Nontraumatic subdural hemorrhage, unspecified (principal); I25.10 Atherosclerotic heart disease of native coronary artery without angina pectoris; I12.9 Hypertensive chronic kidney disease with stage 1 through stage 4 chronic kidney disease, or unspecified chronic kidney disease; E10.22 Type 1 diabetes mellitus with diabetic chronic kidney disease; N18.4 Chronic kidney disease, stage 4 (severe); I50.9 Heart failure, unspecified; I25.119 Atherosclerotic heart disease of native coronary artery with unspecified angina pectoris; E78.00 Pure hypercholesterolemia, unspecified; E05.90 Thyrotoxicosis, unspecified without thyrotoxic crisis or storm; Z91.013 Allergy to seafood; Z88.0 Allergy status to penicillin; Z91.041 Radiographic dye allergy status; Z88.6 Allergy status to analgesic agent; Z88.8 Allergy status to other drugs, medicaments and biological substances
CPT/HCPCS: 36415; 70450; 80053; 82947; 83735; 84484; 85025; 86140; 93005; 93010; 94760; 96361; 96374; 96375; 99284; 99285-25; J1953; J2597; J3490; J7120